=== PATIENT | male | born 1955 | race Caucasian/White ===

== ENCOUNTER 2022-02-19 10:00 | Outpatient (RCR) | payer BC, SELFPAY | END 2022-02-21 16:50 | disposition home or self-care (01) | LOC: PT.CARL 10:00 | PROVIDERS: Visit Provider Orthopaedic Surgery Adult Reconstructive Orthopaedic Surgery | DX: M16.12 Unilateral primary osteoarthritis, left hip (principal); Z96.642 Presence of left artificial hip joint | CPT/HCPCS: 97110; 97116; 97163; 97530 ==

== ENCOUNTER 2022-12-24 11:00 | Outpatient (RCR) | payer BC, SELFPAY | END 2022-12-24 12:10 | disposition home or self-care (01) | LOC: PT 11:00 | PROVIDERS: Visit Provider Orthopaedic Surgery Adult Reconstructive Orthopaedic Surgery | DX: M16.11 Unilateral primary osteoarthritis, right hip (principal); Z96.641 Presence of right artificial hip joint | CPT/HCPCS: 97110; 97112; 97163; 97530 ==

== ENCOUNTER 2023-07-28 16:48 | Outpatient (CLI) | payer BC, SELFPAY ==
[2023-07-28 16:54] LABS: Basophils % 0.3 % (0.1-2.0); Eosinophils # 0.1 K/mm3 (0.0-0.4); Eosinophils % 1.2 % (0.1-12.0); Hematocrit 34.9 % (42.0-52.0); Lymphocytes # 1.9 K/mm3 (0.7-4.5); Lymphocytes % 24.1 % (10-50); Mean Corpuscular HGB Conc 31.4 g/dL (31.8-35.4); Mean Corpuscular Hemoglobin 24.1 pg (27.0-31.2); Mean Corpuscular Volume 76.6 fl (80-94); Mean Platelet Volume 9.3 fl (7.4-10.4); Monocytes # 0.4 K/mm3 (0.1-1.0); Neutrophils # 5.5 K/mm3 (1.8-7.8); Neutrophils % 69.4 % (37.0-80.0); Platelet Count 292 K/mm3 (142-424); Red Blood Count 4.55 M/mm3 (4.60-6.20); Red Cell Distribution Width 18.7 % (11.5-17.5)
[2023-07-28 17:12] LABS: Iron 30 ug/dL (49-181)
[2023-07-28 17:22] LABS: Total Iron Binding Capacity 398 ug/dL (261-462)
== END 2023-07-28 23:59 ==
LOC: LAB.DROPOF 16:48
PROVIDERS: PCP Nurse Practitioner Family; Visit Provider Nurse Practitioner Family
DX: D64.9 Anemia, unspecified (principal)
CPT/HCPCS: 82746; 83540; 83550; 85025

== ENCOUNTER 2023-08-29 19:43 | Outpatient (CLI) | payer BC, SELFPAY ==
[2023-08-29 17:22] LABS: Alanine Aminotransferase 18 U/L (12-78); Albumin Level 3.7 g/dl (3.5-5.0); Albumin/Globulin Ratio 1.6 (1.1-1.8); Alkaline Phosphatase 97 U/L (38-126); Anion Gap 7.6 mEq/L (5-15); Aspartate Amino Transferase 30 U/L (17-59); Bilirubin,Total 0.6 mg/dl (0.2-1.3); Blood Urea Nitrogen 15 mg/dl (9-20); Carbon Dioxide 31 mmol/L (22.0-30.0); Chloride 102 mmol/L (98-107); Estimated Glomerular Filt Rate 84 ml/min (>60); GFR (African American) 102 ML/MIN (>60); Globulin 2.3 g/dL (1.3-3.2); Glucose 106 mg/dl (74-100); Potassium 4.6 mmoL/L (3.5-5.1); Sodium 136 mmol/L (136-145)
[2023-08-29 17:36] LABS: Basophils % 0.2 % (0.1-2.0); Eosinophils # 0.1 K/mm3 (0.0-0.4); Eosinophils % 2.8 % (0.1-12.0); Lymphocytes # 1.3 K/mm3 (0.7-4.5); Lymphocytes % 31.3 % (10-50); Mean Corpuscular HGB Conc 31.4 g/dL (31.8-35.4); Mean Corpuscular Hemoglobin 24.5 pg (27.0-31.2); Mean Platelet Volume 10.5 fl (7.4-10.4); Monocytes # 0.3 K/mm3 (0.1-1.0); Neutrophils # 2.5 K/mm3 (1.8-7.8); Neutrophils % 58.6 % (37.0-80.0); Platelet Count 229 K/mm3 (142-424); Red Blood Count 4.49 M/mm3 (4.60-6.20); Red Cell Distribution Width 18.5 % (11.5-17.5); White Blood Count 4.2 K/mm3 (4.8-10.8)
[2023-08-29 17:52] LABS: Thyroid Stimulating Hormone 2.01 uIU/mL (0.465-4.68)
[2023-08-29 18:11] LABS: Vitamin B12 399 pg/mL (239-931)
== END 2023-08-29 23:59 ==
LOC: LAB.DROPOF 19:43
PROVIDERS: PCP Nurse Practitioner Family; Visit Provider Nurse Practitioner Family
DX: I10 Essential (primary) hypertension (principal); D64.9 Anemia, unspecified; R97.20 Elevated prostate specific antigen [PSA]
CPT/HCPCS: 80053; 82607; 83735; 84153; 84443; 85025

== ENCOUNTER 2023-09-18 11:07 | Day surgery (SDC) | payer BC, SELFPAY ==
[2023-09-11 09:44] VITALS: BMI 30.7
[2023-09-18] MEDS: SODIUM PHOS/BIPHOSPHATE FLEET 133ML ENEMA 133 ML RC (11:30)
[2023-09-18] MEDS: LACTATED RINGERS 1000ML 1,000 ML 25 ML IV (11:30)
[2023-09-18 11:32] VITALS: BP 152/81; PULSE 95; RESP 18; TEMP 37.2; O2SAT 100
[2023-09-18 12:52] VITALS: O2SAT 100
--- NOTE | 2023-09-18 13:05 | HMH.SCOPE ---
Procedure: Date: 09/18/23 Patient Date of :: 1955 Procedure Performed:: Diagnostic colonoscopy Indications:: Anemia, History of polyps Performing Provider:: Marco Holland MD Referring Provider:: Kiley Nicole APRN Sedation:: Propofol Procedure:: After placing the patient in the left lateral decubitus position, the colonoscopy was gently inserted into the rectum and under direct visualization advanced to the cecum which was identified by transillumination in the right lower quadrant, identification of the ileocecal valve, appendiceal orifice, and cecal strap. Color, texture, mucosa, and anatomy of the colon were carefully examined with the scope. Findings:: Anal canal: normal Rectum: normal Sigmoid colon: normal without polyps or inflammatory changes, moderate diverticulosis Descending colon: normal without polyps or inflammatory changes, diverticulosis Splenic flexure: normal Transverse colon: normal without polyps or inflammatory changes Hepatic flexure: normal Ascending colon: normal without polyps or inflammatory changes Cecum: normal Terminal ileum: not visualized Impression: Diverticulosis of the left colon, otherwise normal colonoscopy No evidence of active blood loss Recommendations:: Follow up examination in about FIVE years or so, sooner if clinically indicated in view of history of polyps Consider capsule endoscopy evaluation if clinically indicated. Complications:: None Estimated blood obtained (mL): 0 Colonoscopy Component Colonoscopy Component Was a colonoscopy performed during today's procedure?: Yes Recommended follow up colonoscopy of at least 10 years?: No If no, follow up colonoscopy recommended in ___ years?: Five Reason for not recommending >/= 10 yr follow-up interval?: Hx of polyps
[2023-09-18 13:06] VITALS: BP 129/69; PULSE 69; RESP 16; TEMP 36.5; O2SAT 92
[2023-09-18 13:16] VITALS: BP 109/68; PULSE 72; RESP 16; O2SAT 95
[2023-09-18 13:26] VITALS: BP 126/74; PULSE 70; RESP 18; O2SAT 100
--- NOTE | 2023-09-18 13:31 | EXP.ANES.CKL ---
[facility] Disclaimer: The information contained in this section may have been updated after the patient was seen, as this information can be updated by other users. Medical History Hx of transesophageal echocardiography (FAN) for monitoring Normal colonoscopy Chronic GERD Hypertension Stroke Prostate cancer Surgical History History of loop recorder History of hip replacement Family History Father Stroke Mother Hypertension Other Family history of acute congestive heart failure History of dementia Social History Smoking Status: Never smoker second hand exposure: No alcohol intake: current substance use type: denies use current occupational status: employed Travel in the last 8 weeks: None household members: spouse housing: house caffeine: Yes [facility] Anesthesia Checklist Patient Identification Patient Identification: Verbal (Name & ) Structural Data Admitted From: Home Planned Operative Procedure/s: colonoscopy Consent for Planned Operative Procedure(s) Verified: Yes Airway Assessment Mallampati Score:: Class II C-Spine Mobility Assessed: Yes TMJ Mobility Assessed: Yes Dentition: Good Dentition Neurological Assessment Level of Consciousness: Awake, Alert and Appropriate Anesthesia Plan Anesthesia Risk discussed: Yes Anesthesia Plan: Verified ASA Class: II Anesthesia Type: MAC
[2023-09-18 13:35] VITALS: BP 114/74; PULSE 72; RESP 16; TEMP 36.3; O2SAT 100
== END 2023-09-18 13:44 | disposition home or self-care (01) ==
PROVIDERS: PCP Nurse Practitioner Family; Visit Provider Internal Medicine Gastroenterology
PROC: 0DJD8ZZ Inspection of Lower Intestinal Tract, Via Natural or Artificial Opening Endoscopic (ICD-10-PCS; CPT 45378; principal; 2023-09-18 12:00)
DX: D64.9 Anemia, unspecified (principal); Z86.010 Personal history of colon polyps; K57.30 Diverticulosis of large intestine without perforation or abscess without bleeding
CPT/HCPCS: 45378

== ENCOUNTER 2024-02-25 15:31 | Emergency (ER) | payer BC, SELFPAY ==
[2024-02-25 15:40] VITALS: BP 147/87; PULSE 88; RESP 20; TEMP 37; O2SAT 97; BMI 31.5
--- NOTE | 2024-02-25 15:49 | XR_ITS ---
FINAL REPORT CLINICAL HISTORY: SOA, denies cough or cp COMPARISON: None FINDINGS: Two views of the chest were obtained. The heart size and pulmonary vascularity are within normal limits. A loop recorder is present. The mediastinum is otherwise normal. Mild left base opacities are favored to represent atelectasis. There is no pneumothorax. The bony thorax is intact. IMPRESSION: Mild left base opacities favor atelectasis. Reviewed, Interpreted and Dictated by Loki Noble III, MD Transcribed by Trinity French Authenticated and [facility][1]
--- NOTE | 2024-02-25 15:55 | ED_ITS ---
Discharge Plan Disposition Patient Disposition: Home, Self-Care Condition: Good Prescriptions Prescriptions: New ondansetron 4 mg Tablet,Disintegrating 4 mg PO Q8H PRN (Reason: Nausea) Qty: 12 0RF No Action lisinopril-hydrochlorothiazide 20-12.5 mg tablet 1 tab PO DAILY diltiazem HCl 180 mg capsule,extended release 24hr 180 mg PO DAILY bupropion HCl 150 mg tablet extended release 24 hr 150 mg PO DAILY silodosin 8 mg capsule 8 mg PO DAILY Eliquis 5 mg tablet 5 mg PO DAILY Referrals Follow up/Referrals: Kiley Nicole APRN [Primary Care Provider] - See instructions Activity Restrictions/Add. Instructions Additional Instructions/Restrictions: Drink plenty of fluids. Take tylenol for pain or fever. Take the medications as directed. Follow up with your regular doctor. GO TO THE ER FOR ANY WORSENING SYMPTOMS Clinical Impressions Clinical Impression: Acute viral syndrome Instructions Patient Instructions: DI for Viral Syndrome Print Language Print Language: Azeri Discharge ED Provider: Jerrod Evans [facility] General Stated complaint: SOA frequent urination diarrhea Mode of Arrival: Ambulatory Source of Information: Patient Limitations: No Limitations Time Seen by Provider: 02/25/24 15:55 Description of Symptoms (Recalled from Triage Doc. by RN): PATIENT REPORTS HE HAS BEEN SOA FOR THE LAST COUPLE OF DAYS. HE STATES HE WAS AT [facility] TODAY WHEN HE STARTED HAVING DIFFICULTY BREATHING. HE CALLED 911 AT THAT TIME AND WAS CHECKED BY EMS AND FOUND TO HAVE AN ELEVATED BLOOD PRESSURE AND HEART RATE INITIALLY. HE STATES BY THE TIME EMS LEFT HIS BLOOD PRESSURE AND HEART RATE HAD DECREASED. PATIENT STATES HIS CALLED PCP WHO SUGGESTED HE COME HERE AND GET CHECKED OUT. HEENT Symptoms (Recalled from RN notes): No Resp Symptoms (Recalled from RN notes): Yes Skin Symptoms (Recalled from RN notes): No MS Symptoms (Recalled from RN notes): No Functional Status (Recalled from RN notes): WNL Related Data Home Medications ?Medication ?Instructions ?Recorded ?Confirmed apixaban 5 mg tablet (Eliquis) 5 mg PO DAILY 02/25/24 02/25/24 bupropion HCl 150 mg 24 hr tablet, 150 mg PO DAILY 02/25/24 02/25/24 extended release diltiazem HCl 180 mg 180 mg PO DAILY 02/25/24 02/25/24 capsule,extended release 24 hr lisinopril 20 1 tab PO DAILY 02/25/24 02/25/24 mg-hydrochlorothiazide 12.5 mg tablet silodosin 8 mg capsule 8 mg PO DAILY 02/25/24 02/25/24 Previous Rx's ?Medication ?Instructions ?Recorded ondansetron 4 mg disintegrating 4 mg PO Q8H PRN Nausea #12 tabs 02/25/24 tablet Allergies Allergy/AdvReac Type Severity Reaction Status Date / Time amoxicillin Allergy Verified 02/25/24 15:55 ciprofloxacin [From Cipro] Allergy shortness Verified 01/05/24 12:54 of breath Worker's Comp Is this a Worker's Comp case?: No [facility] Disclaimer: The information contained in this section may have been updated after the patient was seen, as this information can be updated by other users. Medical History Hx of transesophageal echocardiography (FAN) for monitoring Normal colonoscopy Chronic GERD Hypertension Stroke Prostate cancer Surgical History History of loop recorder History of hip replacement bilateral Family History Father Stroke Mother Hypertension Other Family history of acute congestive heart failure History of dementia Social History Smoking Status: Never smoker second hand exposure: No alcohol intake: current substance use type: denies use current occupational status: employed Travel in the last 8 weeks: None household members: spouse housing: house caffeine: Yes ROS Obtained: Yes All systems reviewed & no additional complaints except as documented Constitutional Constitutional: Reports chills and Reports fever(s) Eyes Eyes: Denies eye discharge ENT Ears, Nose, Mouth, and Throat: Reports as per HPI Cardiovascular Cardiovascular: Denies chest pain Respiratory Respiratory: Denies chest congestion and Reports cough Gastrointestinal Gastrointestingal: Reports nausea; Denies abdominal pain, constipation, cramping, diarrhea or vomiting Musculoskeletal Musculoskeletal: Denies arthralgias Integumentary/Breasts Skin/Breast: Denies rash Neurologic Neurologic: Denies paresthesias Physical Exam General General appearance: alert and in no apparent distress Head Head exam: atraumatic, normocephalic and normal inspection Eye Eye exam: Present normal appearance, PERRL and EOMI ENT ENT exam: Present mucous membranes moist and normal external ear exam Expanded ENT Exam TM/Canal exam: Bilateral TM: erythema and bulging Nose exam: Absent sinus tenderness Mouth exam: Present normal external inspection; Absent drooling Teeth exam: Present normal inspection Throat exam: Present tonsillar erythema, tonsillomegaly and tonsillar exudate Neck Neck exam: Present normal inspection, full ROM and trachea midline; Absent tenderness, meningismus or lymphadenopathy Chest Chest inspection: Present normal inspection and symmetric chest wall rise; Absent tenderness Respiratory Respiratory exam: Present normal lung sounds bilaterally; Absent respiratory distress, wheezes, stridor or accessory muscle use Cardiovascular Cardiovascular exam: Present regular rate and normal rhythm; Absent systolic murmur or diastolic murmur Abdominal Exam Abdominal exam: Present soft and normal bowel sounds; Absent distention, tenderness, guarding, rebound or rigidity Extremities Exam Extremities exam: Present normal inspection and normal capillary refill; Absent calf tenderness Back Exam Back exam: Present normal inspection and full ROM; Absent tenderness, CVA tenderness (R) or CVA tenderness (L) Neurological Exam Neurological exam: Present alert, oriented X3 and CN II-XII intact Psychiatric Psychiatric exam: Present normal affect and normal mood Skin Skin exam: Present warm, dry, intact and normal color Medical Decision Making Medical Records Medical records reviewed: No I reviewed the patient's medical records. Juan Inquiry Pt receiving controlled substance: No Vital Signs: 02/25/24 15:40 Temperature 98.6 F Temperature Source Oral Pulse Rate [Left Brachial] 88 Respiratory Rate 20 Blood Pressure [Left Arm] 147/87 H Blood Pressure Mean [Left Arm] 107 Blood Pressure Source [Left Arm] Automatic Cuff Blood Pressure Position [Left Arm] Sitting 02 Sat by Pulse Oximetry 97 Oxygen Delivery Method Room Air Orders (Tests/Meds): ORDERS Category Date Time Status Chest XR 2 view (NOT portable) [XR chest 2V] Stat Exams 02/25/24 15:49 Ordered
[2024-02-25 15:58] LABS: Apearance,Urine Clear (Clear); Bilirubin,Urine Negative (Negative); Blood, Urine Negative (Negative); Color,Urine Yellow (Yellow); Glucose,Urine (UA) Negative (Negative); Ketones,Urine Negative (Negative); Protein,Urine Negative (Negative); UTC Leukocyte Esterase,Urine Negative (Negative); UTC Nitrate,Urine Negative (Negative); Urobilinogen,Urine 0.2 EU/dl (0.2)
--- NOTE | 2024-02-25 16:23 | ECG_ITS ---
APPROVED REPORT Exam: Resting ECG HR:66 bpm ECG Measurements Heart Rate 66 AXES MA 165 P 32 QRSd 96 QRS 35 QT 374 T 40 QTc 387 Conclusion SINUS RHYTHM NORMAL ECG UNCONFIRMED REPORT Electronically signed by : Luke Mariano MD 02/27/2024 16:03:57
[2024-02-25 16:42] VITALS: BP 147/87; PULSE 88; RESP 20; TEMP 37; O2SAT 97
== END 2024-02-25 16:45 | disposition home or self-care (01) ==
PROVIDERS: Emergency Provider Nurse Practitioner Family; PCP Nurse Practitioner Family
DX: R06.02 Shortness of breath (principal); I10 Essential (primary) hypertension; R11.0 Nausea; B34.9 Viral infection, unspecified
CPT/HCPCS: 71046; 81003; 93005; 99204; 99212; G0463

== ENCOUNTER 2024-05-05 12:23 | Outpatient (CLI) | payer BC, SELFPAY ==
[2024-05-05 16:45] LABS: Basophils % 0.6 % (0.1-2.0); Eosinophils # 0.1 K/mm3 (0.0-0.4); Hematocrit 38.5 % (42.0-52.0); Hemoglobin 11.9 g/dL (14.1-18.0); Lymphocytes # 1.1 K/mm3 (0.7-4.5); Lymphocytes % 26.9 % (10-50); Mean Corpuscular HGB Conc 30.9 g/dL (31.8-35.4); Mean Corpuscular Hemoglobin 25.2 pg (27.0-31.2); Mean Corpuscular Volume 81.4 fl (80-94); Mean Platelet Volume 9.7 fl (7.4-10.4); Monocytes # 0.3 K/mm3 (0.1-1.0); Neutrophils # 2.5 K/mm3 (1.8-7.8); Neutrophils % 63.5 % (37.0-80.0); Platelet Count 245 K/mm3 (142-424); Red Blood Count 4.73 M/mm3 (4.60-6.20); Red Cell Distribution Width 17.2 % (11.5-17.5)
[2024-05-05 17:13] LABS: Alanine Aminotransferase 15 U/L (12-78); Albumin Level 3.8 g/dl (3.5-5.0); Albumin/Globulin Ratio 1.6 (1.1-1.8); Alkaline Phosphatase 121 U/L (38-126); Anion Gap 7.9 mEq/L (5-15); Aspartate Amino Transferase 25 U/L (17-59); Bilirubin,Total 0.7 mg/dl (0.2-1.3); Blood Urea Nitrogen 11 mg/dl (9-20); Calcium 9.3 mg/dl (8.4-10.2); Carbon Dioxide 33 mmol/L (22.0-30.0); Chloride 101 mmol/L (98-107); Chol/HDL Ratio 2.4 (1-3.5); Cholesterol 118 mg/dl (140-200); Estimated Glomerular Filt Rate 96 ml/min (>60); GFR (African American) 117 ML/MIN (>60); Globulin 2.4 g/dL (1.3-3.2); Glucose 99 mg/dl (74-100); HDL Cholesterol 49 mg/dl (40-60); Potassium 3.9 mmoL/L (3.5-5.1); Sodium 138 mmol/L (136-145); Total Protein,Serum 6.2 g/dl (6.3-8.2); Triglycerides 69 mg/dl (30-150); VLDL Cholesterol 14 mg/dL (0-40)
[2024-05-05 17:24] LABS: Direct LDL Cholesterol 56.69 mg/dL (100-129)
[2024-05-05 17:26] LABS: Hemoglobin A1C 5.7 % (4.0-6.0)
== END 2024-05-05 23:59 | disposition home or self-care (01) ==
LOC: LAB.DROPOF 05-06 12:23
PROVIDERS: PCP Family Medicine; Visit Provider Family Medicine
DX: I10 Essential (primary) hypertension (principal)
CPT/HCPCS: 80053; 80061; 83036; 85025

== ENCOUNTER 2024-10-28 09:13 | Outpatient (CLI) | payer BC, SELFPAY ==
--- OUTSIDE RECORDS SUMMARY | 2024-10-28 09:15 | XMS_ITS | Data Portability ---
Author Organization [facility] & TiffanyMARITZA ADMIN Address [address] [place] [id number] Care Team Providers Care Vice President Of Academic Affairs Name Role Phone [facility] Primary Care Pro vider Assessment No assessment recorded. Plan of Treatment Reminders Order Date Submit Date Provider Last Modified By Organization Details Last Modified Time Details Appointments None recorded. Lab CBC w/ auto diff 2022 023 [facility], [address] [place], [address], 3 14:18:12 CMP, serum or plasma 2022 023 [facility], [address] [place], [address], 3 15:46:08 venipunctur e [address] [facility], [address] [place], [address], 3 13:26:47 factor VIII activity, plasma [address] [facility], [address] [place], [address], 3 08:07:52 antithrombi n activity, plasma 2022 023 [facility], [address] [place], [address], 3 06:13:16 CBC w/ auto diff 2022 023 [facility], [address] [place], [address], 3 15:11:25 CMP, serum or plasma 2022 023 [facility], [address] [place], [address], 3 15:46:39 factor V mutation, blood or tissue 2022 023 [facility], [address] [place], [address], 3 17:10:17 prothrombin (factor II) [id number] mutation, blood [address] [facility], [address] [place], [address], 3 13:32:19 factor VIII activity, plasma 2022 023 [facility], [address] [place], [address], 3 19:43:13 antithrombi n activity, plasma [address] [facility], [address] [place], [address], 3 13:32:19 protein C + protein S, functional panel, plasma [address] [facility], [address] [place], [address], 3 13:32:19 venipunctur e 2022 023 [email or web address] [facility], [address], [place], [address], 13:46:24 Referral None recorded. Procedures None recorded. Surgeries None recorded. Imaging None recorded. Medication Orders None recorded. Patient TargetsNo targets recorded. Patient InstructionsNo instructions recorded. Reason for Referral None Reported. Results Created Date Observation Date Name Description Value Unit Range Abnormal Flag Note LastModifiedBy Organization Detail LastModifiedTime 07/25/19 23 07/25/2022 CBC AUTO W DIFF WBC 4.6 K/uL 4.0-10 .5 Not Available [facility] ([facility]) [address] , [place], [address], 07/25/2022 15:11:25 07/25/19 23 07/25/2022 CBC AUTO W DIFF RBC 5.1 M/mm3 4.7-6. 1 Not Available [facility] ([facility]) [address] , [place], [address], 07/25/2022 15:11:25 07/25/19 23 07/25/2022 CBC AUTO W DIFF HGB 13.7 gm/dL 13.5-1 8.0 Not Available [facility] ([facility]) [address] , [place], [address], 07/25/2022 15:11:25 07/25/19 23 07/25/2022 CBC AUTO W DIFF HCT 44.7 % 42.0-5 2.0 Not Available [facility] ([facility]) [address] , [place], [address], 07/25/2022 15:11:25 07/25/19 23 07/25/2022 CBC AUTO W DIFF MCV 88.2 fL 78-100 Not Available [facility] ([facility]) [address] , [place], [address], 07/25/2022 15:11:25 07/25/19 23 07/25/2022 CBC AUTO W DIFF MCH 27.0 pg 27-31 Not Available [facility] ([facility]) [address] , [place], [address], 07/25/2022 15:11:25 07/25/19 23 07/25/2022 CBC AUTO W DIFF MCHC 30.6 g/dL 32-36 low Not Available [facility] ([facility]) [address], [place], [address], 07/25/2022 15:11:25 07/25/19 23 07/25/2022 CBC AUTO W DIFF RDW 14.5 % 11.5-1 4.0 high Not Available [facility] ([facility]) [address], [place], [address], 07/25/2022 15:11:25 07/25/19 23 07/25/2022 CBC AUTO W DIFF platelet count 227 K/uL 150-45 0 Not Available [facility] ([facility]) [address], [place], [address], 07/25/2022 15:11:25 07/25/19 23 07/25/2022 CBC AUTO W DIFF neutrophil% 63.1 % 43-65 Not Available [facility] ([facility]) [address] [place], [address], 07/25/2022 15:11:25 07/25/19 23 07/25/2022 CBC AUTO W DIFF lymphocyte% 27.7 % 20.5-4 5.5 Not Available [facility] ([facility]) [address] [place], [address], 07/25/2022 15:11:25 07/25/19 23 07/25/2022 CBC AUTO W DIFF monocyte% 7.9 % 5.5-11 .7 Not Available [facility] ([facility]) [address] [place], [address], 07/25/2022 15:11:25 07/25/19 23 07/25/2022 CBC AUTO W DIFF eosinophil% 1.1 % 0.9-2. 9 Not Available [facility] ([facility]) [address] [facility], [place], [address], 07/25/2022 15:11:25 07/25/19 23 07/25/2022 CBC AUTO W DIFF basophil% 0.2 % 0.2-1. 0 Not Available [facility] ([facility]) [address] [facility], [place], [address], 07/25/2022 15:11:25 07/25/19 23 07/25/2022 CBC AUTO W DIFF neutrophil# 2.9 K/uL 2.2-4. 8 Not Available [facility] ([facility]) [address] [facility], [place], [address], 07/25/2022 15:11:25 07/25/19 23 07/25/2022 CBC AUTO W DIFF lymphocyte# 1.3 cell/ mcL 1.3-2. 9 Not Available [facility] ([facility]) [address] [facility], [place], [address], 07/25/2022 15:11:25 07/25/19 23 07/25/2022 CBC AUTO W DIFF monocyte# 0.4 cell/ mcL 0.3-0. 8 Not Available [facility] ([facility]) [address] [facility], [place], [address], 07/25/2022 15:11:25 07/25/19 23 07/25/2022 CBC AUTO W DIFF eosinophil# 0.1 cell/ mcL 0-0.2 Not Available [facility] ([facility]) [address] [facility], [place], [address], 07/25/2022 15:11:25 07/25/19 23 07/25/2022 CBC AUTO W DIFF basophil# 0.0 cell/ mcL 0.0-1. 0 Not Available [facility] ([facility]) [address], [place], [address], 07/25/2022 15:11:25 07/25/19 23 07/25/2022 CBC AUTO W DIFF manual differential NO Not Available [facility] ([facility]) [address], [place], [address], 07/25/2022 15:11:25 07/25/19 23 07/25/2022 COMP METAB OLIC PANEL sodium 139 mmol/ L 136-14 5 Not Available [facility] ([facility]) [address], [place], [address], 07/25/2022 15:46:39 07/25/19 23 07/25/2022 COMP METAB OLIC PANEL potassium 3.4 mmol/ L 3.6-5. 0 low Not Available [facility] ([facility]) [address], [place], [address], 07/25/2022 15:46:39 07/25/19 23 07/25/2022 COMP METAB OLIC PANEL chloride 100 mmol/ L 98-107 Not Available [facility] ([facility]) [address], [place], [address], 07/25/2022 15:46:39 07/25/19 23 07/25/2022 COMP METAB OLIC PANEL carbon dioxide 30.2 mmol/ L 21.0-3 2.0 Not Available [facility] ([facility]) [address], [place], [address], 07/25/2022 15:46:39 07/25/19 23 07/25/2022 COMP METAB OLIC PANEL anion gap 12.2 Not Available [facility] ([facility]) [address] , [place], [address], 07/25/2022 15:46:39 07/25/19 23 07/25/2022 COMP METAB OLIC PANEL glucose 102 mg/dL 70-120 Not Available [facility] ([facility]) [address] , [place], [address], 07/25/2022 15:46:39 07/25/19 23 07/25/2022 COMP METAB OLIC PANEL BUN 10 mg/dL 7-18 Not Available [facility] ([facility]) [address] , [place], [address], 07/25/2022 15:46:39 07/25/19 23 07/25/2022 COMP METAB OLIC PANEL creatinine 0.9 mg/dL 0.6-1. 3 Not Available [facility] ([facility]) [address] , [place], [address], 07/25/2022 15:46:39 07/25/19 23 07/25/2022 COMP METAB OLIC PANEL glomerular filtration rate >60 mlper min 60- Not Available [facility] ([facility]) [address] , [place], [address], 07/25/2022 15:46:39 07/25/19 23 07/25/2022 COMP METAB OLIC PANEL total protein 7.4 g/dL 6.4-8. 2 Not Available [facility] ([facility]) [address] , [place], [address], 07/25/2022 15:46:39 07/25/19 23 07/25/2022 COMP METAB OLIC PANEL albumin 3.7 g/dL 3.4-5. 0 Not Available [facility] ([facility]) [address] , [place], [address], 07/25/2022 15:46:39 07/25/19 23 07/25/2022 COMP METAB OLIC PANEL globulin 3.7 Not Available [facility] ([facility]) [address] , [place], [address], 07/25/2022 15:46:39 07/25/19 23 07/25/2022 COMP METAB OLIC PANEL alb/glob ratio 1.0 0.7-2 Not Available [facility] ([facility]) [address] , [place], [address], 07/25/2022 15:46:39 07/25/19 23 07/25/2022 COMP METAB OLIC PANEL calcium 8.9 mg/dL 8.5-10 .5 Not Available [facility] ([facility]) [address], [place], [address], 07/25/2022 15:46:39 07/25/19 23 07/25/2022 COMP METAB OLIC PANEL bilirubin total 0.64 mg/dL 0.10-1 .00 Not Available [facility] ([facility]) [address], [place], [address], 07/25/2022 15:46:39 07/25/19 23 07/25/2022 COMP METAB OLIC PANEL AST (SGOT) 21 U/L 0-37 Not Available [facility] ([facility]) [address], [place], [address], 07/25/2022 15:46:39 07/25/19 23 07/25/2022 COMP METAB OLIC PANEL ALT (SGPT) 26 U/L 0-65 Not Available [facility] ([facility]) [address], [place], [address], 07/25/2022 15:46:39 07/25/19 23 07/25/2022 COMP METAB OLIC PANEL alk phosphatase 139 U/L 46-116 high Not Available [facility] ([facility]) [address], [place], [address], 07/25/2022 15:46:39 07/25/19 23 07/30/2022 PROTE IN S-FUN CTION AL(AC TIVIT Y) protein S, functional 124 % 63-140 Prote in S activ ity may be false ly incre ased (mask ing an abnor mal, low resul t) in patie nts recei ving direc t Xa inhib itor (e.g. , rivar oxaba n, apixa ban, edoxa ban) or a direc t throm bin inhib itor (e.g. , dabig atran ) antic oagul ant treat ment due to assay inter feren ce by these drugs . Perfo rmed at: [facility] [address] [facility] , [place] [address] Lab Direc tor: Breanna amaral MD, Phone : [phone] Not Available [facility] ([facility]) [address] [facility], [place], [address], 07/30/2022 17:10:16 07/25/19 23 07/30/2022 FACTO R V LEIBROOKE N MUTAT ION factor V leiden COMMEN T Resul t: c.160 1G>A (p.Ar g534G ln) - Not Detec earle . This resul t is not assoc iated with an incre ased risk for andrew ous throm boemb olism . See Addit ional Clini owen Infor matio n and Comme nts. . Addit ional Clini owen Infor matio n: Venou s throm boemb olism is a multi facto rial disea se influ enced by maribeth ic, envir onmen milena, and circu mstan tial risk facto rs. The c.160 1G>A (p. Arg53 4Gln) varia nt in the F5 gene, commo nly refer red to as Facto r V Leide n, is a maribeth ic risk facto r for venou s throm boemb olism . Heter ozygo us fritz ers of this varia nt have a 6- to 8- fold incre ased risk for venou s throm boemb olism . Indiv idual s homoz ygous for this varia nt (ie, with a copy of the varia nt on each chrom osome ) have an appro ximat meir 80-fo ld incre ased risk for venou s throm boemb olism . Indiv idual s who carry both a c.*97 G>A varia nt in the F2 gene and Facto r V Leide n have an appro ximat meir 20-fo ld incre ased risk for venou s throm boemb olism . Risks are likel y to be even highe r in more compl ex genot ype combi natio ns invol ving the F2 c.*97 G>A varia nt and Facto r V Leide n (PMID : [id number] [id number]). Addit ional risk facto rs inclu de but are not limit ed to: defic iency of prote in C, prote in S, or antit hromb in III, age, male sex, perso nal or famil y histo ry of deep vein throm boemb olism , smoki ng, surge ry, prolo nged immob iliza tion, malig nant neopl asm, tamox ifen treat ment, ralox ifene treat ment, oral contr acept dejuan use, hormo ne repla cemen t thera py, and pregn mara. Manag ement of throm botic risk and throm botic event s shoul d follo w estab lishe d guide lines and fit the clini owen circu mstan ce. This resul t canno t predi ct the occur rence or recur rence of a throm botic event . . Comme nt: Maribeth ic couns abdulaziz is recom martínez d to discu ss the poten tial clini owen impli catio ns of posit dejuan resul ts, as well as recom menda tions for testi ng famil y membe rs. . Maribeth ic Coord inato rs are avail able for healt h care provi ders to discu ss resul ts at [phone] . Test Detai ls: Varia nt Julianne zed: c.160 1G>A (p. Arg53 4Gln) , refer red to as Facto r V Leide n . Metho ds/Li mitat ions: DNA julianne sis of the F5 gene (NM_0 [id number] .[id number]) was perfo rmed by PCR ampli ficat ion follo wed by restr ictio n enzym e julianne sis. The diagn ostic sensi tivit y is >99%. Resul ts must be combi baldemar with clini owen infor matio n for the most accur ate inter preta tion. Molec ular- based testi ng is highl y accur ate, but as in any labor atory test, diagn ostic error s may occur . False posit dejuan or false negat dejuan resul ts may occur for reaso ns that inclu de maribeth ic varia nts, blood trans fusio ns, bone marro w trans plant ation , somat ic or tissu e-spe cific mosai cism, misla beled sampl es, or yared eous repre senta tion of famil y relat ionsh ips. . This test was devel oped and its perfo rmanc e rebeca cteri stics deter mined by [facility]. It has not been clear ed or appro steph by the Food and Drug Admin istra tion. . Refer ences : Juan M Ruiz, Geovanni WONG, Marianela Flores, Viri FIELD, Reynold in ; [facility] Profe ssion al Pract ice and Guide lines Commi ttee. Adden dum: [facility] ge of Medic al Maribeth ics conse nsus state ment on facto r V Leide n mutat ion testi ng. Maribeth Med. 2020Sep 15. doi: 10.10 38/s4 1436- 021-0 1108- x. PMID: 29156 767. . Maria Teresa BENTLEY. Facto r V Leide n Throm bophi lisa. 1998November 24 (Upda earle 2017Jul 17). In: John MP, Jayden schuster HH, Alcon RA, et al., edito rs. GeneR genesis s(R) (Inte rnet) . Flynn small (DANIAL): Unive rsity of Flynn Ledesma; 1992- 2020. Avail able from: https ://cesar pagan.rib i.nlm .nih. gov/b ooks/ NBK13 68/ . Spenser Ruiz, Geovanni WONG, Colt Diamond, Yaakov B, Spect or EB, Mirna P, Harriet martinez CS; [facility] Labor atory Quali ty Assur ance Commi ttee. Venou s throm boemb olism labor atory testi ng (fact or V Leide n and facto r II c.*97 G>A), 2018 updat e: a techn ical stand ab of the Stella Paredes ge of Medic al Maribeth ics and Genom ics ([facility] ). Maribeth Med. 2017;2 0(12) :1489 -1498 . doi: 10.10 38/s4 1436- 018-0 322-z . Epub 2017Apr 17. PMID: 42464 698. . Sera clement, PhD, FAC Evelin Smith , PhD Guillermo elvi metzger, PhD, FACMG Karthik boles, PhD, FACMG Kole nelson, PhD, FAC W Taz Farrell, PhD, FAC Ashley Curtis, PhD, FAC Meg ruiz, PhD, FAC Perfo rmed at: [facility] [place] [address] [facility] , [place] [address] Lab Direc tor: Kayla Mcdowell [facility] , Phone : [phone] Not Available [facility] ([facility]) [address] [facility], [place], [address], 07/30/2022 17:10:17 07/25/19 23 07/30/2022 FACTO R II, DNA JULIANNE SIS factor II, DNA analysis Commen t Resul t: c.*97 G>A - Not Detec earle . This resul t is not assoc iated with an incre ased risk for andrew ous throm boemb olism . See Addit ional Clini owen Infor matio n and Comme nts. . Addit ional Clini owen Infor matio n: Venou s throm boemb olism is a multi facto rial disea se influ ence d by maribeth ic, envir onmen milena, and circu mstan tial risk facto rs. The c.*97 G>A varia nt in the F2 gene is a maribeth ic risk facto r for venou s throm boemb olism . Heter ozygo us fritz ers have a 2- to 4-fol d i ncrea sed risk for venou s throm boemb olism . Homoz ygote s for the c.*97 G> A varia nt are rare. The annua l risk of VTE in homoz ygote s has been rep orted to be 1.1%/ year. Indiv idual s who carry both a c.*97 G>A varia nt in the F2 gene and a c.160 1G>A (p. Arg53 4Gln) varia nt in the F5 gen e (comm only refer red to as Facto r V Leide n) have an appro ximat meir 20- fold incre ased risk for venou s throm boemb olism . Risks are li danielle to be even highe r in more compl ex genot ype combi natio ns invol vi ng the F2 c.*97 G>A varia nt and Facto r V Leide n (PMID : [id number] 767). Ad ditio nal risk facto rs inclu de but are not limit ed to: defic iency of p rotei n C, prote in S, or antit hromb in III, age, male sex, perso nal or f amily histo ry of deep vein throm boemb olism , smoki ng, surge ry, prol onged immob iliza tion, malig nant neopl asm, tamox ifen treat ment, ral oxife ne treat ment, oral contr acept dejuan use, hormo ne repla cemen t thera py, and pregn mara. Manag ement of throm botic risk and throm botic even ts shoul d follo w estab lishe d guide lines and fit the clini owen circu msta nce. This resul t canno t predi ct the occur rence or recur rence of a thro mboti c event . . Comme nts: Maribeth ic couns eling is recom martínez d to discu ss the poten tial c linic al impli catio ns of posit dejuan resul ts, as well as recom menda tions for testi ng famil y membe rs. Maribeth ic Coord inato rs are avail able for healt h care provi ders to discu ss resul ts at [phone] . Test Detai ls: Varia nt julianne zed: c.*97 G>A, previ ously refer red to as G2021 0 A . Metho ds/Li mitat ions: DNA julianne sis of the F2 gene (NM_[id number] .5) was perfo rmed by P CR ampli ficat ion follo wed by restr ictio n enzym e julianne sis. The d iagno stic sensi tivit y is >99%. Resul ts must be combi baldemar with clini owen infor matio n for the most accur ate inter preta tion. Molec ular- based testi ng is highl y accur ate, but as in any labor atory test, d iagno stic error s may occur . False posit dejuan or false negat dejuan resul ts m ay occur for reaso ns that inclu de maribeth ic varia nts, blood trans fusio n s, bone marro w trans plant ation , somat ic or tissu e-spe cific mosai cism , misla beled sampl es, or yared eous repre senta tion of famil y relat ionsh ips. . This test was devel oped and its perfo rmanc e rebeca cteri stics deter mined by [facility]. It has not been clear ed or appro steph by the Food and Drug Admin istra tion. . Refer ences : Juan M S, Geovanni flores [place], Marianela Flores, Viri FIELD, Reynold in ; [facility] Pro fessi onal Pract ice and Guide lines Commi ttee. Adden dum: Stella huizar e of Medic al Maribeth ics conse nsus state ment on facto r V Leide n muta tion testi ng. Maribeth Med. 2020Sep 15. doi: 10.10 38/s4 1436- 021-0 110 8-x. PMID: 66695 767. . Maria Teresa BENTLEY. Proth rombi n Throm bophi lisa. 2005Feb 04 Updat ed 2020Aug 17 . In: John CHAMBERLAIN, Jayden schuster HH, Alcon RA, et al., nakiaito rs. GeneR eview s(R) Inter net . Seatt staci (DANIAL): Unive rsity of Flynn Ledesma; 1992- 2020. Avail able from: https ://cesar pagan.ncb i.nlm .nih. gov/b ooks/ NBK11 48/ . Spenser S, Geovanni r AK, Colt X, Yaakov B, Spect or EB, Mirna P, Vinicius gracia CS; [facility] Labor atory Quali ty Assur ance Commi ttee. Venou s throm radha mboli sm labor atory testi ng (fact or V Leide n and facto r II c.*97 G>A), 2018 updat e: a techn ical stand ab of the Stella Paredes ge of Medic al Maribeth ics and Genom ics ([facility] ). Maribeth Med. 2018 Jun;2 0(12) :148 9-149 8. doi: 10.10 38/s4 1436- 018-0 322-z . Epub 2017Apr 17. PMID: 70141 698. . Sera sa Meme clement, PhD, FAC Evelin Smith , PhD [facility] Marika metzger, PhD, FAC Karthik boles, PhD, [facility] Kole nelson, PhD, FAC W Taz Farrell, PhD, [facility] Ashley Curtis, PhD, FAC Meg ruiz, PhD, FAC Perfo rmed at: [facility] [address] [place] [address] Lab Direc tor: Kayla Mcdowell [facility] , Phone : [phone] Not Available [facility] ([facility]) [address] [facility], [place], [address], 07/30/2022 17:10:18 07/25/19 23 07/30/2022 ANTIT HROMB IN 3 AG antithrobmin antigen 94 % 72-124 This test was devel oped and its perfo rmanc e rebeca cteri stics deter mined by [facility]. It has not been clear ed or appro steph by the Food and Drug Admin istra tion. Perfo rmed at: [facility] [address] [place] [address] Lab Direc tor: Breanna amaral MD, Phone : [phone] Not Available [facility] ([facility]) [address] [facility], [place], [address], 07/30/2022 17:10:19 07/25/19 23 07/30/2022 FACTO R VIII (8) ACTIV ITY factor VIII (8) activity 217 % 56-140 high FVIII activ ity can incre ase in a varie ty of clini owen situa tions inclu ding yolie l pregn mara, in sampl es drawn from patie nts (part icula rly child kenia) who are visib ly stres sed at the time of phleb otomy , as acute phase react ants, or in respo nse to certa in drug thera pies such as DDAVP . Persi stent ly eleva earle FVIII activ ity is a risk facto r for venou s throm bosis as well as recur rence of venou s throm bosis . Risk is grade d and incre ases with the degre e of eleva tion. Altho ugh eleva earle FVIII activ ity has been ident ified to clust er withi n famil ies, a maribeth ic basis for the eleva tion has not yet been eluci dated (Br J Haema chen. 2012; 157:6 53-66 3). Perfo rmed at: [facility] [place] [address] Lab Direc tor: Breanna amaral MD, Phone : [phone] Not Available [facility] ([facility]) [address] , [place], [address], 07/30/2022 17:10:20 07/25/19 23 07/30/2022 PROTE IN C FUNTI ONAL protein C functional 149 % 73-180 Perfo rmed at: [facility] [id number] [place] [address] Lab Direc tor: Breanna amaral MD, Phone : [phone] Not Available [facility] ([facility]) [address] , [place], [address], 07/30/2022 17:10:21 08/28/19 23 08/28/2022 CBC AUTO W DIFF WBC 5.2 K/uL 4.0-10 .5 Not Available [facility] ([facility]) [address] , [place], [address], 08/28/2022 14:18:12 08/28/19 23 08/28/2022 CBC AUTO W DIFF RBC 4.5 M/mm3 4.7-6. 1 low Not Available [facility] ([facility]) [address] , [place], [address], 08/28/2022 14:18:12 08/28/19 23 08/28/2022 CBC AUTO W DIFF HGB 12.6 gm/dL 13.5-1 8.0 low Not Available [facility] ([facility]) [address], [place], [address], 08/28/2022 14:18:12 08/28/19 23 08/28/2022 CBC AUTO W DIFF HCT 39.8 % 42.0-5 2.0 low Not Available [facility] ([facility]) [address] , [place], [address], 08/28/2022 14:18:12 08/28/19 23 08/28/2022 CBC AUTO W DIFF MCV 89.0 fL 78-100 Not Available [facility] ([facility]) [address] , [place], [address], 08/28/2022 14:18:12 08/28/19 23 08/28/2022 CBC AUTO W DIFF MCH 28.2 pg 27-31 Not Available [facility] ([facility]) [address] [place], [address], 08/28/2022 14:18:12 08/28/19 23 08/28/2022 CBC AUTO W DIFF MCHC 31.7 g/dL 32-36 low Not Available [facility] ([facility]) [address] , [place], [address], 08/28/2022 14:18:12 08/28/19 23 08/28/2022 CBC AUTO W DIFF RDW 14.9 % 11.5-1 4.0 high Not Available [facility] ([facility]) [address], [place], [address], 08/28/2022 14:18:12 08/28/19 23 08/28/2022 CBC AUTO W DIFF platelet count 231 K/uL 150-45 0 Not Available [facility] ([facility]) [address], [place], [address], 08/28/2022 14:18:12 08/28/19 23 08/28/2022 CBC AUTO W DIFF neutrophil% 61.9 % 43-65 Not Available [facility] ([facility]) [address] [facility], [place], [address], 08/28/2022 14:18:12 08/28/19 23 08/28/2022 CBC AUTO W DIFF lymphocyte% 28.8 % 20.5-4 5.5 Not Available [facility] ([facility]) [address], [place], [address], 08/28/2022 14:18:12 08/28/19 23 08/28/2022 CBC AUTO W DIFF monocyte% 7.5 % 5.5-11 .7 Not Available [facility] ([facility]) [address], [place], [address], 08/28/2022 14:18:12 08/28/19 23 08/28/2022 CBC AUTO W DIFF eosinophil% 1.4 % 0.9-2. 9 Not Available [facility] ([facility]) [address], [place], [address], 08/28/2022 14:18:12 08/28/19 23 08/28/2022 CBC AUTO W DIFF basophil% 0.4 % 0.2-1. 0 Not Available [facility] ([facility]) [address], [place], [address], 08/28/2022 14:18:12 08/28/19 23 08/28/2022 CBC AUTO W DIFF neutrophil# 3.2 K/uL 2.2-4. 8 Not Available [facility] ([facility]) [address] [facility], [place], [address], 08/28/2022 14:18:12 08/28/19 23 08/28/2022 CBC AUTO W DIFF lymphocyte# 1.5 cell/ mcL 1.3-2. 9 Not Available [facility] ([facility]) [address], [place], [address], 08/28/2022 14:18:12 08/28/19 23 08/28/2022 CBC AUTO W DIFF monocyte# 0.4 cell/ mcL 0.3-0. 8 Not Available [facility] ([facility]) [address], [place], [address], 08/28/2022 14:18:12 08/28/19 23 08/28/2022 CBC AUTO W DIFF eosinophil# 0.1 cell/ mcL 0-0.2 Not Available [facility] ([facility]) [address] [facility], [place], [address], 08/28/2022 14:18:12 08/28/19 23 08/28/2022 CBC AUTO W DIFF basophil# 0.0 cell/ mcL 0.0-1. 0 Not Available [facility] ([facility]) [address] [facility], [place], [address], 08/28/2022 14:18:12 08/28/19 23 08/28/2022 CBC AUTO W DIFF manual differential NO Not Available [facility] ([facility]) [address] [facility], [place], [address], 08/28/2022 14:18:12 08/28/19 23 08/28/2022 COMP METAB OLIC PANEL sodium 141 mmol/ L 136-14 5 Not Available [facility] ([facility]) [address] , [place], [address], 08/28/2022 15:46:07 08/28/19 23 08/28/2022 COMP METAB OLIC PANEL potassium 3.8 mmol/ L 3.6-5. 0 Not Available [facility] ([facility]) [address] , [place], [address], 08/28/2022 15:46:07 08/28/19 23 08/28/2022 COMP METAB OLIC PANEL chloride 104 mmol/ L 98-107 Not Available [facility] ([facility]) [address], [place], [address], 08/28/2022 15:46:07 08/28/19 23 08/28/2022 COMP METAB OLIC PANEL carbon dioxide 29.9 mmol/ L 21.0-3 2.0 Not Available [facility] ([facility]) [address] , [place], [address], 08/28/2022 15:46:07 08/28/19 23 08/28/2022 COMP METAB OLIC PANEL anion gap 10.9 Not Available [facility] ([facility]) [address] , [place], [address], 08/28/2022 15:46:07 08/28/19 23 08/28/2022 COMP METAB OLIC PANEL glucose 108 mg/dL 70-120 Not Available [facility] ([facility]) [address] [place], [address], 08/28/2022 15:46:07 08/28/19 23 08/28/2022 COMP METAB OLIC PANEL BUN 17 mg/dL 7-18 Not Available [facility] ([facility]) [address] [place], [address], 08/28/2022 15:46:07 08/28/19 23 08/28/2022 COMP METAB OLIC PANEL creatinine 0.9 mg/dL 0.6-1. 3 Not Available [facility] ([facility]) [address], [place], [address], 08/28/2022 15:46:07 08/28/19 23 08/28/2022 COMP METAB OLIC PANEL glomerular filtration rate >60 mlper min 60- Not Available [facility] ([facility]) [address], [place], [address], 08/28/2022 15:46:07 08/28/19 23 08/28/2022 COMP METAB OLIC PANEL total protein 6.2 g/dL 6.4-8. 2 low Not Available [facility] ([facility]) [address], [place], [address], 08/28/2022 15:46:07 08/28/19 23 08/28/2022 COMP METAB OLIC PANEL albumin 3.4 g/dL 3.4-5. 0 Not Available [facility] ([facility]) [address], [place], [address], 08/28/2022 15:46:07 08/28/19 23 08/28/2022 COMP METAB OLIC PANEL globulin 2.8 Not Available [facility] ([facility]) [address], [place], [address], 08/28/2022 15:46:07 08/28/19 23 08/28/2022 COMP METAB OLIC PANEL alb/glob ratio 1.2 0.7-2 Not Available [facility] ([facility]) [address], [place], [address], 08/28/2022 15:46:07 08/28/19 23 08/28/2022 COMP METAB OLIC PANEL calcium 8.6 mg/dL 8.5-10 .5 Not Available [facility] ([facility]) [address], [place], [address], 08/28/2022 15:46:07 08/28/19 23 08/28/2022 COMP METAB OLIC PANEL bilirubin total 0.50 mg/dL 0.10-1 .00 Not Available [facility] ([facility]) [address], [place], [address], 08/28/2022 15:46:07 08/28/19 23 08/28/2022 COMP METAB OLIC PANEL AST (SGOT) 24 U/L 0-37 Not Available [facility] ([facility]) [address], [place], [address], 08/28/2022 15:46:07 08/28/19 23 08/28/2022 COMP METAB OLIC PANEL ALT (SGPT) 31 U/L 0-65 Not Available [facility] ([facility]) [address], [place], [address], 08/28/2022 15:46:07 08/28/19 23 08/28/2022 COMP METAB OLIC PANEL alk phosphatase 144 U/L 46-116 high Not Available [facility] ([facility]) [address], [place], [address], 08/28/2022 15:46:07 08/28/19 23 08/30/2022 ANTIT HROMB IN 3 ACTIV ITY antithrombin activity 119 % 75-135 Direc t Xa inhib itor antic oagul ants such as rivar oxaba n, apixa ban and edoxa ban will lead to spuri ously eleva earle antit hromb in activ ity level s possi emi maski ng a defic iency . Not Available [facility] ([facility]) [address], [place], [address], 08/30/2022 06:13:16 08/28/19 23 08/30/2022 ANTIT HROMB IN 3 ACTIV ITY antithrobmin antigen 73 % 72-124 This test was kay nelson and its perfo rmanc e rebeca wilsonri stics deter mined by [employer] . It has not been clear ed or appro steph by the Food and Drug Admin istra tion. Perfo rmed at: [facility] [address] [place] [address] Lab Direc tor: Breanna amaral MD, Phone : [phone] Not Available [facility] ([facility]) [address] [facility], [place], [address], 08/30/2022 06:13:16 08/28/19 23 08/30/2022 FACTO R VIII (8) ACTIV ITY factor VIII (8) activity 211 % 56-140 high FVIII activ ity can incre ase in a varie ty of clini owen situa tions inclu ding yolie l pregn mara, in sampl es drawn from patie nts (part icula [facility] child kenia) who are visib ly stres sed at the time of phleb otomy , as acute phase react ants, or in respo nse to certa in drug thera pies such as DDAVP . Persi stent ly eleva earle FVIII activ ity is a risk facto r for venou s throm bosis as well as recur rence of venou s throm bosis . Risk is grade d and incre ases with the degre e of eleva tion. Altho ugh eleva earle FVIII activ ity has been ident ified to clust er withi n famil ies, a maribeth ic basis for the eleva tion has not yet been eluci dated (Br J Haema chen. 2012; 157:6 53-66 3). Perfo rmed at: [facility] [address] [place] [address] Lab Direc tor: Breanna amaral MD, Phone : [phone] Not Available [facility] ([facility]) [address] [facility], [place], [address], 08/30/2022 06:13:17 02/27/20 23 02/26/2023 COMP METAB OLIC PANEL sodium 141 mmol/ L 136-14 5 Not Available [facility] ([facility] Registration) [address] [place], [address], 02/26/2023 11:55:28 02/27/20 23 02/26/2023 COMP METAB OLIC PANEL potassium 3.1 mmol/ L 3.5-5. 1 low Not Available [facility] ([facility]) [address] [place], [address], 02/26/2023 11:55:28 02/27/20 23 02/26/2023 COMP METAB OLIC PANEL chloride 103 mmol/ L 98-107 Not Available [facility] ([facility] Registration) [address] [place], [address], 02/26/2023 11:55:28 02/27/20 23 02/26/2023 COMP METAB OLIC PANEL carbon dioxide 30 mmol/ L 21-32 Not Available [facility] ([facility] Registration) [address] [place], [address], 02/26/2023 11:55:28 02/27/20 23 02/26/2023 COMP METAB OLIC PANEL anion gap 8.0 Not Available [facility] ([facility] Registration) [address] [place], [address], 02/26/2023 11:55:28 02/27/20 23 02/26/2023 COMP METAB OLIC PANEL glucose 115 mg/dL 70-110 high Not Available [facility] ([facility] Registration) [address] [place], [address], 02/26/2023 11:55:28 02/27/20 23 02/26/2023 COMP METAB OLIC PANEL blood urea nitrogen 7 mg/dL 7-18 Not Available [facility] (Lab Registration) [address] [place], [address], 02/26/2023 11:55:28 02/27/20 23 02/26/2023 COMP METAB OLIC PANEL creatinine 0.9 mg/dL 0.8-1. 3 Not Available [facility] (Lab Registration) [address], [place], [address], 02/26/2023 11:55:28 02/27/20 23 02/26/2023 COMP METAB OLIC PANEL BUN/creatini ne ratio 7.8 ratio 9-21 low Not Available [facility] (Lab Registration) [address] [place], [address], 02/26/2023 11:55:28 02/27/20 23 02/26/2023 COMP METAB OLIC PANEL estimated glom filtration rate 90 mL/mi n >60- Not Available [facility] (Lab Registration) [address] [place], [address], 02/26/2023 11:55:28 02/27/20 23 02/26/2023 COMP METAB OLIC PANEL total protein 6.8 g/dL 6.4-8. 2 Not Available [facility] (Lab Registration) [address] [place], [address], 02/26/2023 11:55:28 02/27/20 23 02/26/2023 COMP METAB OLIC PANEL albumin 3.5 g/dL 3.4-5. 0 Not Available [facility] (Lab Registration) [address] [place], [address], 02/26/2023 11:55:28 02/27/20 23 02/26/2023 COMP METAB OLIC PANEL calcium 9.2 mg/dL 8.5-10 .1 Not Available [facility] (Lab Registration) [address] [place], [address], 02/26/2023 11:55:28 02/27/20 23 02/26/2023 COMP METAB OLIC PANEL corrected calcium 9.6 mg/dL 8.5-10 .1 Not Available [facility] (Lab Registration) [address] [place], [address], 02/26/2023 11:55:28 02/27/20 23 02/26/2023 COMP METAB OLIC PANEL bilirubin total 0.7 mg/dL 0.4-1. 5 Not Available [facility] (Lab Registration) [address] [place], [address], 02/26/2023 11:55:28 02/27/20 23 02/26/2023 COMP METAB OLIC PANEL AST (SGOT) 24 U/L 15-37 Not Available [facility] (Lab Registration) [address] [place], [address], 02/26/2023 11:55:28 02/27/20 23 02/26/2023 COMP METAB OLIC PANEL ALT (SGPT) 29 U/L 12-78 Not Available [facility] (Lab Registration) [address] [place], [address], 02/26/2023 11:55:28 02/27/20 23 02/26/2023 COMP METAB OLIC PANEL alk phosphatase 129 U/L Not Available [facility] (Lab Registration) [address] [place], [address], 02/26/2023 11:55:28 02/27/20 23 02/26/2023 COMP METAB OLIC PANEL note Unles s other han noted testi ng perfo rmed at: [facility] [address] [place] [address] [phone] Jack ruiz MD CLIA: [id number] Not Available [facility] (Lab Registration) [address] [place], [address], 02/26/2023 11:55:28 02/27/20 23 02/26/2023 MAGNE SIUM magnesium 1.5 mg/dL 1.8-2. 4 low Not Available [facility] (Lab Registration) [address] [place], [address], 02/26/2023 11:55:29 02/27/20 23 02/26/2023 MAGNE SIUM note Lanie s erika han noted testi ng perfo rmed at: [facility] [address] [place] [address] [phone] Jack ruiz MD CLIA: [id number] Not Available [facility] (Lab Registration) [address], [place], [address], 02/26/2023 11:55:29 02/27/20 23 02/26/2023 PHOSP HOROU S phosphorus 3.1 mg/dL 2.5-4. 9 Not Available [facility] (Lab Registration) [address], [place], [address], 02/26/2023 11:55:30 02/27/20 23 02/26/2023 PHOSP HOROU S note Lanie han noted testi ng perfo rmed at: [facility] [address] [place] [address] [phone] Jack ruiz MD CLIA: [id number] Not Available [facility] (Lab Registration) [address], [place], [address], 02/26/2023 11:55:30 Result Notes None recorded. Procedures Surgical History Date Name Laterality Status Provider Name and Address Organization Details Recorded Time 2 Hip Surgery completed Genesis Andersontherese CALVIN [facility] & [place] 07/25/2022 13:08:24 Imaging Results None recorded. Procedure Notes None recorded. Medical Equipment None Reported. Allergies Allergen ID Allergen Name Allergen Category Reaction Reaction Severity Criticality Documentation Date Start Date Code Code System Note Provider Name and Address Organization Details Recorded Time 75969 amoxicill in medicatio n dyspnea moderate Not available 07/25/2022 723 RxNorm Genesis AndersonNIKUNJ romo SHAMEKA [facility] & [place] 13:08:03 77432 Cipro medicatio n dyspnea moderate Not available 07/25/2022 75073 3 RxNorm Genesis burks, [place] - [facility] - [place] & [place] 13:08:03 Medications Name Sig Start Date Stop Date Status Note LastModified by Organization Details LastModified Time Prescriptio n - Renewal active Not Available Not Available Not Available Miralax 17 gram/dose oral powder Take 17 g by oral route for 2 days. 2023 active Not Available Not Available Not Avai lable clonidine HCl 0.1 mg tablet 07/22 completed Not Available Not Available Not Available diltiazem ER 180 mg capsule,24 hr,extended release TAKE 1 CAPSULE BY MOUTH EVERY DAY active Not Available Not Available No t Available atorvastati n 10 mg tablet TAKE 1 TABLET BY MOUTH EVERY DAY active Not Available Not Available No t Available lisinopril 20 mg-hydrochl orothiazide 12.5 mg tablet active Not Available Not Available Not Available ondansetron HCl 4 mg tablet TAKE 1 TABLET BY ORAL ROUTE EVERY 6 HOURS NEEDED FOR NAUSEA AND VOMITING. 07/22 completed Not Available Not Available Not Available fluorouraci l 5 % topical cream 07/22 completed Not Available Not Available Not Available metoprolol succinate ER 100 mg tablet,exte nded release 24 hr active Not Available Not Available Not Available clopidogrel 75 mg tablet 07/22 completed Not Available Not Available Not Available sulfamethox azole 800 mg-trimetho prim 160 mg tablet active Not Available Not Available Not Available oxycodone-a cetaminophe n 5 mg-325 mg tablet TAKE 2 TABLETS BY MOUTH EVERY FOUR HOURS NEEDED FOR MODERATE PAIN 07/22 completed Not Available Not Available Not Available potassium chloride 20 mEq oral packet MIX 1 PACKET IN 6 OUNCES OF WATER OR JUICE AND DRINK ONCE DAILY AFTER A MEAL active Not Available Not Available No t Available mupirocin 2 % topical ointment 07/22 completed Not Available Not Available Not Available amoxicillin 875 mg-potassiu m clavulanate 125 mg tablet TAKE 1 TABLET BY MOUTH EVERY 12 HOURS FOR 10 DAYS 07/22 completed Not Available Not Available Not Available Dulcolax (bisacodyl) 5 mg tablet,billie yed release Take 2 tablets by oral route for 1 day. 2023 active Not Available Not Available Not Avai lable enoxaparin 100 mg/mL subcutaneou s syringe Inject 1 mL every 12 hours by subcutane ous route as directed for 4 days. active Not Available Not Available No t Available enoxaparin 40 mg/0.4 mL subcutaneou s syringe INJECT 40MG(1 PEN) SUB-Q EVERY 24HOURS FOR 13 DAYS 07/22 completed Not Available Not Available Not Available Senna Plus 8.6 mg-50 mg tablet TAKE 2 TABLETS BY MOUTH AT BEDTIME (HOLD FOR DIARRHEA) 07/22 completed Not Available Not Available Not Available Prilosec OTC 20 mg tablet,billie yed release 1 tablet every day by oral route. 2017 active Not Available Not Available Not Avai lable alfuzosin ER 10 mg tablet,exte nded release 24 hr TAKE 1 TABLET BY MOUTH EVERY DAY active Not Available Not Available No t Available metoprolol tartrate 25 mg tablet TAKE 1 TABLET BY MOUTH EVERY DAY active Not Available Not Available No t Available silodosin 8 mg capsule active Not Available Not Available N ot Available Eliquis 5 mg tablet active Not Available Not Available No t Available Vitals Date Recorded Body temperature Oxygen saturation Oxygen saturation in Arterial blood by Pulse oximetry Heart rate Body weight Body mass index (BMI) Body height Systolic blood pressure Diastolic blood pressure Provider Name and Address Organization Details Last Updated DateTime 3 97.8 [degF] 97 % 97 % 88 /min 62856.5 9 g 30.1 kg/m2 180.34 cm 174 mm[Hg] 87 mm[Hg] Genesis Ponce [place] - [facility] & [place] 3 13:07:12 Date Recorded Body height Body mass index (BMI) Body weight Body temperature Oxygen saturation Oxygen saturation in Arterial blood by Pulse oximetry Heart rate Respiratory rate Systolic blood pressure Diastolic blood pressure Provider Name and Address Organization Details Last Updated DateTime 3 180.34 cm 30 kg/m2 99950.8 g 98.9 [degF] 96 % 96 % 82 /min 18 /min 145 mm[Hg] 72 mm[Hg] Kai Tejada [place] - [facility] & [place] 3 13:08:53 Social History Question Answer Notes LastModified by Organizat ion Details LastModified Time Tobacco Smoking Status Former Smoker Not Available [employer] 01/28/2023 10:20:57 Do You Have An Advance Directive? No CHART_MERGE Information not available 01/28/2023 What Is Your Level Of Alcohol Consumption? Moderate CHART_MERGE Information not available 01/28/2023 Are You Blind Or Do You Have Difficulty Seeing? No CHART_MERGE Information not available 01/28/2023 What Is Your Occupation? [employer] [place] [id number] Information not available 01/27/2023 What Was The Date Of Your Most Recent Tobacco Screening? 07/22/2022 CHART_MERGE Information not available 01/28/2023 Are You Passively Exposed To Smoke? No CHART_MERGE Information not available 01/28/2023 Do You Or Have You Ever Used Smokeless Tobacco? Never Used Smokeless Tobacco CHART_MERGE Information not available 01/28/2023 How Much Tobacco Do You Smoke? No CHART_MERGE Information not available 01/28/2023 Do You Feel Stressed (tense, Restless, Nervous, Or Anxious, Or Unable To Sleep At Night)? [id number] CHART[employer]MERGE Information not available 01/28/2023 Do You Use Any Illicit Or Recreational Drugs? No CHART_MERGE Information not available 01/28/2023 How Many Years Have You Smoked Tobacco? 3 CHART_MERGE Information not available 01/28/2023 Sex: Male Functional Status Question Answer Note LastModified by Organization D etails LastModified Time What is your exercise level? Moderate CHART_MERGE Information not available 01/28/2023 Mental Status None recorded. Family History Relationship Description Onset Age of this Age Resolved Age Notes LastModified by Organization Details LastModified Time Mother Hypertensive disorder CHART_MERGE Not available 01/11 10:20:56 Mother Hypercholest erolemia CHART_MERGE Not available 01/11 10:20:56 Father Cerebrovascu lar accident CHART_MERGE Not available 0 01/28/2023 10:20:56 Medical History Condition Response Arthritis Y Stroke Y Reflux/GERD Y Hypertension Y Obstructive Sleep Apnea Y Past Encounters Encounter ID Performer Location Encounter Start Date Encounter Closed Date Diagnosis/Indication Diagnosis SNOMED-CT Code Diagnosis ICD10 Code Diagnosis Note [id number] Denita Sanchez PA-C [facility] [address] [facility] [address] [place] [address] 07/25/2022 13:00:16 07/25/2022 13:33:53 Cerebrovascular accident [id number] I63.9 Patient was hospitaliz ed for acute stroke July 07, 2022. He developed numbness and tingling in his left arm and face. MRI of the brain with multiple areas of small infarction possibly embolic in origin. CT of the chest with no pulmonary embolism or aortic dissection . Cardiomega ly with pulmonary vascular congestion noted. CTA of the neck with no significan t stenosis identified . He had a FAN performed. FAN report requested. Labs on July 07, 2022 with white blood cell count 4.7. Red blood cell count 4.72. Hemoglobin 13.3 and hematocrit 41.7. MCV 88.3. Normal MCH and MCHC. Platelet count 005195. Normal differenti al. Normal PT and INR. No evidence of chronic kidney disease. Patient had COVID January 2022. He had a booster vaccine fall 2021. His father had a stroke in his early 70s. His have a history of malignancy . Up-to-date on colonoscop y. Patient was started on Eliquis. He will continue on Eliquis. Will order hypercoagu lable evaluation today. Will follow up with further recommenda tions. Anticoagulant therapy 18 [id number] Z79.01 Patient was started on Eliquis after a stroke June 2022. He will continue on Eliquis. [id number] Denita Sanchez PA-C [facility] [address] [facility] [address] [place] [address] 08/28/2022 13:01:07 08/28/2022 13:45:07 Cerebrovascular accident [id number] I63.9 Patient was hospitaliz ed for acute stroke July 07, 2022. He developed numbness and tingling in his left arm and face. MRI of the brain with multiple areas of small infarction possibly embolic in origin. CT of the chest with no pulmonary embolism or aortic dissection . Cardiomega ly with pulmonary vascular congestion noted. CTA of the neck with no significan t stenosis identified . He had a FAN performed. AFN report requested. Labs on July 07, 2022 with white blood cell count 4.7. Red blood cell count 4.72. Hemoglobin 13.3 and hematocrit 41.7. MCV 88.3. Normal MCH and MCHC. Platelet count 754378. Normal differenti al. Normal PT and INR. No evidence of chronic kidney disease. Patient had COVID January 2022. He had a booster vaccine fall 2021. His father had a stroke in his early 70s. His have a history of malignancy . Up-to-date on colonoscop y.Hypercoa gulable evaluation Performed on July 25, 2022 with negative factor 5 Leiden mutation. Negative factor 2 mutation. Normal protein C and S. Normal antithromb in antigen. Factor 8 activity elevated to 217%. Hypercoagu lable evaluation Performed on July 25, 2022 with negative factor 5 Leiden mutation. Negative factor 2 mutation. Normal protein C and S. Normal antithromb in antigen. Factor 8 activity elevated to 217%. Patient continues Eliquis. He is tolerating without trouble. Patient states he needs to have his right hip replaced and he will need surgical clearance for this. Surgery has not been scheduled yet. Discussed Loenvox bridge. Will order antithromb in III activity today. Will follow-up factor 8 activity. Will follow with further recommenda tions. Anticoagulant therapy 18 [id number] Z79.01 Patient was started on Eliquis after a stroke June 2022. He will continue on Eliquis. Laboratory test result abnormal [id number] R89.9 Hypercoagu lable evaluation Performed on July 25, 2022 with negative factor 5 Leiden mutation. Negative factor 2 mutation. Normal protein C and S. Normal antithromb in antigen. Factor 8 activity elevated to 217%. Patient continues Eliquis. Will order antithromb in III activity today. Will follow-up factor 8 activity. Will follow with further recommenda tions [id number] Tapan Lorenzo MD [facility] [address] [place] [address] 09/02/2022 11:04:52 09/02/2022 12:32:50 Cerebrovascular accident [id number] I63.9 Patient was hospitaliz ed for acute stroke July 07, 2022. He developed numbness and tingling in his left arm and face. MRI of the brain with multiple areas of small infarction possibly embolic in origin. CT of the chest with no pulmonary embolism or aortic dissection . Cardiomega ly with pulmonary vascular congestion noted. CTA of the neck with no significan t stenosis identified . He had a FAN performed. FAN report requested. Labs on July 07, 2022 with white blood cell count 4.7. Red blood cell count 4.72. Hemoglobin 13.3 and hematocrit 41.7. MCV 88.3. Normal MCH and MCHC. Platelet count [id number]. Normal differenti al. Normal PT and INR. No evidence of chronic kidney disease. Patient had COVID January 2022. He had a booster vaccine fall 2021. His father had a stroke in his early 70s. His have a history of malignancy . Up-to-date on colonoscop y.Hypercoa gulable evaluation Performed on July 25, 2022 with negative factor 5 Leiden mutation. Negative factor 2 mutation. Normal protein C and S. Normal antithromb in antigen. Factor 8 activity elevated to 217%. Hypercoagu lable evaluation Performed on July 25, 2022 with negative factor 5 Leiden mutation. Negative factor 2 mutation. Normal protein C and S. Normal antithromb in antigen. Factor 8 activity elevated to 217%. Labs on August 28, 2022 with factor 8 activity level at 211%. Anti thrombin 3 activity normal. Telephone visit on September 02, 2022 began at 10:45 a.m. and ended at 11:00 a.m.. Discussed with patient persistent elevation of factor 8 activity and increased risk of venous thromboemb olism. Patient has desire for hip replacemen t surgery and previous discussion s with Cardiology would be with the patient having hip surgery in late September/kelly y October 2022 of possible. Discussed with patient due to recent stroke as well as persistent elevated factor 8 activity level considerat ion for Lovenox bridge 1 milligram/ kilogram b.i.d. preceding surgery. Discussed stopping Eliquis 4 days prior to surgery. Once patient has surgical date will send in prescripti on for Lovenox. Do not have restrictio ns for patient proceeding with surgery. Will send prescripti on for Lovenox to provide anticoagul ation leading into surgery. Anticoagulant therapy 18 [id number] Z79.01 Patient was started on Eliquis after a stroke June 2022. He will continue on Eliquis. Laboratory test result abnormal [id number] R89.9 Hypercoagu lable evaluation Performed on July 25, 2022 with negative factor 5 Leiden mutation. Negative factor 2 mutation. Normal protein C and S. Normal antithromb in antigen. Factor 8 activity elevated to 217%. Patient continues Eliquis. Health Concerns Section Related Observation LastModified by Organization Detai ls LastModified Time None Recorded Concern Status LastModified by Organization Details LastModified Time None Recorded Advance Directives Directive N: Payers Encounter Date Sequence Insurance Name Policy Number Policy Muniz Covered Member ID Muniz Member ID Guarantor Name 07/25/2022 1 [place] [id number] Carrington G Darbro [id number] Carrington D Darbro 08/28/2022 1 [place] [id number] Carrington G Darbro [id number] Carrington D Darbro 09/02/2022 1 [place] [id number] Carrington G Darbro [id number] Carrington D Darbro Notes Date Note Type Note Provider Name and Address Organization Details Recorded Time 07/25/2022 text/html 66-year-old male presents for evaluation of CVA. Patient was hospitalized for acute stroke July 07, 2022. He developed numbness and tingling in his left arm and face. MRI of the brain with multiple areas of small infarction possibly embolic in origin. CT of the chest with no pulmonary embolism or aortic dissection. Cardiomegaly with pulmonary vascular congestion noted. CTA of the neck with no significant stenosis identified. He had a FAN performed. FAN report requested. Labs on July 07, 2022 with white blood cell count 4.7. Red blood cell count 4.72. Hemoglobin 13.3 and hematocrit 41.7. MCV 88.3. Normal MCH and MCHC. Platelet count [id number]. Normal differential. Normal PT and INR. No evidence of chronic kidney disease. Patient had COVID January 2022. He had a booster vaccine fall 2021. His father had a stroke in his early 70s. His have a history of malignancy. Up-to-date on colonoscopy. He does not smoke. Patient was started on Eliquis. He will continue on Eliquis. Will order hypercoagulable evaluation today. Will follow up with further recommendations. Denita Sanchez PA-C [address], [place], [id number], [place] [facility] & [place] 07/25/2022 14:54:41 08/28/2022 text/html 66-year-old male returns for evaluation of CVA. Patient was hospitalized for acute stroke July 07, 2022. He developed numbness and tingling in his left arm and face. MRI of the brain with multiple areas of small infarction possibly embolic in origin. CT of the chest with no pulmonary embolism or aortic dissection. Cardiomegaly with pulmonary vascular congestion noted. CTA of the neck with no significant stenosis identified. He had a FAN performed. FAN report requested. Labs on July 07, 2022 with white blood cell count 4.7. Red blood cell count 4.72. Hemoglobin 13.3 and hematocrit 41.7. MCV 88.3. Normal MCH and MCHC. Platelet count [id number]. Normal differential. Normal PT and INR. No evidence of chronic kidney disease. Patient had COVID January 2022. He had a booster vaccine fall 2021. His father had a stroke in his early 70s. His have a history of malignancy. Up-to-date on colonoscopy. He does not smoke. Hypercoagulable evaluation Performed on July 25, 2022 with negative factor 5 Leiden mutation. Negative factor 2 mutation. Normal protein C and S. Normal antithrombin antigen. Factor 8 activity elevated to 217%. Patient continues Eliquis. He is tolerating without trouble. Patient states he needs to have his right hip replaced and he will need surgical clearance for this. Surgery has not been scheduled yet. Discussed Loenvox bridge. Will order antithrombin III activity today. Will follow-up factor 8 activity. Will follow with further recommendations Denita Sanchez PA-C [address], [place], [address], [place] - [facility] - [place] & [place] 08/28/2022 13:43:14 09/02/2022 text/html 66-year-old male returns for evaluation of CVA. Patient was hospitalized for acute stroke July 07, 2022. He developed numbness and tingling in his left arm and face. MRI of the brain with multiple areas of small infarction possibly embolic in origin. CT of the chest with no pulmonary embolism or aortic dissection. Cardiomegaly with pulmonary vascular congestion noted. CTA of the neck with no significant stenosis identified. He had a FAN performed. FAN report requested. Labs on July 07, 2022 with white blood cell count 4.7. Red blood cell count 4.72. Hemoglobin 13.3 and hematocrit 41.7. MCV 88.3. Normal MCH and MCHC. Platelet count 196915. Normal differential. Normal PT and INR. No evidence of chronic kidney disease. Patient had COVID January 2022. He had a booster vaccine fall 2021. His father had a stroke in his early 70s. His have a history of malignancy. Up-to-date on colonoscopy. He does not smoke. Hypercoagulable evaluation Performed on July 25, 2022 with negative factor 5 Leiden mutation. Negative factor 2 mutation. Normal protein C and S. Normal antithrombin antigen. Factor 8 activity elevated to 217%. Patient continues Eliquis. He is tolerating without trouble. Patient states he needs to have his right hip replaced and he will need surgical clearance for this. Surgery has not been scheduled yet. Discussed Loenvox bridge. Labs on August 28, 2022 with factor 8 activity level at 211%. Anti thrombin 3 activity normal. Telephone visit on September 02, 2022 began at 10:45 a.m. and ended at 11:00 a.m.. Discussed with patient persistent elevation of factor 8 activity and increased risk of venous thromboembolism. Patient has desire for hip replacement surgery and previous discussions with Cardiology would be with the patient having hip surgery in late September/early October 2022 of possible. Discussed with patient due to recent stroke as well as persistent elevated factor 8 activity level consideration for Lovenox bridge 1 milligram/kilogram b.i.d. preceding surgery. Discussed stopping Eliquis 4 days prior to surgery. Once patient has surgical date will send in prescription for Lovenox. Do not have restrictions for patient proceeding with surgery. Will send prescription for Lovenox to provide anticoagulation leading into surgery. Patient does ask question about scuba diving. From an anticoagulation standpoint discussed consideration for shallow diving verses deeper dives. Would consider deeper diving increased risk for hypertension and would be a consideration based on prior vascular event. Will follow-up Tapan Lorenzo MD [address], [place], [address], [facility] - [place] & [place] 09/02/2022 12:29:31
--- OUTSIDE RECORDS SUMMARY | 2024-10-28 09:15 | XMS_ITS | Data Portability ---
Author Organization [employer] [place] [facility] Address [address] [place] [address] Assessment Encounter Date Assessment Date Assessment LastModified by Organization Details LastModified Time 06/25/2022 06/25/2022 SURGERY DATE: 06/25/2022 PREOPERATIVE DIAGNOSIS: Prostate carcinoma POSTOPERATIVE DIAGNOSIS: Prostate carcinoma PROCEDURE: 1. Transrectal ultrasound prostate, 2. Ultrasound guidance for needle injection of local analgesia, 3. Transrectal ultrasound guided needle biopsy of prostate SURGEON: Renita Boone MD ANESTHESIA: Local ESTIMATED BLOOD LOSS: <2 ml COMPLICATIONS: None. SPECIMENS: A total of 12 prostate biopsies were obtained from 6 locations - right apex, right mid gland, right base, left apex, left mid gland, left base OPERATIVE NOTE: Patient was correctly identified in the preoperative holding area. Informed consent was obtained. He is taken to the operating room and positioned in lateral decubitus knee tuck position. All pressure points padded. Timeout procedure completed. He had taken oral antibiotics. Transrectal ultrasonography performed showing prostate width of 53.1 mm, height of 36.2 mm, length of 54.8 mm for prostatic volume of 55.1 cm?? with a PSA density of 0.11 based upon a PSA of 6.3. Transrectal ultrasound guidance for needle injection of local analgesia was performed at the prostate and seminal vesicle junction bilaterally and the prostate apex. Once this was allowed to take effect transrectal ultrasound needle biopsy of the prostate was performed in the above-mentioned locations. Once adequate specimens had been obtained from all locations the procedure was then completed. Transrectal ultrasound was removed and patient was taken to the recovery room. DISPOSITION: The patient tolerated the procedure well. He was taken to the recovery room in stable condition. He will be discharged home with instructions for outpatient follow up. Not available 06/30/2022 17:25:07 10/25/2022 10/25/2022 Monitor PSA ariadne malagon. He wishes to continue active surveillance protocol with PSA monitoring. We discussed options of radical prostatectomy versus definitive radiation therapy. [email or web address] Not available 10/25/2022 12:33:02 05/09/2023 05/09/2023 Continue to monitor lower urinary symptoms. Medical management with silodosin. Follow-up PSA trend. [email or web address] Not available 05/10/2023 13:51:22 11/07/2023 11/07/2023 Continue to monitor lower urinary symptoms. Medical management with silodosin. Follow-up PSA trend. [email or web address] Not available 11/20/2023 10:44:58 05/12/2024 05/12/2024 Closely monitor PSA trend and lower urinary symptoms. Okay for change from silodosin to prazosin. Patient understands this may not control his lower urinary symptoms as good as silodosin but given need for hypertensive control it is warranted. [email or web address] Not available 05/15/2024 12:40:42 Plan of Treatment Reminders Order Date Submit Date Provider Last Modified By Organization Details Last Modified Time Details Appointments RECHECK 2024 01:45P Ana Maria BOONE MD Not available Not available Not available Lab urinalysi s panel, auto 2023 024 [email or web address] 4 [facility], [address], [place], [address], 05/12/2024 14:03:44 PSA, total, serum or plasma 2023 024 [facility], [facility] [place], [address], 05/12/2024 18:49:15 urinalysi s panel, auto 2023 024 [email or web address] 4 [facility], [address], [facility], [place], [address], 11/07/2023 16:23:50 PSA, total, serum or plasma 2023 024 [email or web address] [facility], [address] [place], [address], 12/18/2023 10:03:37 urinalysi s panel, auto 2022 023 [email or web address] 4 [facility], [address] [facility] [address], [facility], [place], [address], 05/09/2023 11:18:14 PSA, total, serum or plasma 2022 023 [facility], [address] [place], [address], 05/09/2023 15:44:54 PSA, serum or plasma 2022 023 [facility] ([facility]), [address] , [place], [address], 10/25/2022 16:17:12 Referral None recorded. Procedures None recorded. Surgeries None recorded. Imaging None recorded. Medication Orders None recorded. Patient TargetsNo targets recorded. Patient Instructions Encounter Date Encounter Id Patient Instructions Last Modified By Organization Details Last Modified Time 10/25/2022 [id number] learning about healthy weight Not available 10/25/2022 12:33:03 05/12/2024 [id number] learning about depression [email or web address] Not available 05/12/2024 14:03:44 Reason for Referral None Reported. Results Created Date Observation Date Name Description Value Unit Range Abnormal Flag Note LastModifiedBy Organization Detail LastModifiedTime 06/25/2006/25/2022 SURGI OWEN surgical SEE BELOW Depar tment of Patho logy Surgi owen Patho logy Repor t NAME: DILEEP HAIR PATH. :SS-2 [id number] Copy to: Diagn osis: Prost ate needl e core biops ies (A-F) : A) Left base: -Pros tatic adeno carci noma, Gleas on score 3+3 = 6. -Grad e group 1. -Tumo r invol ves one out of two cores (20% of one core) . B) Left mid: -Pros tatic adeno carci noma, Gleas on score 3+3 = 6. -Grad e group 1. -Tumo r invol ves one out of two cores (30% disco ntigu ous in one core) . C) Left apex: Benig n prost atic tissu e. D) Right base: Benig n prost atic tissu e. E) Right mid: Benig n prost atic tissu e. F) Right apex: Benig n prost atic tissu e. SOURC E OF SPECI MEN: PROST ATE BIOPS Y, A.) LEFT BASE PROST ATE BIOPS Y, C.) LEFT APEX PROST ATE BIOPS Y, E.) RIGHT MID CLINI OWEN INFOR MATIO N: R97.2 0 ELEVA LEONID PSA / LEVEL - 6.93 Gross Descr iptio n: Recei steph in forma richie label ed with the patie nt's name are six separ ate speci mens desig nated as prost ate biops y. All tissu e consi sts of martino cylin ders 0.[address]. If tissu e from two sites is place d in one casse tte, the latte r site is inked black ; e.g. if tissu es from site A and B are in one casse tte, the tissu es from site B are inked . SECTI ON LENGT H IN CENTI METER S A) Left Base 1.5, 1.8 cm (2 cores ) B) Left Mid 1.3, 1.8 cm (2 cores ) C) Left Clayton 1.5, 1.7 cm (2 cores ) D) Right Base 1.3, 1.5 cm (2 cores ) E) Right Mid 1.4, 1.5 cm (2 cores ) F) Right Clayton 0.6, 0.7, 0.8 cm (3 cores ) [facility] 06/26 10:55 AM Micro scopi c Descr iptio n: A micro scopi c exami natio n was perfo rmed on all speci mens with findi ngs as indic ated in the diagn osis. HERMILA AGUILAR MD Melany d Out Date: 06/27 13:58 Page 1 of 1 Not Available [facility] [address] [place] [address], [address], 06/27/2022 13:59:18 10/26/19 23 10/25/2022 PROST ATE SPECI FIC AG prostate specific Ag 6.530 NG/mL 0.000- 4.100 high Test metho d is based on WHO-s tanda rdize d calib ratio n using the Aaron Christina E801 julianne zer. PSA resul ts by diffe rent test proce dures canno t be direc tly cat red with one anoth er. . Not Available [facility] [address] [place] [address], [address], 10/25/2022 16:17:12 05/09/20 23 05/09/2023 PROST ATE SPECI FIC AG prostate specific Ag 6.030 NG/mL 0.000- 4.100 high Test metho d is based on WHO-s tanda rdize d calib ratio n using the Aaron Christina E801 julianne zer. PSA resul ts by diffe rent test proce dures canno t be direc tly cat red with one anoth er. . Not Available [facility] [address] [place] [address], [address], 05/09/2023 15:44:54 05/09/2005/09/2023 urina lysis panel , auto Unknown Analyte Clean Catch Not Available [facility] [place] [address] [facility], [place], [address], 05/09/2023 10:28:17 05/09/20 23 05/09/2023 urina lysis panel , auto Unknown Analyte Yellow Not Available [facility] [place] [address] [facility], [place], [address], 05/09/2023 10:28:17 05/09/20 23 05/09/2023 urina lysis panel , auto Unknown Analyte Clear Not Available [facility] [address], [place], [address], 05/09/2023 10:28:17 05/09/2005/09/2023 urina lysis panel , auto Unknown Analyte 1.005 Not Available [facility] [place] [address], [place], [address], 05/09/2023 10:28:17 05/09/2005/09/2023 urina lysis panel , auto Unknown Analyte 1.003- 1.035 Not Available [facility] [place] [address], [place], [address], 05/09/2023 10:28:17 05/09/2005/09/2023 urina lysis panel , auto Unknown Analyte 7.0 Not Available [facility] [place] [address], [place], [address], 05/09/2023 10:28:17 05/09/20 23 05/09/2023 urina lysis panel , auto Unknown Analyte 5.0-8. 0 Not Available [facility] [place] [address], [place], [address], 05/09/2023 10:28:17 05/09/2005/09/2023 urina lysis panel , auto Unknown Analyte Negati ve Not Available [facility] [place] [address], [place], [address], 05/09/2023 10:28:17 05/09/20 23 05/09/2023 urina lysis panel , auto Unknown Analyte Negati ve Not Available [facility] With [address], [place], [address], 05/09/2023 10:28:17 05/09/2005/09/2023 urina lysis panel , auto Unknown Analyte Negati ve Not Available [facility] With [address], [place], [address], 05/09/2023 10:28:17 05/09/2005/09/2023 urina lysis panel , auto Unknown Analyte Negati ve Not Available [facility] With [address], [place], [address], 05/09/2023 10:28:17 05/09/2005/09/2023 urina lysis panel , auto Unknown Analyte Negati ve Not Available [facility] With [address], [place], [address], 05/09/2023 10:28:17 05/09/2005/09/2023 urina lysis panel , auto Unknown Analyte Negati ve Not Available [facility] With [address], [place], [address], 05/09/2023 10:28:17 05/09/2005/09/2023 urina lysis panel , auto Unknown Analyte Normal Not Available [facility] [place] [address], [place], [address], 05/09/2023 10:28:17 05/09/2005/09/2023 urina lysis panel , auto Unknown Analyte Normal Not Available [facility] With [address], [place], [address], 05/09/2023 10:28:17 05/09/2005/09/2023 urina lysis panel , auto Unknown Analyte Negati ve Not Available [facility] With [address], [place], [address], 05/09/2023 10:28:17 05/09/2005/09/2023 urina lysis panel , auto Unknown Analyte Negati ve Not Available [facility] With [address], [place], [address], 05/09/2023 10:28:17 05/09/2005/09/2023 urina lysis panel , auto Unknown Analyte Normal Not Available [facility] With [address], [place], [address], 05/09/2023 10:28:17 05/09/2005/09/2023 urina lysis panel , auto Unknown Analyte Normal 1 mg/dl Not Available [facility] [address], [place], [address], 05/09/2023 10:28:17 05/09/2005/09/2023 urina lysis panel , auto Unknown Analyte Negati ve Not Available [facility] [address], [place], [address], 05/09/2023 10:28:17 05/09/2005/09/2023 urina lysis panel , auto Unknown Analyte Negati ve Not Available [facility] [address], [place], [address], 05/09/2023 10:28:17 05/09/2005/09/2023 urina lysis panel , auto Unknown Analyte Negati ve Not Available [facility] [address], [place], [address], 05/09/2023 10:28:17 05/09/20 23 05/09/2023 urina lysis panel , auto Unknown Analyte Negati ve Not Available [facility] [address], [place], [address], 05/09/2023 10:28:17 11/07/19 24 11/07/2023 urina lysis panel , auto Unknown Analyte Clean Catch Not Available [facility] [place] [address], [place], [address], 11/07/2023 12:30:50 11/07/19 24 11/07/2023 urina lysis panel , auto Unknown Analyte Yellow Not Available [facility] [address], [place], [address], 11/07/2023 12:30:50 11/07/19 24 11/07/2023 urina lysis panel , auto Unknown Analyte Clear Not Available [facility] [place] [address], [place], [address], 11/07/2023 12:30:50 11/07/19 24 11/07/2023 urina lysis panel , auto Unknown Analyte 1.000 Not Available [facility] [address], [place], [address], 11/07/2023 12:30:50 11/07/19 24 11/07/2023 urina lysis panel , auto Unknown Analyte 1.003- 1.035 Not Available [facility] [place] [address], [place], [address], 11/07/2023 12:30:50 11/07/19 24 11/07/2023 urina lysis panel , auto Unknown Analyte 7.0 Not Available [facility] [place] [address], [place], [address], 11/07/2023 12:30:50 11/07/19 24 11/07/2023 urina lysis panel , auto Unknown Analyte 5.0-8. 0 Not Available [facility] [place] [address], [place], [address], 11/07/2023 12:30:50 11/07/19 24 11/07/2023 urina lysis panel , auto Unknown Analyte Negati ve Not Available [facility] [place] [address], [place], [address], 11/07/2023 12:30:50 11/07/19 24 11/07/2023 urina lysis panel , auto Unknown Analyte Negati ve Not Available [facility] [place] [address], [place], [address], 11/07/2023 12:30:50 11/07/19 24 11/07/2023 urina lysis panel , auto Unknown Analyte Negati ve Not Available [facility] [place] [address], [place], [address], 11/07/2023 12:30:50 11/07/19 24 11/07/2023 urina lysis panel , auto Unknown Analyte Negati ve Not Available [facility] [place] [address], [place], [address], 11/07/2023 12:30:50 11/07/19 24 11/07/2023 urina lysis panel , auto Unknown Analyte Negati ve Not Available [facility] [place] [address], [place], [address], 11/07/2023 12:30:50 11/07/19 24 11/07/2023 urina lysis panel , auto Unknown Analyte Negati ve Not Available [facility] [place] [address], [place], [address], 11/07/2023 12:30:50 11/07/19 24 11/07/2023 urina lysis panel , auto Unknown Analyte Normal Not Available [facility] [place] [address], [place], [address], 11/07/2023 12:30:50 11/07/19 24 11/07/2023 urina lysis panel , auto Unknown Analyte Normal Not Available [facility] [address], [place], [address], 11/07/2023 12:30:50 11/07/19 24 11/07/2023 urina lysis panel , auto Unknown Analyte Negati ve Not Available [facility] [place] [address], [place], [address], 11/07/2023 12:30:50 11/07/19 24 11/07/2023 urina lysis panel , auto Unknown Analyte Negati ve Not Available [facility] [place] [address], [place], [address], 11/07/2023 12:30:50 11/07/19 24 11/07/2023 urina lysis panel , auto Unknown Analyte Normal Not Available [facility] [place] [address], [place], [address], 11/07/2023 12:30:50 11/07/19 24 11/07/2023 urina lysis panel , auto Unknown Analyte Normal 1 mg/dl Not Available [facility] [address] [facility], [place], [address], 11/07/2023 12:30:50 11/07/19 24 11/07/2023 urina lysis panel , auto Unknown Analyte Negati ve Not Available [facility] [address] [facility], [place], [address], 11/07/2023 12:30:50 11/07/19 24 11/07/2023 urina lysis panel , auto Unknown Analyte Negati ve Not Available [facility] [address] [facility], [place], [address], 11/07/2023 12:30:50 11/07/19 24 11/07/2023 urina lysis panel , auto Unknown Analyte Negati ve Not Available [facility] [address] [facility], [place], [address], 11/07/2023 12:30:50 11/07/19 24 11/07/2023 urina lysis panel , auto Unknown Analyte Negati ve Not Available [facility] [address] [facility], [place], [address], 11/07/2023 12:30:50 05/12/20 24 05/12/2024 PROST ATE SPECI FIC AG prostate specific Ag 6.490 NG/mL 0.000- 4.100 high This test was perfo rmed using Aaron e801 Elect aaron milum inesc ent metho d. The test metho d is based on WHO-s tanda rdize d calib ratio n. Value s obtai baldemar from diffe rent assay metho ds or manuf actur ers may not be cat rable . Not Available [facility] [address] [facility], [place], [address], 05/12/2024 18:49:15 05/12/20 24 05/12/2024 urina lysis panel , auto Unknown Analyte Clean Catch Not Available [facility] [address] [facility], [place], [address], 05/12/2024 13:42:23 05/12/20 24 05/12/2024 urina lysis panel , auto Unknown Analyte Yellow Not Available [facility] [place] [address] [facility], [place], [address], 05/12/2024 13:42:23 05/12/2005/12/2024 urina lysis panel , auto Unknown Analyte Slight ly Hazy Not Available [facility] [address] [facility], [place], [address], 05/12/2024 13:42:23 05/12/20 24 05/12/2024 urina lysis panel , auto Unknown Analyte 1.005 Not Available [facility] [place] [address] [facility], [place], [address], 05/12/2024 13:42:23 05/12/20 24 05/12/2024 urina lysis panel , auto Unknown Analyte 1.003- 1.035 Not Available [facility] [place] [address] [facility], [place], [address], 05/12/2024 13:42:23 05/12/20 24 05/12/2024 urina lysis panel , auto Unknown Analyte 7.0 Not Available [facility] [place] [address] [facility], [place], [address], 05/12/2024 13:42:23 05/12/20 24 05/12/2024 urina lysis panel , auto Unknown Analyte 5.0-8. 0 Not Available [facility] [address], [place], [address], 05/12/2024 13:42:23 05/12/20 24 05/12/2024 urina lysis panel , auto Unknown Analyte Negati ve Not Available [facility] [address], [place], [address], 05/12/2024 13:42:23 05/12/20 24 05/12/2024 urina lysis panel , auto Unknown Analyte Negati ve Not Available [facility] [place] [address], [place], [address], 05/12/2024 13:42:23 05/12/20 24 05/12/2024 urina lysis panel , auto Unknown Analyte Negati ve Not Available [facility] [address], [place], [address], 05/12/2024 13:42:23 05/12/20 24 05/12/2024 urina lysis panel , auto Unknown Analyte Negati ve Not Available [facility] [place] [address], [place], [address], 05/12/2024 13:42:23 05/12/20 24 05/12/2024 urina lysis panel , auto Unknown Analyte Negati ve Not Available [facility] [place] [address], [place], [address], 05/12/2024 13:42:23 05/12/20 24 05/12/2024 urina lysis panel , auto Unknown Analyte Negati ve Not Available [facility] [place] [address], [place], [address], 05/12/2024 13:42:23 05/12/20 24 05/12/2024 urina lysis panel , auto Unknown Analyte Normal Not Available [facility] [address], [place], [address], 05/12/2024 13:42:23 05/12/20 24 05/12/2024 urina lysis panel , auto Unknown Analyte Normal Not Available [facility] [place] [address], [place], [address], 05/12/2024 13:42:23 05/12/2005/12/2024 urina lysis panel , auto Unknown Analyte Negati ve Not Available [facility] [address], [place], [address], 05/12/2024 13:42:23 05/12/20 24 05/12/2024 urina lysis panel , auto Unknown Analyte Negati ve Not Available [facility] [address], [place], [address], 05/12/2024 13:42:23 05/12/20 24 05/12/2024 urina lysis panel , auto Unknown Analyte Normal Not Available [facility] [place] [address], [place], [address], 05/12/2024 13:42:23 05/12/20 24 05/12/2024 urina lysis panel , auto Unknown Analyte Normal 1 mg/dl Not Available [facility] [place] [address], [place], [address], 05/12/2024 13:42:23 05/12/20 24 05/12/2024 urina lysis panel , auto Unknown Analyte Negati ve Not Available [facility] [address], [place], [address], 05/12/2024 13:42:23 05/12/2005/12/2024 urina lysis panel , auto Unknown Analyte Negati ve Not Available [facility] [address], [place], [address], 05/12/2024 13:42:23 05/12/2005/12/2024 urina lysis panel , auto Unknown Analyte Negati ve Not Available [facility] [place] [address], [place], [address], 05/12/2024 13:42:23 05/12/20 24 05/12/2024 urina lysis panel , auto Unknown Analyte Negati ve Not Available [facility] [place] [address], [place], [address], 05/12/2024 13:42:23 Result Notes None recorded. Problems Name Problem SNOMED Code Status Onset Date Resolution Date Notes Provider Name and Address Organization Details Recorded Time Adenocarcinoma of prostate [id number] Active [address] [facility] 7 13:12:10 Problem Notes None recorded. Procedures Surgical History Date Name Laterality Status Provider Name and Address Organization Details Recorded Time 2 total replacement of hip completed Murelene Candido [facility] 03/22/2022 11:50:35 8 Prostate biopsy, any mthd completed Murelene Candido [facility] 12/04/2017 14:03:26 6 Prostate biopsy, any mthd completed Murelene Candido [facility] 07/18/2016 13:38:08 Xcapsl ctrc rmvl cplx wo ecp [facility] 18:18:55 [facility] 18:19:12 Imaging Results None recorded. Procedure Notes None recorded. Medical Equipment None Reported. Allergies Allergen ID Allergen Name Allergen Category Reaction Reaction Severity Criticality Documentation Date Start Date Code Code System Note Provider Name and Address Organization Details Recorded Time 590739 Cipro medicatio n Not available Not available Not available 07/18/201666869 3 RxNorm Isabel burks [facility] 7 13:37:37 Medications Name Sig Start Date Stop Date Status Note LastModified by Organization Details LastModified Time Flomax 0.4 mg capsule Take 1 capsule every day by oral route for 30 days. 05/20 completed Not Available Not Available Not Available Cipro 500 mg tablet Take 1 tablet twice a day by oral route as directed for 3 days. 02/26 completed Not Available Not Available Not Available diltiazem 90 mg tablet Take 2 tablets 3 times a day by oral route. active Not Available Not Available No t Available Bactrim DS 800 mg-160 mg tablet Take 1 tablet every 12 hours by oral route for 3 days. 10/25 completed Not Available Not Available Not Available Prilosec OTC 20 mg tablet,billie yed release Take by oral route. active Not Available Not Available No t Available alfuzosin ER 10 mg tablet,exte nded release 24 hr TAKE 1 TABLET BY MOUTH EVERY DAY 10/25 completed Not Available Not Available Not Available Lexapro 5 mg tablet Take 1 tablet every day by oral route. active Not Available Not Available No t Available atorvastati n active Not Available Not Available Not Available aspirin 10/25 completed Not Available Not Available Not Available lisinopril active Not Available Not Av ailable Not Available silodosin 8 mg capsule TAKE 1 CAPSULE BY MOUTH EVERY DAY 2023 active Not Available Not Available Not Avai lable metoprolol succ 25 mg-hydrochl orothiazide 12.5 mg tablet,ext. rel 24 hr Take 1 tablet every day by oral route. active Not Available Not Available No t Available Eliquis 5 mg tablet Take 1 tablet twice a day by oral route. active Not Available Not Available No t Available Vitals Date Recorded Body height Body mass index (BMI) Body weight Provider Name and Address Organization Details Last Updated DateTime 10/25/2022 177.8 cm 30.1 kg/m2 89392.4 g Isabel Murguiat [facility] 10/25/2022 11:35:31 Date Recorded Body height Body mass index (BMI) Body weight Provider Name and Address Organization Details Last Updated DateTime 05/09/2023 177.8 cm 30.4 kg/m2 71669.58 g Jayla Qiu [facility] 05/09/2023 10:32:42 Date Recorded Body height Body mass index (BMI) Body weight Provider Name and Address Organization Details Last Updated DateTime 11/07/2023 177.8 cm 30.4 kg/m2 44316.58 g Isabel Murguiat [facility] 11/07/2023 13:21:24 Date Recorded Body height Body mass index (BMI) Body weight Provider Name and Address Organization Details Last Updated DateTime 05/12/2024 177.8 cm 30.8 kg/m2 37344.36 g Al Lawrence [facility] 05/12/2024 13:37:41 Social History Question Answer Notes LastModified by Organizat ion Details LastModified Time Tobacco Smoking Status Current Some Day Smoker Sebastien Huffman [facility] 07/04/2016 18:18:35 How Much Tobacco Do You Chew? None Information not available 09/16/2019 Marital Status marcy Informatio n not available 07/04/2016 What Was The Date Of Your Most Recent Tobacco Screening? 05/12/2024 [email or web address] Information not available 05/12/2024 How Much Tobacco Do You Smoke? No [email or web address] Information not available 01/18/2020 Has Tobacco Cessation Counseling Been Provided? Yes Information not available 12/04/2017 On What Date Was Tobacco Cessation Counseling Provided? 12/24/2018 Information not available 12/24/2018 Sex: Male Functional Status None recorded. Mental Status None recorded. Family History Relationship Description Onset Age of this Age Resolved Age Notes LastModified by Organization Details LastModified Time Unspecified Relation Hyperlipidem ia marcy Not available 2015 18:17:37 Unspecified Relation Arthritis marcy Not available 2015 18:18:10 Father Family history of stroke [email or web address] Not available 2017 11:34:19 Medical History Condition Response Arthritis N Hypertension Y Stroke N High Cholesterol N Past Encounters Encounter ID Performer Location Encounter Start Date Encounter Closed Date Diagnosis/Indication Diagnosis SNOMED-CT Code Diagnosis ICD10 Code Diagnosis Note [id number] Rachel Purdy [facility] [address],[place] [address] 07/04/2016 15:20:05 07/11/2016 12:17:51 Prostate specific antigen outside reference range 861582134 R97.20 N40.2 N40.3 We discussed the potential causes of elevated PSA being prostate cancer, prostatiti s from infection or inflammati on, benign prostatic hyperplasi a, etc. Given the concern for potential prostate cancer we discussed prostate biopsy including the risks, benefits, alternativ es. We discussed the procedure in detail. [id number] Rachel Purdy SURGERY SCHEDULE [address] [place] [address] 07/09/2016 14:42:47 07/09/2016 14:49:59 [id number] Rachel Purdy [facility] [place] [address],[place] [address] 07/18/2016 13:13:36 08/06/2016 12:10:13 Malignant tumor of prostate 082148227 C61 [id number] Rachel Purdy [facility] [place] [address],[place] [address] 10/10/2016 13:24:16 10/10/2016 15:02:56 Malignant tumor of prostate 076618299 C61 [id number] Rachel Purdy [facility] [address] [address] 02/13/2017 13:05:15 02/28/2017 11:19:07 Adenocarcinoma of prostate 822775285 C61 [id number] [facility] [address] [address] 09/04/2017 13:18:32 09/11/2017 09:19:18 Malignant tumor of prostate 661216460 C61 [id number] [facility] [address] [place] [address] 11/18/2017 13:52:22 11/18/2017 13:59:07 [id number] Rachel Purdy [facility] [address],[place] [address] 12/04/2017 13:39:23 12/15/2017 08:59:13 Malignant tumor of prostate 674832041 C61 [id number] Rachel Purdy [facility] [address],[place] [address] 02/12/2018 15:29:04 02/23/2018 07:53:19 Prostatitis 5669079 N41.9 [id number] RENITA BOONE MD [facility] [address],[place] [address] 02/26/2018 14:25:35 03/17/2018 08:31:47 Prostatitis 3352215 N41.9 Malignant tumor of prostate 124170215 C61 [id number] RENITA BOONE MD [facility] [address],[place] [address] 06/25/2018 13:38:21 07/08/2018 11:21:35 Malignant tumor of prostate 417482782 C61 [id number] RENITA BOONE MD [facility] [address],[place] [address] 10/08/2018 13:12:57 10/19/2018 10:01:20 Malignant tumor of prostate 550574257 C61 Prostatitis 9304154 N41. 9 [id number] RENITA BOONE MD [facility] [address],[place] [address] 12/24/2018 14:09:21 01/20/2019 09:02:20 Malignant tumor of prostate 400163303 C61 [id number] RENITA BOONE MD [facility] [address] [place] [address] 05/20/2019 14:26:58 05/24/2019 08:41:38 Malignant tumor of prostate 339420973 C61 [id number] RENITA BOONE MD [facility] [address] [place] [address] 09/16/2019 13:07:31 09/16/2019 13:59:18 Tobacco user 866776853 Z72.0 Malignant tumor of prostate 889358381 C61 [id number] RENITA BOONE MD [place] [address] [address] 12/21/2019 08:42:13 12/21/2019 09:13:05 Retention of urine 950078114 R33.9 Malignant tumor of prostate 207233722 C61 [id number] RENITA BOONE MD [facility] [address] [address] 01/18/2020 11:20:08 01/18/2020 14:02:16 Malignant tumor of prostate 777540549 C61 [id number] RENITA BOONE MD SURGERY SCHEDULE [address] [place] [address] 02/15/2020 14:23:53 02/15/2020 14:24:17 [id number] RENITA BOONE MD [place] [facility] [address] [address] 03/28/2020 11:08:52 03/28/2020 12:55:42 Malignant tumor of prostate 274153473 C61 Benign pro static hyperplasia with outflow obstruction 553964587 N40.1 [id number] RENITA BOONE MD [facility] [address] [facility],[place] [address] 08/10/2020 14:41:00 08/11/2020 15:13:31 Malignant tumor of prostate 681460143 C61 Nocturia 508788945 R35.1 [id number] RENITA BOONE MD [facility] [address] [address] 12/01/2020 10:23:28 12/01/2020 11:30:01 Malignant tumor of prostate 300710855 C61 Prostate s pecific antigen above reference range 833913782 R97.20 [id number] RENITA BOONE MD [address] ,[address] [place] [address] 04/06/2021 11:17:59 04/06/2021 11:54:29 Malignant tumor of prostate 658122985 C61 Benign pro static hyperplasia with outflow obstruction 016985549 N40.1 [id number] RENITA BOONE MD [facility] [address] [place], [place] [address] 09/26/2021 13:32:49 10/03/2021 19:53:30 Malignant tumor of prostate 070627890 C61 Prostate s pecific antigen above reference range 280876222 R97.20 [id number] RENITA BOONE MD [facility] [address] [place] [address] 5 03/22/2022 11:22:29 03/26/2022 14:25:48 Prostate specific antigen above reference range 238359809 R97.20 Malignant tumor of prostate 345753627 C61 Nocturia 697457961 R35.1 [id number] RENITA BOONE MD SURGERY SCHEDULE [address] [place] [address] 06/25/2022 13:31:08 06/25/2022 13:31:46 [id number] RENITA BOONE MD [facility] [address] [place] [address] 5 10/25/2022 11:20:49 10/28/2022 06:54:45 Malignant tumor of prostate 881997047 C61 Prostate s pecific antigen above reference range 165822035 R97.20 Nocturia 741985231 R35.1 [id number] RENITA BOONE MD [facility] [address] [place] [address] 5 05/09/2023 10:20:23 05/11/2023 04:09:47 Malignant tumor of prostate 904618792 C61 Prostate s pecific antigen above reference range 248730561 R97.20 Nocturia 336870608 R35.1 [id number] RENITA BOONE MD [facility] [address] [place] [address] 5 11/07/2023 13:04:12 11/07/2023 15:04:48 Malignant tumor of prostate 342618175 C61 Prostate s pecific antigen above reference range 280144831 R97.20 Nocturia 522864671 R35.1 [id number] RENITA BOONE MD [place] [address] [place] [address],[address] [place] [address] 05/12/2024 13:03:23 05/12/2024 14:49:26 Malignant tumor of prostate 542719913 C61 Lower urin francisco tract symptoms 215283323 R39.9 Health Concerns Section Related Observation LastModified by Organization Detai ls LastModified Time None Recorded Concern Status LastModified by Organization Details LastModified Time None Recorded Advance Directives Directive None Recorded Payers Encounter Date Sequence Insurance Name Policy Number Policy Muniz Covered Member ID Muniz Member ID Guarantor Name 06/25/2022 1 [place] [id number] Carrington G Darbro [id number] Carrington Darbro 10/25/2022 1 [place] [id number] Carrington G Darbro [id number] Carrington Darbro 05/09/2023 1 [place] [id number] Carrington G Darbro [id number] Carrington Darbro 11/07/2023 1 [place] [id number] Carrington G Darbro [id number] Carrington Darbro 05/12/2024 1 [employer] [id number] Carrington G Darbro [id number] Carrington Darbro Notes Date Note Type Note Provider Name and Address Organization Details Recorded Time 10/25/2022 text/html 66-year-old male in the office for follow-up evaluation of adenocarcinoma of the prostate status post biopsy in June 2022. Patient has low grade, low volume prostate cancer. He had a confirmatory prostate biopsy in November 2017, February 2020, and June 2022 . No troubles with urination. He reports a CVA in June 2022. RENITA BOONE MD [address] [place] [address], [phone], [facility] 10/25/2022 12:33:16 05/09/2023 text/html 67-year-old male in the office for follow-up evaluation of adenocarcinoma of the prostate status post biopsy in June 2022. Patient has low grade, low volume prostate cancer. He had a confirmatory prostate biopsy in November 2017, February 2020, and June 2022 . He reports a CVA in June 2022. He has started silodosin for lower urinary symptoms and reports improvement. He reports retroactive ejaculation as a side effect. No hesitancy. No urgency. Daytime frequency 2-3 times. Nocturia 1 time. No gross hematuria. No dysuria. RENITA BOONE MD [address] [place] [address], [phone], [facility] 05/10/2023 13:51:36 11/07/2023 text/html 67-year-old male in the office for follow-up evaluation of adenocarcinoma of the prostate status post biopsy in June 2022. Patient has low grade, low volume prostate cancer. He had a confirmatory prostate biopsy in November 2017, February 2020, and June 2022 . He reports a CVA in June 2022. He experiences hesitancy. Daytime frequency normal. Nocturia 1-2 times. He has started silodosin for lower urinary symptoms and reports improvement. He reports retrograde ejaculation as a side effect. PSA:August 2023-5.8October 2022-6.03 RENITA BOONE MD [address] [place] [address], [phone], [facility] 11/20/2023 10:45:16 05/12/2024 text/html 68-year-old male in the office for follow-up evaluation of adenocarcinoma of the prostate, s/p biopsy on June 2022. Patient has low grade, low volume prostate cancer. He had a confirmatory prostate biopsy in November 2017, February 2020, and June 2022. Pt is here today to discuss changing silodosin, he reports experiencing elevated BP side effect. H/o strokes, CVA in June 2022. Pt reports satisfactory lower urinary symptom control on the medication. Pt reports occasional hesitancy in the morning. Daytime frequency normal. Nocturia 1-2 times nightly, depending on fluid intake. Pt notes drinking 40-80 oz of water throughout the day. 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 PSA:August 2023-5.8Oct2022-6.03 RENITA BOONE MD [address] [place] [address], [phone], [facility] 05/15/2024 12:40:55
[2024-10-28 10:44] LABS: Prostate Specific Ag, Diagnost 6.45 ng/ml (0.0-4.0)
== END 2024-10-28 23:59 | disposition home or self-care (01) ==
LOC: LAB 09:14
PROVIDERS: PCP Family Medicine; Visit Provider Urology
DX: C61 Malignant neoplasm of prostate (principal)
CPT/HCPCS: 36415; 84153

== ENCOUNTER 2025-02-04 04:27 | Emergency (ER) | payer BC, SELFPAY ==
[2025-02-04] VITALS (10 sets, daily range): BP systolic 132–179; BP diastolic 74–94; PULSE 53–84; RESP 10–20; TEMP 36.6–37.1; O2SAT 96–100; BMI 33.0
--- NOTE | 2025-02-04 04:24 | ECG_ITS ---
APPROVED REPORT Exam: Resting ECG HR:72 bpm ECG Measurements Heart Rate 72 AXES WY 172 P 46 QRSd 109 QRS 60 QT 382 T 50 QTc 406 Conclusion SINUS RHYTHM INCOMPLETE RIGHT BUNDLE BRANCH BLOCK [90+ ms QRS DURATION, TERMINAL R IN V1/V2, 40+ ms S IN I/aVL/V4/V5/V6] BORDERLINE ECG UNCONFIRMED REPORT Electronically signed by : Luis Owusu, 02/04/2025 16:47:06
--- NOTE | 2025-02-04 04:34 | XR_ITS ---
PROCEDURE INFORMATION: Exam: XR Chest Exam date and time: 02/04/2025 4:53 AM Age: 69 years old Clinical indication: Shortness of breath; Additional info: SOA TECHNIQUE: Imaging protocol: Radiologic exam of the chest. Views: 1 view. COMPARISON: CR XR CHEST 2V 02/25/2024 3:57 PM FINDINGS: Lungs: Unremarkable. No consolidation. Pleural spaces: Unremarkable. No pleural effusion. No pneumothorax. Heart/Mediastinum: Unremarkable. No cardiomegaly. Loop recorder present. Bones/joints: Unremarkable. IMPRESSION: No acute findings.
[2025-02-04 04:46] LABS: Hematocrit 39.3 % (42.0-52.0); Hemoglobin 12.2 g/dL (14.1-18.0); Immature Granulocytes % 0.4 %; Mean Corpuscular HGB Conc 31.0 g/dL (31.8-35.4); Mean Corpuscular Hemoglobin 27.4 pg (27.0-31.2); Mean Corpuscular Volume 88.1 fl (80-94); Nucleated Red Blood Cells % 0 %; Platelet Count 186 K/mm3 (142-424); Red Blood Count 4.46 M/mm3 (4.60-6.20); Red Cell Distribution Width-SD 51.4 fL; White Blood Count 7.8 K/mm3 (4.8-10.8)
--- OUTSIDE RECORDS SUMMARY | 2025-02-04 04:51 | XMS_ITS | Encounter Summary ---
Author Organization Healthcare Address [address] [place] [address] Care Team Providers Care Turkey Egg Gatherer Name Role Phone Pcp, No Primary Care Provider Jojo Crawford MD Unavailable [phone] Clau Lombardo APRN Primary Care Provider [phone] Encounter Details Date Type Department Care Team (Late st Contact Info) Description 07/07/2022 Orders Only External Location [address] [place] [address] Kerline Uribe MD [address] [place] [phone] Social History Tobacco Use Types Packs/Day Years Used Date Smoking Tobacco: Never Assessed Sex and Gender Information Value Date Recorded Sex Assigned at Male 07/26/2022 12:19 PM EST Legal Sex Male 10:52 AM EST Gender Identity Male 07/26/2022 12:19 PM EST Sexual Orientation Straight 07/26/2022 12 :19 PM EST documented as of this encounter Plan of Treatment Not on file documented as of this encounter Procedures Procedure Name Priority Date/Time Associated Diagnosis Comments CT ANGIO PULMONARY EMBOLISM 07/07/2022 11:25 AM EST documented in this encounter Results * CT Angio Pulmonary Embolism (07/07/2022 11:25 AM EST) Anatomical Region Laterality Modality Chest Computed Tomogra phy 07/07/2022 11:2 5 AM EST us Kerline Uribe MD IMG CT PROCEDURES Final Resul t documented in this encounter Visit Diagnoses Not on filedocumented in this encounter Care Teams Turkey Egg Gatherer Relationship Specialty Start Date End Date Pcp, No [address] [place] [address] PCP - General Family Medicine 07/26/22 08/07/22 Clau Lombardo APRN [address] [place] [address] PCP - General 08/08/22 Jojo Fink MD [address] [facility] [address] [place] [address] Consulting Physician Neurology 08/08/22 documented as of this encounter
--- OUTSIDE RECORDS SUMMARY | 2025-02-04 04:51 | XMS_ITS | Encounter Summary ---
Author Organization [facility] [address] [place] [address] Care Team Providers Care Delivery Architect Name Role Phone Lexa Gonzalez MD Primary Care Provider [phone] Encounter Details Date Type Department Care Team (Late st Contact Info) Description 01/11/2025 Telephone [facility] [address] [place] [address] Pippa Wolf MD [address] [place] [address] Social History Tobacco Use Types Packs/Day Years Used Date Smoking Tobacco: Former Cigarettes Q uit: 2002 Cigars Quit: 04/13/20 24 Passive Smoke Exposure: Past Smokeless Tobacco: Never Comments:10-12 cigars/year Alcohol Use Standard Drinks/Week Comments Yes 0 (1 standard drink = 0.6 oz pur e alcohol) 2 BEERS A DAY Sex and Gender Information Value Date Recorded Sex Assigned at Male 12/10/2022 8:52 AM EDT Legal Sex Male 1:22 PM EDT Gender Identity Male 12/10/2022 8:52 AM EDT Sexual Orientation Straight 12/10/2022 8: 52 AM EDT documented as of this encounter Miscellaneous Notes * Telephone Encounter - Michelle Kennedy RN - 01/11/2025 1:37 PM EDT Ordered * Telephone Encounter - Amada Koo RegSched Rep - 01/11/2025 1:24 PM EDT FELIPE WITH [facility] LEFT A VM REQUESTING A REFILL BE SENT IN FOR THIS PT'S ELIQUIS 5 MG TABLET PRESCRIPTION. THANK YOU. documented in this encounter Plan of Treatment Upcoming Encounters Date Type Department Care Team (Late st Contact Info) Description 03/30/2025 11:00 AM EDT Office Visit [facility] [place] [place] [address] Pippa Wolf MD [address] [place] [address] 03/30/2025 11:00 AM EDT Clinical Support No Requirements [facility] [place] [address] documented as of this encounter Visit Diagnoses Not on filedocumented in this encounter Care Teams Delivery Architect Relationship Specialty Start Date End Date Lexa Gonzalez MD [address] [place] [address] PCP - General Family Medicine 01/05/24 documented as of this encounter
--- OUTSIDE RECORDS SUMMARY | 2025-02-04 04:51 | XMS_ITS | Encounter Summary ---
Author Organization Healthcare Address [address] [place] [address] Care Team Providers Care Tester Compressed Gases Name Role Phone Pcp, No Primary Care Provider Jojo Crawford MD Unavailable [phone] Clau Lombardo APRN Primary Care Provider [phone] Encounter Details Date Type Department Care Team (Late st Contact Info) Description 07/08/2022 Orders Only External Location [address] [place] [address] Luis Méndez MD [address] [facility] [address] [place] [id number] Social History Tobacco Use Types Packs/Day Years [...] Procedure Name Priority Date/Time Associated Diagnosis Comments POC US ECHOCARDIOGRAPHY COMPLETE W DOPPLER AND COLOR 07/08/2022 10:53 AM EST documented in this encounter Results * POC US Echocardiography Complete W Doppler and Color (07/08/2022 10:53 AM EST) Anatomical Region Laterality Modality Ultrasound 07/08/2022 10:5 3 AM EST us Luis Méndez MD IMG POINT OF CARE ULTRASOUN D Final Result documented in this encounter Visit Diagnoses Not on filedocumented in this encounter Care Teams Tester Compressed Gases Relationship Specialty Start Date End Date Pcp, No [address] [place] [address] PCP - General Family Medicine 07/26/22 08/07/22 Clau Lombardo APRN [address] [place] [address] PCP - General 08/08/22 Jojo Fink MD [address] [facility] [address] [place] [address] Consulting Physician Neurology 08/08/22 documented as of this encounter
--- OUTSIDE RECORDS SUMMARY | 2025-02-04 04:51 | XMS_ITS | Encounter Summary ---
Author Organization Healthcare Address [address] [place] [address] Care Team Providers Care Facilities Operations Technician Name Role Phone Pcp, No Primary Care Provider Jojo Crawford MD Unavailable [phone] Clau Lombardo APRN Primary Care Provider [phone] Encounter Details Date Type Department Care Team (Late st Contact Info) Description 07/07/2022 Orders Only External Location [address] [place] [address] Kerline Uribe MD [address] [place] [address] [phone] Social History Tobacco Use Types Packs/Day Years [...] Name Priority Date/Time Associated Diagnosis Comments CT CERVICAL SPINE WO IV CONTRAST 07/07/2022 9:54 AM EST documented in this encounter Results * CT Cervical Spine wo IV Contrast (07/07/2022 9:54 AM EST) Anatomical Region Laterality Modality Spine, C-spine Computed Tomogra phy 07/07/2022 9:54 AM EST us Kerline Uribe MD IMG CT PROCEDURES Final Resul t documented in this encounter Visit Diagnoses Not on filedocumented in this encounter Care Teams Facilities Operations Technician Relationship Specialty Start Date End Date Pcp, No [address] [place] [address] PCP - General Family Medicine 07/26/22 08/07/22 Clau Lombardo APRN [address] [place] [address] PCP - General 08/08/22 Jojo Fink MD [address] [facility] [address] [place] [address] Consulting Physician Neurology 08/08/22 documented as of this encounter
--- OUTSIDE RECORDS SUMMARY | 2025-02-04 04:51 | XMS_ITS | Data Portability ---
Author Organization [facility] [place] [facility] Address [address] [place] [address] Care Team Providers Care Animal Ecologist Name Role Phone THUAN ANDREW Primary Care Provider Assessment Encounter Date Assessment Date Assessment LastModified by Organization Details LastModified Time 11/07/2023 11/07/2023 Continue to monitor lower urinary symptoms. Medical management with silodosin. Follow-up PSA trend. [email or web address] Not available 11/20/2023 10:44:58 05/12/2024 05/12/2024 Closely monitor PSA trend and lower urinary symptoms. Okay for change from silodosin to prazosin. Patient understands this may not control his lower urinary symptoms as good as silodosin but given need for hypertensive control it is warranted. [email or web address] Not available 05/15/2024 12:40:42 11/10/2024 11/10/2024 68-year-old male with malignant neoplasm of prostate presenting with elevated PSA. PSA stable with minor variations. No significant urinary symptoms reported. History and PSA trends suggest continued surveillance. MRI fusion biopsy discussed for evaluation and future comparison. [email or web address] Not available 11/14/2024 18:33:28 12/28/2024 12/28/2024 SURGERY DATE:12/28/2024 PREOPERATIVE DIAGNOSIS: Prostate Cancer, Elevated PSA, Prostate Lesion by MRI POSTOPERATIVE DIAGNOSIS: Prostate Cancer, Elevated PSA, Prostate Lesion by MRI PROCEDURE: 1. Transrectal ultrasound prostate, 2. Ultrasound guidance for needle injection of local analgesia, 3. Transrectal ultrasound guided MRI-fusion needle biopsy of prostate SURGEON: Renita Boone MD ANESTHESIA: MAC ESTIMATED BLOOD LOSS: <2 ml COMPLICATIONS: None. SPECIMENS: A total of 18 prostate biopsies were obtained from right apex, right mid gland, right base, left apex, left mid gland, left base, left transitional zone, right transitional zone OPERATIVE NOTE: Patient was correctly identified in the preoperative holding area. Informed consent was obtained. He is taken to the operating room and positioned in lateral decubitus knee tuck position. All pressure points padded. Timeout procedure completed. He had taken oral antibiotics. TRUS 3D mapping and MRI fusion performed. Transrectal ultrasonography performed showing prostatic volume of 79 cm . Transrectal ultrasound guidance for needle injection of local analgesia was performed at the prostate and seminal vesicle junction bilaterally and the prostate apex. Once this was allowed to take effect transrectal ultrasound needle biopsy of the prostate was performed in the above-mentioned locations with targeted biopsies of the lesions by MRI using fusion technology. Once adequate specimens had been obtained from all locations the procedure was then completed. Transrectal ultrasound was removed and patient was taken to the recovery room. DISPOSITION: The patient tolerated the procedure well. He was taken to the recovery room in stable condition. He will be discharged home with instructions for outpatient follow up. Not available 12/28/2024 19:14:11 01/11/2025 01/11/2025 - 69-year-old ma le with low-grade prostate cancer under active surveillance. - MRI showed PI-RADS 4/5 lesion in the right transition zone. - December 2024 biopsy showed atypical small acinar proliferation, no malignancy. - PSA levels fluctuating, recent readings 6.45 and 6.49. [email or web address] Not available 01/11/2025 10:34:04 Plan of Treatment Reminders Order Date Submit Date Provider Last Modified By Organization Details Last Modified Time Details Appointments RECHECK 2025 01:15P AnaM aria BOONE MD Not available Not available Not available Lab urinalysi s panel, auto 2024 025 [email or web address] 4 [facility], [address], [address], [place], [address], 01/11/2025 10:33:13 urinalysi s panel, auto 04/30/ 2025 04/30/2 025 [email or web address] 4 [facility], [address], [facility], [place], [address], 11/10/2024 14:21:17 urinalysi s panel, auto 2023 024 [email or web address] 4 [facility], [address], [facility], [place], [address], 05/12/2024 14:03:44 PSA, total, serum or plasma 2023 024 [facility], [address] [place] [address], [address], 05/12/2024 18:49:15 urinalysi s panel, auto 2023 024 [email or web address] 4 [facility], [address], [facility], [place], [address], 11/07/2023 16:23:50 PSA, total, serum or plasma 2023 024 [email or web address] [facility], [address] [place] [address], [address], 12/18/2023 10:03:37 Referral None recorded. Procedures None recorded. Surgeries None recorded. Imaging MRI, pelvis, w/wo contrast 2024 025 [facility], [facility] [address], [place], [address], 12/15/2024 11:25:01 Medication Orders None recorded. Patient TargetsNo targets recorded. Patient Instructions Encounter Date Encounter Id Patient Instructions Last Modified By Organization Details Last Modified Time 05/12/2024 [id number] learning about depression [email or web address] Not available 05/12/2024 14:03:44 11/10/2024 [id number] learning about healthy weight [email or web address] Not available 11/10/2024 14:21:17 - Drink adequate fluids and monitor urinary symptoms. - Report any changes in urination or general health. - Follow-up for MRI appointment as discussed. - Continue prescribed blood pressure medication and report any changes or symptoms of concern. - Contact the office with any questions or concerns about your health. [email or web address] Not available 11/10/2024 14:22:06 01/11/2025 [id number] - Continue regular PSA tests as scheduled. - Report any new symptoms or changes in health to your doctor. - Discuss treatment options if there are changes in your condition. [email or web address] Not available 01/11/2025 10:34:07 Reason for Referral None Reported. Results Created Date Observation Date Name Description Value Unit Range Abnormal Flag Note LastModifiedBy Organization Detail LastModifiedTime 11/07/19 24 11/07/2023 urina lysis panel , auto Unknown Analyte Clean Catch Not Available [facility] With [address], [place], [address], 11/07/2023 12:30:50 11/07/19 24 11/07/2023 urina lysis panel , auto Unknown Analyte Yellow Not Available [facility] With [address], [place], [address], 11/07/2023 12:30:50 11/07/19 24 11/07/2023 urina lysis panel , auto Unknown Analyte Clear Not Available [facility] With [place] [address], [place], [address], 11/07/2023 12:30:50 11/07/19 24 11/07/2023 urina lysis panel , auto Unknown Analyte 1.000 Not Available [facility] With [address], [place], [address], 11/07/2023 12:30:50 11/07/19 24 11/07/2023 urina lysis panel , auto Unknown Analyte 1.003- 1.035 Not Available [facility] [address], [place], [address], 11/07/2023 12:30:50 11/07/19 24 11/07/2023 urina lysis panel , auto Unknown Analyte 7.0 Not Available [facility] With [address], [place], [address], 11/07/2023 12:30:50 11/07/19 24 11/07/2023 urina lysis panel , auto Unknown Analyte 5.0-8. 0 Not Available [facility] With [address], [place], [address], 11/07/2023 12:30:50 11/07/19 24 11/07/2023 urina lysis panel , auto Unknown Analyte Negati ve Not Available [facility] With [address], [place], [address], 11/07/2023 12:30:50 11/07/19 24 11/07/2023 urina lysis panel , auto Unknown Analyte Negati ve Not Available [facility] With [address], [place], [address], 11/07/2023 12:30:50 11/07/19 24 11/07/2023 urina lysis panel , auto Unknown Analyte Negati ve Not Available [facility] [place] [address] [address], [place], [address], 11/07/2023 12:30:50 11/07/19 24 11/07/2023 urina lysis panel , auto Unknown Analyte Negati ve Not Available [facility] With [address], [place], [address], 11/07/2023 12:30:50 11/07/19 24 11/07/2023 urina lysis panel , auto Unknown Analyte Negati ve Not Available [facility] With [address], [place], [address], 11/07/2023 12:30:50 11/07/19 24 11/07/2023 urina lysis panel , auto Unknown Analyte Negati ve Not Available [facility] [place] [address] [address], [place], [address], 11/07/2023 12:30:50 11/07/19 24 11/07/2023 urina lysis panel , auto Unknown Analyte Normal Not Available [facility] With [address], [place], [address], 11/07/2023 12:30:50 11/07/19 24 11/07/2023 urina lysis panel , auto Unknown Analyte Normal Not Available [facility] [place] [address], [place], [address], 11/07/2023 12:30:50 11/07/19 24 11/07/2023 urina lysis panel , auto Unknown Analyte Negati ve Not Available [facility] [place] [address], [place], [address], 11/07/2023 12:30:50 11/07/19 24 11/07/2023 urina lysis panel , auto Unknown Analyte Negati ve Not Available [facility] [place] [address], [place], [address], 11/07/2023 12:30:50 11/07/19 24 11/07/2023 urina lysis panel , auto Unknown Analyte Normal Not Available [facility] With [address] [facility] [address], [place], [address], 11/07/2023 12:30:50 11/07/19 24 11/07/2023 urina lysis panel , auto Unknown Analyte Normal 1 mg/dl Not Available [facility] With [address], [place], [address], 11/07/2023 12:30:50 11/07/19 24 11/07/2023 urina lysis panel , auto Unknown Analyte Negati ve Not Available [facility] With [address], [place], [address], 11/07/2023 12:30:50 11/07/19 24 11/07/2023 urina lysis panel , auto Unknown Analyte Negati ve Not Available [facility] With [address] [facility], [place], [address], 11/07/2023 12:30:50 11/07/19 24 11/07/2023 urina lysis panel , auto Unknown Analyte Negati ve Not Available [facility] With [address] [facility], [place], [address], 11/07/2023 12:30:50 11/07/19 24 11/07/2023 urina lysis panel , auto Unknown Analyte Negati ve Not Available [facility] With [address], [place], [address], 11/07/2023 12:30:50 05/12/20 24 05/12/2024 PROST ATE [...] manuf actur ers may not be cat rabstaci . Not Available [facility] [address] [facility], [place], [address], 05/12/2024 18:49:15 05/12/20 24 05/12/2024 urina lysis panel , auto Unknown Analyte Clean Catch Not Available [facility] With [address] [facility], [place], [address], 05/12/2024 13:42:23 05/12/2005/12/2024 urina lysis panel , auto Unknown Analyte Yellow Not Available [facility] [address] [facility], [place], [address], 05/12/2024 13:42:23 05/12/20 24 05/12/2024 urina lysis panel , auto Unknown Analyte Slight ly Hazy Not Available [facility] With [address] [facility], [place], [address], 05/12/2024 13:42:23 05/12/20 24 05/12/2024 urina lysis panel , auto Unknown Analyte 1.005 Not Available [facility] With [address] [facility], [place], [address], 05/12/2024 13:42:23 05/12/20 24 05/12/2024 urina lysis panel , auto Unknown Analyte 1.003- 1.035 Not Available [facility] With [address], [place], [address], 05/12/2024 13:42:23 05/12/20 24 05/12/2024 urina lysis panel , auto Unknown Analyte 7.0 Not Available [facility] With [address], [place], [address], 05/12/2024 13:42:23 05/12/2005/12/2024 urina lysis panel , auto Unknown Analyte 5.0-8. 0 Not Available [facility] With [address], [place], [address], 05/12/2024 13:42:23 05/12/20 24 05/12/2024 urina lysis panel , auto Unknown Analyte Negati ve Not Available [facility] [place] [address], [place], [address], 05/12/2024 13:42:23 05/12/20 24 05/12/2024 urina lysis panel , auto Unknown Analyte Negati ve Not Available [facility] [place] [address] [facility], [place], [address], 05/12/2024 13:42:23 05/12/20 24 05/12/2024 urina lysis panel , auto Unknown Analyte Negati ve Not Available [facility] [place] [address], [place], [address], 05/12/2024 13:42:23 05/12/20 24 05/12/2024 urina lysis panel , auto Unknown Analyte Negati ve Not Available [facility] [place] [address], [place], [address], 05/12/2024 13:42:23 05/12/20 24 05/12/2024 urina lysis panel , auto Unknown Analyte Negati ve Not Available [facility] [place] [address] [address], [place], [address], 05/12/2024 13:42:23 05/12/20 24 05/12/2024 urina lysis panel , auto Unknown Analyte Negati ve Not Available [facility] With [address], [place], [address], 05/12/2024 13:42:23 05/12/20 24 05/12/2024 urina lysis panel , auto Unknown Analyte Normal Not Available [facility] [place] [address] [address], [place], [address], 05/12/2024 13:42:23 05/12/2005/12/2024 urina lysis panel , auto Unknown Analyte Normal Not Available [facility] [place] [address], [place], [address], 05/12/2024 13:42:23 05/12/2005/12/2024 urina lysis panel , auto Unknown Analyte Negati ve Not Available [facility] [place] [address] [address], [place], [address], 05/12/2024 13:42:23 05/12/20 24 05/12/2024 urina lysis panel , auto Unknown Analyte Negati ve Not Available [facility] [place] [address] [address], [place], [address], 05/12/2024 13:42:23 05/12/20 24 05/12/2024 urina lysis panel , auto Unknown Analyte Normal Not Available [facility] [place] [address], [place], [address], 05/12/2024 13:42:23 05/12/20 24 05/12/2024 urina lysis panel , auto Unknown Analyte Normal 1 mg/dl Not Available [facility] [place] [address] [place], [address], 05/12/2024 13:42:23 05/12/20 24 05/12/2024 urina lysis panel , auto Unknown Analyte Negati ve Not Available [facility] With [address], [place], [address], 05/12/2024 13:42:23 05/12/20 24 05/12/2024 urina lysis panel , auto Unknown Analyte Negati ve Not Available [facility] With [address], [place], [address], 05/12/2024 13:42:23 05/12/20 24 05/12/2024 urina lysis panel , auto Unknown Analyte Negati ve Not Available [facility] [place] [address] [address], [place], [address], 05/12/2024 13:42:23 05/12/20 24 05/12/2024 urina lysis panel , auto Unknown Analyte Negati ve Not Available [facility] [place] [address] [address], [place], [address], 05/12/2024 13:42:23 11/11/19 25 11/10/2024 urina lysis panel , auto Unknown Analyte Clean Catch Not Available [facility] [place] [address] [address], [place], [address], 11/10/2024 13:58:11 11/11/19 25 11/10/2024 urina lysis panel , auto Unknown Analyte Yellow Not Available [facility] [place] [address] [address], [place], [address], 11/10/2024 13:58:11 11/11/19 25 11/10/2024 urina lysis panel , auto Unknown Analyte Clear Not Available [facility] With [address], [place], [address], 11/10/2024 13:58:11 11/11/19 25 11/10/2024 urina lysis panel , auto Unknown Analyte 1.000 Not Available [facility] With [address], [place], [address], 11/10/2024 13:58:11 11/11/19 25 11/10/2024 urina lysis panel , auto Unknown Analyte 1.003 - 1.030 Not Available [facility] With [address], [place], [address], 11/10/2024 13:58:11 11/11/19 25 11/10/2024 urina lysis panel , auto Unknown Analyte 7.0 Not Available [facility] With [address], [place], [address], 11/10/2024 13:58:11 11/11/19 25 11/10/2024 urina lysis panel , auto Unknown Analyte 5.0 - 8.0 Not Available [facility] With [address], [place], [address], 11/10/2024 13:58:11 11/11/19 25 11/10/2024 urina lysis panel , auto Unknown Analyte Negati ve Not Available [facility] [place] [address] [address], [place], [address], 11/10/2024 13:58:11 11/11/19 25 11/10/2024 urina lysis panel , auto Unknown Analyte Negati ve Not Available [facility] With [address], [place], [address], 11/10/2024 13:58:11 11/11/19 25 11/10/2024 urina lysis panel , auto Unknown Analyte Negati ve Not Available [facility] [place] [address] [place], [address], 11/10/2024 13:58:11 11/11/19 25 11/10/2024 urina lysis panel , auto Unknown Analyte Negati ve Not Available [facility] [place] [address] [address], [place], [address], 11/10/2024 13:58:11 11/11/19 25 11/10/2024 urina lysis panel , auto Unknown Analyte Negati ve Not Available [facility] [place] [address], [place], [address], 11/10/2024 13:58:11 11/11/19 25 11/10/2024 urina lysis panel , auto Unknown Analyte Negati ve Not Available [facility] [place] [address], [place], [address], 11/10/2024 13:58:11 11/11/19 25 11/10/2024 urina lysis panel , auto Unknown Analyte Normal Not Available [facility] [place] [address] [address], [place], [address], 11/10/2024 13:58:11 11/11/19 25 11/10/2024 urina lysis panel , auto Unknown Analyte Normal Not Available [facility] [place] [address], [place], [address], 11/10/2024 13:58:11 11/11/19 25 11/10/2024 urina lysis panel , auto Unknown Analyte Negati ve Not Available [facility] With [address], [place], [address], 11/10/2024 13:58:11 11/11/19 25 11/10/2024 urina lysis panel , auto Unknown Analyte Negati ve Not Available [facility] With [address], [place], [address], 11/10/2024 13:58:11 11/11/19 25 11/10/2024 urina lysis panel , auto Unknown Analyte Normal Not Available [facility] With [address], [place], [address], 11/10/2024 13:58:11 11/11/19 25 11/10/2024 urina lysis panel , auto Unknown Analyte Normal Not Available [facility] [place] [address] [address], [place], [address], 11/10/2024 13:58:11 11/11/19 25 11/10/2024 urina lysis panel , auto Unknown Analyte Negati ve Not Available [facility] With [address], [place], [address], 11/10/2024 13:58:11 11/11/19 25 11/10/2024 urina lysis panel , auto Unknown Analyte Negati ve Not Available [facility] With [address], [place], [address], 11/10/2024 13:58:11 11/11/19 25 11/10/2024 urina lysis panel , auto Unknown Analyte Negati ve Not Available [facility] With [address], [place], [address], 11/10/2024 13:58:11 11/11/19 25 11/10/2024 urina lysis panel , auto Unknown Analyte Negati ve Not Available [facility] With [address], [place], [address], 11/10/2024 13:58:11 12/29/19 25 12/28/2024 SURGI OWEN surgical SEE BELOW normal Surgi owen Patho logy Repor t NAME: DILEEP HAIR PATH: [id number] DATE of : 12/08 5 Copy to: Diagn osis: Prost ate needl e core biops ies: A) Left base: Benig n prost ate tissu e. B) Left mid: Benig n prost ate tissu e. C) Left apex: - Rare atypi owen small acina r proli ferat ion (SERGIO ). - PIN 4 immun ostai ns: Suppo rt diagn osis. D) Right base: Benig n prost ate tissu e. E) Right mid: Benig n prost ate tissu e. F) Right apex: Benig n prost ate tissu e. G) Left trans ition zone: - Rare atypi owen small acina r proli ferat ion (SERGIO ). - PIN 4 immun ostai ns: Suppo rt diagn osis. H) Right trans ition zone: Benig n prost ate tissu e. SOURC E OF SPECI MEN: PROST ATE BIOPS Y, LEFT BASE PROST ATE BIOPS Y, LEFT MID PROST ATE BIOPS Y, LEFT APEX PROST ATE BIOPS Y, RIGHT BASE PROST ATE BIOPS Y, RIGHT MID PROST ATE BIOPS Y, RIGHT APEX PROST ATE BIOPS Y, LEFT TRANS ITION ZONE PROST ATE BIOPS Y, RIGHT TRANS ITION ZONE CLINI OWEN INFOR MATIO N: R97.2 0 PROST ATE CANCE R PSA LEVEL 6.45 Gross Descr iptio n: A) Pal nt name and date of verif ied. Recei steph in forma richie label ed with the patie nt's name and desig nated left base are two thin cores of martino-w bharat tissu e measu ring 1.5 and 1.7 cm in lengt h. Entir meir submi tted in one casse tte label ed A1. B) Patie nt name and date of verif ied. Recei steph in forma richie label ed with the patie nt's name and desig nated left mid are two thin cores of martino-w bharat tissu e measu ring 1.6 and 1.9 cm in lengt h. Entir meir submi tted in one casse tte label ed B1. C) Patie nt name and date of verif ied. Recei steph in forma richie label ed with the patie nt's name and desig nated left apex are three thin cores of martino-w bharat tissu e measu ring 0.6 and (2) 1.9 cm in lengt h. Entir meir submi tted in one casse tte label ed C1. D) Patie nt name and date of verif ied. [facility] with the patie nt's name and desig nated righ t base are two thin cores of martino-w bharat tissu e measu ring 1.4 and 1.8 cm in lengt h. Entir meir submi tted in one casse tte label ed D1. E) Patie nt name and date of verif ied. [facility] label ed with the patie nt's name and desig nated righ t mid are two thin cores of martino-w bharat tissu e measu ring 1.5 and 2.0 cm in lengt h. Entir meir submi tted in one casse tte label ed E1. F) Patie nt name and date of verif ied. [facility] label ed with the patie nt's name and desig nated righ t apex are two thin cores of martino-w bharat tissu e measu ring 1.7 and 1.8 cm in lengt h. Entir meir submi tted in one casse tte label ed F1. G) Patie nt name and date of verif ied. Recei steph in forma richie label ed with the patie nt's name and desig nated left trans ition zone are five thin cores of martino-w bharat tissu e measu ring 0.4, 1.2, 1.6, 1.7 and 2.0 cm in lengt h. Entir meir submi tted in one casse tte label ed G1. H) Pal nt name and date of verif ied. Recei steph in forma richie label ed with the patie nt's name and desig nated righ t trans ition zone are four thin cores of martino-w bharat tissu e measu ring 0.3 and (3) 1.4 cm in lengt h. Entir meir submi tted in one casse tte label ed H1. RHIANNON 12/29 09:54 AM Micro scopi c Descr iptio n: A micro scopi c exami natio n was perfo rmed on all speci mens. Withi n the left apex biops ies (spec imen C), a singl e atypi owen focus is prese nt rebeca cteri zed by small gland s and an abnor mal archi tectu ral arran gemen t. The epith elial cells linin g the gland s are gener ally small and benig n appea ring, with only rare enlar ged nucle i and barel y visib le nucle alfred. PIN 4 immun ostai ns were perfo rmed to furth er evalu ate this focus . All contr ols stain appro priat meir. A diagn osis of carci noma is sugge sted by the failu re of immun opero xidas e stain ing for high molec ular weigh t cytok erati n (CK5, CK14) and p63 to demon strat e basal cells in the atypi owen gland s. Also favor ing a diagn osis of cance r is that stain s for racem ase, also guzman d P504S (a marke r prefe renti ally expre ssed in prost ate cance r) are posit dejuan. Howev er, due to the small size of the focus , and only minim ally atypi owen morph ology , the findi ngs are consi dered insuf ficie nt for a diagn osis of carci noma, and there fore a diagn osis of atypi owen is prefe rred. Withi n the left trans ition zone biops y, a few minim ally atypi owen foci are prese nt. PIN 4 immun ostai ns demon strat e basal cells in some but not all of the atypi owen gland s. Stain s for racem ase show parti al stain ing in some but not all of the atypi owen gland s. While these foci in the left trans ition zone are likel y benig n, the incon clusi ve PIN 4 resul ts suppo rt a diagn osis of atypi owen. HERMILA AGUILAR MD Melany d Out Date: 12/30 15:42 Page 1 of 1 Not Available [facility] [address] [place] [address], [address], 12/30/2024 15:43:02 01/12/20 25 01/11/2025 urina lysis panel , auto Unknown Analyte Clean Catch Not Available [facility] [address], [place], [address], 01/11/2025 10:08:51 01/12/20 25 01/11/2025 urina lysis panel , auto Unknown Analyte Yellow Not Available [facility] [address] [place] [address] [address], [place], [address], 01/11/2025 10:08:51 01/12/20 25 01/11/2025 urina lysis panel , auto Unknown Analyte Clear Not Available [facility] [address] [place] [address] [address], [place], [address], 01/11/2025 10:08:51 01/12/20 25 01/11/2025 urina lysis panel , auto Unknown Analyte 1.010 Not Available [facility] [address], [place], [address], 01/11/2025 10:08:51 01/12/20 25 01/11/2025 urina lysis panel , auto Unknown Analyte 1.003 - 1.030 Not Available [facility] [address], [place], [address], 01/11/2025 10:08:51 01/12/20 25 01/11/2025 urina lysis panel , auto Unknown Analyte 6.0 Not Available [facility] [address], [place], [address], 01/11/2025 10:08:51 01/12/20 25 01/11/2025 urina lysis panel , auto Unknown Analyte 5.0 - 8.0 Not Available [facility] [address], [place], [address], 01/11/2025 10:08:51 01/12/20 25 01/11/2025 urina lysis panel , auto Unknown Analyte Negati ve Not Available [facility] [address] [address] [facility] [address], [place], [address], 01/11/2025 10:08:51 01/12/20 25 01/11/2025 urina lysis panel , auto Unknown Analyte Negati ve Not Available [facility] [address], [place], [address], 01/11/2025 10:08:51 01/12/20 25 01/11/2025 urina lysis panel , auto Unknown Analyte Negati ve Not Available [facility] [address], [place], [address], 01/11/2025 10:08:51 01/12/20 25 01/11/2025 urina lysis panel , auto Unknown Analyte Negati ve Not Available [facility] [address], [place], [address], 01/11/2025 10:08:51 01/12/20 25 01/11/2025 urina lysis panel , auto Unknown Analyte Negati ve Not Available [facility] [address], [place], [address], 01/11/2025 10:08:51 01/12/20 25 01/11/2025 urina lysis panel , auto Unknown Analyte Negati ve Not Available [facility] [address], [place], [address], 01/11/2025 10:08:51 01/12/20 25 01/11/2025 urina lysis panel , auto Unknown Analyte Normal Not Available [facility] [address], [place], [address], 01/11/2025 10:08:51 01/12/20 25 01/11/2025 urina lysis panel , auto Unknown Analyte Normal Not Available [facility] [address], [place], [address], 01/11/2025 10:08:51 01/12/20 25 01/11/2025 urina lysis panel , auto Unknown Analyte Negati ve Not Available [facility] [address], [place], [address], 01/11/2025 10:08:51 01/12/20 25 01/11/2025 urina lysis panel , auto Unknown Analyte Negati ve Not Available [facility] [address], [place], [address], 01/11/2025 10:08:51 01/12/20 25 01/11/2025 urina lysis panel , auto Unknown Analyte Normal Not Available [facility] [address], [place], [address], 01/11/2025 10:08:51 01/12/20 25 01/11/2025 urina lysis panel , auto Unknown Analyte Normal Not Available [facility] [address], [place], [address], 01/11/2025 10:08:51 01/12/20 25 01/11/2025 urina lysis panel , auto Unknown Analyte Negati ve Not Available [facility] [address], [place], [address], 01/11/2025 10:08:51 01/12/20 25 01/11/2025 urina lysis panel , auto Unknown Analyte Negati ve Not Available [facility] [address], [place], [address], 01/11/2025 10:08:51 01/12/20 25 01/11/2025 urina lysis panel , auto Unknown Analyte 250 Javier/uL Not Available [facility] [address], [place], [address], 01/11/2025 10:08:51 01/12/20 25 01/11/2025 urina lysis panel , auto Unknown Analyte Negati ve Not Available [facility] [address], [place], [address], 01/11/2025 10:08:51 12/16/19 25 12/15/2024 MRI, pelvi s, w/wo contr ast [facility] [address] [place] [address] Patien t Name: EMELINA KWOK Patien t : [phone] Patien t Orderi ng Provid er: RENITA Peña EXAM DATE: 2024 EXAM: MR PELVIS ATTN PROSTA TE W/WO CONTRA ST CLINIC AL INFORM ATION: Elevat ed PSA TECHNI QUE: A baseli ne serum creati nine with eGFR was obtain ed prior to inject ion of contra st medium due to the patien ts risk factor s for LINDA. Calcul ated eGFR at time of exam was 89 Tripla marisela T2, axial DWI, ADC map, axial T1 pre- and dynami c postco ntrast -enhan monique images as well as axial T1 fat-sa t imagin g was perfor med after inject ion of [address] (1 [place] [id number] ) IV. The patien t did not requir e sedati on for this exam. COMPAR ARASH: None. FINDIN GS: PROSTA TE SIZE MEASUR EMENTS : Prosta te dimens ions = 5 x 5.3 x 5.4 cm (T x AP x CC). QUALIT Y: Fair. Image qualit y reduct ion is create d by bilate ral total hip arthro plasti es which clearl y impact s the diffus ion weight ed aspect of the exam PERIPH ERAL ZONE: Overal l, periph eral zone is normal in size and backgr ound signal charac terist ics, No suspic ious focal lesion is seen. TRANSI TION ZONE: Multip le, well deline ated encaps ulated nodule s are seen consis tent with BPH. A suspic ious focal lesion is seen as decibe d below. PI-RAD S catego ry = 4/5 locate d in the jose latera l right at transi tional zone mid to inferi or level. Measur ement = 9 mm. Seen best in image 15 of series 8001, 7006, 7007, and equivo owen on dynami c imagin g.. It is positi ve on T2 WI, ADC, DWI images . In additi on there is a vague more subtle change s in the left transi tional zone at the same level on image #15. CAPSUL E AND NEIGHB ORING STRUCT URES: No capsul ar invasi on is identi fied. Neuro- vascul ar bundle s are normal bilate rally. Semina l vesicl es are normal . PELVIC LYMPH NODES: No pelvic lympha denopa thy. PELVIC BONES: No suspic ious osseou s lesion is seen. The patien t has fat-co ntaini ng bilate ral inguin al hernia s, greate r on the left. IMPRES AMANDA: 1. Change s of BPH 2. PI-RAD S 4/5 lesion involv ing the right transi tional zone; questi onable vague area of abnorm ality in the left transi tional zone at the same level Interp reted By: Cam Rodriguez MD Electr onical ly Signed By: Cam Rodriguez MD on 12/16/19 11:19 AM [email or web address] [facility] [address], [address], 12/22/2024 13:26:33 Result Notes Documentation Provider Name and Address Organization Details Recorded Time Mri, Pelvis, W/wo Contrast : [address] [address] Patient Name: NIGEL KWOK Patient : 1955 Patient Ordering Provider: RENITA BOONE EXAM DATE: 12/15/2024 EXAM: MR PELVIS ATTN PROSTATE W/WO CONTRAST CLINICAL INFORMATION: Elevated PSA TECHNIQUE: A baseline serum creatinine with eGFR was obtained prior to injection of contrast medium due to the patients risk factors for LINDA. Calculated eGFR at time of exam was 89 Triplanar T2, axial DWI, ADC map, axial T1 pre- and dynamic postcontrast-enhanced images as well as axial T1 fat-sat imaging was performed after injection of 10 mL Gadavist (1 x 10 mL bottle of [facility] [id number]) IV. The patient did not require sedation for this exam. COMPARISON: None. FINDINGS: PROSTATE SIZE MEASUREMENTS: Prostate dimensions = 5 x 5.3 x 5.4 cm (T x AP x CC). QUALITY: Fair. Image quality reduction is created by bilateral total hip arthroplasties which clearly impacts the diffusion weighted aspect of the exam PERIPHERAL ZONE: Overall, peripheral zone is normal in size and background signal characteristics, No suspicious focal lesion is seen. TRANSITION ZONE: Multiple, well delineated encapsulated nodules are seen consistent with BPH. A suspicious focal lesion is seen as decibed below. PI-RADS category = 4/5 located in the anterolateral right at transitional zone mid to inferior level. Measurement = 9 mm. Seen best in image 15 of series 8001, 7006, 7007, and equivocal on dynamic imaging.. It is positive on T2 WI, ADC, DWI images. In addition there is a vague more subtle changes in the left transitional zone at the same level on image #15. CAPSULE AND NEIGHBORING STRUCTURES: No capsular invasion is identified. Neuro-vascular bundles are normal bilaterally. Seminal vesicles are normal. PELVIC LYMPH NODES: No pelvic lymphadenopathy. PELVIC BONES: No suspicious osseous lesion is seen. The patient has fat-containing bilateral inguinal hernias, greater on the left. IMPRESSION: 1. Changes of BPH 2. PI-RADS 4/5 lesion involving the right transitional zone; questionable vague area of abnormality in the left transitional zone at the same level Interpreted By: Cam Rodriguez MD [facility] 12/22/2024 13:26:33 Problems Name Problem SNOMED Code Status Onset Date Resolution Date Notes Provider Name and Address Organization Details Recorded Time Adenocarcinoma of prostate 851218620 Active 2016 Isabel Rey [facility] 7 13:12:10 Problem Notes None recorded. Procedures Surgical History Date Name Laterality Status Provider Name and Address Organization Details Recorded Time 2 [facility] 03/22/2022 11:50:35 8 Prostate biopsy, any mthd completed Isabel Rey [facility] 12/04/2017 14:03:26 6 Prostate biopsy, any mthd completed Isabel Murguiat [facility] 07/18/2016 13:38:08 Xcapsl ctrc rmvl cplx wo ecp completed Deseriee [facility] 07/04/2016 18:18:55 [facility] 07/04/2016 18:19:12 Imaging Results None recorded. Procedure Notes None recorded. Medical Equipment None Reported. Allergies Allergen ID Allergen Name Allergen Category Reaction Reaction Severity Criticality Documentation Date Start Date Code Code System Note Provider Name and Address Organization Details Recorded Time 720853 Cipro medicatio n Not available Not available Not available 07/18/201685956 3 RxNorm Isabel Rey [facility] 7 13:37:37 Medications Name Sig Start Date Stop Date Status Note LastModified by Organization Details LastModified Time Flomax 0.4 mg capsule Take 1 capsule every day by oral route for 30 days. 05/20 completed Not Available Not Available Not Available Cipro 500 mg tablet Take 1 tablet twice a day by oral route as directed for 3 days. 2024 active Not Available Not Available Not Avai lable diltiazem 90 mg tablet Take 2 tablets [...] TAKE 1 CAPSULE BY MOUTH EVERY DAY 2024 active Not Available Not Available Not Avai [...] Updated DateTime 11/07/2023 177.8 cm 30.4 kg/m2 47947.58 g [facility] 11/07/2023 13:21:24 Date Recorded Body height Body mass index (BMI) Body weight Provider Name and Address Organization Details Last Updated DateTime 11/10/2024 177.8 cm 31.9 kg/m2 914744.51 g [facility] 11/10/2024 13:53:49 Date Recorded Body height Body mass index (BMI) Body weight Provider Name and Address Organization Details Last Updated DateTime 01/11/2025 177.8 cm 31.9 kg/m2 872157.51 g Petra Lopez [facility] 01/11/2025 10:02:38 Date Recorded Body height Body mass index (BMI) Body weight Provider Name and Address Organization Details Last Updated DateTime 05/12/2024 177.8 cm 30.8 kg/m2 20005.36 g Al Lawrence [facility] 05/12/2024 13:37:41 Social History Question Answer Notes LastModified by Organizat ion Details LastModified Time Tobacco Smoking Status Current Some Day Smoker [facility] 07/04/2016 18:18:35 How Much Tobacco Do You Chew? None Information not available 09/16/2019 Marital Status marcy Informatio n not available 07/04/2016 What Was The Date Of Your Most Recent Tobacco Screening? 11/10/2024 Information not available 11/10/2024 How Much Tobacco Do You Smoke? No [email or web address] Information not available 01/18/2020 Has Tobacco Cessation Counseling Been Provided? Yes Information not available 12/04/2017 On What Date Was Tobacco Cessation Counseling Provided? 12/24/2018 Information not available 12/24/2018 Sex: Male Functional Status None recorded. Mental Status None recorded. Family History Relationship Description Onset Age of this Age Resolved Age Notes LastModified by Organization Details LastModified Time Unspecified Relation Hyperlipidem ia [email or web address] Not available 2015 18:17:37 Unspecified Relation Arthritis [email or web address] Not available 2015 18:18:10 Father Family history of stroke [email or web address] Not available 2017 11:34:19 Medical History Condition Response Coronary Artery Disease N Other N Gout N Kidney Stones N Kidney Cyst N Enlarged Prostate Y Heart Arrhythmia N Emphysema N Erectile Dysfunction N Head Trauma/Injury N Sexually Transmitted Disease N Depression N Pneumonia N Incontinence N Prostate Problems Y Cancer Prostate Y Paralysis N Anxiety Disorder N Hemorrhoids N Obesity Y Arthritis N Infertility N Acid Reflux (GERD) Y Cancer Y Hematuria N Stroke N Neck Injury N Neurologic Disorder N Previous Radiation Therapy? N Kidney Disease N Heart Conditions N Kidney or Bladder Problems N Urinary Problems N Constipation N Brain Injury N Ulcers N Prostate Hypertrophy N Low Testosterone N Tuberculosis N Previous Chemotherapy? N AIDS/HIV N BPH Y Urinary Tract Infection N Asthma N Cardiac Disease N Thyroid Disorder N Hepatitis N PCOS N Colon Cancer N Hernia N Colon/Rectal Disorders N Ostomy N Glaucoma N Pacemaker N Anesthesia Complications N Genitourinary Disease N Chronic Kidney Disease N Radiation Therapy N Bladder or Kidney Problems N Back Injury N High Cholesterol N High PSA Y Liver Disease N Nervous System Disorder N Organ Transplant N Dialysis N Allergies/Hayfever N False Teeth N Chronic Obstructive Pulmonary Disease N Parkinson's Disease N Chemotherapy N Anemia Y Transplant N Back Pain N Chest Pain N Multiple Sclerosis N Proteinuria N Heart Attack (AR) N Mental Illness N Diabetes N Ovarian Cancer N Seizures/Epilepsy N Genitourinary problem(s) N Congestive Heart Failure (CHF) N Kidney Failure N Sleep Apnea Y Bronchitis N Heart Disease N Hypertension Y Past Encounters Encounter ID Performer Location Encounter Start Date Encounter Closed Date Diagnosis/Indication Diagnosis SNOMED-CT Code Diagnosis ICD10 Code Diagnosis Note [id number] RENITA BOONE MD [facility] [address] [place] [address],[place] [address] 07/04/2016 15:20:05 07/11/2016 12:17:51 Prostate specific antigen outside reference range 450302656 R97.20 N40.2 N40.3 We discussed the potential causes of elevated PSA being prostate cancer, prostatiti s from infection or inflammati on, benign prostatic hyperplasi a, etc. Given the concern for potential prostate cancer we discussed prostate biopsy including the risks, benefits, alternativ es. We discussed the procedure in detail. [id number] RENITA BOONE MD SURGERY SCHEDULE [address] [place], [place] [address] 07/09/2016 14:42:47 07/09/2016 14:49:59 [id number] RENITA BOONE MD [facility] [address],[place] [address] 8 07/18/2016 13:13:36 08/06/2016 12:10:13 Malignant neoplasm of prostate [id number] C61 [id number] RENITA BOONE MD [facility] [address],[place] [address] 8 10/10/2016 13:24:16 10/10/2016 15:02:56 Malignant neoplasm of prostate 165126486 C61 [id number] RENITA BOONE MD [facility] [address],[place] [address] 8 02/13/2017 13:05:15 02/28/2017 11:19:07 Adenocarcinoma of prostate 599871091 C61 [id number] RENITA BOONE MD [facility] [address],[place] [address] 8 09/04/2017 13:18:32 09/11/2017 09:19:18 Malignant neoplasm of prostate 252307322 C61 [id number] RENITA BOONE MD SURGERY SCHEDULE [address] [place] [address] 11/18/2017 13:52:22 11/18/2017 13:59:07 [id number] RENITA BOONE MD [facility] [address],[place] [address] 8 12/04/2017 13:39:23 12/15/2017 08:59:13 Malignant neoplasm of prostate 578621320 C61 [id number] RENITA BOONE MD [facility] [address],[place] [address] 8 02/12/2018 15:29:04 02/23/2018 07:53:19 Prostatitis 9744611 N41.9 [id number] RENITA BOONE MD [facility] [address],[place] [address] 8 02/26/2018 14:25:35 03/17/2018 08:31:47 Prostatitis 8403006 N41.9 Malignant neoplasm of prostate 175628730 C61 [id number] RENITA BOONE MD [facility] [address],[place] [address] 8 06/25/2018 13:38:21 07/08/2018 11:21:35 Malignant neoplasm of prostate 205589901 C61 [id number] RENITA BOONE MD [facility] [address],[place] [address] 8 10/08/2018 13:12:57 10/19/2018 10:01:20 Malignant neoplasm of prostate 980547128 C61 Prostatitis 4068148 N41. 9 [id number] RENITA BOONE MD [facility] [address],[place] [address] 8 12/24/2018 14:09:21 01/20/2019 09:02:20 Malignant neoplasm of prostate 896202723 C61 [id number] RENITA BOONE MD [facility] [address],[place] [address] 8 05/20/2019 14:26:58 05/24/2019 08:41:38 Malignant neoplasm of prostate [id number] C61 [id number] RENITA BOONE MD [facility] [address],[place] [address] 8 09/16/2019 13:07:31 09/16/2019 13:59:18 Tobacco user 134107107 Z72.0 Malignant neoplasm of prostate 571135407 C61 [id number] MD [facility] [address] [place] [address] 12/21/2019 08:42:13 12/21/2019 09:13:05 Retention of urine 085931851 R33.9 Malignant neoplasm of prostate 779350231 C61 [id number] MD [facility] [address] [place] [address] 01/18/2020 11:20:08 01/18/2020 14:02:16 Malignant neoplasm of prostate 791266983 C61 [id number] RENITA BOONE MD SURGERY SCHEDULE [address] [place] [address] 02/15/2020 14:23:53 02/15/2020 14:24:17 [id number] RENITA BOONE MD [facility] [address] [place] [address] 03/28/2020 11:08:52 03/28/2020 12:55:42 Malignant neoplasm of prostate 544889993 C61 Benign pro static hyperplasia with outflow obstruction 236347837 N40.1 [id number] RENITA BOONE MD [facility] [address] [facility],[place] [address] 08/10/2020 14:41:00 08/11/2020 15:13:31 Malignant neoplasm of prostate 494714497 C61 Nocturia 691824166 R35.1 [id number] RENITA BOONE MD [facility] [address] [address] 12/01/2020 10:23:28 12/01/2020 11:30:01 Malignant neoplasm of prostate 718592516 C61 Prostate s pecific antigen above reference range 062424454 R97.20 [id number] RENITA BOONE MD [address] [address] 04/06/2021 11:17:59 04/06/2021 11:54:29 Malignant neoplasm of prostate 563218556 C61 Benign pro static hyperplasia with outflow obstruction 624928292 N40.1 [id number] RENITA BOONE MD [facility] [address] [place] [address] 09/26/2021 13:32:49 10/03/2021 19:53:30 Malignant neoplasm of prostate 292099133 C61 Prostate s pecific antigen above reference range 309119797 R97.20 [id number] RENITA BOONE MD [address] [place] [address] 03/22/2022 11:22:29 03/26/2022 14:25:48 Prostate specific antigen above reference range 906167071 R97.20 Malignant neoplasm of prostate 476721821 C61 Nocturia 962532350 R35.1 [id number] RENITA BOONE MD SURGERY SCHEDULE [address] [place] [address] 06/25/2022 13:31:08 06/25/2022 13:31:46 [id number] RENITA BOONE MD [facility] [address] [place] [address] 5 10/25/2022 11:20:49 10/28/2022 06:54:45 Malignant neoplasm of prostate [id number] C61 Prostate s pecific antigen above reference range 103622666 R97.20 Nocturia 554437036 R35.1 [id number] RENITA BOONE MD [place] [address] [place] [address] 5 05/09/2023 10:20:23 05/11/2023 04:09:47 Malignant neoplasm of prostate [id number] C61 Prostate s pecific antigen above reference range 997742928 R97.20 Nocturia 792847264 R35.1 [id number] RENITA BOONE MD CUA [address] [place] [address] 5 11/07/2023 13:04:12 11/07/2023 15:04:48 Malignant neoplasm of prostate [id number] C61 Prostate s pecific antigen above reference range 505901177 R97.20 Nocturia 195550579 R35.1 [id number] RENITA BOONE MD [place] [address] [place] [address] 5 05/12/2024 13:03:23 05/12/2024 14:49:26 Malignant neoplasm of prostate 306215255 C61 Lower urin francisco tract symptoms 613075228 R39.9 [id number] RENITA BOONE MD CUA [address] [place] [address] 5 11/10/2024 13:30:04 11/10/2024 14:29:02 Malignant neoplasm of prostate 312997446 C61 PSA stable; patient to undergo MRI. Discussed MRI fusion biopsy for improved precision and thorough baseline comparison . Prostate s pecific antigen above reference range 772176741 R97.20 Continue monitoring . Patient advised to report any symptom changes. Benign pro static hyperplasia with outflow obstruction [id number] N40.1 N13.8 Monitor nocturia, ensure fluid intake. Report symptom changes. [id number] RENITA BOONE MD SURGERY SCHEDULE [address] [place] [address] 12/28/2024 13:38:22 12/28/2024 13:40:45 [id number] RENITA BOONE MD [facility] [address] [facility] [address] [place] [address] 01/11/2025 09:56:55 01/11/2025 10:37:04 Malignant neoplasm of prostate [id number] C61 - Continue active surveillan ce. - Monitor PSA levels regularly. - Consider treatment if progressio n detected. Prostate s pecific antigen above reference range 654012608 R97.20 Continue monitoring . Patient advised to report any symptom changes. - Regular PSA monitoring . - Evaluate interventi ons if significan t changes occur. Health Concerns Section Related Observation LastModified by Organization Detai ls LastModified Time None Recorded Concern Status LastModified by Organization Details LastModified Time None Recorded Advance Directives Directive None Recorded Payers Insurance Date Sequence Insurance Name Policy Number Policy Muniz Covered Member ID Muniz Member ID Guarantor Name 01/17/2025 1 [place] [id number] Nigel Kwok [id number] Nigel Kwok Notes Date Note Type Note Provider Name and Address Organization Details Recorded Time 11/07/2023 text/html 67-year-old male in the office [...] effect. PSA:August 2023-5.8October 2022-6.03 RENITA BOONE MD [address] [place] [address], [phone], [facility] 11/20/2023 10:45:16 05/12/2024 text/html 68-year-old male in [...] water throughout the day. 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 PSA:August 2023-5.8October 2022-6.03 RENITA BOONE MD [address] [place] [address], [phone], [facility] 05/15/2024 12:40:55 11/10/2024 text/html The patient is a 68-year-old male presenting with follow-up for adenocarcinoma of the prostate. He has a history of prostate biopsies in November 2017, February 2020, and June 2022, with a CVA occurring in June 2022. PSA values include April 2024 at 6.49 ng/mL, August 2023 at 5.8 ng/mL, April 2023 at 6.03 ng/mL, and on October 28, 2024, at 6.45 ng/mL, showing stable trends. The patient denies significant urinary symptoms but reported nocturia once or twice at night. Blood pressure management was addressed with his auto emissions technician, resulting in maintenance of the current medication. Options for future evaluation include a potential MRI for baseline comparison and fusion biopsy capabilities. - Labs/Tests: - PSA (October 28, 2024): 6.45 ng/mL - Previous PSA (April 2024): 6.49 ng/mL, (August 2023): 5.8 ng/mL, (April 2023): 6.03 ng/mL RENITA BOONE MD [address] [place] [address], [phone], [facility] 11/14/2024 18:33:44 01/11/2025 text/html The patient is a 69-year-old male presenting for follow-up evaluation of adenocarcinoma of the prostate. He has undergone multiple prostate biopsies, with the latest in December 2024 showing atypical small acinar proliferation but no malignancy. MRI indicated a PI-RADS 4/5 lesion in the right transition zone. PSA levels have fluctuated, with recent readings of 6.45 and 6.49. The patient has a history of low-grade prostate cancer under active surveillance. He reports initial biopsy pain, now resolved, and denies urinary symptoms. - MRI: PI-RADS 4/5 lesion in the right transition zone, vague abnormality in the left transition zone - Prostate biopsy (December 2024): No malignancy, atypical small acinar proliferation - PSA levels: 6.45 (October 2024), 6.49 (April 2024), 5.8 (August 2023), 6.03 (April 2023) RENITA BOONE MD [address] [place] [address], [phone], [facility] 01/16/2025 14:09:15
--- OUTSIDE RECORDS SUMMARY | 2025-02-04 04:51 | XMS_ITS | Continuity of Care Document ---
Author Organization [facility], SURGERY SCHEDULE Address [address] [place] [address] Care Team Providers Care Social Insurance Adviser Name Role Phone THUAN ANDREW Primary Care Provider [phone] Assessment Encounter Date Assessment Date Assessment LastModified by Organization Details LastModified Time 12/28/2024 12/28/2024 SURGERY DATE:12/28/2024 PREOPERATIVE DIAGNOSIS: Prostate Cancer, Elevated PSA, Prostate Lesion by MRI POSTOPERATIVE DIAGNOSIS: Prostate Cancer, Elevated PSA, Prostate Lesion by MRI PROCEDURE: 1. Transrectal ultrasound prostate, 2. Ultrasound guidance for needle injection of local analgesia, 3. Transrectal ultrasound guided MRI-fusion needle biopsy of prostate SURGEON: Renita Dunn MD ANESTHESIA: MAC ESTIMATED BLOOD LOSS: <2 [...] outpatient follow up. Not available 12/28/2024 19:14:11 Plan of Treatment Reminders Order Date Submit Date Provider Last Modified By Organization Details Last Modified Time Details Appointments RECHECK 2025 01:15P Ana Maria DUNN MD Not available Not available Not available Lab None recorded . Referral None recorded . Procedures None recorded . Surgeries None recorded . Imaging None recorded . Medication Orders None recorded . Patient TargetsNo targets recorded. Patient InstructionsNo instructions recorded. Reason for Referral None Reported. Results Created Date Observation Date Name Description Value Unit Range Abnormal Flag Note LastModifiedBy Organization Detail LastModifiedTime 12/29/1912/28/2024 SURGI OWEN surgical SEE BELOW normal Surgi [...] LEVEL 6.45 Gross Descr iptio n: A) Patie nt name and date of verif [...] date of verif ied. [facility] with the patie [facility]'s [...] one casse tte label ed G1. H) Patie nt name and date of verif ied. Recei steph in forma richie label ed with the patie nt's name and desig nated righ t trans ition zone are four thin cores of martino-w bharat tissu e measu ring 0.3 and (3) 1.4 cm in lengt h. Entir meir submi tted in one casse tte label ed H1. [facility] 12/29 09:54 AM Micro scopi c Descr [...] 15:42 Page 1 of 1 Not Available [facility] [address] [place] [address], [phone], 12/30/2024 15:43:02 12/16/1912/15/2024 MRI, pelvi s, w/wo contr ast [facility] [address] [place] [address] Patien t Name: EMELINA Narayanan t : [phone] Patien t Orderi ng [...] st (1 x 10 mL bottle of [facility] [address]- 325-02 ) IV. The patien t did [...] Rodriguez MD on 12/16/19 11:19 AM [email or web address] [facility] [address] [place], [address], 12/22/2024 13:26:33 Result Notes None recorded. Problems Name Problem SNOMED Code Status Onset Date Resolution Date Notes Provider Name and Address Organization Details Recorded Time Adenocarcinoma of prostate 444156954 Active [place] [facility] 7 13:12:10 Problem Notes None recorded. Procedures Surgical History Date Name Laterality Status Provider Name and Address Organization Details Recorded Time 2 total [place] [facility] [place]20[place] 11:50:35 8 Prostate biopsy, any mthd [place] [facility] 12/04/2017 14:03:26 6 Prostate biopsy, any mthd [place] [facility] 07/18/2016 13:38:08 Xcapsl ctrc rmvl cplx wo ecp [place] [facility] 07/04/2016 18:18:55 Vasectomy completed [facility] 07/04/2016 18:19:12 Imaging Results None recorded. Procedure Notes None recorded. Medical Equipment None Reported. Allergies Allergen ID Allergen Name Allergen Category Reaction Reaction Severity Criticality Documentation Date Start Date Code Code System Note Provider Name and Address Organization Details Recorded Time 074286 Cipro medicatio n Not available Not available Not available 07/18/201665749 3 RxNorm [facility] 7 13:37:37 Medications Name Sig Start [...] Available Not Available No t Available Vitals None Recorded Social History Question Answer Notes LastModified by Organizat ion Details LastModified Time Tobacco Smoking Status Current Some Day Smoker Sebastien burks [facility] 07/04/2016 18:18:35 How Much Tobacco Do You Chew? None Information not available 09/16/2019 Marital Status marcy Informatio n not available 07/04/2016 What Was The Date Of Your Most Recent Tobacco Screening? 11/10/2024 Information not available 11/10/2024 How Much Tobacco Do You Smoke? No [email or web address] Information not available 01/18/2020 Has Tobacco Cessation [...] Multiple Sclerosis N Proteinuria N Heart Attack ([place]) N Mental Illness N Diabetes N Ovarian Cancer N Seizures/Epilepsy N Genitourinary problem(s) N Congestive Heart Failure (CHF) N Kidney Failure N Sleep Apnea Y Bronchitis N Heart Disease N Hypertension Y Past Encounters Encounter ID Performer Location Encounter Start Date Encounter Closed Date Diagnosis/Indication Diagnosis SNOMED-CT Code Diagnosis ICD10 Code Diagnosis Note [id number] RENITA DUNN MD SURGERY SCHEDULE [address] [place] [address] 12/28/2024 13:38:22 12/28/2024 13:40:45 Health Concerns Section Related Observation LastModified by Organization Detai ls LastModified Time None Recorded Concern Status LastModified by Organization Details LastModified Time None Recorded Payers Encounter Date Sequence Insurance Name Policy Number Policy Muniz Covered Member ID Muniz Member ID Guarantor Name 12/28/2024 1 [place] [id number] Carrington Mckeon [id number] Carrington Mckeon
--- OUTSIDE RECORDS SUMMARY | 2025-02-04 04:51 | XMS_ITS | Clinical Summary ---
Author Organization [facility] Address [address] [place] [address] Care Team Providers Care Student Education Specialist Name Role Phone Jojo Fink MD Unavailable [phone] Clau Lombardo APRN Primary Care Provider [phone] Allergies Active Allergy Reactions Criticality Noted Date Comments Amoxicillin Shortness of breath High 07/25/2022 Ciprofibrate Other - please docum ent in the comment field Low 09/25/2022 Ciprofloxacin Shortness of breath High 07/25/2022 Medications apixaban (Eliquis) 5 MG tablet Active atorvastatin (Lipitor) 10 MG tablet Active dilTIAZem ER (Tiazac) 180 MG 24 hr capsule Take by mouth 1 (one) time each day. 05/27/2022 Active omeprazole OTC (PriLOSEC OTC) 20 MG EC tablet Prilosec OTC 20 mg tablet,delaye d release Take by oral route. Active Multiple Vitamins-Minera ls (Systane ICaps AREDS2) tablet Active lisinopril-hydr oCHLOROthiazide 20-12.5 MG tablet Take 1 tablet by mouth 1 (one) time each day. 08/28/2022 Active Silodosin 8 MG capsule Take 1 capsule every day by oral route. 01/15/2023 Active metoprolol tartrate (Lopressor) 25 MG tablet Take 1 tablet (25 mg) by mouth 3 (three) times a day. 07/09/2016 Active Multiple Vitamins-Iron (MULTIVITAMIN/I PRISCILA PO) 05/14/2023 Active Active Problems No known active problems Social History Tobacco Use Types Packs/Day Years Used Date Smoking Tobacco: Former Cigarettes 0.3 5 1 995 - 2000 Smokeless Tobacco: Never Tobacco Cessation:Counseling Given: Not Answered Alcohol Use Standard Drinks/Week Comments Yes 0 (1 standard drink = 0.6 oz pur e alcohol) social Sex and Gender Information Value Date Recorded Sex Assigned at Male 07/26/2022 12:19 PM EST Legal Sex Male 10:52 AM EST Gender Identity Male 07/26/2022 12:19 PM EST Sexual Orientation Straight 07/26/2022 12 :19 PM EST Last Filed Vital Signs Vital Sign Reading Time Taken Comments Blood Pressure 138/87 08/05/2023 10:59 AM EST Pulse 72 08/05/2023 10:59 AM EST Temperature 36.7 C (98 F) 07/19/2022 12:35 PM EST Respiratory Rate 16 07/26/2022 12:29 PM EST Oxygen Saturation 99% 08/05/2023 10:59 AM EST Inhaled Oxygen Concentration - - Weight 98.9 kg (218 lb) 08/05/2023 10:59 AM EST Height 177.8 cm (5' 10 ) 08/05/2023 10:59 AM EST Body Mass Index 31.28 08/05/2023 10:59 AM EST Plan of Treatment Health Maintenance Due Date Last Done Comments [facility]-Depression Screening 1956 [facility]-/Child/Adol SDOH Screenings 1955 [facility]- SDOH Screenings 1974 [facility]-Adult SDOH Screenings 1974 CT Colonography 2001 Colonoscopy 2001 FIT-DNA 2001 FIT 2001 FOBT 2001 Sigmoidoscopy 2001 [facility]-Colorectal Cancer Screening 2001 [facility]-DTaP,Tdap,and Td Vaccine s (1 - Tdap) 01/13/2004 01/12/2004 [facility]-Pneumococcal Vaccine: 50 + Years (1 of 1 - PCV) 2006 [facility]-Zoster Vaccines (1 of 2) 2006 NSF-CHLEP-85 Vaccine (3 - season) 2024 05/25/2021, 09/23/2020 [facility]-Influenza Vaccine (#1) 2025 05/25/2021 [facility]-RSV Vaccine: 60+ Years o r (1 - 1-dose 75+ series) 12/09/2031 [facility]-Hepatitis A Vaccines Aged Out 004, 12/01/2003 No longer eligible based on patient's age to complete this topic [facility]-Hepatitis C Screening Completed 07/19/2022 [facility]-Diabetes: Hemoglobin A1C Discontinued 02/13/2023 [facility]-Obesity Intervention Completed 024, 02/13/2023, 08/08/2022 HPV Vaccines Aged Out No longer eligi ble based on patient's age to complete this topic [facility]-HIB Vaccines Aged Out No longer e ligible based on patient's age to complete this topic [facility]-IPV Vaccines Aged Out No longer e ligible based on patient's age to complete this topic [facility]-Rotavirus Vaccines Aged Out No lo nger eligible based on patient's age to complete this topic Procedures Procedure Name Priority Date/Time Associated Diagnosis Comments HEMOGLOBIN A1C Routine 02/13/2023 12:27 PM EDT History of stroke HEPATITIS C ANTIBODY - ED W/REFLEX TO HCV QUANT PCR STAT 07/19/2022 1:06 PM EST from Last 3 Months or Most Recently Relevant to Health Maintenance Results * (ABNORMAL) Hemoglobin A1c (02/13/2023 12:27 PM EDT) Hemoglobin A1c 6.1(H) <5.7 % 02/13/2023 2:20 PM EDT [facility] Blood Venous blood specimen / Unknown Venipuncture / Unknown 02/13/2023 12:27 PM EDT 02/13/2023 12:27 PM EDT Narrative [facility] - 02/13/2023 2:20 PM EDT HA1C Interpretive Data: Diagnosis of Diabetes: Diabetic > or = 6.5% Pre-diabetic 5.7 to 6.4% Non-diabetic < or = 5.6% Glycemic Targets for Type I and Type II Diabetics: Non- Adults <7.0% Adults <6.0% Children and Adolescents <7.5% Source: [place] [employer]. Standards of medical care in diabetes,2017. Diabetes Care.2017:40 (suppl 1):S1-S135. HbA1c assay performed by an ion-exchange chromatography method that is certified traceable to the DCCT. us Jojo Fink MD LAB BLOOD ORDERABLES Final Re sult Performing Organization Address City/[facility]/ZIP Co de Phone Number [facility] [address] [place] [address] * Hepatitis C Antibody - ED (07/19/2022 1:06 PM EST) Hepatitis C Antibody Negative Negative 07/19/2022 3:47 PM EST [facility] Blood Venous blood specimen / Unknown Venipuncture / Unknown 07/19/2022 1:06 PM EST 07/19/2022 2:35 PM EST us Joseph Piedra MD LAB BLOOD ORDERABLES Final Resul t Performing Organization Address [facility] de Phone Number [facility] [address] [place] [address] from Last 3 Months or Most Recently Relevant to Health Maintenance Insurance MEDICARE [facility] Care Teams Student Education Specialist Relationship Specialty Start Date End Date Clau LombardoANA MARÍA [address] [place] [address] PCP - General 08/08/22 Jojo Fink MD [address] [facility] [address] [place] [id number] Consulting Physician Neurology 08/08/22
--- OUTSIDE RECORDS SUMMARY | 2025-02-04 04:51 | XMS_ITS | Clinical Summary ---
Author Organization [facility] Address [address] [place] [address] Care Team Providers Care Child Health Associate Name Role Phone Lexa Gonzalez MD Primary Care Provider [phone] Allergies Active Allergy Reactions Criticality Noted Date Comments Amoxicillin Shortness Of Breath High 07/25/2022 Ciprofibrate Unknown - Low Severity Low 09/25/2022 Ciprofloxacin Shortness Of Breath High 07/25/2022 Medications omeprazole OTC (PriLOSEC OTC) 20 MG EC tablet Prilosec OTC 20 mg tablet,delayed release Take by oral route. Active multivitamin with minerals tablet tablet Take 1 tablet by mouth Daily. Active silodosin (RAPAFLO) 8 MG capsule capsule Take 1 capsule every day by oral route. 3 Active metoprolol tartrate (LOPRESSOR) 50 MG tabletIndicati ons:Hypertensi on, essential Take 1 tablet by mouth 2 (Two) Times a Day. 60 tablet 11 4 Active atorvastatin (LIPITOR) 40 MG tablet Take 1 tablet by mouth Daily. 90 tablet 3 4 Active Additional Information Patient taking differently: 20 mgOral Daily, Informant: Self, Reported on 09/29/2024 escitalopram (LEXAPRO) 5 MG tablet Take 1 tablet by mouth Daily. Active lisinopril-hyd rochlorothiazi de (Zestoretic) 10-12.5 MG per tabletIndicati ons:Hypertensi on, essential Take 1 tablet by mouth Daily. 30 tablet 11 4 Active dilTIAZem XR (DILACOR XR) 180 MG 24 hr capsule TAKE 1 CAPSULE BY MOUTH ONCE DAILY 90 capsule 3 5 Active apixaban (Eliquis) 5 MG tablet tablet Take 1 tablet by mouth 2 (Two) Times a Day. 180 tablet 1 5 Active Eliquis 5 MG tablet tablet TAKE 1 TABLET BY MOUTH TWICE DAILY 180 tablet 1 4 01/12/20 25 Discontin ued(Reord er) Active Problems Problem Noted Date Diagnosed Date Status post placement of implantable loop record er 04/23/2023 Assessment & Plan (09/29/2024 5:13 PM EDT): Reviewed today. 1 nonsustained SVT episode. Asymptomatic otherwise okay no A- fib. Approaching SHABNAM. May need to discussed at explant at next appointment. Assessment & Plan (01/05/2024 12:41 PM EDT): Most recent remote loop recorder interrogation shows good battery life and no events. No episodes of A-fib noted. Other specified anemias 01/17/2023 Cerebrovascular accident (CV A) due to thrombosis of cerebral artery 09/25/2022 Overview (09/25/2022): Multiple small infarcts on brain MRI 07/07/2022, cryptogenic. 30 day monitor showed no a fib, FAN showed possible LV thrombus but no thrombus seen on cMRI 10 days later. Remains on eliquis. Assessment & Plan (09/29/2024 5:13 PM EDT): No A-fib. Assessment & Plan (01/05/2024 12:40 PM EDT): Multiple small infarcts on brain MRI 07/07/2022, cryptogenic. 30 day monitor showed no a fib, FAN showed possible LV thrombus but no thrombus seen on cMRI 10 days later. Remains on eliquis. He would like to stop taking Eliquis, however, Dr. Wolf would like him to continue for now and will consider discontinuing it at follow-up visit in 6 months Assessment & Plan (12/17/2022 11:49 AM EDT): Doing well. Seeing neurology at . Remains on Eliquis. No further symptoms. Assessment & Plan (09/25/2022 1:27 PM EDT): Doing well. Seeing neurology at . Remains on Eliquis. No further symptoms. Pre-operative cardiovascular examination 023 Assessment & Plan (09/25/2022 1:28 PM EDT): Acceptable risk for surgery from a cardiac standpoint. Will optimize. Blood pressure good. No current issues. We will bridge his Eliquis prior to surgery. We will be in contact with his surgeon. We will also be in contact with his manager er and neurologist. LV (left ventricular) mural thrombus without SC 09/25/2022 Assessment & Plan (12/17/2022 11:51 AM EDT): Possible diagnosis. Remains on Eliquis. Assessment & Plan (09/25/2022 1:28 PM EDT): Possible diagnosis. Remains on Eliquis. Obstructive sleep apnea 09/25/2022 Assessment & Plan (09/29/2024 5:13 PM EDT): Download viewed. Sometimes maxing out pressures. Will change from 6-10 to 6-12. This is not affecting his sleep apnea control. Good compliance. Benefiting from PAP therapy and plan to continue. Orders: PAP Therapy Assessment & Plan (07/03/2024 1:13 PM EST): Doing well on pap therapy and plan to continue. Sending supply refills to new DME as patient would like to change. Orders: PAP Therapy Assessment & Plan (12/17/2022 12:03 PM EDT): Benefiting from PAP therapy. Plan to continue. Assessment & Plan (09/25/2022 1:31 PM EDT): Download reviewed today. Good compliance and control. Occlusion and stenosis of bilateral carotid yassine terry 07/17/2022 Assessment & Plan (12/17/2022 11:51 AM EDT): Benefiting from PAP therapy. Plan to continue. Hypertension, essential 07/17/2022 Assessment & Plan (07/03/2024 1:13 PM EST): BP has increased with some weight gain recently. Will add a diuretic with lisinopril. This will hopefully help the swelling he reports as well. Orders: ECG 12 Lead lisinopril-hydrochlorothiazide (Zestoretic) 10-12.5 MG per tablet; Take 1 tablet by mouth Daily. Assessment & Plan (01/05/2024 12:38 PM EDT): Hypertension is stable and controlled, occasional elevated readings. Continue current treatment regimen. Dietary sodium restriction. Regular aerobic exercise. Ambulatory blood pressure monitoring. Blood pressure will be reassessed in 6 months. - Follow-up with PCP to discuss options for anxiety treatment - Check blood pressure daily and keep a log of readings - We will reassess at follow-up visit Assessment & Plan (12/17/2022 11:50 AM EDT): Blood pressure doing well at home. But patient wants to decrease amount of pills he has to take. Stop diltiazem. Increase metoprolol 25 mg twice daily to 100 mg twice daily. Check blood pressure daily. We will see him back in 4 to 6 weeks to review medication changes and blood pressure. Assessment & Plan (09/25/2022 1:34 PM EDT): Home blood pressure log reviewed. Doing well on no addition of lisinopril hydrochlorothiazide. Continue current medications. Could consider combining diltiazem and metoprolol into 1 medication after his hip surgery. We initially started changing his medication but reordered it to wait on surgery - see below. Would not want to adjust beta-blockers within 6 weeks of surgery. Hyperlipidemia LDL goal <70 07/04/2022 Overview (04/23/2023): As above. Malignant tumor of prostate 07/04/2022 Adenocarcinoma of prostate 02/13/2017 Encounters Date Type Department Care Team Description 01/11/2025 Refill [facility] [address] [place], [place] [address] Pippa Wolf MD Med Refill 01/11/2025 Telephone [facility] [address] [place] [id number] Pippa Wolf MD 01/11/2025 Telephone [facility] [address] [place] [address] Pippa Wolf MD from Last 3 Months Immunizations Immunization Administration Dates Next Due COVID-19 (PFIZER) Purple Cap Monovalent 05/25/20,09/23/2020 Fluad Quad 65+ 05/08/2022 Fluzone (or Fluarix & Flulav al for VFC) >6mos 05/25/2021,05/01/2020 Hepatitis A 07/03/2004,12/01/2003 Hepatitis B Adult/Adolescent IM 07/03/2004,01/11,12/01/2003 Shingrix 06/26/2020 Td (TDVAX) 01/12/2004 Family History Medical History Relation Name Comments Pulmonary fibrosis Father Stroke Father Diabetes Mother Hypertension Mother Heart attack Paternal Great-Grandfather Relation Name Status Comments Father Alive Mother Alive Paternal Great-Grandfather (Age 51) Social History Tobacco Use Types Packs/Day Years Used Date Smoking Tobacco: Former Cigarettes Q uit: 2002 Cigars Quit: 04/13/20 24 Passive Smoke Exposure: Past Smokeless Tobacco: Never Tobacco Cessation:Counseling Given: No Comments:10-12 cigars/year Alcohol Use Standard Drinks/Week Comments Yes 0 (1 standard drink = 0.6 oz pur e alcohol) 2 BEERS A DAY Sex and Gender Information Value Date Recorded Sex Assigned at Male 12/10/2022 8:52 AM EDT Legal Sex Male 1:22 PM EDT Gender Identity Male 12/10/2022 8:52 AM EDT Sexual Orientation Straight 12/10/2022 8: 52 AM EDT Last Filed Vital Signs Vital Sign Reading Time Taken Comments Blood Pressure 110/72 09/29/2024 11:16 AM EDT Pulse 70 09/29/2024 11:16 AM EDT Temperature 36.3 C (97.3 F) 03/18/2023 9:31 AM EDT Respiratory Rate - - Oxygen Saturation 96% 09/29/2024 11:16 AM EDT Inhaled Oxygen Concentration - - Weight 106 kg (234 lb) 09/29/2024 11:16 AM EDT Height 177.8 cm (5' 10 ) 09/29/2024 11:16 AM EDT Body Mass Index 33.58 09/29/2024 11:16 AM EDT Plan of Treatment Upcoming Encounters Date Type Department Care Team (Late st Contact Info) Description 03/30/2025 11:00 AM EDT Office Visit [facility] [address] [place] [phone] Pippa Wolf MD [address] [place] [address] 03/30/2025 11:00 AM EDT Clinical Support No Requirements [facility] [address] [place] [address] Health Maintenance Due Date Last Done Comments COLOGUARD 2001 COLON CANCER SCREENING 5 YEA R SIGMOIDOSCOPY 2001 COLONOSCOPY [address]ER SCREENING 2001 CT COLONOGRAPHY 2001 FECAL OCCULT BLOOD TEST 2001 FIT Testing (1 year) 2001 Pneumococcal Vaccine 50+ (1 of 1 - PCV) 2006 TDAP/TD VACCINES (2 - Tdap) 01/11/2014 01/12/2004 ZOSTER VACCINE (2 of 2) 08/21/2020 06/26/2020 AAA SCREEN ONCE 2021 ANNUAL PHYSICAL 08/20/2022 COVID-19 Vaccine (4 - 2023-2 5 season) 2024 05/08/2022, 05/25/2021, 09/23/2020 LIPID PANEL 05/30/2024 05/30/2023 INFLUENZA VACCINE 04/13/2025 04/30/2024, , 05/25/2021, Additional history exists HEPATITIS C SCREENING Completed 07/19/2022 Procedures Procedure Name Priority Date/Time Associated Diagnosis Comments REMOTE DEVICE CHECK 01/06/2025 7:19 AM EDT LIPID PANEL Routine 05/30/2023 Cerebrovascular accident (CVA) due to thrombosis of cerebral artery Hyperlipidemia LDL goal <70 from Last 3 Months or Most Recently Relevant to Health Maintenance Results * Lipid Panel (05/30/2023) Blood us Pippa Wolf MD LAB BLOOD ORDERABLES Final R esult [facility]
[address] [place] [address], [place] [phone] from Last 3 Months or Most Recently Relevant to Health Maintenance Insurance [facility] PPO Member Subscriber Plan / Payer (Ef fective 2018-Present) Name:Carrington Mckeon Relation to Subscriber:Self Name:Carrington Mckeon Payer ID:[id number] (NAIC) Type:Not on file Address: [facility] [id number] [place] [id number] Care Teams Child Health Associate Relationship Specialty Start Date End Date Lexa Gonzalez MD [address] [place] [address] PCP - General Family Medicine 01/05/24
--- OUTSIDE RECORDS SUMMARY | 2025-02-04 04:51 | XMS_ITS | Encounter Summary ---
Author Organization Healthcare Address [address] [place] [address] Care Team Providers Care Desulfurizer Hand Name Role Phone Pcp, No Primary Care Provider Jojo Crawford MD Unavailable [phone] Clau Lombardo APRN Primary Care Provider [phone] Encounter Details Date Type Department Care Team ([facility] st Contact Info) Description 07/16/2022 Orders Only External Location [address] [place] [address] Provider, External Social History Tobacco Use Types Packs/Day Years Used Date Smoking Tobacco: Never Assessed Sex and Gender Information Value Date Recorded Sex Assigned at Male 07/26/2022 12:19 PM EST Legal Sex Male 10:52 AM EST Gender Identity Male 07/26/2022 12:19 PM EST Sexual Orientation Straight 07/26/2022 12 :19 PM EST COVID-19 Exposure Response Date Recorded In the last 10 days, have yo u been in contact with someone who was confirmed or suspected to have Coronavirus/COVID-19? No / Unsure 07/19/2022 2:13 PM EST documented as of this encounter Functional Status * Calculated C-SSRS Risk Score (Lifetime/Recent) Answer Date of Assessment Author No Risk Indicated 07/19/2022 2:11 PM EST Robert Maher RN * Question Answer Date of Assessment Author 1. Wish to be (Past 1 Month) No 07/19/2022 2:11 PM EST Tavares Maher RN 2. Non-Specific Active Suicidal Thoughts (Past 1 Month) No 07/19/2022 2:11 PM EST Sheets, Tavares er M, RN 6. Suicidal Behavior (Lifetime) No 07/19/2022 2:11 PM EST Sheets, Tavares Rodgers RN documented as of this encounter Plan of Treatment Not on file documented as of this encounter Procedures Procedure Name Priority Date/Time Associated Diagnosis Comments POC US ECHOCARDIOGRAPHY COMPLETE W DOPPLER AND COLOR 07/16/2022 8:45 AM EST documented in this encounter Results * POC US Echocardiography Complete W Doppler and Color (07/16/2022 8:45 AM EST) Anatomical Region Laterality Modality Ultrasound 07/16/2022 8:45 AM EST us External Provider IMG POINT OF CARE ULTRASOUND F inal Result documented in this encounter Visit Diagnoses Not on filedocumented in this encounter Care Teams Desulfurizer Hand Relationship Specialty Start Date End Date Pcp, No [address] [place] [address] PCP - General Family Medicine 07/26/22 08/07/22 Clau Lombardo APRN [address] [place] [address] PCP - General 08/08/22 Jojo Fink MD [address] [place] [address] Consulting Physician Neurology 08/08/22 documented as of this encounter
--- OUTSIDE RECORDS SUMMARY | 2025-02-04 04:51 | XMS_ITS | Data Portability ---
Author Organization [employer] Address [address] [place] [address] Care Team Providers Care Camp Dining Room Attendant Name Role Phone RENITA DUNN Urologist Assessment No assessment recorded. Plan of Treatment Reminders Order Date Submit Date Provider Last Modified By Organization Details Last Modified Time Details Appointments None recorded. Lab CMP, serum or plasma 2022 023 [facility], [address], [place], [address], 3 04:41:09 CBC w/ auto diff 2022 023 [facility], [address], [place], [address], 3 04:41:09 lipid panel, serum 2022 023 [facility], [address], [place], [address], 3 04:41:08 CBC w/ auto diff 2021 022 [facility], [address], [place], [address], 2 08:03:18 CMP, serum or plasma 2021 022 [facility], [address], [place], [address], 2 08:03:17 lipid panel, serum 2021 022 [facility] [facility], [address], [place], [address], 2 08:03:17 TSH, serum or plasma 2021 022 [facility] [employer] [facility], [address], [place], [address], 2 08:03:19 Referral None recorded. Procedures None recorded. Surgeries None recorded. Imaging None recorded. Medication Orders magnesium oxide 400 mg (241.3 mg magnesium) tablet 2022 023 [facility], [address] [place] [address], [address], 3 15:06:29 potassium chloride ER 10 mEq tablet,ext ended release 2022 023 [facility], [address] [place] [address], [address], 3 15:06:31 Patient TargetsNo targets recorded. Patient InstructionsNo instructions recorded. Reason for Referral None Reported. Results Created Date Observation Date Name Description Value Unit Range Abnormal Flag Note LastModifiedBy Organization Detail LastModifiedTime 07/04/2007/05/2022 LIPID PANEL , STAND SHO cholesterol, total 136 mg/dL <200 normal Not Available [facility] [place] [facility] [address], [place], [address], 07/05/2022 08:36:43 07/04/20 22 07/05/2022 LIPID PANEL , STAND SHO HDL cholesterol 61 mg/dL > or = 40 normal Not Available [facility] [place] [facility] [address], [place], [address], 07/05/2022 08:36:43 07/04/20 22 07/05/2022 LIPID PANEL , STAND SHO triglyceride s 47 mg/dL <150 normal Not Available [facility] [place] [facility] [address] [facility], [place], [address], 07/05/2022 08:36:43 07/04/20 22 07/05/2022 LIPID PANEL , STAND SHO LDL-choleste rol 62 mg/dL _(owen c) normal Refer ence range : <100 Radha able range <100 mg/dL for prima ry preve ntion ; <70 mg/dL for patie nts with CHD or diabe tic patie nts with > or = 2 CHD risk facto rs. LDL-C is now calcu lated using the Mer n-Hop kins calcu lathalima n, which is a valid ated novel metho d provi ding diana r accur acy than the Fried ricardo equat ion in the estim ation of LDL-C . Mer clement SS et al. KHOA. 2013; 310(1 9): 2061- 2068 (http ://ed ucati on.Qu estDi [employer]. com/f aq/FA Q164) Not Available [facility] [place] [facility] [address] [facility], [place], [address], 07/05/2022 08:36:43 07/04/20 22 07/05/2022 LIPID PANEL , STAND SHO chol/HDLC ratio 2.2 (calc ) <5.0 normal Not Available [facility] [place] [facility] [address] [facility], [place], [address], 07/05/2022 08:36:43 07/04/20 22 07/05/2022 LIPID PANEL , STAND SHO non HDL cholesterol 75 mg/dL _(owen c) <130 normal For patie nts with diabe prem plus 1 major ASCVD risk facto r, treat ing to a non-H DL-C goal of <100 mg/dL (LDL- C of <70 mg/dL ) is consi dered a thera peuti c optio n. Not Available [facility] [place] [facility] [address] [facility] [place], [address], 07/05/2022 08:36:43 07/04/20 22 07/05/2022 COMPR EHENS DREW METAB OLIC PANEL glucose 111 mg/dL 65-99 high Fasti ng refer ence inter ha For someo ne witho ut known diabe prem, a gluco se value betwe en 100 and 125 mg/dL is consi stent with predi abete s and shoul d be confi rmed with a follo w-up test. Not Available [facility] [place] [facility] [address] [place], [address], 07/05/2022 08:36:43 07/04/20 22 07/05/2022 COMPR EHENS DREW METAB OLIC PANEL urea nitrogen (BUN) 12 mg/dL 7-25 normal Not Available [facility] [place] [facility] [address] [place], [address], 07/05/2022 08:36:43 07/04/20 22 07/05/2022 COMPR EHENS DREW METAB OLIC PANEL creatinine 0.85 mg/dL 0.70-1 .35 normal Not Available [facility] [place] [facility] [address] [place], [address], 07/05/2022 08:36:43 07/04/20 22 07/05/2022 COMPR EHENS DREW METAB OLIC PANEL eGFR 96 mL/mi n/1.7 3m2 > or = 60 normal The eGFR is based on the CKD-E PI 2020 equat ion. To calcu late the new eGFR from a previ ous Creat inine or Cysta tin C resul t, go to https ://cesar queen.juliocesar holm/migue ruiz/ kdoqi /gfr% 5Fcal culat or Not Available [facility] [place] [facility] [address] [place], [address], 07/05/2022 08:36:43 07/04/20 22 07/05/2022 COMPR EHENS DREW METAB OLIC PANEL BUN/creatini ne ratio NOT APPLIC ABLE (calc ) 6-22 Not Available [facility] [address] [place], [address], 07/05/2022 08:36:43 07/04/20 22 07/05/2022 COMPR EHENS DREW METAB OLIC PANEL sodium 139 mmol/ L 135-14 6 normal Not Available [facility] [address] [place], [address], 07/05/2022 08:36:43 07/04/20 22 07/05/2022 COMPR EHENS DREW METAB OLIC PANEL potassium 4.1 mmol/ L 3.5-5. 3 normal Not Available [facility] [address] [place], [address], 07/05/2022 08:36:43 07/04/20 22 07/05/2022 COMPR EHENS DREW METAB OLIC PANEL chloride 103 mmol/ L 98-110 normal Not Available [facility] [address] [place], [address], 07/05/2022 08:36:43 07/04/20 22 07/05/2022 COMPR EHENS DREW METAB OLIC PANEL carbon dioxide 30 mmol/ L 20-32 normal Not Available [facility] [address] [place], [address], 07/05/2022 08:36:43 07/04/20 22 07/05/2022 COMPR EHENS DREW METAB OLIC PANEL calcium 9.1 mg/dL 8.6-10 .3 normal Not Available [facility] [address] [place], [address], 07/05/2022 08:36:43 07/04/20 22 07/05/2022 COMPR EHENS DREW METAB OLIC PANEL protein, total 6.3 g/dL 6.1-8. 1 normal Not Available [facility] [address] [facility] [address] [place], [address], 07/05/2022 08:36:43 07/04/20 22 07/05/2022 COMPR EHENS DREW METAB OLIC PANEL albumin 4.1 g/dL 3.6-5. 1 normal Not Available [email or web address] [address] [place], [address], 07/05/2022 08:36:43 07/04/20 22 07/05/2022 COMPR EHENS DREW METAB OLIC PANEL globulin 2.2 g/dL_ (calc ) 1.9-3. 7 normal Not Available [email or web address] [address] [place], [address], 07/05/2022 08:36:43 07/04/20 22 07/05/2022 COMPR EHENS DREW METAB OLIC PANEL albumin/glob ulin ratio 1.9 (calc ) 1.0-2. 5 normal Not Available [facility] [address] [place] [address], [address], 07/05/2022 08:36:43 07/04/20 22 07/05/2022 COMPR EHENS DREW METAB OLIC PANEL bilirubin, total 0.7 mg/dL 0.2-1. 2 normal Not Available [facility] [address] [place] [address], [address], 07/05/2022 08:36:43 07/04/20 22 07/05/2022 COMPR EHENS DREW METAB OLIC PANEL alkaline phosphatase 140 U/L 35-144 normal Not Available [facility] [address] [place], [address], 07/05/2022 08:36:43 07/04/20 22 07/05/2022 COMPR EHENS DREW METAB OLIC PANEL AST 19 U/L 10-35 normal Not Available [facility] [address] [place], [address], 07/05/2022 08:36:43 07/04/20 22 07/05/2022 COMPR EHENS DREW METAB OLIC PANEL ALT 16 U/L 9-46 normal Not Available [facility] [address] [place], [address], 07/05/2022 08:36:43 07/04/20 22 07/05/2022 CBC (INCL UDES DIFF/ PLT) white blood cell count 4.4 thous and/u L 3.8-10 .8 normal Not Available [facility] [address] [place], [address], 07/05/2022 08:03:18 07/04/20 22 07/05/2022 CBC (INCL UDES DIFF/ PLT) red blood cell count 4.78 britney on/uL 4.20-5 .80 normal Not Available [facility] [address] [facility] [address] [facility] [place], [address], 07/05/2022 08:03:18 07/04/20 22 07/05/2022 CBC (INCL UDES DIFF/ PLT) hemoglobin 13.5 g/dL 13.2-1 7.1 normal Not Available [facility] [address] [place], [address], 07/05/2022 08:03:18 07/04/20 22 07/05/2022 CBC (INCL UDES DIFF/ PLT) hematocrit 40.9 % 38.5-5 0.0 normal Not Available [facility] [address], [address], 07/05/2022 08:03:18 07/04/20 22 07/05/2022 CBC (INCL UDES DIFF/ PLT) MCV 85.6 fL 80.0-1 00.0 normal Not Available [facility] [address] [place], [address], 07/05/2022 08:03:18 07/04/20 22 07/05/2022 CBC (INCL UDES DIFF/ PLT) MCH 28.2 pg 27.0-3 3.0 normal Not Available [facility] [place] [facility] [address] [place], [address], 07/05/2022 08:03:18 07/04/20 22 07/05/2022 CBC (INCL UDES DIFF/ PLT) MCHC 33.0 g/dL 32.0-3 6.0 normal Not Available [facility] [place] [facility] [address] [place], [address], 07/05/2022 08:03:18 07/04/20 22 07/05/2022 CBC (INCL UDES DIFF/ PLT) RDW 14.2 % 11.0-1 5.0 normal Not Available [facility] [place] [facility] [address], [place], [address], 07/05/2022 08:03:18 07/04/20 22 07/05/2022 CBC (INCL UDES DIFF/ PLT) platelet count 238 thous and/u L 140-40 0 normal Not Available [facility] [address] [place], [address], 07/05/2022 08:03:18 07/04/20 22 07/05/2022 CBC (INCL UDES DIFF/ PLT) MPV 11.3 fL 7.5-12 .5 normal Not Available [facility] [place] [facility] [address], [place], [address], 07/05/2022 08:03:18 07/04/20 22 07/05/2022 CBC (INCL UDES DIFF/ PLT) absolute neutrophils 2702 cells /uL 1500-7 800 normal Not Available [facility] [place] [facility] [address], [place], [address], 07/05/2022 08:03:18 07/04/20 22 07/05/2022 CBC (INCL UDES DIFF/ PLT) absolute lymphocytes 1285 cells /uL 850-39 00 normal Not Available [facility] [place] [facility] [address], [place], [address], 07/05/2022 08:03:18 07/04/20 22 07/05/2022 CBC (INCL UDES DIFF/ PLT) absolute monocytes 312 cells /uL 200-95 0 normal Not Available [facility] [place] [facility] [address] [facility], [place], [address], 07/05/2022 08:03:18 07/04/20 22 07/05/2022 CBC (INCL UDES DIFF/ PLT) absolute eosinophils 79 cells /uL 15-500 normal Not Available [facility] [place] [facility] [address] [facility], [place], [address], 07/05/2022 08:03:18 07/04/20 22 07/05/2022 CBC (INCL UDES DIFF/ PLT) absolute basophils 22 cells /uL 0-200 normal Not Available [facility] [place] [facility] [address] [facility], [place], [address], 07/05/2022 08:03:18 07/04/20 22 07/05/2022 CBC (INCL UDES DIFF/ PLT) neutrophils 61.4 % normal Not Available [facility] [place] [facility] [address], [place], [address], 07/05/2022 08:03:18 07/04/20 22 07/05/2022 CBC (INCL UDES DIFF/ PLT) lymphocytes 29.2 % normal Not Available [facility] [place] [facility] [address] [facility], [place], [address], 07/05/2022 08:03:18 07/04/20 22 07/05/2022 CBC (INCL UDES DIFF/ PLT) monocytes 7.1 % normal Not Available [facility] [place] [facility] [address] [place], [address], 07/05/2022 08:03:18 07/04/20 22 07/05/2022 CBC (INCL UDES DIFF/ PLT) eosinophils 1.8 % normal Not Available [facility] [place] [facility] [address] [place], [address], 07/05/2022 08:03:18 07/04/20 22 07/05/2022 CBC (INCL UDES DIFF/ PLT) basophils 0.5 % normal Not Available [facility] [place] [facility] [address] [place], [address], 07/05/2022 08:03:18 07/04/20 22 07/07/2022 TSH TSH 2.01 mIU/L 0.40-4 .50 normal Not Available [facility] [place] [facility] [address] [place], [address], 07/07/2022 06:18:41 07/04/2007/07/2022 HEMOG LOBIN A1C hemoglobin A1C 5.5 %_of_ total _HGB <5.7 normal For the purpo se of ping alvarenga for the prese nce of diabe prem: <5.7% Consi stent with the absen ce of diabe prem 5.7-6 .4% Consi stent with incre ased risk for diabe prem (pred iabet es) > or =6.5% Consi stent with diabe prem This assay resul t is consi stent with a decre ased risk of diabe prem. Curre ntly, no conse nsus exist s gelacio vigil use of hemog lobin A1c for diagn osis of diabe prem in child kenia. Accor ding to Ameri can Diabe prem Assoc iatio n (ADA) guide lines , hemog lobin A1c <7.0% repre sents optim al contr ol in non-p regna nt diabe tic patie nts. Diffe rent metri cs may apply to speci fic patie nt popul ation s. Stand ards of Medic al Care in Diabe prem(A DA). Your reque st to have a Exelise copy faxed [place] to: [phone] A Venaxisli jonathan repor t has been faxed to the follo wing: Faxed to: [phone] on: 07/05 14:40 Not Available [facility] [place] [facility] [address], [place], [address], 07/07/2022 06:18:42 11/23/1911/23/2022 LIPID PANEL , STAND SHO cholesterol, total 122 mg/dL <200 normal Not Available [facility] [place] [facility] [address], [place], [address], 11/23/2022 06:09:25 11/23/1911/23/2022 LIPID PANEL , STAND SHO HDL cholesterol 52 mg/dL > or = 40 normal Not Available [facility] [place] [facility] [address], [place], [address], 11/23/2022 06:09:25 11/23/1911/23/2022 LIPID PANEL , STAND SHO triglyceride s 83 mg/dL <150 normal Not Available [facility] [place] [facility] [address], [place], [address], 11/23/2022 06:09:25 11/23/1911/23/2022 LIPID PANEL , STAND SHO LDL-choleste rol 53 mg/dL _(owen c) normal Refer ence range : <100 Radha able range <100 mg/dL for prima ry preve ntion ; <70 mg/dL for patie nts with CHD or diabe tic patie nts with > or = 2 CHD risk facto rs. LDL-C is now calcu lated using the Mer n-Hop kins calcu quincy n, which is a valid ated novel metho d jacoboi musa ortiz r accur acy than the Fried ricardo equat ion in the estim ation of LDL-C . Mer n SS et al. KHOA. 2013; 310(1 9): 2061- 2068 (http ://ed dylanati on.Qu Fatuma blackburn [employer]. com/f aq/FA Q164) Not Available [facility] [place] [facility] [address] [facility], [place], [address], 11/23/2022 06:09:25 11/23/1911/23/2022 LIPID PANEL , STAND SHO chol/HDLC ratio 2.3 (calc ) <5.0 normal Not Available [facility] [place] [facility] [address] [facility], [place], [address], 11/23/2022 06:09:25 11/23/1911/23/2022 LIPID PANEL , STAND SHO non HDL cholesterol 70 mg/dL _(owen c) <130 normal For patie nts with diabe prem plus 1 major ASCVD risk facto r, treat ing to a non-H DL-C goal of <100 mg/dL (LDL- C of <70 mg/dL ) is consi dered a thera peuti c optio n. Not Available [facility] [place] [facility] [address] [facility], [place], [address], 11/23/2022 06:09:25 11/23/1911/23/2022 COMPR EHENS DREW METAB OLIC PANEL glucose 116 mg/dL 65-99 high Fasti ng refer ence inter ha For someo ne witho ut known diabe prem, a gluco se value betwe en 100 and 125 mg/dL is consi stent with predi abete s and shoul d be confi rmed with a follo w-up test. Not Available [facility] [place] [facility] [address] [facility], [place], [address], 11/23/2022 06:09:26 11/23/1911/23/2022 COMPR EHENS DREW METAB OLIC PANEL urea nitrogen (BUN) 9 mg/dL 7-25 normal Not Available [facility] [address] [facility] [place], [address], 11/23/2022 06:09:26 11/23/19 23 11/23/2022 COMPR EHENS DREW METAB OLIC PANEL creatinine 0.73 mg/dL 0.70-1 .35 normal Not Available [facility] [address] [place], [address], 11/23/2022 06:09:26 11/23/19 23 11/23/2022 COMPR EHENS DREW METAB OLIC PANEL eGFR 101 mL/mi n/1.7 3m2 > or = 60 normal The eGFR is based on the CKD-E PI 2020 equat ion. To calcu late the new eGFR from a previ ous Creat inine or Cysta tin C resul t, go to https ://cesar queen.juliocesar holm/migue lowe s/ kdoqi /gfr% 5Fcal culat or Not Available [facility] [facility] [address] [place], [address], 11/23/2022 06:09:26 11/23/19 23 11/23/2022 COMPR EHENS DREW METAB OLIC PANEL BUN/creatini ne ratio NOT APPLIC ABLE (calc ) 6-22 Not Available [facility] [address] [place], [address], 11/23/2022 06:09:26 11/23/19 23 11/23/2022 COMPR EHENS DREW METAB OLIC PANEL sodium 141 mmol/ L 135-14 6 normal Not Available [facility] [address] [place], [address], 11/23/2022 06:09:26 11/23/19 23 11/23/2022 COMPR EHENS DREW METAB OLIC PANEL potassium 3.5 mmol/ L 3.5-5. 3 normal Not Available [facility] [address] [place], [address], 11/23/2022 06:09:26 11/23/19 23 11/23/2022 COMPR EHENS DREW METAB OLIC PANEL chloride 101 mmol/ L 98-110 normal Not Available [facility] [address] [place], [address], 11/23/2022 06:09:26 11/23/19 23 11/23/2022 COMPR EHENS DREW METAB OLIC PANEL carbon dioxide 32 mmol/ L 20-32 normal Not Available [facility] [address] [place], [address], 11/23/2022 06:09:26 11/23/19 23 11/23/2022 COMPR EHENS DREW METAB OLIC PANEL calcium 8.7 mg/dL 8.6-10 .3 normal Not Available [facility] [address] [place], [address], 11/23/2022 06:09:26 11/23/19 23 11/23/2022 COMPR EHENS DREW METAB OLIC PANEL protein, total 5.7 g/dL 6.1-8. 1 low Not Available [facility] [address] [place], [address], 11/23/2022 06:09:26 11/23/19 23 11/23/2022 COMPR EHENS DREW METAB OLIC PANEL albumin 3.5 g/dL 3.6-5. 1 low Not Available [facility] [address] [place], [address], 11/23/2022 06:09:26 11/23/19 23 11/23/2022 COMPR EHENS DREW METAB OLIC PANEL globulin 2.2 g/dL_ (calc ) 1.9-3. 7 normal Not Available [facility] [address] [place], [address], 11/23/2022 06:09:26 11/23/19 23 11/23/2022 COMPR EHENS DREW METAB OLIC PANEL albumin/glob ulin ratio 1.6 (calc ) 1.0-2. 5 normal Not Available [facility] [address] [place], [address], 11/23/2022 06:09:26 11/23/1911/23/2022 COMPR EHENS DREW METAB OLIC PANEL bilirubin, total 0.7 mg/dL 0.2-1. 2 normal Not Available [email or web address] [facility] [address] [place], [address], 11/23/2022 06:09:26 11/23/19 23 11/23/2022 COMPR EHENS DREW METAB OLIC PANEL alkaline phosphatase 93 U/L 35-144 normal Not Available [facility] [address] [place], [address], 11/23/2022 06:09:26 11/23/1911/23/2022 COMPR EHENS DREW METAB OLIC PANEL AST 54 U/L 10-35 high Not Available [facility] [address] [place], [address], 11/23/2022 06:09:26 11/23/19 23 11/23/2022 COMPR EHENS DREW METAB OLIC PANEL ALT 58 U/L 9-46 high Not Available [facility] [address] [place], [address], 11/23/2022 06:09:26 11/23/1911/23/2022 CBC (INCL UDES DIFF/ PLT) white blood cell count 6.1 thous and/u L 3.8-10 .8 normal Not Available [facility] [address] [facility] [place], [address], 11/23/2022 04:41:09 11/23/19 23 11/23/2022 CBC (INCL UDES DIFF/ PLT) red blood cell count 3.17 britney on/uL 4.20-5 .80 low Not Available [facility] [place] [facility] [address], [place], [address], 11/23/2022 04:41:09 11/23/19 23 11/23/2022 CBC (INCL UDES DIFF/ PLT) hemoglobin 9.2 g/dL 13.2-1 7.1 low Not Available [facility] [place] [facility] [address] [facility] [address], [place], [address], 11/23/2022 04:41:09 11/23/1911/23/2022 CBC (INCL UDES DIFF/ PLT) hematocrit 28.8 % 38.5-5 0.0 low Not Available [facility] [place] [facility] [address], [place], [address], 11/23/2022 04:41:09 11/23/19 23 11/23/2022 CBC (INCL UDES DIFF/ PLT) MCV 90.9 fL 80.0-1 00.0 normal Not Available [facility] [place] [facility] [address], [place], [address], 11/23/2022 04:41:09 11/23/1911/23/2022 CBC (INCL UDES DIFF/ PLT) MCH 29.0 pg 27.0-3 3.0 normal Not Available [facility] [place] [facility] [address], [place], [address], 11/23/2022 04:41:09 11/23/1911/23/2022 CBC (INCL UDES DIFF/ PLT) MCHC 31.9 g/dL 32.0-3 6.0 low Not Available [facility] [place] [facility] [address] [facility], [place], [address], 11/23/2022 04:41:09 11/23/1911/23/2022 CBC (INCL UDES DIFF/ PLT) RDW 13.9 % 11.0-1 5.0 normal Not Available [facility] [place] [facility] [address], [place], [address], 11/23/2022 04:41:09 11/23/1911/23/2022 CBC (INCL UDES DIFF/ PLT) platelet count 233 thous and/u L 140-40 0 normal Not Available [facility] [place] [facility] [address], [place], [address], 11/23/2022 04:41:09 11/23/1911/23/2022 CBC (INCL UDES DIFF/ PLT) MPV 12.0 fL 7.5-12 .5 normal Not Available [facility] [place] [facility] [address], [place], [address], 11/23/2022 04:41:09 11/23/1911/23/2022 CBC (INCL UDES DIFF/ PLT) absolute neutrophils 4142 cells /uL 1500-7 800 normal Not Available [facility] [place] [facility] [address], [place], [address], 11/23/2022 04:41:09 11/23/1911/23/2022 CBC (INCL UDES DIFF/ PLT) absolute lymphocytes 1263 cells /uL 850-39 00 normal Not Available [facility] [place] [facility] [address], [place], [address], 11/23/2022 04:41:09 11/23/1911/23/2022 CBC (INCL UDES DIFF/ PLT) absolute monocytes 476 cells /uL 200-95 0 normal Not Available [facility] [place] [facility] [address], [place], [address], 11/23/2022 04:41:09 11/23/19 23 11/23/2022 CBC (INCL UDES DIFF/ PLT) absolute eosinophils 201 cells /uL 15-500 normal Not Available [facility] [place] [facility] [address], [place], [address], 11/23/2022 04:41:09 11/23/19 23 11/23/2022 CBC (INCL UDES DIFF/ PLT) absolute basophils 18 cells /uL 0-200 normal Not Available [facility] [place] [facility] [address], [place], [address], 11/23/2022 04:41:09 11/23/19 23 11/23/2022 CBC (INCL UDES DIFF/ PLT) neutrophils 67.9 % normal Not Available [facility] [place] [facility] [address], [place], [address], 11/23/2022 04:41:09 11/23/19 23 11/23/2022 CBC (INCL UDES DIFF/ PLT) lymphocytes 20.7 % normal Not Available [facility] [place] [facility] [address], [place], [address], 11/23/2022 04:41:09 11/23/1911/23/2022 CBC (INCL UDES DIFF/ PLT) monocytes 7.8 % normal Not Available [facility] [place] [facility] [address], [place], [address], 11/23/2022 04:41:09 11/23/19 23 11/23/2022 CBC (INCL UDES DIFF/ PLT) eosinophils 3.3 % normal Not Available [facility] [place] [facility] [address], [place], [address], 11/23/2022 04:41:09 11/23/19 23 11/23/2022 CBC (INCL UDES DIFF/ PLT) basophils 0.3 % normal Not Available [facility] [place] [facility] [address], [place], [address], 11/23/2022 04:41:09 01/03/2001/03/2023 CBC (INCL UDES DIFF/ PLT) white blood cell count 7.9 thous and/u L 3.8-10 .8 normal Not Available [facility] [place] [facility] [address], [place], [address], 01/03/2023 04:30:14 01/03/2001/03/2023 CBC (INCL UDES DIFF/ PLT) red blood cell count 3.56 britney on/uL 4.20-5 .80 low Not Available [facility] [place] [facility] [address], [place], [address], 01/03/2023 04:30:14 01/03/2001/03/2023 CBC (INCL UDES DIFF/ PLT) hemoglobin 9.2 g/dL 13.2-1 7.1 low Not Available [facility] [place] [facility] [address], [place], [address], 01/03/2023 04:30:14 01/03/2001/03/2023 CBC (INCL UDES DIFF/ PLT) hematocrit 29.5 % 38.5-5 0.0 low Not Available [facility] [place] [facility] [address], [place], [address], 01/03/2023 04:30:14 01/03/2001/03/2023 CBC (INCL UDES DIFF/ PLT) MCV 82.9 fL 80.0-1 00.0 normal Not Available [facility] [place] [facility] [address], [place], [address], 01/03/2023 04:30:14 01/03/2001/03/2023 CBC (INCL UDES DIFF/ PLT) MCH 25.8 pg 27.0-3 3.0 low Not Available [facility] [place] [facility] [address], [place], [address], 01/03/2023 04:30:14 01/03/2001/03/2023 CBC (INCL UDES DIFF/ PLT) MCHC 31.2 g/dL 32.0-3 6.0 low Not Available [facility] [place] [facility] [address], [place], [address], 01/03/2023 04:30:14 01/03/2001/03/2023 CBC (INCL UDES DIFF/ PLT) RDW 14.1 % 11.0-1 5.0 normal Not Available [facility] [place] [facility] [address], [place], [address], 01/03/2023 04:30:14 01/03/2001/03/2023 CBC (INCL UDES DIFF/ PLT) platelet count 257 thous and/u L 140-40 0 normal Not Available [facility] [place] [facility] [address], [place], [address], 01/03/2023 04:30:14 01/03/2001/03/2023 CBC (INCL UDES DIFF/ PLT) MPV 12.4 fL 7.5-12 .5 normal Not Available [facility] [place] [facility] [address], [place], [address], 01/03/2023 04:30:14 01/03/2001/03/2023 CBC (INCL UDES DIFF/ PLT) absolute neutrophils 5799 cells /uL 1500-7 800 normal Not Available [facility] [place] [facility] [address], [place], [address], 01/03/2023 04:30:14 01/03/2001/03/2023 CBC (INCL UDES DIFF/ PLT) absolute lymphocytes 1367 cells /uL 850-39 00 normal Not Available [facility] [address], [place], [address], 01/03/2023 04:30:14 01/03/2001/03/2023 CBC (INCL UDES DIFF/ PLT) absolute monocytes 561 cells /uL 200-95 0 normal Not Available [facility] [place] [facility] [address], [place], [address], 01/03/2023 04:30:14 01/03/2001/03/2023 CBC (INCL UDES DIFF/ PLT) absolute eosinophils 150 cells /uL 15-500 normal Not Available [facility] [place] [facility] [address], [place], [address], 01/03/2023 04:30:14 01/03/2001/03/2023 CBC (INCL UDES DIFF/ PLT) absolute basophils 24 cells /uL 0-200 normal Not Available [facility] [place] [facility] [address], [place], [address], 01/03/2023 04:30:14 01/03/20 23 01/03/2023 CBC (INCL UDES DIFF/ PLT) neutrophils 73.4 % normal Not Available [facility] [place] [facility] [address], [place], [address], 01/03/2023 04:30:14 01/03/20 23 01/03/2023 CBC (INCL UDES DIFF/ PLT) lymphocytes 17.3 % normal Not Available [facility] [place] [facility] [address], [place], [address], 01/03/2023 04:30:14 01/03/2001/03/2023 CBC (INCL UDES DIFF/ PLT) monocytes 7.1 % normal Not Available [facility] [place] [facility] [address], [place], [address], 01/03/2023 04:30:14 01/03/20 23 01/03/2023 CBC (INCL UDES DIFF/ PLT) eosinophils 1.9 % normal Not Available [facility] [place] [facility] [address], [place], [address], 01/03/2023 04:30:14 01/03/20 23 01/03/2023 CBC (INCL UDES DIFF/ PLT) basophils 0.3 % normal Not Available [facility] [place] [facility] [address] [facility], [place], [address], 01/03/2023 04:30:14 07/07/20 22 07/07/2022 CT, cervi owen spine , w/o contr ast No observ ation record ed. [address] (Radiology) [address] [place] [address] , [place], [address], 07/22/2022 12:59:02 07/07/20 22 07/07/2022 CT, head + brain , w/ contr ast No observ ation record ed. [address] (Radiology) [address] [place] [address] [place], [address], 07/22/2022 12:58:44 07/07/20 22 07/07/2022 CT, angio gram, neck, w/ contr ast No observ ation record ed. [address] (Radiology) [address] [place] [address] , [place], [address], 07/22/2022 12:58:18 07/08/20 22 07/07/2022 CT, angio gram, neck, w/ contr ast No observ ation record ed. [address] [facility]Radiology) [facility] [address], 07/22/2022 12:58:00 07/09/20 22 07/07/2022 CT, angio gram, head, w/ contr ast No observ ation record ed. [address] (Radiology) [address] [place] [address] [place], [address], 07/22/2022 12:57:47 07/10/20 22 07/10/2022 MRI, brain , w/o contr ast No observ ation record ed. [address] (Radiology) [address], [place], [address], 07/22/2022 12:38:14 01/12/20 23 01/11/2023 CT, abdom en + pelvi s, w/ contr ast No observ ation record ed. [address] (Radiology) [address] [place], [address], 02/14/2023 16:51:45 02/15/20 23 02/14/2023 XR, chest No observ ation record ed. [address] (Radiology) [address], [place], [address], 02/14/2023 16:51:45 02/15/20 23 02/14/2023 CT, chest , w/ contr ast No observ ation record ed. [address] (Radiology) [address], [place], [address], 02/14/2023 16:50:29 03/20/20 23 03/19/2023 CT, brain , w/o contr ast No observ ation record ed. [address] (Radiology) [address], [place], [address], 04/02/2023 15:10:24 03/20/20 23 03/19/2023 CT, brain , w/ contr ast No observ ation record ed. [address] (Radiology) [address] [place], [address], 04/02/2023 15:09:46 03/20/20 23 03/19/2023 CT, angio gram, neck, w/ contr ast No observ ation record ed. [address] (Radiology) [address], [place], [address], 04/02/2023 15:09:04 03/20/20 23 03/20/2023 CT, chest , w/ contr ast No observ ation record ed. [address] (Radiology) [address] , [place], [address], 04/02/2023 15:07:00 03/20/20 23 03/19/2023 XR, chest , 1 view No observ ation record ed. [address] (Radiology) [address], [place], [address], 04/02/2023 15:05:33 Result Notes None recorded. Problems Name Problem SNOMED Code Status Onset Date Resolution Date Notes Provider Name and Address Organization Details Recorded Time Hyperlipidemia 16952000 Active 2021 [employer] 08:43:48 Malignant neoplasm of prostate 049482517 Active 2021 [email or web address] 09:50:58 Problem Notes None recorded. Procedures Surgical History Date Name Laterality Status Provider Name and Address Organization Details Recorded Time 3 total replacement of hip completed Antonio Penn [employer] 11/22/2022 08:07:23 total replacement of hip completed [employer] 07/04/2022 09:50:44 Vasectomy completed [employer] 07/22/2022 11:02:50 Cataract Surgery completed [employer] 07/22/2022 11:02:50 Joint Replacement completed [employer] 07/22/2022 11:02:50 Imaging Results None recorded. Procedure Notes None recorded. Medical Equipment None Reported. Allergies Allergen ID Allergen Name Allergen Category Reaction Reaction Severity Criticality Documentation Date Start Date Code Code System Note Provider Name and Address Organization Details Recorded Time 83608 Cipro medicatio n dyspnea Not available Not available 07/04/2022 3 RxNorm [email or web address] 2 09:46:40 Medications Name Sig Start Date Stop Date Status Note LastModified by Organization Details LastModified Time clonidine HCl 0.1 mg tablet 05/12 /2023 completed Not Available Not Available Not Available diltiazem ER 180 mg capsule,24 hr,extende d release TAKE 1 CAPSULE BY MOUTH EVERY DAY active cardio Not Available Not Available No t Available atorvastat in 10 mg tablet TAKE 1 TABLET BY MOUTH EVERY DAY active cardio Not Available Not Available No t Available lisinopril 20 mg-hydroch lorothiazi de 12.5 mg tablet TAKE 1 TABLET BY MOUTH EVERY DAY active Not Available Not Available No t Available ondansetro n HCl 4 mg tablet TAKE 1 TABLET BY ORAL ROUTE EVERY 6 HOURS NEEDED FOR NAUSEA AND VOMITING . 07/04 completed Not Available Not Available Not Available fluorourac il 5 % topical cream 07/04 completed Not Available Not Available Not Available potassium chloride ER 10 mEq tablet,ext ended release Take 1 tablet every day by oral route. 2022 active Not Available Not Available Not Avai lable clopidogre l 75 mg tablet 11/22 completed Not Available Not Available Not Available sulfametho xazole 800 mg-trimeth oprim 160 mg tablet Take 1 tablet every 12 hours by oral route for 7 days. 02/28 completed Not Available Not Available Not Available oxycodone- acetaminop hen 5 mg-325 mg tablet TAKE 2 TABLETS BY MOUTH EVERY FOUR HOURS NEEDED FOR MODERATE PAIN 07/04 completed Not Available Not Available Not Available potassium chloride 20 mEq oral packet MIX 1 PACKET IN 6 OUNCES OF WATER OR JUICE AND DRINK ONCE DAILY AFTER A MEAL active Not Available Not Available No t Available magnesium oxide 400 mg (241.3 mg magnesium) tablet Take 1 tablet every day by oral route. 2022 active Not Available Not Available Not Avai lable mupirocin 2 % topical ointment 07/04 completed Not Available Not Available Not Available amoxicilli n 875 mg-potassi um clavulanat e 125 mg tablet TAKE 1 TABLET BY MOUTH EVERY 12 HOURS FOR 10 DAYS 07/04 completed Not Available Not Available Not Available enoxaparin 100 mg/mL subcutaneo us syringe 11/22 completed Not Available Not Available Not Available enoxaparin 40 mg/0.4 mL subcutaneo us syringe INJECT 40MG(1 PEN) SUB-Q EVERY 24HOURS FOR 13 DAYS 07/04 completed Not Available Not Available Not Available Senna Plus 8.6 mg-50 mg tablet TAKE 2 TABLETS BY MOUTH AT BEDTIME (HOLD FOR DIARRHEA ) 07/04 completed Not Available Not Available Not Available alfuzosin ER 10 mg tablet,ext ended release 24 hr TAKE 1 TABLET BY MOUTH EVERY DAY 02/28 completed cardio Not Available Not Available Not Available metoprolol tartrate 25 mg tablet Take 1 tablet twice a day by oral route. active Not Available Not Available No t Available Eliquis 5 mg tablet Take 1 tablet twice a day by oral route. active cardio Not Available Not Available No t Available Vitals Date Recorded Body height Body mass index (BMI) Body weight Body temperature Heart rate Oxygen saturation Oxygen saturation in Arterial blood by Pulse oximetry Systolic And Diastolic Provider Name and Address Organization Details Last Updated DateTime 3 177.8 cm 30.7 kg/m2 68070.7 7 g 98.5 [degF] 85 /min 98 % 98 % 132/72 mm[Hg] Anabel Philip [employer] 3 14:00:12 Date Recorded Body height Body mass index (BMI) Body weight Heart rate Oxygen saturation Oxygen saturation in Arterial blood by Pulse oximetry Systolic And Diastolic Systolic And Diastolic Provider Name and Address Organization Details Last Updated DateTime 3 177.8 cm 31 kg/m2 52348.0 5 g 82 /min 97 % 97 % 152/72 mm[Hg] 138/69 mm[Hg] Antonio [employer] 3 08:09:01 Date Recorded Body height Body mass index (BMI) Body weight Provider Name and Address Organization Details Last Updated DateTime 02/28/2023 177.8 cm 31 kg/m2 32585.95 g Antonio Nellysford [employer] 02/28/2023 14:05:47 Date Recorded Body weight Body mass index (BMI) Body height Body temperature Heart rate Oxygen saturation Oxygen saturation in Arterial blood by Pulse oximetry Systolic And Diastolic Provider Name and Address Organization Details Last Updated DateTime 2 841244. 51 g 31.9 kg/m2 177.8 cm 98.8 [degF] 98 /min 97 % 97 % 136/70 mm[Hg] HAROON TORSTEN [employer] 09:52:46 Social History Question Answer Notes LastModified by Organizat ion Details LastModified Time Tobacco Smoking Status Former Smoker HAROON SARMIENTO [employer] 07/22/2022 11:02:49 Do You Have An Advance Directive? No Information not available 07/22/2022 Is Your Home Air Conditioned? Yes [email or web address] Information not available 07/04/2022 How Many Years Have You Consumed Alcohol? 35 [email or web address] Information not available 07/22/2022 Do You Wear A Helmet When Biking? Yes Information not available 07/22/2022 Are You Blind Or Do You Have Difficulty Seeing? No [email or web address] Information not available 07/04/2022 What Is Your Level Of Caffeine Consumption? Moderate [email or web address] Information not available 07/22/2022 In The 14 Days Before Symptom Onset, Have You Had Close Contact With A Laboratory-confir med COVID-19 While That Case Was Ill? No [email or web address] Information not available 07/22/2022 In The 14 Days Before Symptom Onset, Have You Had Close Contact With A Person Who Is Under Investigation For COVID-19 While That Person Was Ill? No [email or web address] Information not available 07/22/2022 Have You Been To An Area Known To Be High Risk For COVID-19? No [email or web address] Information not available 07/22/2022 Are You Deaf Or Do You Have Serious Difficulty Hearing? No [email or web address] Information not available 07/04/2022 What Type Of Diet Are You Following? REGULAR Information not available 07/22/2022 Who Is Your Employer? [employer] [email or web address] Information not available 07/22/2022 How Many Days Of Moderate To Strenuous Exercise, Like A Brisk Walk, Did You Do In The Last 7 Days? 5 Information not available 07/22/2022 Have There Been Any Changes To Your Family Or Social Situation? No [email or web address] Information no t available 07/04/2022 When Did You Quit Smoking? 16+yearssincel astcigarette [email or web address] Information not available 07/22/2022 Are There Any Guns Present In Your Home? Yes [email or web address] Information not available 07/22/2022 Which Of Your Hands Is Dominant? Right [email or web address] Information not available 07/22/2022 What Is Your Home Situation? Other [email or web address] Information not available 07/22/2022 Do You Have A Medical Power Of Director Energy? No [email or web address] Information not available 07/04/2022 What Was The Date Of Your Most Recent Tobacco Screening? 02/28/2023 [email or web address] Information not available 02/28/2023 Are There Any Occupational Health Risks Where You Work? No [email or web address] Information not available 07/22/2022 What Is Your Current Pack Years? 10packyears [email or web address] Information not available 07/04/2022 Do You Have Any Pets? Yes Information not available 07/22/2022 Do You Use Protection During Sex? No [email or web address] Information not available 07/22/2022 What Is Your Relationship Status? [email or web address] Information not available 07/04/2022 Have You Repeated Any Grades? No [email or web address] Information not available 07/22/2022 Do You Use Your Seat Belt Or Car Seat Routinely? Yes Information not available 07/04/2022 Are You Sexually Active? Yes Information not available 07/22/2022 Do You Have Any Siblings? No [email or web address] Information not available 07/22/2022 Do You Have Smoke And Carbon Monoxide Detectors In Your Home? Yes Information not available 07/04/2022 At What Age Did You Start Smoking Tobacco? 36 [email or web address] Information not available 07/22/2022 Are You Passively Exposed To Smoke? No [email or web address] Information no t available 07/04/2022 Are There Any Smokers In Your House? No [email or web address] Information not available 07/04/2022 How Much Tobacco Do You Smoke? 1 PPW Information not available 07/22/2022 What Types Of Sporting Activities Do You Participate In? Golf Scuba Diving Lifting Weights [email or web address] Information not available 07/22/2022 Do You Use Sunscreen Routinely? Yes [email or web address] Information not available 07/22/2022 How Many Years Have You Smoked Tobacco? 10 [email or web address] Information not available 07/22/2022 Have You Recently Traveled Abroad? No [email or web address] Information not available 07/22/2022 Do You Have Difficulty Walking Or Climbing Stairs? No [email or web address] Information not available 07/04/2022 Are You Currently In School? No Information not available 07/22/2022 Do You Have Any Dietary Restrictions? No [email or web address] Information not available 07/22/2022 How Many Days In The Past Year Have You Consumed 5 Or More Drinks? 15 [email or web address] Information no t available 07/22/2022 Sex: Male Functional Status Question Answer Note LastModified by [employer] ion Details LastModified Time Do you use any illicit or recreational drugs? No [email or web address] Information not available 07/04/2022 What is your level of alcohol consumption? Moderate [email or web address] Information not available 07/04/2022 Are you currently employed? Yes [email or web address] Information not available 07/04/2022 Do you have transportation difficulties? No [email or web address] Information not available 07/22/2022 Are you able to walk? YESWOREST Information not available 07/04/2022 Do you have difficulty doing errands alone? No [email or web address] Information not available 07/04/2022 Are you able to care for yourself independently? Yes [email or web address] Information not available 07/04/2022 Do you have difficulty dressing, bathing, grooming, or toileting? No [email or web address] Information not available 07/04/2022 What is your exercise level? Moderate [email or web address] Information not available 07/22/2022 Mental Status Question Answer Note LastModified by Organizat ion Details LastModified Time Do you feel stressed (tense, restless, nervous, or anxious, or unable to sleep at night)? [id number] Information not available 07/22/2022 Do you have difficulty concentrating, remembering or making decisions? No [email or web address] Information no t available 07/04/2022 Are you or have you been involved with bullying? Yes [email or web address] Information not available 07/22/2022 Family History Relationship Description Onset Age of this Age Resolved Age Notes LastModified by Organization Details LastModified Time Father No current problems or disability [email or web address] Not available 03/2023 11:02:29 Mother No current problems or disability [email or web address] Not available 03/2023 11:02:29 Mother Hypertensive disorder [email or web address] Not available 07/22 11:02:29 Mother Arthritis [email or web address] Not availa ble 07/22/2022 11:02:29 Medical History Condition Response Acid Reflux (GERD) Y Vision or Eye Problems Y Cancer Y Hypertension Y Immunizations Vaccine Type Date Status Note Provider Nam e and Address Organization Details Recorded Time Influenza, split virus, quadrivalent, PF 05/25/2021 completed HAROON burks [place] [facility] 07/04/2022 09:48:30 COVID-19, mRNA, LNP-S, PF, 30 mcg/0.3 mL dose 05/25/2021 [facility]/04/2022 09:48:30 Past Encounters Encounter ID Performer Location Encounter Start Date Encounter Closed Date Diagnosis/Indication Diagnosis SNOMED-CT Code Diagnosis ICD10 Code Diagnosis Note [id number] Clau Lombardo [place] [id number] 07/04/2022 09:38:44 07/04/2022 10:33:45 Hyperlipidemia 17720906 E78.5 Essential hypertension 20072637 I10 Benign pro static hyperplasia 263968473 N40.0 Fatigue 27969747 R53.83 Body mass index 30+ - obesity 227582523 Z68.31 [id number] [place] [address] 10/11/2022 13:49:14 10/11/2022 14:22:59 Pre-surgery evaluation 841869555 Z01.818 Hyperlipidemia 12596328 E78.5 Essential hypertension 59429118 I10 History of cerebrovascular accident without residual deficits 937068409 Z86.73 Body mass index 30+ - obesity 787218730 Z68.31 [id number] Clau Lombardo [place] [id number] 11/22/2022 08:01:16 11/22/2022 09:35:35 Hyperlipidemia 20467131 E78.5 Essential hypertension 53598644 I10 History of total replacement of right hip joint 7505801038 16172 Z96.641 Body mass index 30+ - obesity 562604485 Z68.31 [id number] Clau Lombardo [address] [address] 02/28/2023 13:49:16 02/28/2023 16:03:36 Hypomagnesemia 783897097 E83.42 Hypokalemia 63584428 E87 .6 Body mass index 30+ - obesity 434524125 Z68.31 Health Concerns Section Related Observation LastModified by Organization Detai ls LastModified Time None Recorded Concern Status LastModified by Organization Details LastModified Time None Recorded Advance Directives Directive N: Payers Insurance Date Sequence Insurance Name Policy Number Policy Muniz Covered Member ID Muniz Member ID Guarantor Name 11/20/2022 1 [employer] - [employer] (INDEMNITY) Rodrigo Darbro [id number] Rodrigo Darbro 02/28/2023 1 [place] [id number] Carrington G Darbro [id number] Rodrigo Darbro 11/20/2022 1 [employer] - [employer] (INDEMNITY) [id number] Rodrigo Darbro [id number] Rodrigo Darbro 11/20/2022 1 [place] Rodrigo Darbro [id number] Rodrigo [employer] [place] Notes Date Note Type Note Provider Name and Address Organization Details Recorded Time 07/04/2022 text/html pt here today to est PCP and for a medical clearance for a RTHA with dr romero. pt states that he has had his cardiac clearance and dental clearance. pt states that he had the left hip replaced in december 2021 and did very well with it. pt denies any soa, cp, headaches. pt states that he did have some blurred vision for a very few seconds this am and he checked his glucose this am and it was 122 which is high for him it usually runs around 80-90s and he thinks that is why. assessment WNL. i will order routine labwork today. i will clear pt for RTHA pending labwork. labwork is supposed to be sent directly to dr romero. Clau Lombardo APRN [address] [place], [address], [employer]. 07/04/2022 10:26:43 10/11/2022 text/html Pre-OpReported b y Patient pt here today for a pre op sx clearance to RTHA. pt has had a LTHA and did well with that. pt had a stroke last year and his ortho doc is having him get a clearance from all of his docs. pt states that his drafter cartographic is bridging his eliquis a few days before sx and then restarting the eliquis right after sx. assessment WNL today. per PCP, pt is cleared for RTHA. Clau Lombardo APRN [address] [place], [address], [employer] [employer]. 10/11/2022 15:00:14 11/22/2022 text/html pt here today for a f/u after recent RTHA on 11/18/22. pt states that he is doing well and has not been taking any pain medication. pt is walking with walker today. pt states that he is supposed to do a telehealth appt with PT at [facility] app[facility] but they havent called yet. pt states that he has a burning sensation. advised pt that this can be normal right after sx and he can apply ice to the area, however he needs to make sure he talks with his surgeon at his f/u. pt voiced understanding. d/c labwork from hospital was abnormal so will do f/u labwork today. Clau Lombardo APRN [address] [place], [address], [employer] [employer]. 11/22/2022 09:40:19 02/28/2023 text/html pt here today for ER f/u. pt states that he went twice. i only have a cxray and ct chest from 02/14, antonio is calling for records. pt states that the last visit was on due to HTN and found out he had an electrolyte imbalance and that was the cause of the heart fluttering he was having. pt was given KCL and mag for [address] romero rechecked and it was still low and dr romero told him to take OTC KCL and mag. pt states that he was taking KCL 99mg but wasnt sure that was correct dose and he thought the mag was 250mg. antonio got last results from er on 02/25 and last KCL was 3.3 and mag was 1.3. i will write for pt to have KCL and mag until next appt with dr romero on 03/18 for recheck. antonio called dr romero office for the note in january and they told her that pt was supposed to have heart cath earlier this year and he canceled and was supposed to have another procedure and canceled. he is supposed to have a loop recorder on 03/13. highly advised pt to keep appt with dr romero on 03/18 to recheck electrolyte and if something happens he misses appt to come by and i will order labs. i also want to check PSA and full panel of labs. h/h has been chronically low for a while. pt denies any blood loss. was scheduled to have colonoscopy on 02/26 and when he got to the hospital anestesia wouldnt do it due to the er visit the day before and told him they wouldnt do it for at least 6 months. Clau Lombardo APRN [address] [facility], [place], [address], [facility] [employer] 02/28/2023 15:41:17
--- OUTSIDE RECORDS SUMMARY | 2025-02-04 04:51 | XMS_ITS | Encounter Summary ---
[facility] Address [address] [place] [address] Care Team Providers Care Jewelry Appraiser Name Role Phone Lexa Gonzalez MD Primary Care Provider [phone] Encounter Details Date Type Department Care Team (Late st Contact Info) Description 01/11/2025 Telephone [facility] [address] [place] [address] Pippa Wolf MD [address] [place] [address] Social History Tobacco Use Types Packs/Day [...] encounter Miscellaneous Notes * Telephone Encounter - Susana Palacio RegSched Rep - 01/11/2025 1:17 PM EDT Francesca from pharmacy called and stated that patient is leaving on vacation tomorrow and requested a refill on his Eliquis. documented in this encounter Plan of Treatment Upcoming Encounters Date Type Department Care Team (Late st Contact Info) Description 03/30/2025 11:00 AM EDT Office Visit [facility] [address] [place] [address] Pippa Wolf MD [address] [place] [address] 03/30/2025 11:00 AM EDT Clinical Support No Requirements [facility] [address] [place] [address] documented as of this encounter Visit Diagnoses Not on filedocumented in this encounter Care Teams Jewelry Appraiser Relationship Specialty Start Date End Date Lexa Gonzalez MD [address] [place] [id number] PCP - General Family Medicine 01/05/24 documented as of this encounter
--- OUTSIDE RECORDS SUMMARY | 2025-02-04 04:51 | XMS_ITS | Encounter Summary ---
Author Organization Healthcare Address [address] [place] [address] Care Team Providers Care Bulk Tank Car Unloader Name Role Phone Pcp, No Primary Care Provider Jojo Crawford MD Unavailable [phone] Clau Lombardo APRN Primary Care Provider [phone] Encounter Details Date Type Department Care Team (Late st Contact Info) Description 07/07/2022 Orders Only External Location [address] [place] [address] Kerline Uribe MD [address] [place] [address] [id number] Social History Tobacco Use Types Packs/Day Years [...] Name Priority Date/Time Associated Diagnosis Comments CT HEAD WO IV CONTRAST 07/07/2022 9:44 AM EST documented in this encounter Results * CT Head wo IV Contrast (07/07/2022 9:44 AM EST) Anatomical Region Laterality Modality Head Computed Tomogra phy 07/07/2022 9:44 AM EST us Kerline Uribe MD IMG CT PROCEDURES Final Resul t documented in this encounter Visit Diagnoses Not on filedocumented in this encounter Care Teams Bulk Tank Car Unloader Relationship Specialty Start Date End Date Pcp, No [address] [place] [address] PCP - General Family Medicine 07/26/22 08/07/22 Clau Lombardo APRN [address] [place] [address] PCP - General 08/08/22 Jojo Fink MD [address] [facility] [address] [place] [address] Consulting Physician Neurology 08/08/22 documented as of this encounter
--- OUTSIDE RECORDS SUMMARY | 2025-02-04 04:51 | XMS_ITS | Data Portability ---
[facility] Jenae & MARITZA Allen ADMIN Address [address] [place] [id number] Care Team Providers Care Shank Rander Name Role Phone [facility] Primary Care Pro vider Assessment No assessment recorded. Plan of Treatment Reminders Order Date Submit Date Provider Last Modified By Organization Details Last Modified Time Details Appointments None recorded. Lab CBC w/ auto diff 2022 023 [facility], [address] [place], [address], 3 14:18:12 CMP, serum or plasma 2022 023 [facility], [address] [place], [address], 3 15:46:08 venipunctur e [address] [facility], [address] [place], [address], 3 13:26:47 factor VIII activity, plasma [address] [facility], [address] [place], [address], 3 08:07:52 antithrombi n activity, plasma 2022 023 [facility], [address], [place], [address], 3 06:13:16 CBC w/ auto diff 2022 023 [facility], [address] [facility], [place], [address], 3 15:11:25 CMP, serum or plasma 2022 023 [facility], [address] [facility], [place], [address], 3 15:46:39 factor V mutation, blood or tissue 2022 023 [facility], [address] [facility], [place], [address], 3 17:10:17 prothrombin (factor II) [id number] mutation, blood [address] [facility], [address] [facility], [place], [address], 3 13:32:19 factor VIII activity, plasma 2022 023 [facility], [address] [facility], [place], [address], 3 19:43:13 antithrombi n activity, plasma [address] [facility], [address] [facility], [place], [address], 3 13:32:19 protein C + protein S, functional panel, plasma [address] [facility], [address] [facility], [place], [address], 3 13:32:19 venipunctur e 2022 023 [email or web address] [facility], [address] , [place], [address], 13:46:24 Referral None recorded. Procedures None recorded. Surgeries None recorded. Imaging None recorded. Medication Orders None recorded. Patient TargetsNo targets recorded. Patient InstructionsNo instructions recorded. Reason for Referral None Reported. Results Created Date Observation Date Name Description Value Unit Range Abnormal Flag Note LastModifiedBy Organization Detail LastModifiedTime 07/25/1907/25/2022 CBC AUTO W DIFF WBC 4.6 K/uL 4.0-10 .5 Not Available [facility] ([facility]) [address] , [place], [address], 07/25/2022 15:11:25 07/25/19 23 07/25/2022 CBC AUTO W DIFF RBC 5.1 M/mm3 4.7-6. 1 Not Available [facility] ([facility]) [address] , [place], [address], 07/25/2022 15:11:25 07/25/19 23 07/25/2022 CBC AUTO W DIFF HGB 13.7 gm/dL 13.5-1 8.0 Not Available [facility] ([facility]) [address] , [place], [address], 07/25/2022 15:11:25 07/25/19 23 07/25/2022 CBC AUTO W DIFF HCT 44.7 % 42.0-5 2.0 Not Available [facility] ([facility]) [address] , [place], [address], 07/25/2022 15:11:25 07/25/19 23 07/25/2022 CBC AUTO W DIFF MCV 88.2 fL 78-100 Not Available [facility] ([facility]) [address] , [place], [address], 07/25/2022 15:11:25 07/25/19 23 07/25/2022 CBC AUTO W DIFF MCH 27.0 pg 27-31 Not Available [facility] ([facility]) [address] , [place], [address], 07/25/2022 15:11:25 07/25/19 23 07/25/2022 CBC AUTO W DIFF MCHC 30.6 g/dL 32-36 low Not Available [facility] ([facility]) [address], [place], [address], 07/25/2022 15:11:25 07/25/19 23 07/25/2022 CBC AUTO W DIFF RDW 14.5 % 11.5-1 4.0 high Not Available [facility] ([facility]) [address], [place], [address], 07/25/2022 15:11:25 07/25/19 23 07/25/2022 CBC AUTO W DIFF platelet count 227 K/uL 150-45 0 Not Available [facility] ([facility]) [address] [facility], [place], [address], 07/25/2022 15:11:25 07/25/19 23 07/25/2022 CBC AUTO W DIFF neutrophil% 63.1 % 43-65 Not Available [facility] ([facility]) [address], [place], [address], 07/25/2022 15:11:25 07/25/19 23 07/25/2022 CBC AUTO W DIFF lymphocyte% 27.7 % 20.5-4 5.5 Not Available [facility] ([facility]) [address] [place], [address], 07/25/2022 15:11:25 07/25/19 23 07/25/2022 CBC AUTO W DIFF monocyte% 7.9 % 5.5-11 .7 Not Available [facility] ([facility]) [address] [place], [address], 07/25/2022 15:11:25 07/25/19 23 07/25/2022 CBC AUTO W DIFF eosinophil% 1.1 % 0.9-2. 9 Not Available [facility] ([facility]) [address], [place], [address], 07/25/2022 15:11:25 07/25/19 23 07/25/2022 CBC AUTO W DIFF basophil% 0.2 % 0.2-1. 0 Not Available [facility] ([facility]) [address] [facility], [place], [address], 07/25/2022 15:11:25 07/25/19 23 07/25/2022 CBC AUTO W DIFF neutrophil# 2.9 K/uL 2.2-4. 8 Not Available [facility] ([facility]) [address] [facility], [place], [address], 07/25/2022 15:11:25 07/25/19 23 07/25/2022 CBC AUTO W DIFF lymphocyte# 1.3 cell/ mcL 1.3-2. 9 Not Available [facility] ([facility]) [address] [facility], [place], [address], 07/25/2022 15:11:25 07/25/19 23 07/25/2022 CBC AUTO W DIFF monocyte# 0.4 cell/ mcL 0.3-0. 8 Not Available [facility] ([facility]) [address] [facility], [place], [address], 07/25/2022 15:11:25 07/25/19 23 07/25/2022 CBC AUTO W DIFF eosinophil# 0.1 cell/ mcL 0-0.2 Not Available [facility] ([facility]) [address] [facility], [place], [address], 07/25/2022 15:11:25 07/25/19 23 07/25/2022 CBC AUTO W DIFF basophil# 0.0 cell/ mcL 0.0-1. 0 Not Available [facility] ([facility]) [address], [place], [address], 07/25/2022 15:11:25 07/25/19 23 07/25/2022 CBC AUTO W DIFF manual differential NO Not Available [facility] ([facility]) [address], [place], [address], 07/25/2022 15:11:25 07/25/19 23 07/25/2022 COMP METAB OLIC PANEL sodium 139 mmol/ L 136-14 5 Not Available [facility] ([facility]) [address] , [place], [address], 07/25/2022 15:46:39 07/25/19 23 07/25/2022 COMP METAB OLIC PANEL potassium 3.4 mmol/ L 3.6-5. 0 low Not Available [facility] ([facility]) [address] , [place], [address], 07/25/2022 15:46:39 07/25/19 23 07/25/2022 COMP METAB OLIC PANEL chloride 100 mmol/ L 98-107 Not Available [facility] ([facility]) [address] , [place], [address], 07/25/2022 15:46:39 07/25/19 23 07/25/2022 COMP METAB OLIC PANEL carbon dioxide 30.2 mmol/ L 21.0-3 2.0 Not Available [facility] ([facility]) [address] , [place], [address], 07/25/2022 15:46:39 07/25/19 23 07/25/2022 COMP METAB OLIC PANEL anion gap 12.2 Not Available [facility] ([facility]) [address] , [place], [address], 07/25/2022 15:46:39 07/25/19 23 07/25/2022 COMP METAB OLIC PANEL glucose 102 mg/dL 70-120 Not Available [facility] ([facility]) [address] , [place], [address], 07/25/2022 15:46:39 07/25/19 23 07/25/2022 COMP METAB OLIC PANEL BUN 10 mg/dL 7-18 Not Available [facility] ([facility]) [address] , [place], [address], 07/25/2022 15:46:39 07/25/19 23 07/25/2022 COMP METAB OLIC PANEL creatinine 0.9 mg/dL 0.6-1. 3 Not Available [facility] ([facility]) [address] , [place], [address], 07/25/2022 15:46:39 07/25/19 23 07/25/2022 COMP METAB OLIC PANEL glomerular filtration rate >60 mlper min 60- Not Available [facility] ([facility]) [address] , [place], [address], 07/25/2022 15:46:39 07/25/19 23 07/25/2022 COMP METAB OLIC PANEL total protein 7.4 g/dL 6.4-8. 2 Not Available [facility] ([facility]) [address] , [place], [address], 07/25/2022 15:46:39 07/25/19 23 07/25/2022 COMP METAB OLIC PANEL albumin 3.7 g/dL 3.4-5. 0 Not Available [facility] ([facility]) [address] , [place], [address], 07/25/2022 15:46:39 07/25/19 23 07/25/2022 COMP METAB OLIC PANEL globulin 3.7 Not Available [facility] ([facility]) [address], [place], [address], 07/25/2022 15:46:39 07/25/19 23 07/25/2022 COMP METAB OLIC PANEL alb/glob ratio 1.0 0.7-2 Not Available [facility] ([facility]) [address], [place], [address], 07/25/2022 15:46:39 07/25/19 23 07/25/2022 COMP METAB OLIC PANEL calcium 8.9 mg/dL 8.5-10 .5 Not Available [facility] ([facility]) [address], [place], [address], 07/25/2022 15:46:39 07/25/19 23 07/25/2022 COMP METAB OLIC PANEL bilirubin total 0.64 mg/dL 0.10-1 .00 Not Available [facility] ([facility]) [address] [facility], [place], [address], 07/25/2022 15:46:39 07/25/19 23 07/25/2022 COMP METAB OLIC PANEL AST (SGOT) 21 U/L 0-37 Not Available [facility] ([facility]) [address], [place], [address], 07/25/2022 15:46:39 07/25/19 23 07/25/2022 COMP METAB OLIC PANEL ALT (SGPT) 26 U/L 0-65 Not Available [facility] ([facility]) [address], [place], [address], 07/25/2022 15:46:39 07/25/19 23 07/25/2022 COMP METAB OLIC PANEL alk phosphatase 139 U/L 46-116 high Not Available [facility] ([facility]) [address], [place], [address], 07/25/2022 15:46:39 07/25/19 23 07/30/2022 PROTE IN [...] rmed at: [facility] [place] [address] , [place] [address] Lab Direc tor: Breanna amaral MD, Phone : [phone] Not Available [facility] ([facility]) [address] [facility], [place], [address], 07/30/2022 17:10:16 07/25/19 23 07/30/2022 FACTO R Gisselle HUNT N MUTAT ION factor V leiden COMMEN [...] Facto r V Leide n (PMID : 31813 767). Addit ional risk facto rs inclu [...] ders to discu ss resul ts at [phone] GENE (2901 ). . Test Detai ls: Varia nt Julianne zed: c.160 1G>A (p. Arg53 4Gln) , refer red to as Facto r V Leide n . Metho ds/Li mitat ions: DNA julianne sis of the F5 gene (NM_0 62536 .5) was perfo rmed by PCR ampli [...] e rebeca cteri stics deter mined by [employer] r[employer]. It has not been clear ed or appro steph by the Food and Drug Admin istra tion. . Refer ences : Juan M Ruiz, Geovanni WONG, Marianela Flores, Viri FIELD, Reynold in ; [facility] Profe ssion al Pract ice and Guide lines Commi ttee. Adden dum: [facility]ella Paredes ge of Medic al Marbieth ics conse nsus state ment on facto r V Leide n mutat ion testi ng. Maribeth Med. 2020Sep 15. doi: 10.10 38/s4 1436- 021-0 1108- x. PMID: 80611 767. . Maria Teresa BENTLEY. Facto r V Leide n Throm bophi lisa. 1998November 24 (Upda earle 2017Jul 17). In: John MP, Jayden schuster HH, Alcon RA, et al., edito rs. GeneR shannaw s(R) (Inte rnet) . Flynn small (DANIAL): Unive rsity of Flynn Ledesma; 1992- 2020. Avail able from: https ://cesar pagan.jose mb i.nlm .nih. gov/b ooks/ NBK13 68/ . Spenser Ruiz, Geovanni WONG, Colt X, Yaakov B, Spect or EB, Mirna P, Harriet martinez CS; [facility] Labor atory Quali ty Assur ance Commi ttee. Venou s throm boemb olism labor barrett rebolledo (fact or V Leide n and facto r II c.*97 G>A), 2018 updat e: a techn ical stand ab of the Stella Paredes ge of Medic al Maribeth ics and Genom ics ([facility] ). Maribeth Med. 2017;2 0(12) :1489 -1498 . doi: 10.10 38/s4 1436- 018-0 322-z . Epub 2017Apr 17. PMID: 29319 698. . Sera clement, PhD, FAC Evelin Smith , PhD Guillermo elvi metzger, PhD, FACMG Karthik boles, PhD, FACMG Kole nelson, PhD, FACMG W Taz Farrell, PhD, FAC Ashley Curtis, PhD, FAC Meg ruiz, PhD, FAC Perfo rmed at: TG - [facility] [place] [address] [facility] , [place] [address] Lab Direc tor: Kayla Mcdowell [facility] , Phone : [phone] Not Available [facility] ([facility]) [address] [facility], [place], [address], 07/30/2022 17:10:17 07/25/19 23 07/30/2022 FACTO R [...] Facto r V Leide n (PMID : [id number] 767). Ad ditio nal risk facto rs [...] . . Comme nts: Maribeth ic couns abdulaziz is recom martínez d to discu ss the poten tial c linic al impli catio ns of posit dejuan resul ts, as well as recom menda tions for testi ng famil y membe rs. Maribeth ic Coord inato rs are avail able for healt h care provi ders to discu ss resul ts at [phone] GENE (5089 ). . Test Detai ls: Varia nt julianne zed: c.*97 G>A, previ ously refer red to as G2021 0 A . Metho ds/Li mitat ions: DNA julianne sis of the F2 gene (NM_0 75536 .5) was perfo rmed by P CR [...] e rebeca cteri stics deter mined by [employer]. It has not been clear ed [...] 10.10 38/s4 1436- 021-0 110 8-x. PMID: 78405 767. . Maria Teresa BENTLEY. Proth rombi n Throm bophi lisa. 2005Feb 04 Updat ed 2020Aug 17 . In: John CHAMBERLAIN, Jayden schuster HH, Alcon RA, et al., loan hazel. GeneR eview s(R) Inter net . Flynn small (DANIAL): Unive rsity of Flynn Ledesma; 1992- 2020. Avail able from: https ://cesar w.ncb i.nlm .nih. gov/b ooks/ NBK11 48/ . Spenser S, Geovanni r AK, Colt X, Yaakov B, Spect or EB, Mirna P, Vinicius gracia CS; [facility] Labor atory Quali ty Shivam euceda Commi ttee. Venou s throm radha mboli sm labor atory testi ng (fact or V Leide n and facto r II c.*97 G>A), 2018 updat e: a techn ical stand ab of the Stella Paredes ge of Medic al Maribeth ics and Genom ics ([facility] ). Maribeth Med. 2018 Jun;2 0(12) :148 9-149 8. doi: 10.10 38/s4 1436- 018-0 322-z . Epub 2017Apr 17. PMID: 53602 698. . Sera sa Meme clement, PhD, [facility] Evelin Smith , PhD [facility] Marika metzger, PhD, [facility] Karthik boles, PhD, [facility] Kole nelson, PhD, [facility] Maya Farrell, PhD, FAC Ashley Curtis, PhD, [facility] Meg ruiz, PhD, FAC Perfo rmed at: - [facility] [address] [place] [address] Lab Direc tor: Kayla Mcdowell [facility] , Phone : [phone] Not Available [facility] ([facility]) [address] [facility], [place], [address], 07/30/2022 17:10:18 07/25/19 23 07/30/2022 ANTIT HROMB IN 3 AG antithrobmin antigen 94 % 72-124 This test was devel oped and its perfo rmanc e rebeca gomez stics deter mined by [employer] adonay. It has not been clear ed or appro steph by the Food and Drug Admin istra tion. Perfo rmed at: BN - Alex [address] [address] [facility] , [place] [address] Lab Direc tor: Breanna amaral MD, Phone : [phone] Not Available [facility] ([facility]) [address], [place], [address], 07/30/2022 17:10:19 07/25/19 23 07/30/2022 FACTO R [...] at: [facility] [address] [place] [address] Lab Direc tor: Breanna amaral MD, Phone : [phone] Not Available [facility] ([facility]) [address] , [place], [address], 07/30/2022 17:10:20 07/25/19 23 07/30/2022 PROTE IN C FUNTI ONAL protein C functional 149 % 73-180 Perfo rmed at: [facility] [address] [place] [address] Lab Direc tor: Breanna amaral MD, Phone : [phone] Not Available [facility] ([facility]) [address] , [place], [address], 07/30/2022 17:10:21 08/28/19 23 08/28/2022 CBC AUTO W DIFF WBC 5.2 K/uL 4.0-10 .5 Not Available [facility] ([facility]) [address] , [place], [address], 08/28/2022 14:18:12 08/28/19 23 08/28/2022 CBC AUTO W DIFF RBC 4.5 M/mm3 4.7-6. 1 low Not Available [facility] ([facility]) [address] , [place], [address], 08/28/2022 14:18:12 08/28/19 23 08/28/2022 CBC AUTO W DIFF HGB 12.6 gm/dL 13.5-1 8.0 low Not Available [facility] ([facility]) [address], [place], [address], 08/28/2022 14:18:12 08/28/19 23 08/28/2022 CBC AUTO W DIFF HCT 39.8 % 42.0-5 2.0 low Not Available [facility] ([facility]) [address] , [place], [address], 08/28/2022 14:18:12 08/28/19 23 08/28/2022 CBC AUTO W DIFF MCV 89.0 fL 78-100 Not Available [facility] ([facility]) [address] , [place], [address], 08/28/2022 14:18:12 08/28/19 23 08/28/2022 CBC AUTO W DIFF MCH 28.2 pg 27-31 Not Available [facility] ([facility]) [address] , [place], [address], 08/28/2022 14:18:12 08/28/19 23 08/28/2022 CBC AUTO W DIFF MCHC 31.7 g/dL 32-36 low Not Available [facility] ([facility]) [address] , [place], [address], 08/28/2022 14:18:12 08/28/19 23 08/28/2022 CBC AUTO W DIFF RDW 14.9 % 11.5-1 4.0 high Not Available [facility] ([facility]) [address], [place], [address], 08/28/2022 14:18:12 08/28/19 23 08/28/2022 CBC AUTO W DIFF platelet count 231 K/uL 150-45 0 Not Available [facility] ([facility]) [address], [place], [address], 08/28/2022 14:18:12 08/28/19 23 08/28/2022 CBC AUTO W DIFF neutrophil% 61.9 % 43-65 Not Available [facility] ([facility]) [address], [place], [address], 08/28/2022 14:18:12 08/28/19 23 08/28/2022 CBC AUTO W DIFF lymphocyte% 28.8 % 20.5-4 5.5 Not Available [facility] ([facility]) [address], [place], [address], 08/28/2022 14:18:12 08/28/19 23 08/28/2022 CBC AUTO W DIFF monocyte% 7.5 % 5.5-11 .7 Not Available [facility] ([facility]) [address], [place], [address], 08/28/2022 14:18:12 08/28/19 23 08/28/2022 CBC AUTO W DIFF eosinophil% 1.4 % 0.9-2. 9 Not Available [facility] ([facility]) [address], [place], [address], 08/28/2022 14:18:12 08/28/19 23 08/28/2022 CBC AUTO W DIFF basophil% 0.4 % 0.2-1. 0 Not Available [facility] ([facility]) [address] [facility], [place], [address], 08/28/2022 14:18:12 08/28/19 23 08/28/2022 CBC AUTO W DIFF neutrophil# 3.2 K/uL 2.2-4. 8 Not Available [facility] ([facility]) [address] [facility], [place], [address], 08/28/2022 14:18:12 08/28/19 23 08/28/2022 CBC AUTO W DIFF lymphocyte# 1.5 cell/ mcL 1.3-2. 9 Not Available [facility] ([facility]) [address] [facility], [place], [address], 08/28/2022 14:18:12 08/28/19 23 08/28/2022 CBC AUTO W DIFF monocyte# 0.4 cell/ mcL 0.3-0. 8 Not Available [facility] ([facility]) [address] [facility], [place], [address], 08/28/2022 14:18:12 08/28/19 23 08/28/2022 CBC AUTO W DIFF eosinophil# 0.1 cell/ mcL 0-0.2 Not Available [facility] ([facility]) [address] [facility], [place], [address], 08/28/2022 14:18:12 08/28/19 23 08/28/2022 CBC AUTO W DIFF basophil# 0.0 cell/ mcL 0.0-1. 0 Not Available [facility] ([facility]) [address] [facility], [place], [address], 08/28/2022 14:18:12 08/28/19 23 08/28/2022 CBC AUTO W DIFF manual differential NO Not Available [facility] ([facility]) [address] [place], [address], 08/28/2022 14:18:12 08/28/19 23 08/28/2022 COMP METAB OLIC PANEL sodium 141 mmol/ L 136-14 5 Not Available [facility] ([facility]) [address] , [place], [address], 08/28/2022 15:46:07 08/28/19 23 08/28/2022 COMP METAB OLIC PANEL potassium 3.8 mmol/ L 3.6-5. 0 Not Available [facility] ([facility]) [address] , [place], [address], 08/28/2022 15:46:07 08/28/19 23 08/28/2022 COMP METAB OLIC PANEL chloride 104 mmol/ L 98-107 Not Available [facility] ([facility]) [address], [place], [address], 08/28/2022 15:46:07 08/28/19 23 08/28/2022 COMP METAB OLIC PANEL carbon dioxide 29.9 mmol/ L 21.0-3 2.0 Not Available [facility] ([facility]) [address] , [place], [address], 08/28/2022 15:46:07 08/28/19 23 08/28/2022 COMP METAB OLIC PANEL anion gap 10.9 Not Available [facility] ([facility]) [address] , [place], [address], 08/28/2022 15:46:07 08/28/19 23 08/28/2022 COMP METAB OLIC PANEL glucose 108 mg/dL 70-120 Not Available [facility] ([facility]) [address] [place], [address], 08/28/2022 15:46:07 08/28/19 23 08/28/2022 COMP METAB OLIC PANEL BUN 17 mg/dL 7-18 Not Available [facility] ([facility]) [address], [place], [address], 08/28/2022 15:46:07 08/28/19 23 08/28/2022 COMP METAB OLIC PANEL creatinine 0.9 mg/dL 0.6-1. 3 Not Available [facility] ([facility]) [address], [place], [address], 08/28/2022 15:46:07 08/28/19 23 08/28/2022 COMP METAB OLIC PANEL glomerular filtration rate >60 mlper min 60- Not Available [facility] ([facility]) [address], [place], [address], 08/28/2022 15:46:07 08/28/19 23 08/28/2022 COMP METAB OLIC PANEL total protein 6.2 g/dL 6.4-8. 2 low Not Available [facility] ([facility]) [address], [place], [address], 08/28/2022 15:46:07 08/28/19 23 08/28/2022 COMP METAB OLIC PANEL albumin 3.4 g/dL 3.4-5. 0 Not Available [facility] ([facility]) [address], [place], [address], 08/28/2022 15:46:07 08/28/19 23 08/28/2022 COMP METAB OLIC PANEL globulin 2.8 Not Available [facility] ([facility]) [address], [place], [address], 08/28/2022 15:46:07 08/28/19 23 08/28/2022 COMP METAB OLIC PANEL alb/glob ratio 1.2 0.7-2 Not Available [facility] ([facility]) [address], [place], [address], 08/28/2022 15:46:07 08/28/19 23 08/28/2022 COMP METAB OLIC PANEL calcium 8.6 mg/dL 8.5-10 .5 Not Available [facility] ([facility]) [address] , [place], [address], 08/28/2022 15:46:07 08/28/19 23 08/28/2022 COMP METAB OLIC PANEL bilirubin total 0.50 mg/dL 0.10-1 .00 Not Available [facility] ([facility]) [address], [place], [address], 08/28/2022 15:46:07 08/28/19 23 08/28/2022 COMP METAB OLIC PANEL AST (SGOT) 24 U/L 0-37 Not Available [facility] ([facility]) [address], [place], [address], 08/28/2022 15:46:07 08/28/19 23 08/28/2022 COMP METAB OLIC PANEL ALT (SGPT) 31 U/L 0-65 Not Available [facility] ([facility]) [address], [place], [address], 08/28/2022 15:46:07 08/28/19 23 08/28/2022 COMP METAB OLIC PANEL alk phosphatase 144 U/L 46-116 high Not Available [facility] ([facility]) [address], [place], [address], 08/28/2022 15:46:07 08/28/19 23 08/30/2022 ANTIT HROMB IN 3 ACTIV ITY antithrombin activity 119 % 75-135 Direc t Xa inhib itor antic oagul ants such as rivar oxaba n, apixa ban and edoxa ban will lead to spuri ously eleva earle antit hromb in activ ity level s possi emi maski ng a defic iency . Not Available [facility] ([facility]) [address], [place], [address], 08/30/2022 06:13:16 02/15/20 23 08/30/2022 ANTIT HROMB IN 3 ACTIV ITY antithrobmin antigen 73 % 72-124 This test was kay nelson and its perfo rmanc e rebeca gomez stics deter mined by [employer] . It has not been clear ed or appro steph by the Food and Drug Admin istra tion. Perfo rmed at: [facility] Aviva manzanares [address] [place] [address] Lab Direc tor: Breanna amaral MD, Phone : [phone] Not Available [facility] ([facility]) [address], [place], [address], 08/30/2022 06:13:16 08/28/19 23 08/30/2022 FACTO R VIII (8) ACTIV ITY factor VIII (8) activity 211 % 56-140 high FVIII activ ity can incre ase in a varie ty of clini owen situa tions inclu ding yolie l pregn mara, in sampl es drawn from patie nts (part icula y child kenia) who are visib ly stres [...] 2012; 157:6 53-66 3). Perfo rmed at: [facility] Aviva keshachantelle [address] [place] [address] Lab Direc tor: Breanna amaral MD, Phone : [phone] Not Available [facility] ([facility]) [address] , [place], [address], 08/30/2022 06:13:17 02/27/20 23 02/26/2023 COMP METAB OLIC PANEL sodium 141 mmol/ L 136-14 5 Not Available [facility] ([facility]) [address] [place], [address], 02/26/2023 11:55:28 02/27/20 23 02/26/2023 COMP METAB OLIC PANEL potassium 3.1 mmol/ L 3.5-5. 1 low Not Available [facility] (Lab Registration) [address] [place], [address], 02/26/2023 11:55:28 02/27/20 23 02/26/2023 COMP METAB OLIC PANEL chloride 103 mmol/ L 98-107 Not Available [facility] (Lab Registration) [address] [place], [address], 02/26/2023 11:55:28 02/27/20 23 02/26/2023 COMP METAB OLIC PANEL carbon dioxide 30 mmol/ L 21-32 Not Available [facility] (Lab Registration) [address] [place], [address], 02/26/2023 11:55:28 02/27/20 23 02/26/2023 COMP METAB OLIC PANEL anion gap 8.0 Not Available [facility] (Lab Registration) [address] [place], [address], 02/26/2023 11:55:28 02/27/20 23 02/26/2023 COMP METAB OLIC PANEL glucose 115 mg/dL 70-110 high Not Available [facility] (Lab Registration) [address] [place], [address], 02/26/2023 11:55:28 02/27/20 23 02/26/2023 COMP METAB OLIC PANEL blood urea nitrogen 7 mg/dL 7-18 Not Available [facility] (Lab Registration) [address] [place], [address], 02/26/2023 11:55:28 02/27/20 23 02/26/2023 COMP METAB OLIC PANEL creatinine 0.9 mg/dL 0.8-1. 3 Not Available [facility] (Lab Registration) [address], [place], [address], 02/26/2023 11:55:28 02/27/20 23 02/26/2023 COMP METAB OLIC PANEL BUN/creatini ne ratio 7.8 ratio 9-21 low Not Available [facility] (Lab Registration) [address], [place], [address], 02/26/2023 11:55:28 02/27/20 23 02/26/2023 COMP METAB OLIC PANEL estimated glom filtration rate 90 mL/mi n >60- Not Available [facility] (Lab Registration) [address] [place], [address], 02/26/2023 11:55:28 02/27/20 23 02/26/2023 COMP METAB OLIC PANEL total protein 6.8 g/dL 6.4-8. 2 Not Available [facility] (Lab Registration) [address] [place], [address], 02/26/2023 11:55:28 02/27/20 23 02/26/2023 COMP METAB OLIC PANEL albumin 3.5 g/dL 3.4-5. 0 Not Available [facility] (Lab Registration) [address] [place], [address], 02/26/2023 11:55:28 02/27/20 23 02/26/2023 COMP METAB OLIC PANEL calcium 9.2 mg/dL 8.5-10 .1 Not Available [facility] (Lab Registration) [address] [place], [address], 02/26/2023 11:55:28 02/27/20 23 02/26/2023 COMP METAB OLIC PANEL corrected calcium 9.6 mg/dL 8.5-10 .1 Not Available [facility] (Lab Registration) [address], [place], [address], 02/26/2023 11:55:28 02/27/20 23 02/26/2023 COMP METAB OLIC PANEL bilirubin total 0.7 mg/dL 0.4-1. 5 Not Available [facility] (Lab Registration) [address] [place], [address], 02/26/2023 11:55:28 02/27/20 23 02/26/2023 COMP METAB OLIC PANEL AST (SGOT) 24 U/L 15-37 Not Available [facility] (Lab Registration) [address] [place], [address], 02/26/2023 11:55:28 02/27/20 23 02/26/2023 COMP METAB OLIC PANEL ALT (SGPT) 29 U/L 12-78 Not Available [facility] (Lab Registration) [address] [place], [address], 02/26/2023 11:55:28 02/27/20 23 02/26/2023 COMP METAB OLIC PANEL alk phosphatase 129 U/L Not Available [facility] (Lab Registration) [address] [place], [address], 02/26/2023 11:55:28 02/27/20 23 02/26/2023 COMP METAB OLIC PANEL note Unles s other han noted testi ng perfo rmed at: [facility] [employer] [place] [address] [phone] Jack ruiz MD CLIA: [id number] Not Available [facility] ([facility] Registration) [address] [place], [address], 02/26/2023 11:55:28 02/27/20 23 02/26/2023 MAGNE SIUM magnesium 1.5 mg/dL 1.8-2. 4 low Not Available [facility] (Lab Registration) [address] [place], [address], 02/26/2023 11:55:29 02/27/20 23 02/26/2023 MAGNE SIUM note Unles s other han noted testi ng perfo rmed at: [facility] [address] [place] [address] [phone] Jack ruiz MD CLIA: [id number] Not Available [facility] ([facility] Registration) [address] [place], [address], 02/26/2023 11:55:29 02/27/20 23 02/26/2023 PHOSP HOROU S phosphorus 3.1 mg/dL 2.5-4. 9 Not Available [facility] ([facility]) [address] [place], [address], 02/26/2023 11:55:30 02/27/20 23 02/26/2023 PHOSP HOROU S note Unlshannen s other han noted testi ng perfo rmed at: [facility] [address] [place] [address] [phone] Jack ruiz MD CLIA: [id number] Not Available [facility] ([facility]) [address] [place], [address], 02/26/2023 11:55:30 Result Notes None recorded. Procedures Surgical History Date Name Laterality Status Provider Name and Address Organization Details Recorded Time 2 Hip Surgery completed Genesis CALVIN [facility] & [place] 07/25/2022 13:08:24 Imaging Results None recorded. Procedure Notes None recorded. Medical Equipment None Reported. Allergies Allergen ID Allergen Name Allergen Category Reaction Reaction Severity Criticality Documentation Date Start Date Code Code System Note Provider Name and Address Organization Details Recorded Time 77124 amoxicill in medicatio n dyspnea moderate Not available 07/25/2022 723 RxNorm Genesis Andersontherese burks NIKUNJ Levar [facility] & [place] 13:08:03 50188 Cipro medicatio n dyspnea moderate Not available 07/25/2022 66303 3 RxNorm Genesis burks, [place] - [facility] - [place] & [place] 3 13:08:03 Medications Name Sig Start Date Stop [...] Body mass index (BMI) Body height Systolic And Diastolic Provider Name and Address Organization Details Last Updated DateTime 3 97.8 [degF] 97 % 97 % 88 /min 03394.5 9 g 30.1 kg/m2 180.34 cm 174/87 mm[Hg] Genesis Ponce [facility] & [place] 3 13:07:12 Date Recorded Body height Body mass index (BMI) Body weight Body temperature Oxygen saturation Oxygen saturation in Arterial blood by Pulse oximetry Heart rate Respiratory rate Systolic And Diastolic Provider Name and Address Organization Details Last Updated DateTime 3 180.34 cm 30 kg/m2 88734.8 g 98.9 [degF] 96 % 96 % 82 /min 18 /min 145/72 mm[Hg] Kai CALVIN - [facility] & [place] 3 13:08:53 Social History Question Answer Notes LastModified by Organizat ion Details LastModified Time Tobacco Smoking Status Former Smoker Not Available [employer] 01/28/2023 10:20:57 Do You Have An Advance Directive? No CHART_MERGE Information not available 01/28/2023 Are You Blind Or Do You Have Difficulty Seeing? No CHART_MERGE Information not available 01/28/2023 What Was The Date Of Your Most Recent Tobacco Screening? 07/22/2022 CHART_MERGE Information not available 01/28/2023 Are You Passively Exposed To Smoke? No CHART_MERGE Information not available 01/28/2023 How Much Tobacco Do You Smoke? No CHART_MERGE Information not available 01/28/2023 How Many Years Have You Smoked Tobacco? 3 CHART_MERGE Information not available 01/28/2023 Sex: Male Functional Status Question Answer Note LastModified by [employer] Details LastModified Time Do you use any illicit or recreational drugs? No CHART_MERGE Information not available 01/28/2023 What is your level of alcohol consumption? Moderate CHART_MERGE Information not available 01/28/2023 Do you or have you ever used smokeless tobacco? 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 Moderate CHART_MERGE Information not available 01/28/2023 Mental Status Question Answer Note LastModified by Organization D etails LastModified Time Do you feel stressed (tense, restless, nervous, or anxious, or unable to sleep at night)? [id number] CHART_MERGE Information not available 01/28/2023 Family History Relationship Description Onset Age of this Age Resolved Age Notes LastModified by Organization Details LastModified Time Mother Hypertensive disorder CHART_MERGE Not available 01/11 10:20:56 Mother Hypercholest erolemia CHART_MERGE Not available 01/11 10:20:56 Father Cerebrovascu lar accident CHART_MERGE Not available 0 01/28/2023 10:20:56 Medical History Condition Response Arthritis Y Stroke Y Reflux/GERD Y Obstructive Sleep Apnea Y Hypertension Y Past Encounters Encounter ID Performer Location Encounter Start Date Encounter Closed Date Diagnosis/Indication Diagnosis SNOMED-CT Code Diagnosis ICD10 Code Diagnosis Note [id number] [facility] [address] [facility] [address] [place] [address] 07/25/2022 13:00:16 07/25/2022 13:33:53 Cerebrovascular accident [id number] I63.9 Patient was hospitaliz ed for acute [...] 88.3. Normal MCH and MCHC. Platelet count 580829. Normal differenti al. Normal PT and INR. [...] with further recommenda tions. Anticoagulant therapy 18 3483682 Z79.01 Patient was started on Eliquis after a stroke June 2022. He will continue on Eliquis. [id number] Denita Sanchez PA-C [facility] [address] [facility] [address] [place] [address] 08/28/2022 13:01:07 08/28/2022 13:45:07 Cerebrovascular accident [id number] I63.9 Patient was hospitaliz ed for acute [...] 88.3. Normal MCH and MCHC. Platelet count 643843. Normal differenti al. Normal PT and INR. [...] with further recommenda tions. Anticoagulant therapy 18 2582654 Z79.01 Patient was started on Eliquis after a stroke June 2022. He will continue on Eliquis. Laboratory test result abnormal [id number] R89.9 Hypercoagu lable evaluation Performed on July 25, 2022 with negative factor 5 Leiden mutation. Negative factor 2 mutation. Normal protein C and S. Normal antithromb in antigen. Factor 8 activity elevated to 217%. Patient continues Eliquis. Will order antithromb in III activity today. Will follow-up factor 8 activity. Will follow with further recommenda tions [id number] Tapan Lorenzo MD [facility] [address] [facility] [address] [place] [address] 09/02/2022 11:04:52 09/02/2022 12:32:50 Cerebrovascular accident [id number] I63.9 Patient was hospitaliz ed for acute [...] 88.3. Normal MCH and MCHC. Platelet count 199598. Normal differenti al. Normal PT and INR. [...] ation leading into surgery. Anticoagulant therapy 18 4119003 Z79.01 Patient was started on Eliquis after a stroke June 2022. He will continue on Eliquis. Laboratory test result abnormal [id number] R89.9 Hypercoagu lable evaluation Performed on July [...] Member ID Muniz Member ID Guarantor Name 01/31/2024 1 [place] [id number] Carrington Mckeon [id number] Carrington Mckeon Notes Date Note Type Note Provider Name [...] 88.3. Normal MCH and MCHC. Platelet count 119367. Normal differential. Normal PT and INR. No [...] up with further recommendations. Denita Sanchez PA-C [address], [place], [address], [place] - [facility] - [place] & [place] 07/25/2022 14:54:41 08/28/2022 text/html 66-year-old male returns [...] 88.3. Normal MCH and MCHC. Platelet count 913440. Normal differential. Normal PT and INR. No [...] follow with further recommendations Denita Sanchez PA-C [address] , [place], [address], [place] - [facility] - [place] & [place] 08/28/2022 13:43:14 09/02/2022 text/html 66-year-old male returns [...] 88.3. Normal MCH and MCHC. Platelet count 104210. Normal differential. Normal PT and INR. No [...] vascular event. Will follow-up Tapan Lorenzo MD [address], [place], [address], [place] - [facility] - [place] & [place] 09/02/2022 12:29:31
--- OUTSIDE RECORDS SUMMARY | 2025-02-04 04:51 | XMS_ITS | Encounter Summary ---
Author Organization Healthcare Address [address] [place] [address] Care Team Providers Care General Hardware Salesperson Name Role Phone Pcp, No Primary Care Provider Jojo Crawford MD Unavailable [phone] Clau Lombardo APRN Primary Care Provider [phone] Encounter Details Date Type Department Care Team (Late st Contact Info) Description 07/10/2022 Orders Only External Location [address] [place] [address] Luis Méndez MD [address] [facility] [address] [place] [id number] Social History Tobacco Use Types Packs/Day Years [...] Procedure Name Priority Date/Time Associated Diagnosis Comments MR HEAD WO IV CONTRAST 07/10/2022 2:18 PM EST documented in this encounter Results * MR Head wo IV Contrast (07/10/2022 2:18 PM EST) Anatomical Region Laterality Modality Head Magnetic Resonan ce 07/10/2022 2:18 PM EST us Luis Méndez MD IMG MRI PROCEDURES Final Re sult documented in this encounter Visit Diagnoses Not on filedocumented in this encounter Care Teams General Hardware Salesperson Relationship Specialty Start Date End Date Pcp, No [address] [place] [address] PCP - General Family Medicine 07/26/22 08/07/22 Clau Lombardo APRN [address] [place] [address] PCP - General 08/08/22 Jojo Fink MD [address] [facility] [address] [place] [address] Consulting Physician Neurology 08/08/22 documented as of this encounter
--- OUTSIDE RECORDS SUMMARY | 2025-02-04 04:51 | XMS_ITS | Encounter Summary ---
Author Organization Healthcare Address [address] [place] [address] Care Team Providers Care Kinesiologist Name Role Phone Pcp, No Primary Care Provider Jojo Crawford MD Unavailable [phone] Clau Lombardo APRN Primary Care Provider [phone] Encounter Details Date Type Department Care Team (Late st Contact Info) Description 07/07/2022 Orders Only External Location [address] [place] [address] Kerline Uribe MD [address] [place] [address] [id number] Social History Tobacco Use Types Packs/Day Years [...] Priority Date/Time Associated Diagnosis Comments CT ANGIO HEAD 07/07/2022 9:48 AM EST documented in this encounter Results * CT Angio Head (07/07/2022 9:48 AM EST) Anatomical Region Laterality Modality [place] [facility] [place] Computed Tomogr aphy 07/07/2022 9:48 AM EST us Kerline Uribe MD IMG CT PROCEDURES Final Resul t documented in this encounter Visit Diagnoses Not on filedocumented in this encounter Care Teams Kinesiologist Relationship Specialty Start Date End Date Pcp, No [address] [place] [address] PCP - General Family Medicine 07/26/22 08/07/22 Clau Lombardo APRN [address] [place] [address] PCP - General 08/08/22 Jjoo Fink MD [address] [facility] [address] [place] [address] Consulting Physician Neurology 08/08/22 documented as of this encounter
--- OUTSIDE RECORDS SUMMARY | 2025-02-04 04:51 | XMS_ITS | Encounter Summary ---
[facility] Organization [facility] Address [address] [place] [address] Care Team Providers Care Aeronautical Project Engineer Name Role Phone Lexa Gonzalez MD Primary Care Provider [phone] Reason for Visit * Reason Onset Date Comments Med Refill 01/11/2025 Encounter Details Date Type Department Care Team (Late st Contact Info) Description 01/11/2025 Refill [facility] [address] [address] [address] Pippa Wolf MD [address] [place] [address] Med Refill Social History Tobacco Use Types Packs/Day Years Used Date Smoking Tobacco: Former Cigarettes Q uit: 2002 Cigars Quit: 04/13/20 Passive Smoke Exposure: Past Smokeless Tobacco: Never [...] AM EDT documented as of this encounter Plan of Treatment Upcoming Encounters Date Type Department Care Team (Late st Contact Info) Description 03/30/2025 11:00 AM EDT Office Visit [facility] [address] [address] Pippa Wolf MD [address] [place] [address] 03/30/2025 11:00 AM EDT Clinical Support No Requirements [facility] [address] [address] documented as of this encounter Visit Diagnoses Not on filedocumented in this encounter Care Teams Aeronautical Project Engineer Relationship Specialty Start Date End Date Lexa Gonzalez MD [address] [place] [address] [place] [address] PCP - General Family Medicine 01/05/24 documented as of this encounter
--- OUTSIDE RECORDS SUMMARY | 2025-02-04 04:52 | XMS_ITS | Continuity of Care Document ---
Author Organization [facility] Dory koehler [facility] Address [address] [address] [place] [address] Care Team Providers Care Rn L And D Name Role Phone THUAN ANDREW Primary Care Provider Assessment Encounter Date Assessment Date Assessment LastModified by Organization Details LastModified Time 01/11/2025 01/11/2025 - 69-year-old male with low-grade prostate cancer under active surveillance. - MRI showed PI-RADS 4/5 lesion in the right transition zone. - December 2024 biopsy showed atypical small acinar proliferation , no malignancy. - PSA levels fluctuating, recent readings 6.45 and 6.49. [id number] Not available 01/11/2025 10:34:04 Plan of Treatment Reminders Order Date Submit Date Provider Last Modified By Organization Details Last Modified Time Details Appointments RECHECK 2025 01:15P Ana Maria DUNN MD Not available Not available Not available Lab urinalysi s panel, auto 2024 07 025 4 [facility], [address] [facility] [address], [place], [address], 01/11/2025 10:33:13 Referral None recorded. Procedures None recorded. Surgeries None recorded. Imaging None recorded. Medication Orders None recorded. Patient TargetsNo targets recorded. Patient Instructions Encounter Date Encounter Id Patient Instructions Last Modified By Organization Details Last Modified Time 01/11/2025 [id number] - Continue regular PSA tests as scheduled. [...] LEVEL 6.45 Gross Descr iptio n: A) Lakisha nelson name and date of verif ied. Recei steph in forma richie label ed with the lakisha nt's name and desig nated left base [...] date of verif ied. [facility] patie [facility]'s [...] one casse tte label ed G1. H) Lakisha nt name and date of verif ied. Recei steph in forma richie label ed with the lakisha nt's name and desig nated righ t trans ition zone are four thin cores of martino-w bharat tissu e measu ring 0.3 and (3) 1.4 cm in lengt h. Entir meir submi tted in one casse tte label ed H1. JAB 12/29 09:54 AM Micro scopi c Descr [...] Page 1 of 1 Not Available [facility] [address] [facility], [place], [address], 12/30/2024 15:43:02 01/12/20 25 01/11/2025 urina lysis panel , auto Unknown Analyte Clean Catch Not Available [facility] [address] [place] [address], [address], 01/11/2025 10:08:51 01/12/20 25 01/11/2025 urina lysis panel , auto Unknown Analyte Yellow Not Available [facility] With [address], [place], [address], 01/11/2025 10:08:51 01/12/20 25 01/11/2025 urina lysis panel , auto Unknown Analyte Clear Not Available [facility] With [address], [place], [address], 01/11/2025 10:08:51 01/12/20 25 01/11/2025 urina lysis panel , auto Unknown Analyte 1.010 Not Available [facility] [address] [place] [address] [address], [place], [address], 01/11/2025 10:08:51 01/12/20 25 01/11/2025 urina lysis panel , auto Unknown Analyte 1.003 - 1.030 Not Available [facility] [address], [place], [address], 01/11/2025 10:08:51 01/12/20 25 01/11/2025 urina lysis panel , auto Unknown Analyte 6.0 Not Available [facility] [address], [place], [address], 01/11/2025 10:08:51 01/12/2001/11/2025 urina lysis panel , auto Unknown Analyte 5.0 - 8.0 Not Available [facility] [address], [place], [address], 01/11/2025 10:08:51 01/12/20 25 01/11/2025 urina lysis panel , auto Unknown Analyte Negati ve Not Available [facility] [address], [place], [address], 01/11/2025 10:08:51 01/12/20 25 01/11/2025 urina lysis panel , auto Unknown Analyte Negati ve Not Available [facility] [address], [place], [address], 01/11/2025 10:08:51 01/12/2001/11/2025 urina lysis panel , auto Unknown Analyte Negati ve Not Available [facility] [address], [place], [address], 01/11/2025 10:08:51 01/12/20 25 01/11/2025 urina lysis panel , auto Unknown Analyte Negati ve Not Available [facility] [address], [place], [address], 01/11/2025 10:08:51 01/12/20 25 01/11/2025 urina lysis panel , auto Unknown Analyte Negati ve Not Available [facility] [address], [place], [address], 01/11/2025 10:08:51 01/12/20 25 01/11/2025 urina lysis panel , auto Unknown Analyte Negati ve Not Available [facility] [address], [place], [address], 01/11/2025 10:08:51 01/12/20 25 01/11/2025 urina lysis panel , auto Unknown Analyte Normal Not Available [facility] [address], [place], [address], 01/11/2025 10:08:51 01/12/20 25 01/11/2025 urina lysis panel , auto Unknown Analyte Normal Not Available [facility] [address], [place], [address], 01/11/2025 10:08:51 01/12/20 25 01/11/2025 urina lysis panel , auto Unknown Analyte Negati ve Not Available [facility] [address], [place], [address], 01/11/2025 10:08:51 01/12/20 25 01/11/2025 urina lysis panel , auto Unknown Analyte Negati ve Not Available [facility] [address], [place], [address], 01/11/2025 10:08:51 01/12/20 25 01/11/2025 urina lysis panel , auto Unknown Analyte Normal Not Available [facility] [address], [place], [address], 01/11/2025 10:08:51 01/12/20 25 01/11/2025 urina lysis panel , auto Unknown Analyte Normal Not Available [facility] [address], [place], [address], 01/11/2025 10:08:51 01/12/20 25 01/11/2025 urina lysis panel , auto Unknown Analyte Negati ve Not Available [facility] [address], [place], [address], 01/11/2025 10:08:51 01/12/20 25 01/11/2025 urina lysis panel , auto Unknown Analyte Negati ve Not Available [facility] [address], [place], [address], 01/11/2025 10:08:51 01/12/20 25 01/11/2025 urina lysis panel , auto Unknown Analyte 250 Javier/uL Not Available [facility] [address], [place], [address], 01/11/2025 10:08:51 01/12/20 25 01/11/2025 urina lysis panel , auto Unknown Analyte Negati ve Not Available [facility] [address], [place], [address], 01/11/2025 10:08:51 12/16/19 25 12/15/2024 [facility]vi [facility] [address] [place] [address] Patien t Name: EMELINA MCKEON Patien t : [phone] Patien t Orderi [...] (1 [place] [address]- 325-02 ) IV. The patien t did [...] Cam Rodriguez MD on 12/16/19 11:[address] Radiology [facility] [address] [facility], [place], [address], 12/22/2024 13:26:33 Result Notes None recorded. Problems Name Problem SNOMED Code Status Onset Date Resolution Date Notes Provider Name and Address Organization Details Recorded Time Adenocarcinoma of prostate 780790969 Active 2016 Isabel Rey [facility] 7 13:12:10 Problem Notes None recorded. Procedures Surgical History Date Name Laterality Status Provider Name and Address Organization Details Recorded Time 2 total replacement of hip completed Isabel Rey [facility] 03/22/2022 11:50:35 8 Prostate biopsy, any mthd completed Isabel Rey [facility] 12/04/2017 14:03:26 6 [facility]state [facility], any [facility]d [facility] 07/18/2016 13:38:08 Xcapsl ctrc rmvl cplx wo ecp completed Deseriee Leverett [facility] 07/04/2016 18:18:55 Vasectomy completed Deseriee [facility] 07/04/2016 18:19:12 Imaging Results None recorded. Procedure Notes None recorded. Medical Equipment None Reported. Allergies Allergen ID Allergen Name Allergen Category Reaction Reaction Severity Criticality Documentation Date Start Date Code Code System Note Provider Name and Address Organization Details Recorded Time 311182 Cipro medicatio n Not available Not available Not available 07/18/2016 3 RxNorm Isabel Rey [facility] 7 13:37:37 Medications Name Sig Start Date [...] Updated DateTime 01/11/2025 177.8 cm 31.9 kg/m2 365464.51 g Petra Lopez [facility] 01/11/2025 10:02:38 Social History Question Answer Notes LastModified by Organizat ion Details LastModified Time Tobacco Smoking Status Current Some Day Smoker Sebastien Huffman [facility] 07/04/2016 18:18:35 How Much Tobacco Do You Chew? None Information not available 09/16/2019 Marital Status marcy Informatio n not available 07/04/2016 What Was The Date Of Your Most Recent Tobacco Screening? 11/10/2024 Information not available 11/10/2024 How Much Tobacco Do You Smoke? No Information not available 01/18/2020 Has Tobacco Cessation Counseling Been Provided? Yes Information not available 12/04/2017 On What Date Was Tobacco Cessation Counseling Provided? 12/24/2018 Information not available 12/24/2018 Sex: Male Functional Status None recorded. Mental Status None recorded. Family History Relationship Description Onset Age of this Age Resolved Age Notes LastModified by Organization Details LastModified Time Unspecified Relation Hyperlipidem ia [email or web address] Not available 2015 18:17:37 Unspecified Relation Arthritis [email or web address] Not available 2015 18:18:10 Father Family history [...] Multiple Sclerosis N Proteinuria N Heart Attack (MS) N Mental Illness N Diabetes N Ovarian Cancer N Seizures/Epilepsy N Genitourinary problem(s) N Congestive Heart Failure (CHF) N Kidney Failure N Sleep Apnea Y Bronchitis N Heart Disease N Hypertension Y Past Encounters Encounter ID Performer Location Encounter Start Date Encounter Closed Date Diagnosis/Indication Diagnosis SNOMED-CT Code Diagnosis ICD10 Code Diagnosis Note [id number] RENITA DUNN MD SURGERY SCHEDULE [address] [place] [address] 12/28/2024 13:38:22 12/28/2024 13:40:45 [id number] RENITA DUNN MD [facility] [address] [facility] [address] [place] [address] 01/11/2025 09:56:55 01/11/2025 10:37:04 Malignant neoplasm of prostate 858510833 C61 - Continue active surveillan ce. - Monitor PSA levels regularly. - Consider treatment if progressio n detected. Prostate s pecific antigen above reference range 227763520 R97.20 Continue monitoring . Patient advised to [...] Member ID Muniz Member ID Guarantor Name 01/11/2025 1 [employer] [id number] Carrington Mckeon [id number] Carrington Mckeon Notes Date Note Type Note Provider Name and Address Organization Details Recorded Time 01/11/2025 text/html The patient is a 69-year-old [...] 5.8 (August 2023), 6.03 (April 2023) RENITA DUNN MD [address] [place] [address], [phone], [facility] 01/16/2025 14:09:15
--- OUTSIDE RECORDS SUMMARY | 2025-02-04 04:52 | XMS_ITS | Encounter Summary ---
Author Organization [facility] Address [address] [place] [address] Care Team Providers Care Agriscience Instructor Name Role Phone Lexa Gonzalez MD Primary Care Provider [phone] Reason for Visit * Reason Onset Date Comments Follow-up 08/29/2022 Encounter Details Date Type Department Care Team (Late st Contact Info) Description 08/29/2022 Telephone [facility] [address] [place] [address] Pippa Wolf MD [address] [place] [address] Follow-up Social History Tobacco Use Types Packs/Day Years Used Date Smoking Tobacco: Never Assessed Sex and Gender Information Value Date Recorded Sex Assigned at Male 12/10/2022 8:52 AM EDT Legal Sex Male 1:22 PM EDT Gender Identity Male 12/10/2022 8:52 AM EDT Sexual Orientation Straight 12/10/2022 8: 52 AM EDT documented as of this encounter Miscellaneous Notes * Telephone Encounter - Jose Augustin CMA - 09/17/2022 8:14 AM EST Please advise * Telephone Encounter - Denita Vázquez RegSched Rep - 09/16/2022 10:33 AM EST PATIENT LEFT A VOICEMAIL ASKING ABOUT THE STATUS OF THE REFILL OF THE MEDICATION. HE STATED THE MEDICATION SEEMS TO HELP HIS BLOOD PRESSURE. PLEASE CALL BACK AT [phone]. * Telephone Encounter - Bruna Gonzales MA - 08/29/2022 4:20 PM EST Called patient, patient stated he went to Er with BP 208/102. When he arrived at ER it was 202/102.ER dr started him on combo HCTZ-Lisinopril 20mg-12.5mg. BP has been running 148/84, 148/91. I have loaded rx request in. * Telephone Encounter - Pippa Wolf MD - 08/29/2022 10:15 AM EST Unfortunately we just dont have openings. But lets do this. Have him keep a daily log of his BP thenext week on lisinopril. We can send in more (putin a rx request). Then bring us a copy of the BP log and we can get back to him with changes. I want him to take twice a day, morning before meds and nighttime. Needs to be seated for 5minutes prior to taking. Arm cuff preferred over wrists. * Telephone Encounter - Bruna Honeycutt RegSched Rep - 08/29/2022 9:57 AM EST Patient called to let us know he had recently been released from the hospital. While there, his blood pressure was really high and the doctor prescribed him Lisinoprol but only gave him 20 days worth. He said the medicine is helping some but he is unsure if you want him waiting until his next follow up, 09/25, to be seen or if you would like to see him sooner. documented in this encounter Plan of Treatment Upcoming Encounters Date Type Department Care Team (Late st Contact Info) Description 03/30/2025 11:00 AM EDT Office Visit [facility] [place] [place] [address] Pippa Wolf MD [address] [facility] [place] [address] 03/30/2025 11:00 AM EDT Clinical Support No Requirements [facility] [address] [place] [address] [place] [address] documented as of this encounter Visit Diagnoses Not on filedocumented in this encounter Care Teams Agriscience Instructor Relationship Specialty Start Date End Date Lexa Gonzalez MD [address] [place] [address] [place] [address] PCP - General Family Medicine 01/05/24 documented as of this encounter
[2025-02-04 05:03] LABS: Alanine Aminotransferase 35 U/L (12-78); Albumin Level 3.9 g/dl (3.5-5.0); Albumin/Globulin Ratio 1.3 (1.1-1.8); Alkaline Phosphatase 139 U/L (38-126); Anion Gap 12.6 mEq/L (5-15); Aspartate Amino Transferase 38 U/L (17-59); Bilirubin,Total 0.4 mg/dl (0.2-1.3); Blood Urea Nitrogen 17 mg/dl (9-20); Calcium 9.3 mg/dl (8.4-10.2); Carbon Dioxide 29 mmol/L (22.0-30.0); Chloride 100 mmol/L (98-107); Creatinine Clearance Estimated 104 mL/min (50-200); Creatinine,Serum 0.90 mg/dl (0.66-1.25); Estimated Glomerular Filt Rate 84 ml/min (>60); GFR (African American) 102 ML/MIN (>60); Globulin 3.0 g/dL (1.3-3.2); Glucose 134 mg/dl (74-100); Potassium 3.6 mmoL/L (3.5-5.1); Sodium 138 mmol/L (136-145); Total Protein,Serum 6.9 g/dl (6.3-8.2)
[2025-02-04 05:07] LABS: D-Dimer 0.90 ug/mL (0.0-0.5)
--- NOTE | 2025-02-04 05:11 | HMH.EDGENADL ---
Discharge Plan Disposition Patient Disposition: Home, Self-Care Condition: Good Prescriptions Prescriptions: No Action valacyclovir 1 gram tablet 1,000 mg PO BID 14 Days Qty: 28 0RF clindamycin HCl 300 mg capsule 300 mg PO TID Qty: 30 0RF PreserVision AREDS-2 250-90-40-1 mg capsule 1 tab PO BID omeprazole magnesium [Prilosec OTC] 20 mg tablet,delayed release (DR/EC) 20 mg PO DAILY atorvastatin 10 mg tablet 20 mg PO DAILY metoprolol tartrate 25 mg tablet 100 mg PO DAILY escitalopram oxalate [Lexapro] 5 mg tablet 5 mg PO DAILY Qty: 30 3RF lisinopril-hydrochlorothiazide 20-12.5 mg tablet 1 tab PO DAILY diltiazem HCl 180 mg capsule,extended release 24hr 180 mg PO DAILY silodosin 8 mg capsule 8 mg PO DAILY Eliquis 5 mg tablet 5 mg PO DAILY Referrals Follow up/Referrals: Provider,Referral, MD [Primary Care Provider, Medical] - See instructions Activity Restrictions/Add. Instructions Additional Instructions/Restrictions: Please follow up with your primary care provider in 2-3 days. Please return to ED if your symptoms worsen, change in location, change in severity, new symptoms develop or if you become concerned for your health. Clinical Impressions Clinical Impression: Shortness of breath Print Language Print Language: Slovak Discharge ED Provider: Ellis Camara General Adult HPI <Ellis Camara MD - Last Filed: 02/04/25 06:46> General Chief complaint: Shortness of Breath/Dyspnea Stated complaint: SOA Time Seen by Provider: 02/04/25 04:34 Mode of Arrival: Ambulatory Source of Information: Patient Description of Symptoms (Recalled from ER Triage Doc. by RN): pt presents to the Ed d/t complaints of awakening and not able to catch breath. pt states no pain but has been experiencing pain in right leg. pt states his legs feel like they're shaking and pt states hx of stroke 3 yrs ago. History of Present Illness HPI narrative: 69-year-old male with history of prior stroke on Eliquis presents for shortness of breath. He reports that he was using his CPAP as usual and he woke up and was just very short of breath. He describes it as unable to catch his breath, has not been coughing, denies significant chest pain, no recent fever or illness. He did have significant right leg pain over the last couple of days but is now improved. He reports the pain was more anterior and in the thigh. Patient does have some nasal congestion. Related Data Home Medications ?Medication ?Instructions ?Recorded ?Confirmed apixaban 5 mg tablet (Eliquis) 5 mg PO DAILY 02/25/24 08/20/24 diltiazem HCl 180 mg 180 mg PO DAILY 02/25/24 08/20/24 capsule,extended release 24 hr lisinopril 20 1 tab PO DAILY 02/25/24 08/20/24 mg-hydrochlorothiazide 12.5 mg tablet silodosin 8 mg capsule 8 mg PO DAILY 02/25/24 08/20/24 omeprazole magnesium 20 mg 20 mg PO DAILY Heartburn 05/05/24 08/20/24 tablet,delayed release (Prilosec OTC) vit C 250 mg-vit E 90 mg-zinc 40 1 tab PO BID eye health 05/05/24 08/20/24 mg-copper 1 [id number] capsule (PreserVision AREDS-2) atorvastatin 10 mg tablet 20 mg PO DAILY high cholesterol 08/20/24 08/20/24 metoprolol tartrate 25 mg tablet 100 mg PO DAILY 08/20/24 08/20/24 Previous Rx's ?Medication ?Instructions ?Recorded clindamycin HCl 300 mg capsule 300 mg PO TID #30 caps 08/20/24 valacyclovir 1 gram tablet 1,000 mg PO BID 14 days #28 tabs 08/20/24 escitalopram oxalate 5 mg tablet 5 mg PO DAILY #30 tabs 01/07/25 (Lexapro) Allergies Allergy/AdvReac Type Severity Reaction Status Date / Time amoxicillin Allergy Verified 08/20/24 08:11 ciprofloxacin (From Cipro) Allergy shortness Verified 08/20/24 08:11 of breath [facility] <Ellis Camara MD - Last Filed: 02/04/25 06:46> [facility] Disclaimer: The information contained in this section may have been updated after the patient was seen, as this information can be updated by other users. Medical History Hx of transesophageal echocardiography (FAN) for monitoring Normal colonoscopy Chronic GERD Hypertension Stroke Prostate cancer Surgical History History of loop recorder History of hip replacement bilateral Family History Father Stroke Mother Hypertension Other Family history of acute congestive heart failure History of dementia Social History Smoking Status: Never smoker second hand exposure: No alcohol intake: current substance use type: denies use current occupational status: employed Travel in the last 8 weeks?: None household members: spouse housing: house caffeine: Yes Other Medical History Have you received the Pneumonia Vaccine: No <Ellis Camara MD - Last Filed: 02/04/25 06:46> ROS Obtained: Yes All systems reviewed & no additional complaints except as documented Physical Exam <Ellis Camara MD - Last Filed: 02/04/25 06:46> General General appearance: alert and in no apparent distress Head Head exam: atraumatic and normocephalic Eye Eye exam: Present normal appearance, PERRL and EOMI ENT ENT exam: Present normal oropharynx, normal external ear exam and other (Nasal congestion) Neck Neck exam: Present normal inspection and full ROM Chest Chest inspection: Present normal inspection and symmetric chest wall rise; Absent tenderness Respiratory Respiratory exam: Present normal lung sounds bilaterally; Absent respiratory distress Cardiovascular Cardiovascular exam: Present regular rate and normal rhythm Abdominal Exam Abdominal exam: Present soft; Absent distention, tenderness or guarding Extremities Exam Extremities exam: Present normal inspection; Absent edema or joint swelling Back Exam Back exam: Present normal inspection; Absent tenderness Neurological Exam Neurological exam: Present alert and oriented X3; Absent motor sensory deficit Psychiatric Psychiatric exam: Present normal affect and normal mood Skin Skin exam: Present warm, dry and normal color Lymphatic Lymphatic Findings: no adenopathy Medical Decision Making <Ellis Camara MD - Last Filed: 02/04/25 06:46> Medical Records Medical records reviewed: Yes I reviewed the patient's medical records. Screening: Per USPSTF and CDC recommendations, given the prevalence of disease in our region, it is our hospital?s policy to screen for HIV and viral Hepatitis for all patients aged 18 and over and those with ongoing risk factors. Juan Inquiry Pt receiving controlled substance: No Juan was queried for this patient: No Vital Signs: 02/04/25 04:31 02/04/25 04:37 02/04/25 05:00 Temperature 97.8 F Temperature Source Oral Pulse Rate 56 L 55 L Pulse Rate [Right Radial] 79 Respiratory Rate 16 12 Blood Pressure 144/93 H Blood Pressure [Right Radial Artery] 179/92 H Blood Pressure Mean Blood Pressure Mean [Right Radial Artery] 121 Blood Pressure Position [Right Radial Artery] Supine 02 Sat by Pulse Oximetry 99 99 100 Oxygen Delivery Method Room Air 02/04/25 05:30 02/04/25 06:00 02/04/25 06:30 Temperature Temperature Source Pulse Rate 57 L 55 L 53 L Pulse Rate [Right Radial] Respiratory Rate 13 10 L 13 Blood Pressure 132/74 137/81 146/86 H Blood Pressure [Right Radial Artery] Blood Pressure Mean 102 108 Blood Pressure Mean [Right Radial Artery] Blood Pressure Position [Right Radial Artery] 02 Sat by Pulse Oximetry 98 99 99 Oxygen Delivery Method 02/04/25 07:00 02/04/25 07:30 02/04/25 08:01 Temperature Temperature Source Pulse Rate 53 L 55 L 57 L Pulse Rate [Right Radial] Respiratory Rate 14 12 15 Blood Pressure 140/83 149/81 H 167/94 H Blood Pressure [Right Radial Artery] Blood Pressure Mean Blood Pressure Mean [Right Radial Artery] Blood Pressure Position [Right Radial Artery] 02 Sat by Pulse Oximetry 98 97 96 Oxygen Delivery Method Room Air Lab Data Lab results reviewed: Yes I reviewed the patient's lab results. Lab Results 02/04/25 04:29: WBC 7.8, RBC 4.46 L, Hgb 12.2 L, Hct 39.3 L, MCV 88.1, MCH 27.4, MCHC 31.0 L, RDW 15.9, Plt Count 186, MPV 11.7 H, Neut % (Auto) 51.6, Lymph % (Auto) 34.9, [place] % (Auto) 9.3, Eos % (Auto) 3.3, Baso % (Auto) 0.5, Neut # (Auto) 4.0, Lymph # (Auto) 2.7, [place] # (Auto) 0.7, Eos # (Auto) 0.3, Baso # (Auto) 0.0, D-Dimer 0.90 H, Sodium 138, Potassium 3.6, Chloride 100, Carbon Dioxide 29, Anion Gap 12.6, BUN 17, Creatinine 0.90, Estimated Creat Clear 104, Estimated GFR 84, Est GFR ( Amer) 102, Glucose 134 H, Calcium 9.3, Total Bilirubin 0.4, AST 38, ALT 35, Alkaline Phosphatase 139 H, Troponin I < 0.01, NT-Pro-B Natriuret Pep 552 H, Total Protein 6.9, Albumin 3.9, Globulin 3.0, Albumin/Globulin Ratio 1.3 02/04/25 07:27: Troponin I < 0.01 02/04/25 04:29 02/04/25 04:29 Orders (Tests/Meds): ED MEDICATIONS Discontinued Medications Generic Name Dose Route Start Last Admin Trade Name Freq PRN Reason Stop Dose Admin Iopamidol 85 ml 02/04/25 05:48 02/04/25 05:49 Iopamidol-370 (76%);100ml Bottle IV 02/04/25 05:49 85 ml ONCE ONE Administration Sodium Chloride 50 ml 02/04/25 05:48 02/04/25 05:49 0.9 % Sodium Chloride 50 Ml Vial IV 02/04/25 05:49 50 ml ONCE ONE Administration Sodium Chloride 10 ml 02/04/25 05:48 02/04/25 05:49 Sodium Chloride 0.9% 10ml Syr (Rad Only) IV 02/04/25 05:49 10 ml ONCE ONE Administration ORDERS Category Date Time Status CT angio chest PE protocol Stat Cat Scan 02/04/25 05:19 Completed CXR --portable [XR chest portable] Stat Exams 02/04/25 04:34 Completed BNP [NT Pro Brain Natriuretic Pep.] Stat Lab 02/04/25 04:29 Completed CBC w/Auto Diff [Complete Blood Count Auto Diff] Stat Lab 02/04/25 04:29 Completed CMP [Comprehensive Metabolic Panel] Stat Lab 02/04/25 04:29 Completed D-Dimer Stat Lab 02/04/25 04:29 Completed Troponin I Q3H Lab 02/04/25 04:29 Completed Troponin I Q3H Lab 02/04/25 07:27 Completed HEART Score History (anamnesis): Slightly suspicious ECG: Non-specific disturbance Age: >65 years Risk factors: Atherosclerosis history Troponin: </= normal limit HEART Score: 5 Medical Decision Narrative: 69-year-old male with history of prior stroke on Eliquis, hypertension, sleep apnea, obesity presents for shortness of breath upon waking up. History was obtained via interactive discussion with patient, family, chart review. On arrival, patient is [afebrile, hemodynamically stable, satting appropriately, alert, oriented x4, GCS 15], moving all extremities spontaneously. Full physical exam performed and significant for clear lungs bilaterally, no evidence of respiratory distress Differential includes but is not limited to pneumonia, pneumothorax, URI, PE, ACS. Workup initiated including CBC CMP troponin D-dimer EKG chest x-ray. On re-evaluation, patient [remains afebrile, HD stable.] Continues to sat well on room air, no respiratory distress on exam. Laboratory workup independently interpreted by me and significant for mildly elevated D-dimer, will follow-up with CT PE. Negative initial troponin, no significant electrolyte derangements. Imaging independently interpreted by me and significant for clear lungs bilaterally, no evidence of PE. See radiology read for full review of final results. EKG independently interpreted by me and significant for sinus rhythm, rate of 72, incomplete right bundle branch block, no obvious ischemic changes. Patient was placed in ED observation status for serial cardiac enzymes and continuous cardiac monitoring. At this time care handed off to oncoming physician. <Luis Owusu MD - Last Filed: 02/04/25 08:12> Vital Signs: 02/04/25 04:31 02/04/25 04:37 02/04/25 05:00 Temperature 97.8 F Temperature Source Oral Pulse Rate 56 L 55 L Pulse Rate [Right Radial] 79 Respiratory Rate 16 12 Blood Pressure 144/93 H Blood Pressure [Right Radial Artery] 179/92 H Blood Pressure Mean Blood Pressure Mean [Right Radial Artery] 121 Blood Pressure Position [Right Radial Artery] Supine 02 Sat by Pulse Oximetry 99 99 100 Oxygen Delivery Method Room Air 02/04/25 05:30 02/04/25 06:00 02/04/25 06:30 Temperature Temperature Source Pulse Rate 57 L 55 L 53 L Pulse Rate [Right Radial] Respiratory Rate 13 10 L 13 Blood Pressure 132/74 137/81 146/86 H Blood Pressure [Right Radial Artery] Blood Pressure Mean 102 108 Blood Pressure Mean [Right Radial Artery] Blood Pressure Position [Right Radial Artery] 02 Sat by Pulse Oximetry 98 99 99 Oxygen Delivery Method 02/04/25 07:00 02/04/25 07:30 02/04/25 08:01 Temperature Temperature Source Pulse Rate 53 L 55 L 57 L Pulse Rate [Right Radial] Respiratory Rate 14 12 15 Blood Pressure 140/83 149/81 H 167/94 H Blood Pressure [Right Radial Artery] Blood Pressure Mean Blood Pressure Mean [Right Radial Artery] Blood Pressure Position [Right Radial Artery] 02 Sat by Pulse Oximetry 98 97 96 Oxygen Delivery Method Room Air Lab Data Lab Results 02/04/25 04:29: WBC 7.8, RBC 4.46 L, Hgb 12.2 L, Hct 39.3 L, MCV 88.1, MCH 27.4, MCHC 31.0 L, RDW 15.9, Plt Count 186, MPV 11.7 H, Neut % (Auto) 51.6, Lymph % (Auto) 34.9, [place] % (Auto) 9.3, Eos % (Auto) 3.3, Baso % (Auto) 0.5, Neut # (Auto) 4.0, Lymph # (Auto) 2.7, [place] # (Auto) 0.7, Eos # (Auto) 0.3, Baso # (Auto) 0.0, D-Dimer 0.90 H, Sodium 138, Potassium 3.6, Chloride 100, Carbon Dioxide 29, Anion Gap 12.6, BUN 17, Creatinine 0.90, Estimated Creat Clear 104, Estimated GFR 84, Est GFR ( Amer) 102, Glucose 134 H, Calcium 9.3, Total Bilirubin 0.4, AST 38, ALT 35, Alkaline Phosphatase 139 H, Troponin I < 0.01, NT-Pro-B Natriuret Pep 552 H, Total Protein 6.9, Albumin 3.9, Globulin 3.0, Albumin/Globulin Ratio 1.3 02/04/25 07:27: Troponin I < 0.01 Orders (Tests/Meds): ED MEDICATIONS Discontinued Medications Generic Name Dose Route Start Last Admin Trade Name Freq PRN Reason Stop Dose Admin Iopamidol 85 ml 02/04/25 05:48 02/04/25 05:49 Iopamidol-370 (76%);100ml Bottle IV 02/04/25 05:49 85 ml ONCE ONE Administration Sodium Chloride 50 ml 02/04/25 05:48 02/04/25 05:49 0.9 % Sodium Chloride 50 Ml Vial IV 02/04/25 05:49 50 ml ONCE ONE Administration Sodium Chloride 10 ml 02/04/25 05:48 02/04/25 05:49 Sodium Chloride 0.9% 10ml Syr (Rad Only) IV 02/04/25 05:49 10 ml ONCE ONE Administration ORDERS Category Date Time Status CT angio chest PE protocol Stat Cat Scan 02/04/25 05:19 Completed CXR --portable [XR chest portable] Stat Exams 02/04/25 04:34 Completed BNP [NT Pro Brain Natriuretic Pep.] Stat Lab 02/04/25 04:29 Completed CBC w/Auto Diff [Complete Blood Count Auto Diff] Stat Lab 02/04/25 04:29 Completed CMP [Comprehensive Metabolic Panel] Stat Lab 02/04/25 04:29 Completed D-Dimer Stat Lab 02/04/25 04:29 Completed Troponin I Q3H Lab 02/04/25 04:29 Completed Troponin I Q3H Lab 02/04/25 07:27 Completed HEART Score HEART Score: 5 Medical Decision Narrative: 69-year-old male with history of prior stroke on Eliquis, hypertension, sleep apnea, obesity presents for shortness of breath upon waking up. History was obtained via interactive discussion with patient, family, chart review. On arrival, patient is [afebrile, hemodynamically stable, satting appropriately, alert, oriented x4, GCS 15], moving all extremities spontaneously. Full physical exam performed and significant for clear lungs bilaterally, no evidence of respiratory distress Differential includes but is not limited to pneumonia, pneumothorax, URI, PE, ACS. Workup initiated including CBC CMP troponin D-dimer EKG chest x-ray. On re-evaluation, patient [remains afebrile, HD stable.] Continues to sat well on room air, no respiratory distress on exam. Laboratory workup independently interpreted by me and significant for mildly elevated D-dimer, will follow-up with CT PE. Negative initial troponin, no significant electrolyte derangements. Imaging independently interpreted by me and significant for clear lungs bilaterally, no evidence of PE. See radiology read for full review of final results. EKG independently interpreted by me and significant for sinus rhythm, rate of 72, incomplete right bundle branch block, no obvious ischemic changes. Patient was placed in ED observation status for serial cardiac enzymes and continuous cardiac monitoring. At this time care handed off to oncoming physician. ILuis MD, took over care of this patient at 7 AM. Awaiting second troponin. Repeat troponin is undetectably low. On reassessment, patient was is without increased work of breathing. Remains on room air. He is ambulatory about the emergency department without difficulty. Reports no further dyspnea. Reassuring workup. Has good follow-up with orthopedic surgeon and PCP in the coming week. Strict precautions discussed all questions or patient mental plan and discharge Procedures <Ellis Camara MD - Last Filed: 02/04/25 06:46> Risk/Benefits of Procedure(s) Were Explained: Yes Critical Care <Ellis Camara MD - Last Filed: 02/04/25 06:46> Critical Care Time Critical Care Time: No
[2025-02-04 05:16] LABS: NT Pro Brain Natriuretic Pep. 552 pg/mL (0-125); Troponin I < 0.01 ng/ml (0.00-0.034)
--- NOTE | 2025-02-04 05:19 | CT_ITS ---
PROCEDURE INFORMATION: Exam: CTA Chest With Contrast Exam date and time: 02/04/2025 5:41 AM Age: 69 years old Clinical indication: Shortness of breath; Additional info: SOA, positive dimer TECHNIQUE: Imaging protocol: Computed tomographic angiography of the chest with contrast. Exam focused on the arteries. 3D rendering (Not supervised by radiologist): MIP and/or 3D reconstructed images were created by the technologist. Radiation optimization: All CT scans at this facility use at least one of these dose optimization techniques: automated exposure control; mA and/or kV adjustment per patient size (includes targeted exams where dose is matched to clinical indication); or iterative reconstruction. Contrast material: ISOVUE; Contrast volume: 85 ml; Contrast route: INTRAVENOUS (IV); COMPARISON: CR XR CHEST PORTABLE 02/04/2025 4:53 AM FINDINGS: Pulmonary arteries: Normal. No pulmonary emboli. Aorta: Unremarkable. No aortic aneurysm. No aortic dissection. Lungs: Unremarkable. No consolidation. No masses. Pleural spaces: Unremarkable. No pneumothorax. No pleural effusion. Heart: No coronary calcification is noted. . No cardiomegaly. No pericardial effusion. Lymph nodes: Unremarkable. No enlarged lymph nodes. Bones/joints: Unremarkable. No acute fracture. Soft tissues: Unremarkable. IMPRESSION: No evidence of pulmonary embolus or other acute process.
[2025-02-04] MEDS: 0.9 % SODIUM CHLORIDE 50 ML VIAL IV (05:49)
[2025-02-04] MEDS: IOPAMIDOL-370 (76%);100ML BOTTLE 85 ML IV (05:49)
[2025-02-04] MEDS: SODIUM CHLORIDE 0.9% 10ML SYR (RAD ONLY) 10 ML IV (05:49)
[2025-02-04 07:55] LABS: Troponin I < 0.01 ng/ml (0.00-0.034)
== END 2025-02-04 08:18 | disposition home or self-care (01) ==
PROVIDERS: Emergency Provider Emergency Medicine
DX: R06.02 Shortness of breath (principal); R09.81 Nasal congestion; I10 Essential (primary) hypertension; Z86.73 Personal history of transient ischemic attack (TIA), and cerebral infarction without residual deficits; Z79.01 Long term (current) use of anticoagulants
CPT/HCPCS: 71045; 71275; 80053; 83880; 84484; 85025; 85378; 93005; 99285; Q9967

== ENCOUNTER 2025-02-11 14:15 | Outpatient (CLI) | payer BC, SELFPAY ==
--- OUTSIDE RECORDS SUMMARY | 2025-02-11 14:19 | XMS_ITS | Encounter Summary ---
Author Organization Healthcare Address [address] [place] [address] Care Team Providers Care Clinical Trial Manager Name Role Phone Pcp, No Primary Care Provider Jojo Crawford MD Unavailable [phone] Clau Lombardo APRN Primary Care Provider [phone] Encounter Details Date Type Department Care Team (Late st Contact Info) Description 07/07/2022 Orders Only External Location [address] [place] [address] Kerline Uribe MD [address] [place] [address] [id number] Social History Tobacco Use Types Packs/Day Years [...] on filedocumented in this encounter Care Teams Clinical Trial Manager Relationship Specialty Start Date End Date Pcp, No [address] [place] [address] PCP - General Family Medicine 07/26/22 08/07/22 Clau Lombardo APRN [address] [place] [address] PCP - General 08/08/22 Jojo Fink MD [address] [facility] [address] [place] [address] Consulting Physician Neurology 08/08/22 documented as of this encounter
--- OUTSIDE RECORDS SUMMARY | 2025-02-11 14:19 | XMS_ITS | Clinical Summary ---
Author Organization [facility] Address [address] [place] [address] Care Team Providers Care Oyster Fisherman Name Role Phone Lexa Gonzalez MD Primary Care Provider [phone] Allergies Active Allergy Reactions Criticality Noted Date [...] 3 Active metoprolol tartrate (LOPRESSOR) 50 MG tabletIndicatio ns:Hypertension , essential Take 1 tablet by mouth 2 (Two) Times a Day. 60 tablet 11 4 Active atorvastatin (LIPITOR) 40 MG tablet Take 1 tablet by mouth Daily. 90 tablet 3 4 Active Additional Information Patient taking differently: 20 mgOral Daily, Informant: Self, Reported on 09/29/2024 escitalopram (LEXAPRO) 5 MG tablet Take 1 tablet by mouth Daily. Active lisinopril-hydr ochlorothiazide (Zestoretic) 10-12.5 MG per tabletIndicatio ns:Hypertension , essential Take 1 tablet by mouth Daily. 30 tablet 11 4 Active dilTIAZem XR (DILACOR XR) 180 MG 24 hr capsule TAKE 1 CAPSULE BY MOUTH ONCE DAILY 90 capsule 3 5 Active apixaban (Eliquis) 5 MG tablet tablet Take 1 tablet by mouth 2 (Two) Times a Day. 180 tablet 1 5 Active Active Problems Problem Noted Date Diagnosed Date [...] will also be in contact with his sales operations director and neurologist. LV (left ventricular) mural thrombus without TX 09/25/2022 Assessment & Plan (12/17/2022 11:51 AM [...] Type Department Care Team Description 01/11/2025 Refill [facility] [address] [place] [address] Pippa Wolf MD Med Refill 01/11/2025 Telephone [facility] [address] [place] [address] Pippa Wolf MD 01/11/2025 Telephone [facility] [address] [address] Pippa Wolf MD from Last 3 Months [...] Pippa Wolf MD [address] [place] [address] 03/30/2025 11:00 AM EDT Clinical Support No Requirements [facility] [address] [address] Health [...] Date/Time Associated Diagnosis Comments REMOTE DEVICE CHECK 02/06/2025 3:16 AM EDT REMOTE DEVICE CHECK 01/06/2025 7:19 AM EDT LIPID PANEL Routine 05/30/2023 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
[address] [place] [address], from Last 3 Months or Most Recently Relevant to Health Maintenance Insurance [facility] PPO Care Teams Oyster Fisherman Relationship Specialty Start Date End Date Lexa Gonzalez MD [address] [place] [address] [place] [address] PCP - General Family Medicine 01/05/24
--- OUTSIDE RECORDS SUMMARY | 2025-02-11 14:19 | XMS_ITS | Encounter Summary ---
Author Organization [facility] Address [address] [place] [address] Care Team Providers Care Returns Supervisor Name Role Phone Lexa Gonzalez MD Primary Care Provider [phone] Reason for Visit * Reason Onset Date Comments Med Refill 01/11/2025 Encounter Details Date Type Department Care Team (Late st Contact Info) Description 01/11/2025 Refill [facility] [address] [address] Pippa Wolf MD [address] [place] [address] Med Refill Social History Tobacco Use [...] Office Visit [facility] [address] [address] Pippa Wolf MD [address] [place] [address] 03/30/2025 11:00 AM EDT Clinical Support No Requirements [facility] [address] [address] documented as of this encounter Visit Diagnoses Not on filedocumented in this encounter Care Teams Returns Supervisor Relationship Specialty Start Date End Date Lexa Gonzalez MD [address] [place] [address] [place] [address] PCP - General Family Medicine 01/05/24 documented as of this encounter
--- OUTSIDE RECORDS SUMMARY | 2025-02-11 14:19 | XMS_ITS | Encounter Summary ---
Author Organization Healthcare Address [address] [place] [address] Care Team Providers Care Packing Machine Tender Name Role Phone Pcp, No Primary Care Provider Jojo Crawford MD Unavailable [phone] Clau Lombardo APRN Primary Care Provider [phone] Encounter Details Date Type Department Care Team (Late st Contact Info) Description 07/07/2022 Orders Only External Location [address] [place] [address] Kerline Uribe MD [address] [place] [address] [id number] Social History Tobacco Use Types Packs/Day Years [...] on filedocumented in this encounter Care Teams Packing Machine Tender Relationship Specialty Start Date End Date Pcp, No [address] [place] [address] PCP - General Family Medicine 07/26/22 08/07/22 Clau Lombardo APRN [address] [place] [address] PCP - General 08/08/22 Jojo Fink MD [address] [facility] [address] [place] [address] Consulting Physician Neurology 08/08/22 documented as of this encounter
--- OUTSIDE RECORDS SUMMARY | 2025-02-11 14:19 | XMS_ITS | Encounter Summary ---
Author Organization [facility] Address [address] [place] [address] Care Team Providers Care Hat Cleaner Name Role Phone Lexa Gonzalez MD Primary Care Provider [phone] Encounter Details Date Type Department Care Team (Late st Contact Info) Description 01/11/2025 Telephone [facility] C[facility] [address] [place] [address] Pippa Wolf MD [address] [place] [address] Social History Tobacco Use Types Packs/Day [...] 11:00 AM EDT Office Visit [facility] [address] [place] [address] Pippa Wolf MD [address] [place] [address] 03/30/2025 11:00 AM EDT Clinical Support No Requirements [facility] [address] [place] [address] documented as of this encounter Visit Diagnoses Not on filedocumented in this encounter Care Teams Hat Cleaner Relationship Specialty Start Date End Date Lexa Gonzalez MD [address] [place] [id number] PCP - General Family Medicine 01/05/24 documented as of this encounter
--- OUTSIDE RECORDS SUMMARY | 2025-02-11 14:19 | XMS_ITS | Encounter Summary ---
Author Organization Healthcare Address [address] [place] [address] Care Team Providers Care Director Internal Communications Name Role Phone Pcp, No Primary Care Provider Jojo Crawford MD Unavailable [phone] Clau Lombardo APRN Primary Care Provider [phone] Encounter Details Date Type Department Care Team (Late st Contact Info) Description 07/10/2022 Orders Only External Location [address] [place] [address] Luis Méndez MD [address] [facility] [address] [place] [id number] Social History Tobacco Use Types Packs/Day Years [...] on filedocumented in this encounter Care Teams Director Internal Communications Relationship Specialty Start Date End Date Pcp, No [address] [place] [address] PCP - General Family Medicine 07/26/22 08/07/22 Clau Lombardo APRN [address] [place] [address] PCP - General 08/08/22 Jojo Fink MD [address] [facility] [address] [place] [address] Consulting Physician Neurology 08/08/22 documented as of this encounter
--- OUTSIDE RECORDS SUMMARY | 2025-02-11 14:19 | XMS_ITS | Clinical Summary ---
Author Organization [facility] Address [address] [place] [address] Care Team Providers Care Water And Gas Helper Name Role Phone Jojo Fink MD Unavailable [phone] Clau Lombardo APRN Primary Care Provider [phone] Allergies Active Allergy Reactions Criticality Noted Date [...] Date Last Done Comments [facility]-Depression Screening 1956 [facility]-Infant/Child/Adol SDOH Screenings 1956 [facility]- SDOH Screenings 1974 [facility]-Adult SDOH Screenings 1974 CT Colonography 2001 Colonoscopy 2001 FIT-DNA 2001 FIT 2001 FOBT 2001 Sigmoidoscopy 2001 [facility]-Colorectal Cancer Screening 2001 [facility]-DTaP,Tdap,and Td Vaccine s (1 - Tdap) 01/13/2004 01/12/2004 [facility]-Pneumococcal Vaccine: 50 + Years (1 of 1 - PCV) 2006 [facility]-Zoster Vaccines (1 of 2) 2006 [facility]-CQGLQ-80 Vaccine (3 - season) 2024 05/25/2021, 09/23/2020 [...] Adults <6.0% Children and Adolescents <7.5% Source: [place] [employer]. Standards of medical care in diabetes,2017. Diabetes Care.2017:40 (suppl 1):S1-S135. HbA1c assay performed by an ion-exchange chromatography method that is certified traceable to the DCCT. us Jojo Fink MD LAB BLOOD ORDERABLES Final Re sult Performing Organization Address City/[facility]/ZIP Co de Phone Number HEALTHCARE LAB [address] [place] [address] * Hepatitis C Antibody - ED (07/19/2022 1:06 PM EST) Hepatitis C Antibody Negative Negative 07/19/2022 3:47 PM EST [facility] Blood Venous blood specimen / Unknown Venipuncture / Unknown 07/19/2022 1:06 PM EST 07/19/2022 2:35 PM EST us Joseph Piedra MD LAB BLOOD ORDERABLES Final Resul t Performing Organization Address [facility] de Phone Number HEALTHCARE LAB [address] [place] [address] from Last 3 Months or Most Recently Relevant to Health Maintenance Insurance MEDICARE [facility] Care Teams Water And Gas Helper Relationship Specialty Start Date End Date Clau LombardoANA MARÍA [address] [place] [address] PCP - General 08/08/22 Jojo Fink MD [address] [facility] [address] [place] [id number] Consulting Physician Neurology 08/08/22
--- OUTSIDE RECORDS SUMMARY | 2025-02-11 14:19 | XMS_ITS | Encounter Summary ---
Author Organization Healthcare Address [address] [place] [address] Care Team Providers Care Cpa Tax Name Role Phone Pcp, No Primary Care Provider Jojo Crawford MD Unavailable [phone] Clau Lombardo APRN Primary Care Provider [phone] Encounter Details Date Type Department Care Team (Late st Contact Info) Description 07/07/2022 Orders Only External Location [address] [place] [address] Kerline Uribe MD [address] [place] [id number] Social History Tobacco Use Types Packs/Day Years [...] 9:48 AM EST) Anatomical Region Laterality Modality [place] [facility] [place] Computed Tomogr aphy 07/07/2022 9:48 AM EST us Kerline Uribe MD IMG CT PROCEDURES Final Resul t documented in this encounter Visit Diagnoses Not on filedocumented in this encounter Care Teams Cpa Tax Relationship Specialty Start Date End Date Pcp, No [address] [place] [address] PCP - General Family Medicine 07/26/22 08/07/22 Clau Lombardo APRN [address] [place] [address] PCP - General 08/08/22 Jojo Fink MD [address] [facility] [address] [place] [address] Consulting Physician Neurology 08/08/22 documented as of this encounter
--- OUTSIDE RECORDS SUMMARY | 2025-02-11 14:19 | XMS_ITS | Encounter Summary ---
Author Organization Healthcare Address [address] [place] [address] Care Team Providers Care Nursing Coordinator Name Role Phone Pcp, No Primary Care Provider Jojo Crawford MD Unavailable [phone] Clau Lombrado APRN Primary Care Provider [phone] Encounter Details Date Type Department Care Team ([facility] st Contact Info) Description 07/16/2022 Orders Only External Location [address] [place] [address] Provider, External Social History Tobacco Use Types [...] on filedocumented in this encounter Care Teams Nursing Coordinator Relationship Specialty Start Date End Date Pcp, No [address] [place] [address] PCP - General Family Medicine 07/26/22 08/07/22 Clau Lombardo APRN [address] [place] [address] PCP - General 08/08/22 Jojo iFnk MD [address] [place] [address] Consulting Physician Neurology 08/08/22 documented as of this encounter
--- OUTSIDE RECORDS SUMMARY | 2025-02-11 14:19 | XMS_ITS | Encounter Summary ---
Author Organization Healthcare Address [address] [place] [address] Care Team Providers Care Clinical Social Work Therapist Name Role Phone Pcp, No Primary Care Provider Jojo Crawford MD Unavailable [phone] Clau Lombardo APRN Primary Care Provider [phone] Encounter Details Date Type Department Care Team (Late st Contact Info) Description 07/07/2022 Orders Only External Location [address] [place] [address] Kerline Uribe MD [address] [place] [id number] Social History Tobacco Use Types Packs/Day Years [...] filedocumented in this encounter Care Teams Clinical Social Work Therapist Relationship Specialty Start Date End Date Pcp, No [address] [place] [address] PCP - General Family Medicine 07/26/22 08/07/22 Clau Lombardo APRN [address] [place] [address] PCP - General 08/08/22 Jojo Fink MD [address] [facility] [address] [place] [address] Consulting Physician Neurology 08/08/22 documented as of this encounter
--- OUTSIDE RECORDS SUMMARY | 2025-02-11 14:19 | XMS_ITS | Encounter Summary ---
Author Organization [facility] Address [address] [place] [address] Care Team Providers Care Disability Hearing Officer Name Role Phone Lexa Gonzalez MD Primary Care Provider [phone] Encounter Details Date Type Department Care Team (Late st Contact Info) Description 01/11/2025 Telephone [facility] C[facility] [address] [place] [address] Pippa Wolf MD [address] [place] [address] Social History Tobacco Use Types Packs/Day [...] - 01/11/2025 1:24 PM EDT [facility] WITH [facility] LEFT A VM REQUESTING A REFILL BE SENT IN FOR THIS PT'S ELIQUIS 5 MG TABLET PRESCRIPTION. THANK YOU. documented in this encounter Plan of Treatment Upcoming Encounters Date Type Department Care Team (Late st Contact Info) Description 03/30/2025 11:00 AM EDT Office Visit [facility] [address] [place] [address] Pippa Wolf MD [address] [place] [address] 03/30/2025 11:00 AM EDT Clinical Support No Requirements [facility] [address] [place] [address] documented as of this encounter Visit Diagnoses Not on filedocumented in this encounter Care Teams Disability Hearing Officer Relationship Specialty Start Date End Date Lexa Gonzalez MD [address] [place] [address] PCP - General Family Medicine 01/05/24 documented as of this encounter
--- OUTSIDE RECORDS SUMMARY | 2025-02-11 14:19 | XMS_ITS | Encounter Summary ---
Author Organization [facility] Address [address] [place] [address] Care Team Providers Care Lace Tearing Supervisor Name Role Phone Lexa Gonzalez MD Primary Care Provider [phone] Reason for Visit * Reason Onset Date Comments Follow-up 08/29/2022 Encounter Details Date Type Department Care Team (Late st Contact Info) Description 08/29/2022 Telephone [facility] [address] [place] [address] Pippa Wolf MD [address] [place] [address] Follow-up Social History Tobacco Use Types [...] HIS BLOOD PRESSURE. PLEASE CALL BACK AT [phone]. * Telephone Encounter - Bruna Gonzales MA [...] Description 03/30/2025 11:00 AM EDT Office Visit [facility] [address] [place] [address] Pippa Wolf MD [address] [facility] [place] [address] 03/30/2025 11:00 AM EDT Clinical Support No Requirements [facility] [address] [place] [address] [place] [address] documented as of this encounter Visit Diagnoses Not on filedocumented in this encounter Care Teams Lace Tearing Supervisor Relationship Specialty Start Date End Date Lexa Gonzalez MD [address] [place] [address] PCP - General Family Medicine 01/05/24 documented as of this encounter
--- OUTSIDE RECORDS SUMMARY | 2025-02-11 14:19 | XMS_ITS | Encounter Summary ---
Author Organization Healthcare Address [address] [place] [address] Care Team Providers Care Computer Systems Engineer Name Role Phone Pcp, No Primary Care Provider Jojo Crawford MD Unavailable [phone] Clau Lombardo APRN Primary Care Provider [phone] Encounter Details Date Type Department Care Team (Late st Contact Info) Description 07/08/2022 Orders Only External Location [address] [place] [address] Luis Méndez MD [address] [facility] [address] [place] [id number] Social History Tobacco Use Types Packs/Day Years [...] on filedocumented in this encounter Care Teams Computer Systems Engineer Relationship Specialty Start Date End Date Pcp, No [address] [place] [address] PCP - General Family Medicine 07/26/22 08/07/22 Clau Lombardo APRN [address] [place] [address] PCP - General 08/08/22 Jojo Fink MD [address] [facility] [address] [place] [address] Consulting Physician Neurology 08/08/22 documented as of this encounter
--- NOTE | 2025-02-11 14:21 | MR_ITS ---
FINAL REPORT CLINICAL HISTORY: reoccurring right knee pain, anterior and around patella, nki COMPARISON: None FINDINGS: Multi planar MR imaging was performed of the knee. The anterior and posterior cruciate ligaments are intact. The quadriceps and patellar tendons are intact. The medial and lateral menisci are intact without evidence of tear. The medial and lateral collateral ligaments appear intact. The medial and lateral retinacula appear intact. There is no evidence of bone marrow edema or osteochondral defect. No evidence of soft tissue inflammatory reaction. IMPRESSION: No evidence of significant internal derangement. Reviewed, Interpreted and Dictated by Jay Tristan MD Transcribed by Barbara Qiu Authenticated and [facility]
== END 2025-02-11 23:59 | disposition home or self-care (01) ==
LOC: RAD 14:17
PROVIDERS: PCP Family Medicine; Visit Provider Physician Assistant
DX: M25.561 Pain in right knee (principal)
CPT/HCPCS: 73721

== ENCOUNTER 2025-05-16 07:56 | Outpatient (CLI) | payer BC, SELFPAY ==
--- OUTSIDE RECORDS SUMMARY | 2025-03-30 10:00 | XMS_ITS | Encounter Summary ---
Author Organization [facility] Address [address] [place] [address] Care Team Providers Care Polysomnograph Tech Name Role Phone Lexa Gonzalez MD Primary Care Provider [phone]- [phone] Reason for Visit * Reason Comments Pacemaker [...] Description 03/30/2025 11:00 AM EDT Office Visit [facility] C[facility] [address] [place] [address] Pippa Wolf MD [address] [place] [address] Essential (primary) hypertension (Primary Dx); Obstructive [...] well on current therapy. DL is in [employer]. Hypertension Pt states he is here today [...] Went to ER . Records are in [employer] for review. No Swelling Relays that sometimes [...] time. -EKG updated, reviewed ER records from [facility] pap DL showed good compliance and control -HTN well control on current meds. Follow Up Return in about 6 months (around 09/27/2025) for Next scheduled follow up. Denver Wolf MD Cardiology and Sleep [facility] 03/30/2025 Please note that this explicitly excludes [...] Description 09/28/2025 11:15 AM EDT Office Visit [facility] [address] [place] [address] Pippa Wolf MD [address] [place] [address] 09/28/2025 11:15 AM EDT Clinical Support No Requirements [facility] [address] [place] [address] documented [...] doing well oncurrent therapy. DL is in [facility]. Hypertension Pt states he is here [...] breath. [facility] . Records are in [facility] for review. No Swelling Relays that [...] time. -EKG updated, reviewed ER records from [facility] pap DL showed good compliance and control -HTN well control on current meds. Follow Up Return in about 6 months (around 09/27/2025) for Next scheduled followup. Denver Wolf MD Cardiology and Sleep [facility] 03/30/2025 Please note that this explicitly excludes [...] [Z95.818] documented in this encounter Care Teams Polysomnograph Tech Relationship Specialty Start Date End Date Lexa Gonzalez MD [address] [place] [address] PCP - General Family Medicine 01/05/24 documented as of this encounter
[2025-05-16 16:59] LABS: Hematocrit 40.3 % (42.0-52.0); Hemoglobin 12.7 g/dL (14.1-18.0); Immature Granulocytes % 0.2 %; Mean Corpuscular HGB Conc 31.5 g/dL (31.8-35.4); Mean Corpuscular Hemoglobin 28.2 pg (27.0-31.2); Mean Corpuscular Volume 89.6 fl (80-94); Nucleated Red Blood Cells % 0 %; Platelet Count 196 K/mm3 (142-424); Red Blood Count 4.50 M/mm3 (4.60-6.20); Red Cell Distribution Width-SD 49.7 fL; White Blood Count 4.6 K/mm3 (4.8-10.8)
[2025-05-16 18:07] LABS: Alanine Aminotransferase 19 U/L (12-78); Albumin Level 4.1 g/dl (3.5-5.0); Albumin/Globulin Ratio 1.5 (1.1-1.8); Alkaline Phosphatase 138 U/L (38-126); Anion Gap 10.3 mEq/L (5-15); Aspartate Amino Transferase 31 U/L (17-59); Bilirubin,Total 0.7 mg/dl (0.2-1.3); Blood Urea Nitrogen 16 mg/dl (9-20); Calcium 9.0 mg/dl (8.4-10.2); Carbon Dioxide 30 mmol/L (22.0-30.0); Chloride 99 mmol/L (98-107); Cholesterol 111 mg/dl (140-200); Creatinine,Serum 0.80 mg/dl (0.66-1.25); Estimated Glomerular Filt Rate 96 ml/min (>60); GFR (African American) 116 ML/MIN (>60); Globulin 2.7 g/dL (1.3-3.2); Glucose 109 mg/dl (74-100); HDL Cholesterol 55 mg/dl (40-60); Potassium 4.3 mmoL/L (3.5-5.1); Sodium 135 mmol/L (136-145); Total Protein,Serum 6.8 g/dl (6.3-8.2); Triglycerides 65 mg/dl (30-150)
[2025-05-16 18:44] LABS: Thyroid Stimulating Hormone 1.49 uIU/mL (0.465-4.68)
[2025-05-16 19:06] LABS: Hemoglobin A1C 5.6 % (4.0-6.0)
--- OUTSIDE RECORDS SUMMARY | 2025-05-18 07:59 | XMS_ITS | Encounter Summary ---
Author Organization [facility] Address [address] [place] [address] Care Team Providers Care Phonograph Cartridge Assembler Name Role Phone Lexa Gonzalez MD Primary Care Provider [phone]- [phone] Encounter Details Date Type Department Care Team (Late st Contact Info) Description 03/30/2025 Patient rounding ([facility] [facility] [address] [place] [address] Pippa Wolf MD [address] [place] [address] Social History Tobacco Use Types Packs/Day [...] AM EDT documented as of this encounter Progress Notes * Aidee Echavarria RegSched Rep - 03/30/2025 4:11 PM EDT ..My name is Vidhi Kraft and I am the Beater Boss for [facility]. I would like to thank you for being a loyal patient. If you do not mind I would like to ask you a few questions about your recent visit with us. Please feel free to reply if you wish to provide us with feedback on your first visit with our practice. First, could you tell me what went well with your recent visit? Secondly, we are always looking for ways to make our patients' experiences even better. Do you haveany recommendations on ways we may improve? Finally, overall were you satisfied with your first visit to us as a [facility]? In the next few days, you will be receiving a Patient Experience Survey. Thank you for taking the time to answer a few questions today. I hope you have a good day. documented in this encounter Plan of Treatment Upcoming Encounters Date Type Department Care Team (Late st Contact Info) Description 09/28/2025 11:15 AM EDT Office Visit [facility] [address] [place] [address] Pippa Wolf MD [address] [place] [place] [address] 09/28/2025 11:15 AM EDT Clinical Support No Requirements [facility] [address] [place] [address] documented as of this encounter Visit Diagnoses Not on filedocumented in this encounter Care Teams Phonograph Cartridge Assembler Relationship Specialty Start Date End Date Lexa Gonzalez MD [address] [place] [address] PCP - General Family Medicine 01/05/24 documented as of this encounter
--- OUTSIDE RECORDS SUMMARY | 2025-05-18 07:59 | XMS_ITS | Encounter Summary ---
Author Organization [facility] Address [address] [place] [address] Care Team Providers Care Nutrition Services Associate Name Role Phone Pcp, No Primary Care Provider Jojo Crawford MD Unavailable [phone] Clau Lmobardo APRN Primary Care Provider [phone] Encounter Details Date Type Department Care Team (Late st Contact Info) Description 07/07/2022 Orders Only External Location [address] [place] [address] Kerline Uribe MD [address] [place] [address] [id number] Social History Tobacco Use Types Packs/Day Years [...] on filedocumented in this encounter Care Teams Nutrition Services Associate Relationship Specialty Start Date End Date Pcp, No [address] [place] [address] PCP - General Family Medicine 07/26/22 08/07/22 Clau Lombardo APRN [address] [place] [address] PCP - General 08/08/22 Jojo Fink MD [address] [facility] [address] [place] [address] Consulting Physician Neurology 08/08/22 documented as of this encounter
--- OUTSIDE RECORDS SUMMARY | 2025-05-18 07:59 | XMS_ITS | Encounter Summary ---
Author Organization Healthcare Address [address] [place] [address] Care Team Providers Care Lip Cutter Name Role Phone Pcp, No Primary Care Provider Jojo Crawford MD Unavailable [phone] Clau Lombardo APRN Primary Care Provider [phone] Encounter Details Date Type Department Care Team (Late st Contact Info) Description 07/07/2022 Orders Only External Location [address] [place] [address] Kerline Uribe MD [address] [place] [address] [id number] Social History Tobacco Use Types Packs/Day Years [...] 9:48 AM EST) Anatomical Region Laterality Modality [place] [facility] [place] Computed Tomogr aphy 07/07/2022 9:48 AM EST us Kerline Uribe MD IMG CT PROCEDURES Final Resul t documented in this encounter Visit Diagnoses Not on filedocumented in this encounter Care Teams Lip Cutter Relationship Specialty Start Date End Date Pcp, No [address] [place] [address] PCP - General Family Medicine 07/26/22 08/07/22 Clau Lombardo APRN [address] [place] [address] PCP - General 08/08/22 Jojo Fink MD [address] [facility] [address] [place] [address] Consulting Physician Neurology 08/08/22 documented as of this encounter
--- OUTSIDE RECORDS SUMMARY | 2025-05-18 07:59 | XMS_ITS | Encounter Summary ---
Author Organization Healthcare Address [address] [place] [address] Care Team Providers Care Tactical Air Defense Controller Name Role Phone Pcp, No Primary Care Provider Jojo Crawford MD Unavailable [phone] Clau Lombardo APRN Primary Care Provider [phone] Encounter Details Date Type Department Care Team (Late st Contact Info) Description 07/08/2022 Orders Only External Location [address] [place] [address] Luis Méndez MD [address] [facility] [address] [place] [id number] Social History Tobacco Use Types Packs/Day Years [...] on filedocumented in this encounter Care Teams Tactical Air Defense Controller Relationship Specialty Start Date End Date Pcp, No [address] [place] [address] PCP - General Family Medicine 07/26/22 08/07/22 Clau Lombardo APRN [address] [place] [address] PCP - General 08/08/22 Jojo Fink MD [address] [facility] [address] [place] [address] Consulting Physician Neurology 08/08/22 documented as of this encounter
--- OUTSIDE RECORDS SUMMARY | 2025-05-18 07:59 | XMS_ITS | Encounter Summary ---
Author Organization Healthcare Address [address] [place] [address] Care Team Providers Care Project Controls Specialist Name Role Phone Pcp, No Primary Care Provider Jojo Crawford MD Unavailable [phone] Clau Lombardo APRN Primary Care Provider [phone] Encounter Details Date Type Department Care Team (Late st Contact Info) Description 07/07/2022 Orders Only External Location [address] [place] [address] Kerline Uribe MD [address] [place] [address] [phone] Social History Tobacco Use Types Packs/Day Years [...] on filedocumented in this encounter Care Teams Project Controls Specialist Relationship Specialty Start Date End Date Pcp, No [address] [place] [address] PCP - General Family Medicine 07/26/22 08/07/22 Clau Lombardo APRN [address] [place] [address] PCP - General 08/08/22 Jojo Fink MD [address] [facility] [address] [place] [address] Consulting Physician Neurology 08/08/22 documented as of this encounter
--- OUTSIDE RECORDS SUMMARY | 2025-05-18 07:59 | XMS_ITS | Encounter Summary ---
Author Organization [facility] Address [address] [place] [address] Care Team Providers Care Family Worker Name Role Phone Lexa Gonzalez MD Primary Care Provider [phone] Reason for Visit * Reason Onset Date Comments Follow-up 08/29/2022 Encounter Details Date Type Department Care Team (Late st Contact Info) Description 08/29/2022 Telephone [facility] [address] [place] [address] Pippa Wolf MD [address] [place] [address] Follow-up Social History Tobacco Use Types [...] HIS BLOOD PRESSURE. PLEASE CALL BACK AT [phone]. * Telephone Encounter - Bruna Gonzales MA [...] Description 09/28/2025 11:15 AM EDT Office Visit [facility] [place] [address] Pippa Wolf MD [address] [facility] [place] [address] 09/28/2025 11:15 AM EDT Clinical Support No Requirements [facility] [address] [place] [address] [place] [address] documented as of this encounter Visit Diagnoses Not on filedocumented in this encounter Care Teams Family Worker Relationship Specialty Start Date End Date Lexa Gonzalez MD [address] [place] [address] [place] [address] PCP - General Family Medicine 01/05/24 documented as of this encounter
--- OUTSIDE RECORDS SUMMARY | 2025-05-18 07:59 | XMS_ITS | Encounter Summary ---
Author Organization [facility] Address [address] [place] [address] Care Team Providers Care Change Advisor Name Role Phone Lexa Gonzalez MD Primary Care Provider [phone] Reason for Visit * Reason Comments Med Refill Encounter Details Date Type Department Care Team (Late st Contact Info) Description 05/13/2025 Refill [facility] [address] [place] [address] Pippa Wolf MD [address] [place] [address] Med Refill Social History Tobacco Use [...] Description 09/28/2025 11:15 AM EDT Office Visit [facility] [address] [place] [address] Pippa Wolf MD [address] [place] [address] 09/28/2025 11:15 AM EDT Clinical Support No Requirements [facility] [address] [place] [address] documented as of this encounter Visit Diagnoses Diagnosis Hypertension, essential Unspecified essential hypertension documented in this encounter Care Teams Change Advisor Relationship Specialty Start Date End Date Lexa Gonzalez MD [address] [place] [address] [place] [address] PCP - General Family Medicine 01/05/24 documented as of this encounter
--- OUTSIDE RECORDS SUMMARY | 2025-05-18 07:59 | XMS_ITS | Encounter Summary ---
Author Organization Healthcare Address [address] [place] [address] Care Team Providers Care Offset Pressman Name Role Phone Pcp, No Primary Care Provider Jojo Crawford MD Unavailable [phone] Clau Lombardo APRN Primary Care Provider [phone] Encounter Details Date Type Department Care Team (Late st Contact Info) Description 07/07/2022 Orders Only External Location [address] [place] [address] Kerline Uribe MD [address] [place] [address] [phone] Social History Tobacco Use Types Packs/Day Years [...] on filedocumented in this encounter Care Teams Offset Pressman Relationship Specialty Start Date End Date Pcp, No [address] [place] [address] PCP - General Family Medicine 07/26/22 08/07/22 Clau Lombardo APRN [address] [place] [address] PCP - General 08/08/22 Jojo Fink MD [address] [facility] [address] [place] [address] Consulting Physician Neurology 08/08/22 documented as of this encounter
--- OUTSIDE RECORDS SUMMARY | 2025-05-18 07:59 | XMS_ITS | Encounter Summary ---
Author Organization Healthcare Address [address] [place] [address] Care Team Providers Care Asset Specialist Name Role Phone Pcp, No Primary Care Provider Jojo Crawford MD Unavailable [phone] Clau Lombardo APRN Primary Care Provider [phone] Encounter Details Date Type Department Care Team (Late st Contact Info) Description 07/10/2022 Orders Only External Location [address] [place] [address] Luis Méndez MD [address] [facility] [address] [place] [id number] Social History Tobacco Use Types Packs/Day Years [...] on filedocumented in this encounter Care Teams Asset Specialist Relationship Specialty Start Date End Date Pcp, No [address] [place] [address] PCP - General Family Medicine 07/26/22 08/07/22 Clau Lombardo APRN [address] [place] [address] PCP - General 08/08/22 Jojo Fink MD [address] [facility] [address] [place] [address] Consulting Physician Neurology 08/08/22 documented as of this encounter
--- OUTSIDE RECORDS SUMMARY | 2025-05-18 07:59 | XMS_ITS | Encounter Summary ---
Author Organization Healthcare Address [address] [place] [address] Care Team Providers Care Herb Counselor Name Role Phone Pcp, No Primary Care Provider Jojo Crawford MD Unavailable [phone] Clau Lombardo APRN Primary Care Provider [phone] Encounter Details Date Type Department Care Team ([facility] st Contact Info) Description 07/16/2022 Orders Only External Location [address] [place] [address] Provider, External Social History Tobacco Use Types [...] on filedocumented in this encounter Care Teams Herb Counselor Relationship Specialty Start Date End Date Pcp, No [address] [place] [address] PCP - General Family Medicine 07/26/22 08/07/22 Clau Lombardo APRN [address] [place] [address] PCP - General 08/08/22 Jojo Fink MD [address] [place] [address] Consulting Physician Neurology 08/08/22 documented as of this encounter
--- OUTSIDE RECORDS SUMMARY | 2025-05-18 07:59 | XMS_ITS | Data Portability ---
Author Organization [facility] Jenae & MARITZA Allen ADMIN Address [address] [place] [id number] Care Team Providers Care Assistant Sales Manager Name Role Phone [facility] Primary Care Pro vider Assessment No assessment recorded. Plan of Treatment Reminders Order Date Submit Date Provider Last Modified By Organization Details Last Modified Time Details Appointments None recorded. Lab CBC w/ auto diff 2022 023 [facility], [address] [place], [address], 3 14:18:12 CMP, serum or plasma 2022 023 [facility], [address] [place], [address], 3 15:46:08 venipunctur e [address] [facility], [address] [place], [address], 3 13:26:47 factor VIII activity, plasma [address] [facility], [address] [place], [address], 3 08:07:52 antithrombi n activity, plasma 2022 023 [facility], [address], [place], [address], 3 06:13:16 CBC w/ auto diff 2022 023 [facility], [address] [facility], [place], [address], 3 15:11:25 CMP, serum or plasma 2022 023 [facility], [address] [facility], [place], [address], 3 15:46:39 factor V mutation, blood or tissue 2022 023 [facility], [address] [facility], [place], [address], 3 17:10:17 prothrombin (factor II) [id number] mutation, blood [address] [facility], [address] [facility], [place], [address], 3 13:32:19 factor VIII activity, plasma 2022 023 [facility], [address] [facility], [place], [address], 3 19:43:13 antithrombi n activity, plasma [address] [facility], [address] [facility], [place], [address], 3 13:32:19 protein C + protein S, functional panel, plasma [address] [facility], [address] [facility], [place], [address], 3 13:32:19 venipunctur e 2022 023 [email or web address] [facility], [address] , [place], [address], 13:46:24 Referral None recorded. Procedures None recorded. Surgeries None recorded. Imaging None recorded. Medication Orders None recorded. Patient TargetsNo targets recorded. Patient InstructionsNo instructions recorded. Reason for Referral None Reported. Results Created Date Observation Date Name Description Value Unit Range Abnormal Flag Note LastModifiedBy Organization Detail LastModifiedTime 07/25/1907/25/2022 CBC AUTO W DIFF WBC 4.6 K/uL 4.0-10 .5 Not Available [facility] ([facility]) [address] , [place], [address], 07/25/2022 15:11:25 07/25/19 23 07/25/2022 CBC AUTO W DIFF RBC 5.1 M/mm3 4.7-6. 1 Not Available [facility] ([facility]) [address] , [place], [address], 07/25/2022 15:11:25 07/25/19 23 07/25/2022 CBC AUTO W DIFF HGB 13.7 gm/dL 13.5-1 8.0 Not Available [facility] ([facility]) [address] , [place], [address], 07/25/2022 15:11:25 07/25/19 23 07/25/2022 CBC AUTO W DIFF HCT 44.7 % 42.0-5 2.0 Not Available [facility] ([facility]) [address] , [place], [address], 07/25/2022 15:11:25 07/25/19 23 07/25/2022 CBC AUTO W DIFF MCV 88.2 fL 78-100 Not Available [facility] ([facility]) [address] , [place], [address], 07/25/2022 15:11:25 07/25/19 23 07/25/2022 CBC AUTO W DIFF MCH 27.0 pg 27-31 Not Available [facility] ([facility]) [address] , [place], [address], 07/25/2022 15:11:25 07/25/19 23 07/25/2022 CBC AUTO W DIFF MCHC 30.6 g/dL 32-36 low Not Available [facility] ([facility]) [address], [place], [address], 07/25/2022 15:11:25 07/25/19 23 07/25/2022 CBC AUTO W DIFF RDW 14.5 % 11.5-1 4.0 high Not Available [facility] ([facility]) [address], [place], [address], 07/25/2022 15:11:25 07/25/19 23 07/25/2022 CBC AUTO W DIFF platelet count 227 K/uL 150-45 0 Not Available [facility] ([facility]) [address] [facility], [place], [address], 07/25/2022 15:11:25 07/25/19 23 07/25/2022 CBC AUTO W DIFF neutrophil% 63.1 % 43-65 Not Available [facility] ([facility]) [address], [place], [address], 07/25/2022 15:11:25 07/25/19 23 07/25/2022 CBC AUTO W DIFF lymphocyte% 27.7 % 20.5-4 5.5 Not Available [facility] ([facility]) [address] [place], [address], 07/25/2022 15:11:25 07/25/19 23 07/25/2022 CBC AUTO W DIFF monocyte% 7.9 % 5.5-11 .7 Not Available [facility] ([facility]) [address] [place], [address], 07/25/2022 15:11:25 07/25/19 23 07/25/2022 CBC AUTO W DIFF eosinophil% 1.1 % 0.9-2. 9 Not Available [facility] ([facility]) [address], [place], [address], 07/25/2022 15:11:25 07/25/19 23 07/25/2022 CBC AUTO W DIFF basophil% 0.2 % 0.2-1. 0 Not Available [facility] ([facility]) [address] [facility], [place], [address], 07/25/2022 15:11:25 07/25/19 23 07/25/2022 CBC AUTO W DIFF neutrophil# 2.9 K/uL 2.2-4. 8 Not Available [facility] ([facility]) [address] [facility], [place], [address], 07/25/2022 15:11:25 07/25/19 23 07/25/2022 CBC AUTO W DIFF lymphocyte# 1.3 cell/ mcL 1.3-2. 9 Not Available [facility] ([facility]) [address] [facility], [place], [address], 07/25/2022 15:11:25 07/25/19 23 07/25/2022 CBC AUTO W DIFF monocyte# 0.4 cell/ mcL 0.3-0. 8 Not Available [facility] ([facility]) [address] [facility], [place], [address], 07/25/2022 15:11:25 07/25/19 23 07/25/2022 CBC AUTO W DIFF eosinophil# 0.1 cell/ mcL 0-0.2 Not Available [facility] ([facility]) [address] [facility], [place], [address], 07/25/2022 15:11:25 07/25/19 23 07/25/2022 CBC AUTO W DIFF basophil# 0.0 cell/ mcL 0.0-1. 0 Not Available [facility] ([facility]) [address], [place], [address], 07/25/2022 15:11:25 07/25/19 23 07/25/2022 CBC AUTO W DIFF manual differential NO Not Available [facility] ([facility]) [address], [place], [address], 07/25/2022 15:11:25 07/25/19 23 07/25/2022 COMP METAB OLIC PANEL sodium 139 mmol/ L 136-14 5 Not Available [facility] ([facility]) [address] , [place], [address], 07/25/2022 15:46:39 07/25/19 23 07/25/2022 COMP METAB OLIC PANEL potassium 3.4 mmol/ L 3.6-5. 0 low Not Available [facility] ([facility]) [address] , [place], [address], 07/25/2022 15:46:39 07/25/19 23 07/25/2022 COMP METAB OLIC PANEL chloride 100 mmol/ L 98-107 Not Available [facility] ([facility]) [address] , [place], [address], 07/25/2022 15:46:39 07/25/19 23 07/25/2022 COMP METAB OLIC PANEL carbon dioxide 30.2 mmol/ L 21.0-3 2.0 Not Available [facility] ([facility]) [address] , [place], [address], 07/25/2022 15:46:39 07/25/19 23 07/25/2022 COMP METAB OLIC PANEL anion gap 12.2 Not Available [facility] ([facility]) [address] , [place], [address], 07/25/2022 15:46:39 07/25/19 23 07/25/2022 COMP METAB OLIC PANEL glucose 102 mg/dL 70-120 Not Available [facility] ([facility]) [address] , [place], [address], 07/25/2022 15:46:39 07/25/19 23 07/25/2022 COMP METAB OLIC PANEL BUN 10 mg/dL 7-18 Not Available [facility] ([facility]) [address] , [place], [address], 07/25/2022 15:46:39 07/25/19 23 07/25/2022 COMP METAB OLIC PANEL creatinine 0.9 mg/dL 0.6-1. 3 Not Available [facility] ([facility]) [address] , [place], [address], 07/25/2022 15:46:39 07/25/19 23 07/25/2022 COMP METAB OLIC PANEL glomerular filtration rate >60 mlper min 60- Not Available [facility] ([facility]) [address] , [place], [address], 07/25/2022 15:46:39 07/25/19 23 07/25/2022 COMP METAB OLIC PANEL total protein 7.4 g/dL 6.4-8. 2 Not Available [facility] ([facility]) [address] , [place], [address], 07/25/2022 15:46:39 07/25/19 23 07/25/2022 COMP METAB OLIC PANEL albumin 3.7 g/dL 3.4-5. 0 Not Available [facility] ([facility]) [address] , [place], [address], 07/25/2022 15:46:39 07/25/19 23 07/25/2022 COMP METAB OLIC PANEL globulin 3.7 Not Available [facility] ([facility]) [address], [place], [address], 07/25/2022 15:46:39 07/25/19 23 07/25/2022 COMP METAB OLIC PANEL alb/glob ratio 1.0 0.7-2 Not Available [facility] ([facility]) [address], [place], [address], 07/25/2022 15:46:39 07/25/19 23 07/25/2022 COMP METAB OLIC PANEL calcium 8.9 mg/dL 8.5-10 .5 Not Available [facility] ([facility]) [address], [place], [address], 07/25/2022 15:46:39 07/25/19 23 07/25/2022 COMP METAB OLIC PANEL bilirubin total 0.64 mg/dL 0.10-1 .00 Not Available [facility] ([facility]) [address] [facility], [place], [address], 07/25/2022 15:46:39 07/25/19 23 07/25/2022 COMP METAB OLIC PANEL AST (SGOT) 21 U/L 0-37 Not Available [facility] ([facility]) [address], [place], [address], 07/25/2022 15:46:39 07/25/19 23 07/25/2022 COMP METAB OLIC PANEL ALT (SGPT) 26 U/L 0-65 Not Available [facility] ([facility]) [address], [place], [address], 07/25/2022 15:46:39 07/25/19 23 07/25/2022 COMP METAB OLIC PANEL alk phosphatase 139 U/L 46-116 high Not Available [facility] ([facility]) [address], [place], [address], 07/25/2022 15:46:39 07/25/19 23 07/30/2022 PROTE IN [...] at: [facility] [place] [address] , [place] [address] Lab Direc tor: Breanna amaral MD, Phone : [phone] Not Available [facility] ([facility]) [address] [facility], [place], [address], 07/30/2022 17:10:16 07/25/19 23 07/30/2022 FACTO R [...] Facto r V Leide n (PMID : [id number]). Addit ional risk facto rs inclu [...] ders to discu ss resul ts at [phone] GENE (8880 ). . Test Detai ls: Varia nt Julianne zed: c.160 1G>A (p. Arg53 4Gln) , refer red to as Facto r V Leide n . Metho ds/Li mitat ions: DNA julianne sis of the F5 gene (NM_0 72078 .5) was perfo rmed by PCR ampli [...] e rebeca cteri stics deter mined by [employer] r[facility]. It has not been clear ed or appro steph by the Food and Drug Admin istra tion. . Refer ences : Juan M Ruiz, Geovanni WONG, Marianela Flores, Viri FIELD, Reynold in ; [facility] Profe ssion al Pract ice and Guide lines Commi ttee. Adden dum: [facility] Medic al [facility] conse nsus state ment on facto r V Leide n mutat ion testi ng. [facility]. 2020Sep 15. doi: 10.10 38/s4 1436- 021-0 1108- x. PMID: 07611 767. . Maria Teresa BENTLEY. Facto r [...] or EB, Mirna P, Harriet martinez CS; [facility] Labor atory Quali ty Assur ance Commi ttee. Venou s throm boemb olism labor barrett rebolledo (fact or V Leide n and facto r II c.*97 G>A), 2018 updat e: a techn ical stand ab of the [facility] ge [facility] Medic al [facility]eth [facility] and [employer] ([facility] ). [facility] Med. 2017;2 0(12) :1489 -1498 . doi: 10.10 38/s4 1436- 018-0 322-z . Epub 2017Apr 17. PMID: 92233 698. . Sera clement, PhD, FAC Evelin Smith , PhD Guillermo elvi metzger, PhD, FACMG Karthik boles, PhD, FACMG Kole nelson, PhD, FACMG W Taz Farrell, PhD, FAC Ashley Curtis, PhD, FAC Meg ruiz, PhD, FAC Perfo rmed at: [facility] - [facility] [address] [facility] , [place] [address] Lab Direc tor: Kayla Mcdowell [facility] , Phone : [phone] Not Available [facility] ([facility]) [address] [facility], [place], [address], 07/30/2022 17:10:17 07/25/19 23 07/30/2022 FACTO R [...] Facto r V Leide n (PMID : [id number]). Ad ditio nal risk facto rs [...] ders to discu ss resul ts at [phone] GENE (1311 ). . Test Detai ls: Varia nt julianne zed: c.*97 G>A, previ ously refer red to as G2021 0 A . Metho ds/Li mitat ions: DNA julianne sis of the F2 gene (NM_0 15022 .5) was perfo rmed by P CR [...] e rebeca cteri stics deter mined by [employer] rp. It has not been clear ed [...] 10.10 38/s4 1436- 021-0 110 8-x. PMID: 77188 767. . Maria Teresa BENTLEY. Proth rombi [...] or EB, Mirna P, Vinicius gracia CS; [facility] Labor atory Quali ty Shivam euceda Commi ttee. Venou s throm radha mboli sm labor atory testi ng (fact or V Leide n and facto r II c.*97 G>A), 2018 updat e: a techn ical stand ab of the [facility] ge of Medic al [facility]eth [facility] and Genom ics ([facility] ). [facility]. 2018 Jun;2 0(12) :148 9-149 8. doi: 10.10 38/s4 1436- 018-0 322-z . Epub 2017Apr 17. PMID: 78814 698. . Sera sa Meme clement, PhD, [facility] Evelin Smith , PhD [facility] Marika metzger, PhD, [facility] Karthik boles, PhD, [facility] Kole nelson, PhD, [facility] Maya Farrell, PhD, FAC Ashley Curtis, PhD, [facility] Meg ruiz, PhD, FAC Perfo rmed at: - [facility] [address] [place] [address] Lab Direc tor: Kayla Mcdowell [facility] , Phone : [phone] Not Available [facility] ([facility]) [address] [facility], [place], [address], 07/30/2022 17:10:18 07/25/19 23 07/30/2022 ANTIT HROMB IN 3 AG antithrobmin antigen 94 % 72-124 This test was devel oped and its perfo rmanc e rebeca gomez stics deter mined by [employer] adonay. It has not been clear ed or appro steph by the Food and Drug Admin istra tion. Perfo rmed at: BN - Alex [address] [facility] , [place] [address] Lab Direc tor: Breanna amaral MD, Phone : [phone] Not Available [facility] ([facility]) [address], [place], [address], 07/30/2022 17:10:19 07/25/19 23 07/30/2022 FACTO R [...] 157:6 53-66 3). Perfo rmed at: [facility] [address] [place] [address] Lab Direc tor: Breanna amaral MD, Phone : [phone] Not Available [facility] ([facility]) [address] , [place], [address], 07/30/2022 17:10:20 07/25/19 23 07/30/2022 PROTE IN C FUNTI ONAL protein C functional 149 % 73-180 Perfo rmed at: [facility] [address] [place] [address] Lab Direc tor: Breanna amaral MD, Phone : [phone] Not Available [facility] ([facility]) [address] , [place], [address], 07/30/2022 17:10:21 08/28/19 23 08/28/2022 CBC AUTO W DIFF WBC 5.2 K/uL 4.0-10 .5 Not Available [facility] ([facility]) [address] , [place], [address], 08/28/2022 14:18:12 08/28/19 23 08/28/2022 CBC AUTO W DIFF RBC 4.5 M/mm3 4.7-6. 1 low Not Available [facility] ([facility]) [address] , [place], [address], 08/28/2022 14:18:12 08/28/19 23 08/28/2022 CBC AUTO W DIFF HGB 12.6 gm/dL 13.5-1 8.0 low Not Available [facility] ([facility]) [address], [place], [address], 08/28/2022 14:18:12 08/28/19 23 08/28/2022 CBC AUTO W DIFF HCT 39.8 % 42.0-5 2.0 low Not Available [facility] ([facility]) [address] , [place], [address], 08/28/2022 14:18:12 08/28/19 23 08/28/2022 CBC AUTO W DIFF MCV 89.0 fL 78-100 Not Available [facility] ([facility]) [address] , [place], [address], 08/28/2022 14:18:12 08/28/19 23 08/28/2022 CBC AUTO W DIFF MCH 28.2 pg 27-31 Not Available [facility] ([facility]) [address] , [place], [address], 08/28/2022 14:18:12 08/28/19 23 08/28/2022 CBC AUTO W DIFF MCHC 31.7 g/dL 32-36 low Not Available [facility] ([facility]) [address] , [place], [address], 08/28/2022 14:18:12 08/28/19 23 08/28/2022 CBC AUTO W DIFF RDW 14.9 % 11.5-1 4.0 high Not Available [facility] ([facility]) [address], [place], [address], 08/28/2022 14:18:12 08/28/19 23 08/28/2022 CBC AUTO W DIFF platelet count 231 K/uL 150-45 0 Not Available [facility] ([facility]) [address], [place], [address], 08/28/2022 14:18:12 08/28/19 23 08/28/2022 CBC AUTO W DIFF neutrophil% 61.9 % 43-65 Not Available [facility] ([facility]) [address], [place], [address], 08/28/2022 14:18:12 08/28/19 23 08/28/2022 CBC AUTO W DIFF lymphocyte% 28.8 % 20.5-4 5.5 Not Available [facility] ([facility]) [address], [place], [address], 08/28/2022 14:18:12 08/28/19 23 08/28/2022 CBC AUTO W DIFF monocyte% 7.5 % 5.5-11 .7 Not Available [facility] ([facility]) [address], [place], [address], 08/28/2022 14:18:12 08/28/19 23 08/28/2022 CBC AUTO W DIFF eosinophil% 1.4 % 0.9-2. 9 Not Available [facility] ([facility]) [address], [place], [address], 08/28/2022 14:18:12 08/28/19 23 08/28/2022 CBC AUTO W DIFF basophil% 0.4 % 0.2-1. 0 Not Available [facility] ([facility]) [address] [facility], [place], [address], 08/28/2022 14:18:12 08/28/19 23 08/28/2022 CBC AUTO W DIFF neutrophil# 3.2 K/uL 2.2-4. 8 Not Available [facility] ([facility]) [address] [facility], [place], [address], 08/28/2022 14:18:12 08/28/19 23 08/28/2022 CBC AUTO W DIFF lymphocyte# 1.5 cell/ mcL 1.3-2. 9 Not Available [facility] ([facility]) [address] [facility], [place], [address], 08/28/2022 14:18:12 08/28/19 23 08/28/2022 CBC AUTO W DIFF monocyte# 0.4 cell/ mcL 0.3-0. 8 Not Available [facility] ([facility]) [address] [facility], [place], [address], 08/28/2022 14:18:12 08/28/19 23 08/28/2022 CBC AUTO W DIFF eosinophil# 0.1 cell/ mcL 0-0.2 Not Available [facility] ([facility]) [address] [facility], [place], [address], 08/28/2022 14:18:12 08/28/19 23 08/28/2022 CBC AUTO W DIFF basophil# 0.0 cell/ mcL 0.0-1. 0 Not Available [facility] ([facility]) [address] [facility], [place], [address], 08/28/2022 14:18:12 08/28/19 23 08/28/2022 CBC AUTO W DIFF manual differential NO Not Available [facility] ([facility]) [address] [place], [address], 08/28/2022 14:18:12 08/28/19 23 08/28/2022 COMP METAB OLIC PANEL sodium 141 mmol/ L 136-14 5 Not Available [facility] ([facility]) [address] , [place], [address], 08/28/2022 15:46:07 08/28/19 23 08/28/2022 COMP METAB OLIC PANEL potassium 3.8 mmol/ L 3.6-5. 0 Not Available [facility] ([facility]) [address] , [place], [address], 08/28/2022 15:46:07 08/28/19 23 08/28/2022 COMP METAB OLIC PANEL chloride 104 mmol/ L 98-107 Not Available [facility] ([facility]) [address], [place], [address], 08/28/2022 15:46:07 08/28/19 23 08/28/2022 COMP METAB OLIC PANEL carbon dioxide 29.9 mmol/ L 21.0-3 2.0 Not Available [facility] ([facility]) [address] , [place], [address], 08/28/2022 15:46:07 08/28/19 23 08/28/2022 COMP METAB OLIC PANEL anion gap 10.9 Not Available [facility] ([facility]) [address] , [place], [address], 08/28/2022 15:46:07 08/28/19 23 08/28/2022 COMP METAB OLIC PANEL glucose 108 mg/dL 70-120 Not Available [facility] ([facility]) [address] [place], [address], 08/28/2022 15:46:07 08/28/19 23 08/28/2022 COMP METAB OLIC PANEL BUN 17 mg/dL 7-18 Not Available [facility] ([facility]) [address], [place], [address], 08/28/2022 15:46:07 08/28/19 23 08/28/2022 COMP METAB OLIC PANEL creatinine 0.9 mg/dL 0.6-1. 3 Not Available [facility] ([facility]) [address], [place], [address], 08/28/2022 15:46:07 08/28/19 23 08/28/2022 COMP METAB OLIC PANEL glomerular filtration rate >60 mlper min 60- Not Available [facility] ([facility]) [address], [place], [address], 08/28/2022 15:46:07 08/28/19 23 08/28/2022 COMP METAB OLIC PANEL total protein 6.2 g/dL 6.4-8. 2 low Not Available [facility] ([facility]) [address], [place], [address], 08/28/2022 15:46:07 08/28/19 23 08/28/2022 COMP METAB OLIC PANEL albumin 3.4 g/dL 3.4-5. 0 Not Available [facility] ([facility]) [address], [place], [address], 08/28/2022 15:46:07 08/28/19 23 08/28/2022 COMP METAB OLIC PANEL globulin 2.8 Not Available [facility] ([facility]) [address], [place], [address], 08/28/2022 15:46:07 08/28/19 23 08/28/2022 COMP METAB OLIC PANEL alb/glob ratio 1.2 0.7-2 Not Available [facility] ([facility]) [address], [place], [address], 08/28/2022 15:46:07 08/28/19 23 08/28/2022 COMP METAB OLIC PANEL calcium 8.6 mg/dL 8.5-10 .5 Not Available [facility] ([facility]) [address] , [place], [address], 08/28/2022 15:46:07 08/28/19 23 08/28/2022 COMP METAB OLIC PANEL bilirubin total 0.50 mg/dL 0.10-1 .00 Not Available [facility] ([facility]) [address], [place], [address], 08/28/2022 15:46:07 08/28/19 23 08/28/2022 COMP METAB OLIC PANEL AST (SGOT) 24 U/L 0-37 Not Available [facility] ([facility]) [address], [place], [address], 08/28/2022 15:46:07 08/28/19 23 08/28/2022 COMP METAB OLIC PANEL ALT (SGPT) 31 U/L 0-65 Not Available [facility] ([facility]) [address], [place], [address], 08/28/2022 15:46:07 08/28/19 23 08/28/2022 COMP METAB OLIC PANEL alk phosphatase 144 U/L 46-116 high Not Available [facility] ([facility]) [address], [place], [address], 08/28/2022 15:46:07 08/28/19 23 08/30/2022 ANTIT HROMB IN 3 ACTIV ITY antithrombin activity 119 % 75-135 Direc t Xa inhib itor antic oagul ants such as rivar oxaba n, apixa ban and edoxa ban will lead to spuri ously eleva earle antit hromb in activ ity level s possi emi maski ng a defic iency . Not Available [facility] ([facility]) [address], [place], [address], 08/30/2022 06:13:16 02/15/20 23 08/30/2022 ANTIT HROMB IN 3 ACTIV ITY antithrobmin antigen 73 % 72-124 This test was kay nelson and its perfo rmanc e rebeca gomez stics deter mined by [employer] . It has not been clear ed or appro steph by the Food and Drug Admin istra tion. Perfo rmed at: [facility] [address] [place] [address] Lab Direc tor: Breanna amaral MD, Phone : [phone] Not Available [facility] ([facility]) [address], [place], [address], 08/30/2022 06:13:16 08/28/19 23 08/30/2022 FACTO R [...] 2012; 157:6 53-66 3). Perfo rmed at: [facility] Aviva keshach[facility]elle [address] [place] [address] 8754 Lab Direc tor: Breanna amaral MD, Phone : [phone] Not Available [facility] ([facility]) [address] , [place], [address], 08/30/2022 06:13:17 02/27/20 23 02/26/2023 COMP METAB OLIC PANEL sodium 141 mmol/ L 136-14 5 Not Available [facility] (Lab Registration) [address] [place], [address], 02/26/2023 11:55:28 02/27/20 23 02/26/2023 COMP METAB OLIC PANEL potassium 3.1 mmol/ L 3.5-5. 1 low Not Available [facility] (Lab Registration) [address] [place], [address], 02/26/2023 11:55:28 02/27/20 23 02/26/2023 COMP METAB OLIC PANEL chloride 103 mmol/ L 98-107 Not Available [facility] (Lab Registration) [address] [place], [address], 02/26/2023 11:55:28 02/27/20 23 02/26/2023 COMP METAB OLIC PANEL carbon dioxide 30 mmol/ L 21-32 Not Available [facility] (Lab Registration) [address] [place], [address], 02/26/2023 11:55:28 02/27/20 23 02/26/2023 COMP METAB OLIC PANEL anion gap 8.0 Not Available [facility] (Lab Registration) [address] [place], [address], 02/26/2023 11:55:28 02/27/20 23 02/26/2023 COMP METAB OLIC PANEL glucose 115 mg/dL 70-110 high Not Available [facility] (Lab Registration) [address] [place], [address], 02/26/2023 11:55:28 02/27/20 23 02/26/2023 COMP METAB OLIC PANEL blood urea nitrogen 7 mg/dL 7-18 Not Available [facility] (Lab Registration) [address] [place], [address], 02/26/2023 11:55:28 02/27/20 23 02/26/2023 COMP METAB OLIC PANEL creatinine 0.9 mg/dL 0.8-1. 3 Not Available [facility] (Lab Registration) [address], [place], [address], 02/26/2023 11:55:28 02/27/20 23 02/26/2023 COMP METAB OLIC PANEL BUN/creatini ne ratio 7.8 ratio 9-21 low Not Available [facility] (Lab Registration) [address], [place], [address], 02/26/2023 11:55:28 02/27/20 23 02/26/2023 COMP METAB OLIC PANEL estimated glom filtration rate 90 mL/mi n >60- Not Available [facility] (Lab Registration) [address] [place], [address], 02/26/2023 11:55:28 02/27/20 23 02/26/2023 COMP METAB OLIC PANEL total protein 6.8 g/dL 6.4-8. 2 Not Available [facility] (Lab Registration) [address] [place], [address], 02/26/2023 11:55:28 02/27/20 23 02/26/2023 COMP METAB OLIC PANEL albumin 3.5 g/dL 3.4-5. 0 Not Available [facility] (Lab Registration) [address] [place], [address], 02/26/2023 11:55:28 02/27/20 23 02/26/2023 COMP METAB OLIC PANEL calcium 9.2 mg/dL 8.5-10 .1 Not Available [facility] (Lab Registration) [address] [place], [address], 02/26/2023 11:55:28 02/27/20 23 02/26/2023 COMP METAB OLIC PANEL corrected calcium 9.6 mg/dL 8.5-10 .1 Not Available [facility] (Lab Registration) [address], [place], [address], 02/26/2023 11:55:28 02/27/20 23 02/26/2023 COMP METAB OLIC PANEL bilirubin total 0.7 mg/dL 0.4-1. 5 Not Available [facility] (Lab Registration) [address] [place], [address], 02/26/2023 11:55:28 02/27/20 23 02/26/2023 COMP METAB OLIC PANEL AST (SGOT) 24 U/L 15-37 Not Available [facility] (Lab Registration) [address] [place], [address], 02/26/2023 11:55:28 02/27/20 23 02/26/2023 COMP METAB OLIC PANEL ALT (SGPT) 29 U/L 12-78 Not Available [facility] (Lab Registration) [address] [place], [address], 02/26/2023 11:55:28 02/27/20 23 02/26/2023 COMP METAB OLIC PANEL alk phosphatase 129 U/L Not Available [facility] (Lab Registration) [address] [place], [address], 02/26/2023 11:55:28 02/27/20 23 02/26/2023 COMP METAB OLIC PANEL note Unles s other han noted testi ng perfo rmed at: [facility] [address] [facility] [place] [address] [phone] Jack ruiz MD CLIA: [id number] Not Available [facility] (Lab Registration) [address] [place], [address], 02/26/2023 11:55:28 02/27/20 23 02/26/2023 MAGNE SIUM magnesium 1.5 mg/dL 1.8-2. 4 low Not Available [facility] (Lab Registration) [address] [place], [address], 02/26/2023 11:55:29 02/27/20 23 02/26/2023 MAGNE SIUM note Unles s other han noted testi ng perfo rmed at: [facility] [address] [place] [address] [phone] Jack ruiz MD CLIA: [id number] Not Available [facility] (Lab Registration) [address] [place], [address], 02/26/2023 11:55:29 02/27/20 23 02/26/2023 PHOSP HOROU S phosphorus 3.1 mg/dL 2.5-4. 9 Not Available [facility] (Lab Registration) [address] [place], [address], 02/26/2023 11:55:30 02/27/20 23 02/26/2023 PHOSP HOROU S note Unlshannen s other han noted testi ng perfo rmed at: [facility] [address] [place] [address] [phone] Jack ruiz MD CLIA: [id number] Not Available [facility] (Lab Registration) [address] [place], [address], 02/26/2023 11:55:30 Result Notes None recorded. Procedures Surgical History Date Name Laterality Status Provider Name and Address Organization Details Recorded Time 2 Hip Surgery completed Genesis CALVIN [facility] & [place] 07/25/2022 13:08:24 Imaging Results None recorded. Procedure Notes None recorded. Medical Equipment None Reported. Allergies Allergen ID Allergen Name Allergen Category Reaction Reaction Severity Criticality Documentation Date Start Date Code Code System Note Provider Name and Address Organization Details Recorded Time 51597 amoxicill in medicatio n dyspnea moderate Not available 07/25/2022 723 RxNorm Genesis Andersontherese burks [place] Lev[facility] & [place] 13:08:03 06498 Cipro medicatio n dyspnea moderate Not available 07/25/2022 78723 3 RxNorm Genesis burks, [place] - [facility] [place] & [place] 3 13:08:03 Medications Name Sig Start Date [...] [degF] 97 % 97 % 88 /min 84434.5 9 g 30.1 kg/m2 180.34 cm 174/87 mm[Hg] Genesis Ponce [facility] & [place] 3 13:07:12 Date Recorded Body height Body mass index (BMI) Body weight Body temperature Oxygen saturation Oxygen saturation in Arterial blood by Pulse oximetry Heart rate Respiratory rate Systolic And Diastolic Provider Name and Address Organization Details Last Updated DateTime 3 180.34 cm 30 kg/m2 90828.8 g 98.9 [degF] 96 % 96 % 82 /min 18 /min 145/72 mm[Hg] Kai CALVIN - [facility] & [place] 3 13:08:53 Social History Question [...] Functional Status Question Answer Note LastModified by [employer] Details LastModified Time Do you use any illicit or recreational drugs? No CHART_MERGE Information not available 01/28/2023 What is your level of alcohol consumption? Moderate CHART_MERGE Information not available 01/28/2023 Do you or have you ever used smokeless tobacco? 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 Moderate CHART_MERGE Information not available 01/28/2023 Mental Status Question Answer Note LastModified by Organization D etails LastModified Time Do you feel stressed (tense, restless, nervous, or anxious, or unable to sleep at night)? [id number] CHART_MERGE Information not available 01/28/2023 Family History Relationship Description Onset Age of this Age Resolved Age Notes LastModified by Organization Details LastModified Time Mother Hypertensive disorder CHART_MERGE Not available 01/11 10:20:56 Mother Hypercholest erolemia CHART_MERGE Not available 01/11 10:20:56 Father Cerebrovascu lar accident CHART_MERGE Not available 0 01/28/2023 10:20:56 Medical History Condition Response Obstructive Sleep Apnea Y Arthritis Y Stroke Y Reflux/GERD Y Hypertension Y Past Encounters Encounter ID Performer Location Encounter Start Date Encounter Closed Date Diagnosis/Indication Diagnosis SNOMED-CT Code Diagnosis ICD10 Code Diagnosis IMO Codes Diagnosis Note [id number] Denita Sanchez PA-C [facility] Oncology and Hematolog y [address] [facility] [address] [place] [address] 07/25/2022 13:00:16 07/25/2022 13:33:53 Cerebrovascular accident [id number] I63.9 Patient was hospitaliz ed for acute [...] 88.3. Normal MCH and MCHC. Platelet count 569963. Normal differenti al. Normal PT and INR. [...] with further recommenda tions. Anticoagulant therapy 18 2150879 Z79.01 Patient was started on Eliquis after a stroke June 2022. He will continue on Eliquis. [id number] Denita Sanchez PA-C [facility] Oncology and Hematolog y [address] [facility] [address] [place] [address] 08/28/2022 13:01:07 08/28/2022 13:45:07 Cerebrovascular accident [id number] I63.9 Patient was hospitaliz ed for acute [...] 88.3. Normal MCH and MCHC. Platelet count 787418. Normal differenti al. Normal PT and INR. [...] with further recommenda tions. Anticoagulant therapy 18 3731226 Z79.01 Patient was started on Eliquis after a stroke June 2022. He will continue on Eliquis. Laboratory test result abnormal [id number] R89.9 Hypercoagu lable evaluation Performed on July 25, 2022 with negative factor 5 Leiden mutation. Negative factor 2 mutation. Normal protein C and S. Normal antithromb in antigen. Factor 8 activity elevated to 217%. Patient continues Eliquis. Will order antithromb in III activity today. Will follow-up factor 8 activity. Will follow with further recommenda tions [id number] Tapan Lorenzo MD [facility] Oncology and Hematolog y [address] [place] [address] 09/02/2022 11:04:52 09/02/2022 12:32:50 Cerebrovascular accident [id number] I63.9 Patient was hospitaliz ed for acute [...] 88.3. Normal MCH and MCHC. Platelet count 747133. Normal differenti al. Normal PT and INR. [...] ation leading into surgery. Anticoagulant therapy 18 3458112 Z79.01 Patient was started on Eliquis after a stroke June 2022. He will continue on Eliquis. Laboratory test result abnormal [id number] R89.9 Hypercoagu lable evaluation Performed on July [...] 01/31/2024 1 [place] [id number] Carrington Mckeon [id number] Carrington Mckeon Notes Date Note Type [...] 88.3. Normal MCH and MCHC. Platelet count 099276. Normal differential. Normal PT and INR. No [...] up with further recommendations. Denita Sanchez PA-C [address], [place], [address], [place] [facility] [place] & [place] 07/25/2022 14:54:41 08/28/2022 text/html 66-year-old [...] 88.3. Normal MCH and MCHC. Platelet count 035532. Normal differential. Normal PT and INR. No [...] follow with further recommendations Denita Sanchez PA-C [id number] [facility], [place], [address], [place] [facility] [place] & [place] 08/28/2022 13:43:14 09/02/2022 text/html 66-year-old [...] 88.3. Normal MCH and MCHC. Platelet count 378732. Normal differential. Normal PT and INR. No [...] vascular event. Will follow-up Tapan Lorenzo MD [address], [place], [address], [place] [facility] [place] 09/02/2022 12:29:31
--- OUTSIDE RECORDS SUMMARY | 2025-05-18 08:00 | XMS_ITS | Encounter Summary ---
[facility] Address [address] [place] [address] Care Team Providers Care Light Rail Train Operator Name Role Phone Lexa Gonzalez MD Primary Care Provider [phone]- [phone] Encounter Details Date Type Department Care Team (Latest Contact Info) Description 03/30/2025 Travel Social History Tobacco Use Types Packs/Day Years [...] Description 09/28/2025 11:15 AM EDT Office Visit [facility] [address] [place] [address] Pippa Wolf MD [address] [address] 09/28/2025 11:15 AM EDT Clinical Support No Requirements [facility] [address] [place] [address] documented as of this encounter Visit Diagnoses Not on filedocumented in this encounter Care Teams Light Rail Train Operator Relationship Specialty Start Date End Date Lexa Gonzalez MD [address] [place] [address] [place] [address] PCP - General Family Medicine 01/05/24 documented as of this encounter
--- OUTSIDE RECORDS SUMMARY | 2025-05-18 08:00 | XMS_ITS | Clinical Summary ---
Author Organization [facility] Address [address] [place] [address] Care Team Providers Care Electronic Design Engineer Name Role Phone Lexa Gonzalez MD Primary Care Provider [phone]- [phone] Allergies Active Allergy Reactions Criticality Noted Date [...] 1 capsule every day by oral route. 01/16/20 23 Active atorvastatin (LIPITOR) 40 MG tablet Take 1 tablet by mouth Daily. 90 tablet 3 05/12/20 24 Active Additional Information Patient taking differently: 20 mgOral Daily, Informant: Self, Reported on 03/30/2025 escitalopram (LEXAPRO) 5 MG tablet Take 1 tablet by mouth Daily. Active dilTIAZem XR (DILACOR XR) 180 MG 24 hr capsule TAKE 1 CAPSULE BY MOUTH ONCE DAILY 90 capsule 3 09/21/19 25 Active apixaban (Eliquis) 5 MG tablet tablet Take 1 tablet by mouth 2 (Two) Times a Day. 180 tablet 1 01/12/20 25 Active lisinopril-hyd rochlorothiazi de (PRINZIDE,ZEST ORETIC) 20-12.5 MG per tablet Take 1 tablet by mouth Daily. Active metoprolol tartrate (LOPRESSOR) 50 MG tabletIndicati ons:Hypertensi on, essential TAKE 1 TABLET BY MOUTH 2 TIMES A DAY. 180 tablet 3 05/16/20 25 Active metoprolol tartrate (LOPRESSOR) 50 MG tabletIndicati ons:Hypertensi on, essential Take 1 tablet by mouth 2 (Two) Times a Day. 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 LV (left ventricular) mural thrombus without [place] 09/25/2022 Assessment & Plan (12/17/2022 11:51 AM [...] Encounters Date Type Department Care Team Description 05/13/2025 Refill [facility] [address] [place] [address] Pippa Wolf MD Med Refill 03/30/2025 11:00 AM EDT Office Visit [facility] [address] [place] [address] Pippa Wolf MD Essential (primary) hypertension (Primary Dx); Obstructive sleep apnea; Status post placement of implantable loop recorder [Z95.818] 03/30/2025 Patient rounding ([facility]) [facility] [address] [place] [address] Pippa Wolf MD 03/30/2025 Travel from Last 3 Months Immunizations Immunization Administration Dates Next Due COVID-19 (Biom'Up) Purple Cap Monovalent 05/25/20,09/23/2020 Fluad Quad 65+ 05/08/2022 Fluzone (or Fluarix & Flulav al for VFC) >6mos 05/25/2021,05/01/2020 Hepatitis A 07/03/2004,12/01/2003 Hepatitis B Adult/Adolescent IM 07/03/2004,01/11,12/01/2003 Shingrix 06/26/2020 Td (TDVAX) 01/12/2004 Family History Medical History Relation Name Comments Pulmonary fibrosis Father Stroke Father Atrial fibrillation Mother Diabetes Mother Heart failure Mother Hypertension Mother Kidney failure Mother Heart attack Paternal Great-Grandfather Relation Name Status Comments Father Alive Mother Paternal Great-Grandfather (Age 51) Social History Tobacco [...] Pulse 85 03/30/2025 11:25 AM EDT Temperature 36.3 C (97.3 F) 03/18/2023 9:31 AM EDT Respiratory Rate - - Oxygen Saturation 97% 03/30/2025 11:25 AM EDT Inhaled Oxygen Concentration - - Weight 104 kg (230 lb) 03/30/2025 11:25 AM EDT Height 177.8 cm (5' 10 ) 03/30/2025 11:25 AM EDT Body Mass Index 33 03/30/2025 11:25 AM EDT Plan of Treatment Upcoming Encounters [...] AAA SCREEN ONCE 2021 ANNUAL PHYSICAL 08/20/2022 LIPID PANEL 05/30/2024 05/30/2023 INFLUENZA VACCINE 02/11/2025 04/30/2024, , 05/25/2021, Additional history exists COVID-19 Vaccine (4 - 2024-2 6 season) 2025 05/08/2022, 05/25/2021, 09/23/2020 HEPATITIS C SCREENING Completed 07/19/2022 Procedures Procedure Name Priority Date/Time Associated Diagnosis Comments REMOTE DEVICE CHECK 04/16/2025 2:36 AM EDT REMOTE DEVICE CHECK 04/09/2025 3:09 AM EDT ECG 12-LEAD Routine 03/30/2025 11:55 AM EDT Essential (primary) hypertension SCANNED - PULMONARY RESULTS 03/25/2025 REMOTE DEVICE CHECK 03/09/2025 5:01 PM EDT LIPID PANEL Routine 05/30/2023 Cerebrovascular accident (CVA) due to thrombosis of cerebral artery Hyperlipidemia LDL goal <70 from Last 3 Months or Most Recently Relevant to Health Maintenance Results * Remote Device Check (04/16/2025 2:36 AM EDT) Only the most recent of3 resultswithin the time period is included. Date Time Interrogation Session [id number] [facility] Type Interrogation Session Remote Device Initiated [facility] Implantable Pulse Generator Supervisor Post Wave [facility] Implantable Pulse Generator Type ILR [facility] Implantable Pulse Generator Model 4500 Jot Dx(TM) [facility] Implantable Pulse Generator Serial Number [id number] [facility] Implantable Pulse Generator Implant Date [id number] [facility] 04/16/2025 2:36 AM EDT us Pippa Wolf MD CV IMPLANTABLE CARDIAC DEVIC E Final Result [facility] * ECG 12-LEAD (03/30/2025 11:55 AM EDT) [...] doing well oncurrent therapy. DL is in [facility]. Hypertension Pt states he is here today [...] breath. [facility] . Records are in [employer] for review. No Swelling Relays that sometimes [...] time. -EKG updated, reviewed ER records from [facility] pap DL showed good compliance and control -HTN well control on current meds. Follow Up Return in about 6 months (around 09/27/2025) for Next scheduled followup. Denver Wolf MD Cardiology and Sleep [facility] 03/30/2025 Please note that this explicitly excludes time spent on other separatebillable services such as performing procedures or test interpretation,when applicable. This note was created using dictation software which occasionallytranscribes nonsensical phrases. Please contact the provider if anyclarification is needed. us Pippa Wolf MD ECG ORDERABLES Final Result * Pulmonary Results Scan (03/25/2025) us Pippa Wolf MD PFT ORDERABLES Final Result * Lipid Panel (05/30/2023) Blood us Pippa Wolf MD LAB BLOOD ORDERABLES Final R esult [facility]
[address] [place] [address], [place] [phone] from Last 3 Months or Most Recently Relevant to Health Maintenance Insurance [facility] PPO Care Teams Electronic Design Engineer Relationship Specialty Start Date End Date Lexa Gonzalez MD [address] [place] [address] PCP - General Family Medicine 01/05/24
--- OUTSIDE RECORDS SUMMARY | 2025-05-18 08:00 | XMS_ITS | Data Portability ---
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 Medical management with silodosin. Follow-up PSA trend. [email or web address] Not available 11/20/2023 10:44:58 05/12/2024 05/12/2024 Closely monitor PSA trend and lower urinary symptoms. Okay for change from silodosin to prazosin. Patient understands this may not control his lower urinary symptoms as good as silodosin but given need for hypertensive control it is warranted. [email or web address] Not available 05/15/2024 12:40:42 11/10/2024 11/10/2024 68-year-old male with malignant neoplasm of prostate presenting with elevated PSA. PSA stable with minor variations. No significant urinary symptoms reported. History and PSA trends suggest continued surveillance. MRI fusion biopsy discussed for evaluation and future comparison. [email or web address] Not available 11/14/2024 18:33:28 12/28/2024 12/28/2024 SURGERY [...] home with instructions for outpatient follow up. [email or web address] Not available 12/28/2024 19:14:11 01/11/2025 01/11/2025 - [...] Details Appointments RECHECK 2025 01:15P Ana Maria BOONE MD Not available Not available Not available Lab urinalysi s panel, auto 2024 025 [email or web address] 4 [facility], [address], [address], [place], [address], 01/11/2025 10:33:13 urinalysi s panel, auto 04/30/ 2025 04/30/2 025 [email or web address] 4 [facility], [facility] [address], [facility], [place], [address], 11/10/2024 14:21:17 urinalysi s panel, auto 2023 024 [email or web address] 4 [facility], [address], [facility], [place], [address], 05/12/2024 14:03:44 PSA, total, serum or plasma 2023 024 [facility], [address] [place] [address], [address], 05/12/2024 18:49:15 urinalysi s panel, auto 2023 024 [email or web address] 4 [facility], [address], [facility], [place], [address], 11/07/2023 16:23:50 PSA, total, serum or plasma 2023 024 [email or web address] [facility], [address] [place] [address], [address], 12/18/2023 10:03:37 Referral None recorded. Procedures None recorded. Surgeries None recorded. Imaging MRI, pelvis, w/wo contrast 2024 025 [facility], [facility] [address], [place], [address], 12/15/2024 11:25:01 Medication Orders None recorded. Patient TargetsNo targets recorded. Patient Instructions Encounter Date Encounter Id Patient Instructions Last Modified By Organization Details Last Modified Time 05/12/2024 [id number] learning about depression Not available 05/12/2024 14:03:44 11/10/2024 [id number] learning about healthy weight Not available 11/10/2024 14:21:17 - Drink adequate fluids and monitor urinary symptoms. - Report any changes in urination or general health. - Follow-up for MRI appointment as discussed. - Continue prescribed blood pressure medication and report any changes or symptoms of concern. - Contact the office with any questions or concerns about your health. [email or web address] Not available 11/10/2024 14:22:06 01/11/2025 [id number] - Continue regular PSA tests as scheduled. [...] auto Unknown Analyte Clean Catch Not Available [facility] With [address], [place], [address], 11/07/2023 12:30:50 11/07/19 24 11/07/2023 urina lysis panel , auto Unknown Analyte Yellow Not Available [facility] With [address], [place], [address], 11/07/2023 12:30:50 11/07/19 24 11/07/2023 urina lysis panel , auto Unknown Analyte Clear Not Available [facility] With [address], [place], [address], 11/07/2023 12:30:50 11/07/19 24 11/07/2023 urina lysis panel , auto Unknown Analyte 1.000 Not Available [facility] With [address], [place], [address], 11/07/2023 12:30:50 11/07/19 24 11/07/2023 urina lysis panel , auto Unknown Analyte 1.003- 1.035 Not Available [facility] [address], [place], [address], 11/07/2023 12:30:50 11/07/19 24 11/07/2023 urina lysis panel , auto Unknown Analyte 7.0 Not Available [facility] With [address], [place], [address], 11/07/2023 12:30:50 11/07/19 24 11/07/2023 urina lysis panel , auto Unknown Analyte 5.0-8. 0 Not Available [facility] With [address], [place], [address], 11/07/2023 12:30:50 11/07/19 24 11/07/2023 urina lysis panel , auto Unknown Analyte Negati ve Not Available [facility] With [address], [place], [address], 11/07/2023 12:30:50 11/07/19 24 11/07/2023 urina lysis panel , auto Unknown Analyte Negati ve Not Available [facility] With [address], [place], [address], 11/07/2023 12:30:50 11/07/19 24 11/07/2023 urina lysis panel , auto Unknown Analyte Negati ve Not Available [facility] With [place] [address], [place], [address], 11/07/2023 12:30:50 11/07/19 24 11/07/2023 urina lysis panel , auto Unknown Analyte Negati ve Not Available [facility] With [address], [place], [address], 11/07/2023 12:30:50 11/07/19 24 11/07/2023 urina lysis panel , auto Unknown Analyte Negati ve Not Available [facility] With [address], [place], [address], 11/07/2023 12:30:50 11/07/19 24 11/07/2023 urina lysis panel , auto Unknown Analyte Negati ve Not Available [facility] [place] [address], [place], [address], 11/07/2023 12:30:50 11/07/19 24 11/07/2023 urina lysis panel , auto Unknown Analyte Normal Not Available [facility] With [address], [place], [address], 11/07/2023 12:30:50 11/07/19 24 11/07/2023 urina lysis panel , auto Unknown Analyte Normal Not Available [facility] [place] [address], [place], [address], 11/07/2023 12:30:50 11/07/19 24 11/07/2023 urina lysis panel , auto Unknown Analyte Negati ve Not Available [facility] [place] [address], [place], [address], 11/07/2023 12:30:50 11/07/19 24 11/07/2023 urina lysis panel , auto Unknown Analyte Negati ve Not Available [facility] [place] [address], [place], [address], 11/07/2023 12:30:50 11/07/19 24 11/07/2023 urina lysis panel , auto Unknown Analyte Normal Not Available [facility] With [address], [place], [address], 11/07/2023 12:30:50 11/07/19 24 11/07/2023 urina lysis panel , auto Unknown Analyte Normal 1 mg/dl Not Available [facility] With [address], [place], [address], 11/07/2023 12:30:50 11/07/19 24 11/07/2023 urina lysis panel , auto Unknown Analyte Negati ve Not Available [facility] With [address], [place], [address], 11/07/2023 12:30:50 11/07/19 24 11/07/2023 urina lysis panel , auto Unknown Analyte Negati ve Not Available [facility] With [address] [facility], [place], [address], 11/07/2023 12:30:50 11/07/19 24 11/07/2023 urina lysis panel , auto Unknown Analyte Negati ve Not Available [facility] With [address] [facility], [place], [address], 11/07/2023 12:30:50 11/07/19 24 11/07/2023 urina lysis panel , auto Unknown Analyte Negati ve Not Available [facility] With [address], [place], [address], 11/07/2023 12:30:50 05/12/20 24 05/12/2024 PROST ATE [...] not be cat rabstaci . Not Available [facility] [address] [facility], [place], [address], 05/12/2024 18:49:15 05/12/20 24 05/12/2024 urina lysis panel , auto Unknown Analyte Clean Catch Not Available [facility] With [address] [facility], [place], [address], 05/12/2024 13:42:23 05/12/2005/12/2024 urina lysis panel , auto Unknown Analyte Yellow Not Available [facility] With [address] [facility], [place], [address], 05/12/2024 13:42:23 05/12/20 24 05/12/2024 urina lysis panel , auto Unknown Analyte Slight ly Hazy Not Available [facility] With [address] [facility], [place], [address], 05/12/2024 13:42:23 05/12/20 24 05/12/2024 urina lysis panel , auto Unknown Analyte 1.005 Not Available [facility] [address] [facility], [place], [address], 05/12/2024 13:42:23 05/12/20 24 05/12/2024 urina lysis panel , auto Unknown Analyte 1.003- 1.035 Not Available [facility] With [address], [place], [address], 05/12/2024 13:42:23 05/12/20 24 05/12/2024 urina lysis panel , auto Unknown Analyte 7.0 Not Available [facility] With [address], [place], [address], 05/12/2024 13:42:23 05/12/2005/12/2024 urina lysis panel , auto Unknown Analyte 5.0-8. 0 Not Available [facility] With [address], [place], [address], 05/12/2024 13:42:23 05/12/20 24 05/12/2024 urina lysis panel , auto Unknown Analyte Negati ve Not Available [facility] [place] [address] [address], [place], [address], 05/12/2024 13:42:23 05/12/20 24 05/12/2024 urina lysis panel , auto Unknown Analyte Negati ve Not Available [facility] [place] [address] [facility], [place], [address], 05/12/2024 13:42:23 05/12/20 24 05/12/2024 urina lysis panel , auto Unknown Analyte Negati ve Not Available [facility] [place] [address] [address], [place], [address], 05/12/2024 13:42:23 05/12/20 24 05/12/2024 urina lysis panel , auto Unknown Analyte Negati ve Not Available [facility] [place] [address] [address], [place], [address], 05/12/2024 13:42:23 05/12/20 24 05/12/2024 urina lysis panel , auto Unknown Analyte Negati ve Not Available [facility] [place] [address] [address], [place], [address], 05/12/2024 13:42:23 05/12/20 24 05/12/2024 urina lysis panel , auto Unknown Analyte Negati ve Not Available [facility] With [address], [place], [address], 05/12/2024 13:42:23 05/12/20 24 05/12/2024 urina lysis panel , auto Unknown Analyte Normal Not Available [facility] [place] [address] [address], [place], [address], 05/12/2024 13:42:23 05/12/2005/12/2024 urina lysis panel , auto Unknown Analyte Normal Not Available [facility] [place] [address] [address], [place], [address], 05/12/2024 13:42:23 05/12/2005/12/2024 urina lysis panel , auto Unknown Analyte Negati ve Not Available [facility] [place] [address] [address], [place], [address], 05/12/2024 13:42:23 05/12/20 24 05/12/2024 urina lysis panel , auto Unknown Analyte Negati ve Not Available [facility] [place] [address] [address], [place], [address], 05/12/2024 13:42:23 05/12/20 24 05/12/2024 urina lysis panel , auto Unknown Analyte Normal Not Available [facility] [place] [address] [address], [place], [address], 05/12/2024 13:42:23 05/12/20 24 05/12/2024 urina lysis panel , auto Unknown Analyte Normal 1 mg/dl Not Available [facility] [place] [address] [place], [address], 05/12/2024 13:42:23 05/12/20 24 05/12/2024 urina lysis panel , auto Unknown Analyte Negati ve Not Available [facility] With [address], [place], [address], 05/12/2024 13:42:23 05/12/20 24 05/12/2024 urina lysis panel , auto Unknown Analyte Negati ve Not Available [facility] With [address], [place], [address], 05/12/2024 13:42:23 05/12/20 24 05/12/2024 urina lysis panel , auto Unknown Analyte Negati ve Not Available [facility] [place] [address] [address], [place], [address], 05/12/2024 13:42:23 05/12/20 24 05/12/2024 urina lysis panel , auto Unknown Analyte Negati ve Not Available [facility] [place] [address] [address], [place], [address], 05/12/2024 13:42:23 11/11/19 25 11/10/2024 urina lysis panel , auto Unknown Analyte Clean Catch Not Available [facility] [place] [address] [address], [place], [address], 11/10/2024 13:58:11 11/11/19 25 11/10/2024 urina lysis panel , auto Unknown Analyte Yellow Not Available [facility] [place] [address] [address], [place], [address], 11/10/2024 13:58:11 11/11/19 25 11/10/2024 urina lysis panel , auto Unknown Analyte Clear Not Available [facility] With [address], [place], [address], 11/10/2024 13:58:11 11/11/19 25 11/10/2024 urina lysis panel , auto Unknown Analyte 1.000 Not Available [facility] [address], [place], [address], 11/10/2024 13:58:11 11/11/19 25 11/10/2024 urina lysis panel , auto Unknown Analyte 1.003 - 1.030 Not Available [facility] With [address], [place], [address], 11/10/2024 13:58:11 11/11/19 25 11/10/2024 urina lysis panel , auto Unknown Analyte 7.0 Not Available [facility] [address], [place], [address], 11/10/2024 13:58:11 11/11/19 25 11/10/2024 urina lysis panel , auto Unknown Analyte 5.0 - 8.0 Not Available [facility] With [address], [place], [address], 11/10/2024 13:58:11 11/11/19 25 11/10/2024 urina lysis panel , auto Unknown Analyte Negati ve Not Available [facility] [place] [address] [address], [place], [address], 11/10/2024 13:58:11 11/11/19 25 11/10/2024 urina lysis panel , auto Unknown Analyte Negati ve Not Available [facility] With [address], [place], [address], 11/10/2024 13:58:11 11/11/19 25 11/10/2024 urina lysis panel , auto Unknown Analyte Negati ve Not Available [facility] [place] [address], [place], [address], 11/10/2024 13:58:11 11/11/19 25 11/10/2024 urina lysis panel , auto Unknown Analyte Negati ve Not Available [facility] [place] [address] [address], [place], [address], 11/10/2024 13:58:11 11/11/19 25 11/10/2024 urina lysis panel , auto Unknown Analyte Negati ve Not Available [facility] [place] [address], [place], [address], 11/10/2024 13:58:11 11/11/19 25 11/10/2024 urina lysis panel , auto Unknown Analyte Negati ve Not Available [facility] [place] [address] [address], [place], [address], 11/10/2024 13:58:11 11/11/19 25 11/10/2024 urina lysis panel , auto Unknown Analyte Normal Not Available [facility] [place] [address] [address], [place], [address], 11/10/2024 13:58:11 11/11/19 25 11/10/2024 urina lysis panel , auto Unknown Analyte Normal Not Available [facility] [place] [address], [place], [address], 11/10/2024 13:58:11 11/11/19 25 11/10/2024 urina lysis panel , auto Unknown Analyte Negati ve Not Available [facility] [address], [place], [address], 11/10/2024 13:58:11 11/11/19 25 11/10/2024 urina lysis panel , auto Unknown Analyte Negati ve Not Available [facility] With [address], [place], [address], 11/10/2024 13:58:11 11/11/19 25 11/10/2024 urina lysis panel , auto Unknown Analyte Normal Not Available [facility] With [address], [place], [address], 11/10/2024 13:58:11 11/11/19 25 11/10/2024 urina lysis panel , auto Unknown Analyte Normal Not Available [facility] [place] [address] [address], [place], [address], 11/10/2024 13:58:11 11/11/19 25 11/10/2024 urina lysis panel , auto Unknown Analyte Negati ve Not Available [facility] With [address], [place], [address], 11/10/2024 13:58:11 11/11/19 25 11/10/2024 urina lysis panel , auto Unknown Analyte Negati ve Not Available [facility] With [address], [place], [address], 11/10/2024 13:58:11 11/11/19 25 11/10/2024 urina lysis panel , auto Unknown Analyte Negati ve Not Available [facility] With [address], [place], [address], 11/10/2024 13:58:11 11/11/19 25 11/10/2024 urina lysis panel , auto Unknown Analyte Negati ve Not Available [facility] With [address], [place], [address], 11/10/2024 13:58:11 12/29/19 25 12/28/2024 SURGI OWEN [...] date of verif ied. Recei steph [facility] with the patie nt's name and desig nated righ t base are two thin cores of martino-w bharat tissu e measu ring 1.4 and 1.8 cm in lengt h. Entir meir submi tted in one casse tte label ed D1. E) Patie nt name and date of verif ied. Recei steph in count [facility] ed with the patie nt's name and desig nated righ t mid are two thin cores of martino-w bharat tissu e measu ring 1.5 and 2.0 cm in lengt h. Entir meir submi tted in one casse tte label ed E1. F) Patie nt name and date of verif ied. Recei steph in count [facility] ed with the patie [...] in one casse tte label ed H1. HRIANNON 12/29 09:54 AM Micro scopi c Descr [...] 15:42 Page 1 of 1 Not Available [facility] [address] [place] [address], [address], 12/30/2024 15:43:02 01/12/20 25 01/11/2025 urina lysis panel , auto Unknown Analyte Clean Catch Not Available [facility] [address], [place], [address], 01/11/2025 10:08:51 01/12/20 25 01/11/2025 urina lysis panel , auto Unknown Analyte Yellow Not Available [facility] [address] [place] [address] [address], [place], [address], 01/11/2025 10:08:51 01/12/20 25 01/11/2025 urina lysis panel , auto Unknown Analyte Clear Not Available [facility] [address] [place] [address] [address], [place], [address], 01/11/2025 10:08:51 01/12/20 25 01/11/2025 urina lysis panel , auto Unknown Analyte 1.010 Not Available [facility] [address], [place], [address], 01/11/2025 10:08:51 01/12/20 25 01/11/2025 urina lysis panel , auto Unknown Analyte 1.003 - 1.030 Not Available [facility] [address], [place], [address], 01/11/2025 10:08:51 01/12/20 25 01/11/2025 urina lysis panel , auto Unknown Analyte 6.0 Not Available [facility] [address], [place], [address], 01/11/2025 10:08:51 01/12/20 25 01/11/2025 urina lysis panel , auto Unknown Analyte 5.0 - 8.0 Not Available [facility] [address], [place], [address], 01/11/2025 10:08:51 01/12/20 25 01/11/2025 urina lysis panel , auto Unknown Analyte Negati ve Not Available [facility] [address], [place], [address], 01/11/2025 10:08:51 01/12/20 25 01/11/2025 urina lysis panel , auto Unknown Analyte Negati ve Not Available [facility] [address], [place], [address], 01/11/2025 10:08:51 01/12/20 25 01/11/2025 urina lysis panel , auto Unknown Analyte Negati ve Not Available [facility] [address], [place], [address], 01/11/2025 10:08:51 01/12/20 25 01/11/2025 urina lysis panel , auto Unknown Analyte Negati ve Not Available [facility] [address], [place], [address], 01/11/2025 10:08:51 01/12/20 25 01/11/2025 urina lysis panel , auto Unknown Analyte Negati ve Not Available [facility] [address], [place], [address], 01/11/2025 10:08:51 01/12/20 25 01/11/2025 urina lysis panel , auto Unknown Analyte Negati ve Not Available [facility] [address], [place], [address], 01/11/2025 10:08:51 01/12/20 25 01/11/2025 urina lysis panel , auto Unknown Analyte Normal Not Available [facility] [address], [place], [address], 01/11/2025 10:08:51 01/12/20 25 01/11/2025 urina lysis panel , auto Unknown Analyte Normal Not Available [facility] [address], [place], [address], 01/11/2025 10:08:51 01/12/20 25 01/11/2025 urina lysis panel , auto Unknown Analyte Negati ve Not Available [facility] [facility] [address], [place], [address], 01/11/2025 10:08:51 01/12/20 25 01/11/2025 urina lysis panel , auto Unknown Analyte Negati ve Not Available [facility] [address], [place], [address], 01/11/2025 10:08:51 01/12/20 25 01/11/2025 urina lysis panel , auto Unknown Analyte Normal Not Available [facility] [address], [place], [address], 01/11/2025 10:08:51 01/12/20 25 01/11/2025 urina lysis panel , auto Unknown Analyte Normal Not Available [facility] [address], [place], [address], 01/11/2025 10:08:51 01/12/20 25 01/11/2025 urina lysis panel , auto Unknown Analyte Negati ve Not Available [facility] [address], [place], [address], 01/11/2025 10:08:51 01/12/20 25 01/11/2025 urina lysis panel , auto Unknown Analyte Negati ve Not Available [facility] [address], [place], [address], 01/11/2025 10:08:51 01/12/20 25 01/11/2025 urina lysis panel , auto Unknown Analyte 250 Javier/uL Not Available [facility] [address], [place], [address], 01/11/2025 10:08:51 01/12/20 25 01/11/2025 urina lysis panel , auto Unknown Analyte Negati ve Not Available [facility] [address], [place], [address], 01/11/2025 10:08:51 12/16/19 25 12/15/2024 MRI, pelvi s, w/wo contr ast [facility] [address] [place] [address] [phone] Patien t Name: EMELINA KWOK Patien t [...] (1 [place] [id number] [id number] ) IV. The patien t did [...] Rodriguez MD on 12/16/19 11:19 AM [email or web address] [facility] Radiology [address], [address], 12/22/2024 13:26:33 Result Notes Documentation Provider Name and Address Organization Details Recorded Time Mri, Pelvis, W/wo Contrast : [address] [address] Patient Name: NIGEL KWOK Patient : 1955 [...] Gadavist (1 x 10 mL bottle of [facility] [id number]) IV. The patient did not require sedation [...] level Interpreted By: Cam Rodriguez MD [facility] 12/22/2024 13:26:33 Problems Name Problem SNOMED Code Status Onset Date Resolution Date Notes Provider Name and Address Organization Details Recorded Time Adenocarcinoma of prostate 713956279 Active 2016 Isabel Rey [facility] 7 13:12:10 Problem Notes None recorded. Procedures Surgical History Date Name Laterality Status Provider Name and Address Organization Details Recorded Time 2 [facility] 03/22/2022 11:50:35 8 Prostate biopsy, any mthd completed Isabel Rey [facility] 12/04/2017 14:03:26 6 Prostate biopsy, any mthd completed Isabel Murguiat [facility] 07/18/2016 13:38:08 Xcapsl ctrc rmvl cplx wo ecp completed Deseriee [facility] 07/04/2016 18:18:55 [facility] 07/04/2016 18:19:12 Imaging Results None recorded. Procedure Notes None recorded. Medical Equipment None Reported. Allergies Allergen ID Allergen Name Allergen Category Reaction Reaction Severity Criticality Documentation Date Start Date Code Code System Note Provider Name and Address Organization Details Recorded Time 707500 Cipro medicatio n Not available Not available Not available 07/18/201694291 3 RxNorm Isabel Rey [facility] 7 [...] Updated DateTime 11/07/2023 177.8 cm 30.4 kg/m2 07666.58 g [facility] 11/07/2023 13:21:24 Date Recorded Body height Body mass index (BMI) Body weight Provider Name and Address Organization Details Last Updated DateTime 11/10/2024 177.8 cm 31.9 kg/m2 981458.51 g [facility] 11/10/2024 13:53:49 Date Recorded Body height Body mass index (BMI) Body weight Provider Name and Address Organization Details Last Updated DateTime 01/11/2025 177.8 cm 31.9 kg/m2 106046.51 g Petra Lopez [facility] 01/11/2025 10:02:38 Date Recorded Body height Body mass index (BMI) Body weight Provider Name and Address Organization Details Last Updated DateTime 05/12/2024 177.8 cm 30.8 kg/m2 99293.36 g Al Lawrence [facility] 05/12/2024 13:37:41 Social History Question Answer Notes LastModified by Organizat ion Details LastModified Time Tobacco Smoking Status Current Some Day Smoker [facility] 07/04/2016 18:18:35 How Much Tobacco Do You Chew? None Information not available 09/16/2019 Marital Status [email or web address] Informatio n not available 07/04/2016 What Was The Date Of Your Most Recent Tobacco Screening? 11/10/2024 Information not available 11/10/2024 How Much Tobacco Do You Smoke? No [email or web address] Information not available 01/18/2020 Has Tobacco Cessation [...] Disease N Other N Gout N Kidney Cyst N Kidney Stones N Enlarged Prostate Y Heart Arrhythmia N Emphysema N Head Trauma/Injury N Erectile Dysfunction N Sexually Transmitted Disease N Depression N Pneumonia N Incontinence N Prostate Problems Y Cancer Prostate Y Paralysis N Anxiety Disorder N Hemorrhoids N Obesity Y Arthritis N Infertility N Acid Reflux (GERD) Y Hematuria N Cancer Y Stroke N Neck Injury N Neurologic Disorder N Previous Radiation Therapy? N Kidney Disease N Heart Conditions N Kidney or Bladder Problems N Constipation N Urinary Problems N Brain Injury N Ulcers N Prostate Hypertrophy N Low Testosterone N Tuberculosis N Previous Chemotherapy? N AIDS/HIV N BPH Y Urinary Tract Infection N Asthma N Cardiac Disease N Thyroid Disorder N Hepatitis N PCOS N Colon Cancer N Hernia N Colon/Rectal Disorders N Ostomy N Glaucoma N Pacemaker N Anesthesia Complications N Genitourinary Disease N Radiation Therapy N Chronic Kidney Disease N Bladder or Kidney Problems N Back Injury N High Cholesterol N High PSA Y Nervous System Disorder N Liver Disease N Organ Transplant N Dialysis N Allergies/Hayfever N False Teeth N Chronic Obstructive Pulmonary Disease N Parkinson's Disease N Chemotherapy N Anemia Y Transplant N Back Pain N Chest Pain N Multiple Sclerosis N Proteinuria N Heart Attack (OK) N Mental Illness N Ovarian Cancer N Diabetes N Seizures/Epilepsy N Genitourinary problem(s) N Congestive Heart Failure (CHF) N Kidney Failure N Sleep Apnea Y Bronchitis N Heart Disease N Hypertension Y Past Encounters Encounter ID Performer Location Encounter Start Date Encounter Closed Date Diagnosis/Indication Diagnosis SNOMED-CT Code Diagnosis ICD10 Code Diagnosis IMO Codes Diagnosis Note [id number] RENITA BOONE MD [facility] [address] [place] [address],[facility] [place] [address] 07/04/2016 15:20:05 07/11/2016 12:17:51 Prostate specific antigen outside reference range 444960456 R97.20 N40.2 N40.3 We discussed the potential causes of elevated PSA being prostate cancer, prostatiti s from infection or inflammati on, benign prostatic hyperplasi a, etc. Given the concern for potential prostate cancer we discussed prostate biopsy including the risks, benefits, alternativ es. We discussed the procedure in detail. [id number] RENITA BOONE MD SURGERY SCHEDULE [address] [place] [address] 07/09/2016 14:42:47 07/09/2016 14:49:59 [id number] RENITA BOONE MD [facility] [address],[place] [address] 8 07/18/2016 13:13:36 08/06/2016 12:10:13 Malignant neoplasm of prostate 213226918 C61 [id number] RENITA BOONE MD [facility] [address],[place] [address] 8 10/10/2016 13:24:16 10/10/2016 15:02:56 Malignant neoplasm of prostate 861814519 C61 [id number] RENITA BOONE MD [facility] [address],[place] [address] 8 02/13/2017 13:05:15 02/28/2017 11:19:07 Adenocarcinoma of prostate 683315970 C61 [id number] RENITA BOONE MD [facility] [address],[place] [address] 8 09/04/2017 13:18:32 09/11/2017 09:19:18 Malignant neoplasm of prostate 564231205 C61 [id number] RENITA BOONE MD SURGERY SCHEDULE [address] [place] [address] 11/18/2017 13:52:22 11/18/2017 13:59:07 [id number] RENITA BOONE MD [facility] [address],[place] [address] 8 12/04/2017 13:39:23 12/15/2017 08:59:13 Malignant neoplasm of prostate 909186519 C61 [id number] RENITA BOONE MD [facility] [address],[place] [address] 8 02/12/2018 15:29:04 02/23/2018 07:53:19 Prostatitis 5582206 N41.9 [id number] RENITA BOONE MD [facility] [address],[place] [address] 8 02/26/2018 14:25:35 03/17/2018 08:31:47 Prostatitis 3110059 N41.9 Malignant neoplasm of prostate 300238664 C61 [id number] RENITA BOONE MD [facility] [address],[place] [address] 8 06/25/2018 13:38:21 07/08/2018 11:21:35 Malignant neoplasm of prostate 781005503 C61 [id number] RENITA BOONE MD [facility] [address],[place] [address] 8 10/08/2018 13:12:57 10/19/2018 10:01:20 Malignant neoplasm of prostate 961527936 C61 Prostatitis 6856666 N41. 9 [id number] RENITA BOONE MD [facility] [address],[place] [address] 8 12/24/2018 14:09:21 01/20/2019 09:02:20 Malignant neoplasm of prostate 444275747 C61 [id number] RENITA BOONE MD [facility] [address],[place] [address] 8 05/20/2019 14:26:58 05/24/2019 08:41:38 Malignant neoplasm of prostate 037455437 C61 [id number] RENITA BOONE MD [facility] [address],[place] [address] 8 09/16/2019 13:07:31 09/16/2019 13:59:18 Tobacco user 967210228 Z72.0 Malignant neoplasm of prostate 095665530 C61 [id number] RENITA BOONE MD [facility] [address] [place] [address] 12/21/2019 08:42:13 12/21/2019 09:13:05 Retention of urine 335298554 R33.9 Malignant neoplasm of prostate 630296506 C61 [id number] RENITA BOONE MD [facility] [address] [place] [address] 01/18/2020 11:20:08 01/18/2020 14:02:16 Malignant neoplasm of prostate 149773504 C61 [id number] RENITA BOONE MD SURGERY SCHEDULE [address] [place] [address] 02/15/2020 14:23:53 02/15/2020 14:24:17 [id number] RENITA BOONE MD [facility] [address] [place] [address] 03/28/2020 11:08:52 03/28/2020 12:55:42 Malignant neoplasm of prostate 461336397 C61 Benign pro static hyperplasia with outflow obstruction 216560308 N40.1 [id number] RENITA BOONE MD [facility] [address] [address] 08/10/2020 14:41:00 08/11/2020 15:13:31 Malignant neoplasm of prostate 399941801 C61 Nocturia 814327011 R35.1 [id number] RENITA BOONE MD [facility] [address] [address] 12/01/2020 10:23:28 12/01/2020 11:30:01 Malignant neoplasm of prostate 335431896 C61 Prostate s pecific antigen above reference range 560798911 R97.20 [id number] RENITA BOONE MD [place] [address] [place], [place] [address] 04/06/2021 11:17:59 04/06/2021 11:54:29 Malignant neoplasm of prostate 278333962 C61 Benign pro static hyperplasia with outflow obstruction 969961755 N40.1 [id number] MD MASOUD K[address] [place], [place] [address] 09/26/2021 13:32:49 10/03/2021 19:53:30 Malignant neoplasm of prostate 122555330 C61 Prostate s pecific antigen above reference range 333223360 R97.20 [id number] RENITA BOONE MD [address] [place] [address] [place], [place] [address] 03/22/2022 11:22:29 03/26/2022 14:25:48 Prostate specific antigen above reference range 666591979 R97.20 Malignant neoplasm of prostate 122476350 C61 Nocturia 777406960 R35.1 [id number] RENITA BOONE MD SURGERY SCHEDULE [address] [place] [address] 06/25/2022 13:31:08 06/25/2022 13:31:46 [id number] RENITA BOONE MD [facility] [address] [place] [address] 5 10/25/2022 11:20:49 10/28/2022 06:54:45 Malignant neoplasm of prostate 273883251 C61 Prostate s pecific antigen above reference range 138725177 R97.20 Nocturia 762332784 R35.1 [id number] RENITA BOONE MD SHAVONNE [address] [place] [address] 5 05/09/2023 10:20:23 05/11/2023 04:09:47 Malignant neoplasm of prostate 055561918 C61 Prostate s pecific antigen above reference range 024511413 R97.20 Nocturia 374291142 R35.1 [id number] RENITA BOONE MD [facility] [address] [place] [address] 5 11/07/2023 13:04:12 11/07/2023 15:04:48 Malignant neoplasm of prostate 911119984 C61 Prostate s pecific antigen above reference range 155678245 R97.20 Nocturia 236307617 R35.1 [id number] RENITA BOONE MD [facility] [address] [place] [address] 5 05/12/2024 13:03:23 05/12/2024 14:49:26 Malignant neoplasm of prostate 243075660 C61 Lower urin francisco tract symptoms 399147014 R39.9 [id number] RENITA BOONE MD [facility] [address] [place] [address] 5 11/10/2024 13:30:04 11/10/2024 14:29:02 Malignant neoplasm of prostate 382980080 C61 [id number] PSA stable; patient to undergo MRI. Discussed MRI fusion biopsy for improved precision and thorough baseline comparison . Prostate s pecific antigen above reference range 888965823 R97.20 [id number] Continue monitoring . Patient advised to report any symptom changes. Benign pro static hyperplasia with outflow obstruction 198655458 N40.1 N13.8 26687230 Monitor nocturia, ensure fluid intake. Report symptom changes. [id number] RENITA BOONE MD SURGERY SCHEDULE [address] [place] [address] 12/28/2024 13:38:22 12/28/2024 13:40:45 [id number] RENITA BOONE MD [facility] [address] [facility] [facility] [place] [address] 01/11/2025 09:56:55 01/11/2025 10:37:04 Malignant neoplasm of prostate 550077766 C61 [id number] - Continue active surveillan ce. - Monitor PSA levels regularly. - Consider treatment if progressio n detected. Prostate s pecific antigen above reference range 238824741 R97.20 [id number] Continue monitoring . Patient advised to report [...] ID Guarantor Name 01/17/2025 1 [employer] [id number] 8 Nigel Alfaro Linda [id number] Nigel Kwok Notes Date Note Type [...] effect. PSA:August 2023-5.8October 2022-6.03 RENITA BOONE MD [address] [place] [address], [phone], [facility] 11/20/2023 10:45:16 05/12/2024 text/html 68-year-old male in [...] water throughout the day. 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 Options for future evaluation include a potential MRI for baseline comparison and fusion biopsy capabilities. - Labs/Tests: - PSA (October 28, 2024): 6.45 ng/mL - Previous PSA (April 2024): 6.49 ng/mL, (August 2023): 5.8 ng/mL, (April 2023): 6.03 ng/mL RENITA BONOE MD [address] [place] [address], [phone], [facility] 11/14/2024 18:33:44 01/11/2025 text/html The patient is [...] 2023), 6.03 (April 2023) RENITA BOONE MD [address] [place] [address], [phone], [facility] 01/16/2025 14:09:15
--- OUTSIDE RECORDS SUMMARY | 2025-05-18 08:00 | XMS_ITS | Data Portability ---
Author Organization [employer] Address [address] [place] [address] Care Team Providers Care Folder Inspector Name Role Phone RENITA DUNN Urologist Assessment No assessment recorded. Plan of Treatment Reminders Order Date Submit Date Provider Last Modified By Organization Details Last Modified Time Details Appointments None recorded. Lab CMP, serum or plasma 2022 023 [facility], [address], [place], [address], 3 04:41:09 CBC w/ auto diff 2022 023 [facility], [address], [place], [address], 3 04:41:09 lipid panel, serum 2022 023 [facility], [address], [place], [address], 3 04:41:08 CBC w/ auto diff 2021 022 [facility], [address], [place], [address], 2 08:03:18 CMP, serum or plasma 2021 022 [facility], [address], [place], [address], 2 08:03:17 lipid panel, serum 2021 022 [facility], [address], [place], [address], 2 08:03:17 TSH, serum or plasma 2021 022 [facility], [address], [place], [address], 2 08:03:19 Referral None recorded. Procedures None recorded. Surgeries None recorded. Imaging None recorded. Medication Orders magnesium oxide 400 mg (241.3 mg magnesium) tablet 2022 023 [facility], [address] [place] [address], [address], 3 15:06:29 potassium chloride ER 10 mEq tablet,ext ended release 2022 023 [facility], [address] [place] [address], [address], 3 15:06:31 Patient TargetsNo targets recorded. Patient InstructionsNo instructions recorded. Reason for Referral None Reported. Results Created Date Observation Date Name Description Value Unit Range Abnormal Flag Note LastModifiedBy Organization Detail LastModifiedTime 07/04/2007/05/2022 LIPID PANEL , STAND SHO cholesterol, total 136 mg/dL <200 normal Not Available [facility] [place] [facility] [address], [place], [address], 07/05/2022 08:36:43 07/04/20 22 07/05/2022 LIPID PANEL , STAND SHO HDL cholesterol 61 mg/dL > or = 40 normal Not Available [facility] [place] [facility] [address], [place], [address], 07/05/2022 08:36:43 07/04/20 22 07/05/2022 LIPID PANEL , STAND SHO triglyceride s 47 mg/dL <150 normal Not Available [facility] [place] [facility] [address] [facility], [place], [address], 07/05/2022 08:36:43 07/04/20 22 07/05/2022 LIPID PANEL [...] 2061- 2068 (http ://ed ucati on.Qu estDi [employer]. com/f aq/FA Q164) Not Available [facility] [place] [facility] [address] [facility], [place], [address], 07/05/2022 08:36:43 07/04/20 22 07/05/2022 LIPID PANEL , STAND SHO chol/HDLC ratio 2.2 (calc ) <5.0 normal Not Available [facility] [place] [facility] [address] [facility], [place], [address], 07/05/2022 08:36:43 07/04/20 22 07/05/2022 LIPID PANEL , STAND SHO non HDL cholesterol 75 mg/dL _(owen c) <130 normal For patie nts with diabe prem plus 1 major ASCVD risk facto r, treat ing to a non-H DL-C goal of <100 mg/dL (LDL- C of <70 mg/dL ) is consi dered a thera peuti c optio n. Not Available [facility] [place] [facility] [address] [place], [address], 07/05/2022 08:36:43 07/04/20 22 07/05/2022 COMPR EHENS DREW METAB OLIC PANEL glucose 111 mg/dL 65-99 high Fasti ng refer ence inter ha For someo ne witho ut known diabe prem, a gluco se value betwe en 100 and 125 mg/dL is consi stent with predi abete s and shoul d be confi rmed with a follo w-up test. Not Available [facility] [place] [facility] [address] [place], [address], 07/05/2022 08:36:43 07/04/20 22 07/05/2022 COMPR EHENS DREW METAB OLIC PANEL urea nitrogen (BUN) 12 mg/dL 7-25 normal Not Available [facility] [place] [facility] [address] [place], [address], 07/05/2022 08:36:43 07/04/20 22 07/05/2022 COMPR EHENS DREW METAB OLIC PANEL creatinine 0.85 mg/dL 0.70-1 .35 normal Not Available [facility] [place] [facility] [address] [place], [address], 07/05/2022 08:36:43 07/04/20 22 07/05/2022 COMPR EHENS [...] culat or Not Available [facility] [place] [facility] [address] [place], [address], 07/05/2022 08:36:43 07/04/20 22 07/05/2022 COMPR EHENS DREW METAB OLIC PANEL BUN/creatini ne ratio NOT APPLIC ABLE (calc ) 6-22 Not Available [facility] [address] [place], [address], 07/05/2022 08:36:43 07/04/20 22 07/05/2022 COMPR EHENS DREW METAB OLIC PANEL sodium 139 mmol/ L 135-14 6 normal Not Available [facility] [address] [place], [address], 07/05/2022 08:36:43 07/04/20 22 07/05/2022 COMPR EHENS DREW METAB OLIC PANEL potassium 4.1 mmol/ L 3.5-5. 3 normal Not Available [facility] [address] [place], [address], 07/05/2022 08:36:43 07/04/20 22 07/05/2022 COMPR EHENS DREW METAB OLIC PANEL chloride 103 mmol/ L 98-110 normal Not Available [facility] [address] [place], [address], 07/05/2022 08:36:43 07/04/20 22 07/05/2022 COMPR EHENS DREW METAB OLIC PANEL carbon dioxide 30 mmol/ L 20-32 normal Not Available [facility] [address] [place], [address], 07/05/2022 08:36:43 07/04/20 22 07/05/2022 COMPR EHENS DREW METAB OLIC PANEL calcium 9.1 mg/dL 8.6-10 .3 normal Not Available [facility] [address] [place], [address], 07/05/2022 08:36:43 07/04/20 22 07/05/2022 COMPR EHENS DREW METAB OLIC PANEL protein, total 6.3 g/dL 6.1-8. 1 normal Not Available [facility] [address] [place], [address], 07/05/2022 08:36:43 07/04/20 22 07/05/2022 COMPR EHENS DREW METAB OLIC PANEL albumin 4.1 g/dL 3.6-5. 1 normal Not Available [facility] [address] [place], [address], 07/05/2022 08:36:43 07/04/20 22 07/05/2022 COMPR EHENS DREW METAB OLIC PANEL globulin 2.2 g/dL_ (calc ) 1.9-3. 7 normal Not Available [facility] [address] [place], [address], 07/05/2022 08:36:43 07/04/20 22 07/05/2022 COMPR EHENS DREW METAB OLIC PANEL albumin/glob ulin ratio 1.9 (calc ) 1.0-2. 5 normal Not Available [facility] [address] [place] [address], [address], 07/05/2022 08:36:43 07/04/20 22 07/05/2022 COMPR EHENS DREW METAB OLIC PANEL bilirubin, total 0.7 mg/dL 0.2-1. 2 normal Not Available [facility] [address] [place] [address], [address], 07/05/2022 08:36:43 07/04/20 22 07/05/2022 COMPR EHENS DREW METAB OLIC PANEL alkaline phosphatase 140 U/L 35-144 normal Not Available [facility] [address] [place], [address], 07/05/2022 08:36:43 07/04/20 22 07/05/2022 COMPR EHENS DREW METAB OLIC PANEL AST 19 U/L 10-35 normal Not Available [facility] [address] [place], [address], 07/05/2022 08:36:43 07/04/20 22 07/05/2022 COMPR EHENS DREW METAB OLIC PANEL ALT 16 U/L 9-46 normal Not Available [facility] [address] [place], [address], 07/05/2022 08:36:43 07/04/20 22 07/05/2022 CBC (INCL UDES DIFF/ PLT) white blood cell count 4.4 thous and/u L 3.8-10 .8 normal Not Available [facility] [address] [place], [address], 07/05/2022 08:03:18 07/04/20 22 07/05/2022 CBC (INCL UDES DIFF/ PLT) red blood cell count 4.78 britney on/uL 4.20-5 .80 normal Not Available [facility] [address] [place], [address], 07/05/2022 08:03:18 07/04/20 22 07/05/2022 CBC (INCL UDES DIFF/ PLT) hemoglobin 13.5 g/dL 13.2-1 7.1 normal Not Available [facility] [address] [place], [address], 07/05/2022 08:03:18 07/04/20 22 07/05/2022 CBC (INCL UDES DIFF/ PLT) hematocrit 40.9 % 38.5-5 0.0 normal Not Available [facility] [address] [place], [address], 07/05/2022 08:03:18 07/04/20 22 07/05/2022 CBC (INCL UDES DIFF/ PLT) MCV 85.6 fL 80.0-1 00.0 normal Not Available [facility] [address] [place], [address], 07/05/2022 08:03:18 07/04/20 22 07/05/2022 CBC (INCL UDES DIFF/ PLT) MCH 28.2 pg 27.0-3 3.0 normal Not Available [facility] [place] [facility] [address] [place], [address], 07/05/2022 08:03:18 07/04/20 22 07/05/2022 CBC (INCL UDES DIFF/ PLT) MCHC 33.0 g/dL 32.0-3 6.0 normal Not Available [facility] [place] [facility] [address] [place], [address], 07/05/2022 08:03:18 07/04/20 22 07/05/2022 CBC (INCL UDES DIFF/ PLT) RDW 14.2 % 11.0-1 5.0 normal Not Available [facility] [place] [facility] [address], [place], [address], 07/05/2022 08:03:18 07/04/20 22 07/05/2022 CBC (INCL UDES DIFF/ PLT) platelet count 238 thous and/u L 140-40 0 normal Not Available [facility] [address] [place], [address], 07/05/2022 08:03:18 07/04/20 22 07/05/2022 CBC (INCL UDES DIFF/ PLT) MPV 11.3 fL 7.5-12 .5 normal Not Available [facility] [place] [facility] [address], [place], [address], 07/05/2022 08:03:18 07/04/20 22 07/05/2022 CBC (INCL UDES DIFF/ PLT) absolute neutrophils 2702 cells /uL 1500-7 800 normal Not Available [facility] [place] [facility] [address], [place], [address], 07/05/2022 08:03:18 07/04/20 22 07/05/2022 CBC (INCL UDES DIFF/ PLT) absolute lymphocytes 1285 cells /uL 850-39 00 normal Not Available [facility] [place] [facility] [address], [place], [address], 07/05/2022 08:03:18 07/04/20 22 07/05/2022 CBC (INCL UDES DIFF/ PLT) absolute monocytes 312 cells /uL 200-95 0 normal Not Available [facility] [place] [facility] [address] [facility], [place], [address], 07/05/2022 08:03:18 07/04/20 22 07/05/2022 CBC (INCL UDES DIFF/ PLT) absolute eosinophils 79 cells /uL 15-500 normal Not Available [facility] [place] [facility] [address] [facility], [place], [address], 07/05/2022 08:03:18 07/04/20 22 07/05/2022 CBC (INCL UDES DIFF/ PLT) absolute basophils 22 cells /uL 0-200 normal Not Available [facility] [place] [facility] [address] [facility], [place], [address], 07/05/2022 08:03:18 07/04/20 22 07/05/2022 CBC (INCL UDES DIFF/ PLT) neutrophils 61.4 % normal Not Available [facility] [place] [facility] [address], [place], [address], 07/05/2022 08:03:18 07/04/20 22 07/05/2022 CBC (INCL UDES DIFF/ PLT) lymphocytes 29.2 % normal Not Available [facility] [place] [facility] [address] [facility], [place], [address], 07/05/2022 08:03:18 07/04/20 22 07/05/2022 CBC (INCL UDES DIFF/ PLT) monocytes 7.1 % normal Not Available [facility] [place] [facility] [address] [place], [address], 07/05/2022 08:03:18 07/04/20 22 07/05/2022 CBC (INCL UDES DIFF/ PLT) eosinophils 1.8 % normal Not Available [facility] [place] [facility] [address] [place], [address], 07/05/2022 08:03:18 07/04/20 22 07/05/2022 CBC (INCL UDES DIFF/ PLT) basophils 0.5 % normal Not Available [facility] [place] [facility] [address] [place], [address], 07/05/2022 08:03:18 07/04/20 22 07/07/2022 TSH TSH 2.01 mIU/L 0.40-4 .50 normal Not Available [facility] [place] [facility] [address] [place], [address], 07/07/2022 06:18:41 07/04/2007/07/2022 HEMOG LOBIN A1C hemoglobin [...] DA). Your reque st to have a GoYoDeoe copy faxed [place] to: [phone] A BlueSprigli jonathan repor t has been faxed to the follo wing: Faxed to: [phone] on: 07/05 14:40 Not Available [facility] [place] [facility] [address], [place], [address], 07/07/2022 06:18:42 11/23/1911/23/2022 LIPID PANEL , STAND SHO cholesterol, total 122 mg/dL <200 normal Not Available [facility] [place] [facility] [address], [place], [address], 11/23/2022 06:09:25 11/23/1911/23/2022 LIPID PANEL , STAND SHO HDL cholesterol 52 mg/dL > or = 40 normal Not Available [facility] [place] [facility] [address], [place], [address], 11/23/2022 06:09:25 11/23/1911/23/2022 LIPID PANEL , STAND SHO triglyceride s 83 mg/dL <150 normal Not Available [facility] [place] [facility] [address], [place], [address], 11/23/2022 06:09:25 11/23/1911/23/2022 LIPID PANEL , STAND [...] 2068 (http ://ed dylanati on.Qu [employer]uma [employer] [facility]. com/f aq/FA Q164) Not Available [facility] [place] [facility] [address] [facility], [place], [address], 11/23/2022 06:09:25 11/23/1911/23/2022 LIPID PANEL , STAND SHO chol/HDLC ratio 2.3 (calc ) <5.0 normal Not Available [facility] [place] [facility] [address] [facility], [place], [address], 11/23/2022 06:09:25 11/23/1911/23/2022 LIPID PANEL , STAND SHO non HDL cholesterol 70 mg/dL _(owen c) <130 normal For patie nts with diabe prem plus 1 major ASCVD risk facto r, treat ing to a non-H DL-C goal of <100 mg/dL (LDL- C of <70 mg/dL ) is consi dered a thera peuti c optio n. Not Available [facility] [place] [facility] [address] [facility], [place], [address], 11/23/2022 06:09:25 11/23/1911/23/2022 COMPR EHENS DREW METAB OLIC PANEL glucose 116 mg/dL 65-99 high Fasti ng refer ence inter ha For someo ne witho ut known diabe prem, a gluco se value betwe en 100 and 125 mg/dL is consi stent with predi abete s and shoul d be confi rmed with a follo w-up test. Not Available [facility] [place] [facility] [address] [facility] [facility], [place], [address], 11/23/2022 06:09:26 11/23/1911/23/2022 COMPR EHENS DREW METAB OLIC PANEL urea nitrogen (BUN) 9 mg/dL 7-25 normal Not Available [facility] [address] [place], [address], 11/23/2022 06:09:26 11/23/19 23 11/23/2022 COMPR EHENS DREW METAB OLIC PANEL creatinine 0.73 mg/dL 0.70-1 .35 normal Not Available [facility] [address] [place], [address], 11/23/2022 06:09:26 11/23/19 23 11/23/2022 COMPR EHENS [...] kdoqi /gfr% 5Fcal culat or Not Available [facility] [address] [place], [address], 11/23/2022 06:09:26 11/23/19 23 11/23/2022 COMPR EHENS DREW METAB OLIC PANEL BUN/creatini ne ratio NOT APPLIC ABLE (calc ) 6-22 Not Available [facility] [address] [place], [address], 11/23/2022 06:09:26 11/23/19 23 11/23/2022 COMPR EHENS DREW METAB OLIC PANEL sodium 141 mmol/ L 135-14 6 normal Not Available [facility] [address] [place], [address], 11/23/2022 06:09:26 11/23/19 23 11/23/2022 COMPR EHENS DREW METAB OLIC PANEL potassium 3.5 mmol/ L 3.5-5. 3 normal Not Available [facility] [address] [place], [address], 11/23/2022 06:09:26 11/23/19 23 11/23/2022 COMPR EHENS DREW METAB OLIC PANEL chloride 101 mmol/ L 98-110 normal Not Available [facility] [address] [place], [address], 11/23/2022 06:09:26 11/23/19 23 11/23/2022 COMPR EHENS DREW METAB OLIC PANEL carbon dioxide 32 mmol/ L 20-32 normal Not Available [facility] [address] [place], [address], 11/23/2022 06:09:26 11/23/19 23 11/23/2022 COMPR EHENS DREW METAB OLIC PANEL calcium 8.7 mg/dL 8.6-10 .3 normal Not Available [facility] [address] [place], [address], 11/23/2022 06:09:26 11/23/19 23 11/23/2022 COMPR EHENS DREW METAB OLIC PANEL protein, total 5.7 g/dL 6.1-8. 1 low Not Available [facility] [address] [place], [address], 11/23/2022 06:09:26 11/23/19 23 11/23/2022 COMPR EHENS DREW METAB OLIC PANEL albumin 3.5 g/dL 3.6-5. 1 low Not Available [facility] [address] [place], [address], 11/23/2022 06:09:26 11/23/19 23 11/23/2022 COMPR EHENS DREW METAB OLIC PANEL globulin 2.2 g/dL_ (calc ) 1.9-3. 7 normal Not Available [facility] [address] [place], [address], 11/23/2022 06:09:26 11/23/19 23 11/23/2022 COMPR EHENS DREW METAB OLIC PANEL albumin/glob ulin ratio 1.6 (calc ) 1.0-2. 5 normal Not Available [facility] [address] [place], [address], 11/23/2022 06:09:26 11/23/1911/23/2022 COMPR EHENS DREW METAB OLIC PANEL bilirubin, total 0.7 mg/dL 0.2-1. 2 normal Not Available [facility] [address] [place], [address], 11/23/2022 06:09:26 11/23/19 23 11/23/2022 COMPR EHENS DREW METAB OLIC PANEL alkaline phosphatase 93 U/L 35-144 normal Not Available [facility] [address] [place], [address], 11/23/2022 06:09:26 11/23/1911/23/2022 COMPR EHENS DREW METAB OLIC PANEL AST 54 U/L 10-35 high Not Available [facility] [address] [place], [address], 11/23/2022 06:09:26 11/23/19 23 11/23/2022 COMPR EHENS DREW METAB OLIC PANEL ALT 58 U/L 9-46 high Not Available [facility] [address] [place], [address], 11/23/2022 06:09:26 11/23/1911/23/2022 CBC (INCL UDES DIFF/ PLT) white blood cell count 6.1 thous and/u L 3.8-10 .8 normal Not Available [facility] [address] [place], [address], 11/23/2022 04:41:09 11/23/19 23 11/23/2022 CBC (INCL UDES DIFF/ PLT) red blood cell count 3.17 britney on/uL 4.20-5 .80 low Not Available [facility] [place] [facility] [address], [place], [address], 11/23/2022 04:41:09 11/23/19 23 11/23/2022 CBC (INCL UDES DIFF/ PLT) hemoglobin 9.2 g/dL 13.2-1 7.1 low Not Available [facility] [place] [facility] [address], [place], [address], 11/23/2022 04:41:09 11/23/1911/23/2022 CBC (INCL UDES DIFF/ PLT) hematocrit 28.8 % 38.5-5 0.0 low Not Available [facility] [place] [facility] [address], [place], [address], 11/23/2022 04:41:09 11/23/19 23 11/23/2022 CBC (INCL UDES DIFF/ PLT) MCV 90.9 fL 80.0-1 00.0 normal Not Available [facility] [place] [facility] [address], [place], [address], 11/23/2022 04:41:09 11/23/1911/23/2022 CBC (INCL UDES DIFF/ PLT) MCH 29.0 pg 27.0-3 3.0 normal Not Available [facility] [place] [facility] [address], [place], [address], 11/23/2022 04:41:09 11/23/1911/23/2022 CBC (INCL UDES DIFF/ PLT) MCHC 31.9 g/dL 32.0-3 6.0 low Not Available [facility] [place] [facility] [address] [facility], [place], [address], 11/23/2022 04:41:09 11/23/1911/23/2022 CBC (INCL UDES DIFF/ PLT) RDW 13.9 % 11.0-1 5.0 normal Not Available [facility] [place] [facility] [address], [place], [address], 11/23/2022 04:41:09 11/23/1911/23/2022 CBC (INCL UDES DIFF/ PLT) platelet count 233 thous and/u L 140-40 0 normal Not Available [facility] [place] [facility] [address], [place], [address], 11/23/2022 04:41:09 11/23/1911/23/2022 CBC (INCL UDES DIFF/ PLT) MPV 12.0 fL 7.5-12 .5 normal Not Available [facility] [place] [facility] [address], [place], [address], 11/23/2022 04:41:09 11/23/1911/23/2022 CBC (INCL UDES DIFF/ PLT) absolute neutrophils 4142 cells /uL 1500-7 800 normal Not Available [facility] [place] [facility] [address], [place], [address], 11/23/2022 04:41:09 11/23/1911/23/2022 CBC (INCL UDES DIFF/ PLT) absolute lymphocytes 1263 cells /uL 850-39 00 normal Not Available [facility] [place] [facility] [address], [place], [address], 11/23/2022 04:41:09 11/23/1911/23/2022 CBC (INCL UDES DIFF/ PLT) absolute monocytes 476 cells /uL 200-95 0 normal Not Available [facility] [place] [facility] [address], [place], [address], 11/23/2022 04:41:09 11/23/19 23 11/23/2022 CBC (INCL UDES DIFF/ PLT) absolute eosinophils 201 cells /uL 15-500 normal Not Available [facility] [place] [facility] [address], [place], [address], 11/23/2022 04:41:09 11/23/19 23 11/23/2022 CBC (INCL UDES DIFF/ PLT) absolute basophils 18 cells /uL 0-200 normal Not Available [facility] [place] [facility] [address], [place], [address], 11/23/2022 04:41:09 11/23/19 23 11/23/2022 CBC (INCL UDES DIFF/ PLT) neutrophils 67.9 % normal Not Available [facility] [place] [facility] [address], [place], [address], 11/23/2022 04:41:09 11/23/19 23 11/23/2022 CBC (INCL UDES DIFF/ PLT) lymphocytes 20.7 % normal Not Available [facility] [place] [facility] [address], [place], [address], 11/23/2022 04:41:09 11/23/1911/23/2022 CBC (INCL UDES DIFF/ PLT) monocytes 7.8 % normal Not Available [facility] [place] [facility] [address], [place], [address], 11/23/2022 04:41:09 11/23/19 23 11/23/2022 CBC (INCL UDES DIFF/ PLT) eosinophils 3.3 % normal Not Available [facility] [place] [facility] [address], [place], [address], 11/23/2022 04:41:09 11/23/19 23 11/23/2022 CBC (INCL UDES DIFF/ PLT) basophils 0.3 % normal Not Available [facility] [place] [facility] [address], [place], [address], 11/23/2022 04:41:09 01/03/2001/03/2023 CBC (INCL UDES DIFF/ PLT) white blood cell count 7.9 thous and/u L 3.8-10 .8 normal Not Available [facility] [place] [facility] [address], [place], [address], 01/03/2023 04:30:14 01/03/2001/03/2023 CBC (INCL UDES DIFF/ PLT) red blood cell count 3.56 britney on/uL 4.20-5 .80 low Not Available [facility] [place] [facility] [address], [place], [address], 01/03/2023 04:30:14 01/03/2001/03/2023 CBC (INCL UDES DIFF/ PLT) hemoglobin 9.2 g/dL 13.2-1 7.1 low Not Available [facility] [address], [place], [address], 01/03/2023 04:30:14 01/03/2001/03/2023 CBC (INCL UDES DIFF/ PLT) hematocrit 29.5 % 38.5-5 0.0 low Not Available [facility] [address], [place], [address], 01/03/2023 04:30:14 01/03/2001/03/2023 CBC (INCL UDES DIFF/ PLT) MCV 82.9 fL 80.0-1 00.0 normal Not Available [facility] [address], [place], [address], 01/03/2023 04:30:14 01/03/2001/03/2023 CBC (INCL UDES DIFF/ PLT) MCH 25.8 pg 27.0-3 3.0 low Not Available [facility] [address], [place], [address], 01/03/2023 04:30:14 01/03/2001/03/2023 CBC (INCL UDES DIFF/ PLT) MCHC 31.2 g/dL 32.0-3 6.0 low Not Available [facility] [address], [place], [address], 01/03/2023 04:30:14 01/03/2001/03/2023 CBC (INCL UDES DIFF/ PLT) RDW 14.1 % 11.0-1 5.0 normal Not Available [facility] [address], [place], [address], 01/03/2023 04:30:14 01/03/2001/03/2023 CBC (INCL UDES DIFF/ PLT) platelet count 257 thous and/u L 140-40 0 normal Not Available [facility] [place] [facility] [address], [place], [address], 01/03/2023 04:30:14 01/03/2001/03/2023 CBC (INCL UDES DIFF/ PLT) MPV 12.4 fL 7.5-12 .5 normal Not Available [facility] [place] [facility] [address], [place], [address], 01/03/2023 04:30:14 01/03/2001/03/2023 CBC (INCL UDES DIFF/ PLT) absolute neutrophils 5799 cells /uL 1500-7 800 normal Not Available [facility] [place] [facility] [address], [place], [address], 01/03/2023 04:30:14 01/03/2001/03/2023 CBC (INCL UDES DIFF/ PLT) absolute lymphocytes 1367 cells /uL 850-39 00 normal Not Available [facility] [address], [place], [address], 01/03/2023 04:30:14 01/03/2001/03/2023 CBC (INCL UDES DIFF/ PLT) absolute monocytes 561 cells /uL 200-95 0 normal Not Available [facility] [place] [facility] [address], [place], [address], 01/03/2023 04:30:14 01/03/2001/03/2023 CBC (INCL UDES DIFF/ PLT) absolute eosinophils 150 cells /uL 15-500 normal Not Available [facility] [place] [facility] [address], [place], [address], 01/03/2023 04:30:14 01/03/2001/03/2023 CBC (INCL UDES DIFF/ PLT) absolute basophils 24 cells /uL 0-200 normal Not Available [facility] [place] [facility] [address], [place], [address], 01/03/2023 04:30:14 01/03/20 23 01/03/2023 CBC (INCL UDES DIFF/ PLT) neutrophils 73.4 % normal Not Available [facility] [place] [facility] [address], [place], [address], 01/03/2023 04:30:14 01/03/20 23 01/03/2023 CBC (INCL UDES DIFF/ PLT) lymphocytes 17.3 % normal Not Available [facility] [place] [facility] [address], [place], [address], 01/03/2023 04:30:14 01/03/2001/03/2023 CBC (INCL UDES DIFF/ PLT) monocytes 7.1 % normal Not Available [facility] [place] [facility] [address], [place], [address], 01/03/2023 04:30:14 01/03/20 23 01/03/2023 CBC (INCL UDES DIFF/ PLT) eosinophils 1.9 % normal Not Available [facility] [place] [facility] [address], [place], [address], 01/03/2023 04:30:14 01/03/20 23 01/03/2023 CBC (INCL UDES DIFF/ PLT) basophils 0.3 % normal Not Available [facility] [place] [facility] [address] [facility], [place], [address], 01/03/2023 04:30:14 07/07/20 22 07/07/2022 CT, cervi owen spine , w/o contr ast No observ ation record ed. [address] (Radiology) [address] [place] [address] , [place], [address], 07/22/2022 12:59:02 07/07/20 22 07/07/2022 CT, head + brain , w/ contr ast No observ ation record ed. [address] (Radiology) [address] [place] [address] [place], [address], 07/22/2022 12:58:44 07/07/20 22 07/07/2022 CT, angio gram, neck, w/ contr ast No observ ation record ed. [address] (Radiology) [address] [place] [address] , [place], [address], 07/22/2022 12:58:18 07/08/20 22 07/07/2022 CT, angio gram, neck, w/ contr ast No observ ation record ed. [address] [facility]Radiology[facility] [place] [address], 07/22/2022 12:58:00 07/09/20 22 07/07/2022 CT, angio gram, head, w/ contr ast No observ ation record ed. [address] (Radiology) [address] [place] [address] [place], [address], 07/22/2022 12:57:47 07/10/20 22 07/10/2022 MRI, brain , w/o contr ast No observ ation record ed. [address] (Radiology) [address], [place], [address], 07/22/2022 12:38:14 01/12/20 23 01/11/2023 CT, abdom en + pelvi s, w/ contr ast No observ ation record ed. [address] (Radiology) [address] [place], [address], 02/14/2023 16:51:45 02/15/20 23 02/14/2023 XR, chest No observ ation record ed. [address] (Radiology) [address], [place], [address], 02/14/2023 16:51:45 02/15/20 23 02/14/2023 CT, chest , w/ contr ast No observ ation record ed. [address] (Radiology) [address], [place], [address], 02/14/2023 16:50:29 03/20/20 23 03/19/2023 CT, brain , w/o contr ast No observ ation record ed. [address] (Radiology) [address], [place], [address], 04/02/2023 15:10:24 03/20/20 23 03/19/2023 CT, brain , w/ contr ast No observ ation record ed. [address] (Radiology) [address] [place], [address], 04/02/2023 15:09:46 03/20/20 23 03/19/2023 CT, angio gram, neck, w/ contr ast No observ ation record ed. [address] (Radiology) [address], [place], [address], 04/02/2023 15:09:04 03/20/20 23 03/20/2023 CT, chest , w/ contr ast No observ ation record ed. [address] (Radiology) [address] , [place], [address], 04/02/2023 15:07:00 03/20/20 23 03/19/2023 XR, chest , 1 view No observ ation record ed. [address] (Radiology) [address], [place], [address], 04/02/2023 15:05:33 Result Notes None recorded. Problems Name Problem SNOMED Code Status Onset Date Resolution Date Notes Provider Name and Address Organization Details Recorded Time Hyperlipidemia 61829827 Active 2021 [employer] 08:43:48 Malignant neoplasm of prostate 171895227 Active 2021 [employer] 09:50:58 Problem Notes None recorded. Procedures Surgical History Date Name Laterality Status Provider Name and Address Organization Details Recorded Time 3 total replacement of hip completed Antonio [employer] 11/22/2022 08:07:23 total replacement of hip completed [employer] 07/04/2022 09:50:44 Vasectomy completed [employer] 07/22/2022 11:02:50 Cataract Surgery completed [employer] 07/22/2022 11:02:50 Joint Replacement completed [employer] 07/22/2022 11:02:50 Imaging Results None recorded. Procedure Notes None recorded. Medical Equipment None Reported. Allergies Allergen ID Allergen Name Allergen Category Reaction Reaction Severity Criticality Documentation Date Start Date Code Code System Note Provider Name and Address Organization Details Recorded Time 19057 Cipro medicatio n dyspnea Not available Not available 07/04/2022 3 RxNorm [employer] 2 09:46:40 Medications Name Sig Start [...] Updated DateTime 3 177.8 cm 30.7 kg/m2 30238.7 7 g 98.5 [degF] 85 /min 98 % 98 % 132/72 mm[Hg] Anabel Philip [employer] 3 14:00:12 Date Recorded Body height Body mass index (BMI) Body weight Heart rate Oxygen saturation Oxygen saturation in Arterial blood by Pulse oximetry Systolic And Diastolic Systolic And Diastolic Provider Name and Address Organization Details Last Updated DateTime 3 177.8 cm 31 kg/m2 60701.0 5 g 82 /min 97 % 97 % 152/72 mm[Hg] 138/69 mm[Hg] Antonio [address]. 3 08:09:01 Date Recorded Body height Body mass index (BMI) Body weight Provider Name and Address Organization Details Last Updated DateTime 02/28/2023 177.8 cm 31 kg/m2 59802.95 g Antonio Joy [employer]. 02/28/2023 14:05:47 Date Recorded Body weight Body mass index (BMI) Body height Body temperature Heart rate Oxygen saturation Oxygen saturation in Arterial blood by Pulse oximetry Systolic And Diastolic Provider Name and Address Organization Details Last Updated DateTime 2 916910. 51 g 31.9 kg/m2 177.8 cm 98.8 [degF] 98 /min 97 % 97 % 136/70 mm[Hg] [employer]ON TORST[employer] 09:52:46 Social History Question Answer Notes LastModified by Organizat ion Details LastModified Time Tobacco Smoking Status Former Smoker [employer]OON SARMIENTO [employer] 07/22/2022 11:02:49 Do You Have An Advance Directive? No Information not available 07/22/2022 Is Your Home Air Conditioned? Yes [email or web address] Information not available 07/04/2022 How Many Years Have You Consumed Alcohol? 35 qrylelps27 Information not available 07/22/2022 Do You Wear A Helmet When Biking? Yes [email or web address] Information not available 07/22/2022 Are You Blind Or Do You Have Difficulty Seeing? No iyumzqne10 Information not available 07/04/2022 What Is Your Level Of Caffeine Consumption? Moderate weowtpms87 Information not available 07/22/2022 In The 14 Days Before Symptom Onset, Have You Had Close Contact With A Laboratory-confir med COVID-19 While That Case Was Ill? No [email or web address] Information not available 07/22/2022 In The 14 Days Before Symptom Onset, Have You Had Close Contact With A Person Who Is Under Investigation For COVID-19 While That Person Was Ill? No [email or web address] Information not available 07/22/2022 Have You Been To An Area Known To Be High Risk For COVID-19? No [email or web address] Information not available 07/22/2022 Are You Deaf Or Do You Have Serious Difficulty Hearing? No qoiyulmz83 Information not available 07/04/2022 What Type Of Diet Are You Following? REGULAR vhpvbazh09 Information not available 07/22/2022 Who Is Your Employer? [employer] xscyrtfj79 Information not available 07/22/2022 How Many Days Of Moderate To Strenuous Exercise, Like A Brisk Walk, Did You Do In The Last 7 Days? 5 Information not available 07/22/2022 Have There Been Any Changes To Your Family Or Social Situation? No [email or web address] Information no t available 07/04/2022 When Did You Quit Smoking? 16+yearssincel astcigarette Information not available 07/22/2022 Are There Any Guns Present In Your Home? Yes iknctsoy50 Information not available 07/22/2022 Which Of Your Hands Is Dominant? Right qargjzly09 Information not available 07/22/2022 What Is Your Home Situation? Other mqjnzarx47 Information not available 07/22/2022 Do You Have A Medical Power Of Ice Cream Machine Operator? No Information not available 07/04/2022 What Was The Date Of Your Most Recent Tobacco Screening? 02/28/2023 [email or web address] Information not available 02/28/2023 Are There Any Occupational Health Risks Where You Work? No Information not available 07/22/2022 What Is Your Current Pack Years? 10packyears zvqtjuls93 Information not available 07/04/2022 Do You Have Any Pets? Yes ewmcxtxu54 Information not available 07/22/2022 Do You Use Protection During Sex? No cbmeqqky16 Information not available 07/22/2022 What Is Your Relationship Status? gxesospi00 Information not available 07/04/2022 Have You Repeated Any Grades? No cdgpwpah51 Information not available 07/22/2022 Do You Use Your Seat Belt Or Car Seat Routinely? Yes [email or web address] Information not available 07/04/2022 Are You Sexually Active? Yes rypigdxl30 Information not available 07/22/2022 Do You Have Any Siblings? No hqjzijls42 Information not available 07/22/2022 Do You Have Smoke And Carbon Monoxide Detectors In Your Home? Yes bcuxnbzo07 Information not available 07/04/2022 At What Age Did You Start Smoking Tobacco? 36 arbbawps08 Information not available 07/22/2022 Are You Passively Exposed To Smoke? No yddgahgn60 Information no t available 07/04/2022 Are There Any Smokers In Your House? No [email or web address] Information not available 07/04/2022 How Much Tobacco Do You Smoke? 1 PPW vkzbrryy51 Information not available 07/22/2022 What Types Of Sporting Activities Do You Participate In? Golf Scuba Diving Lifting Weights vzqrdnoc55 Information not available 07/22/2022 Do You Use Sunscreen Routinely? Yes jlxfehax61 Information not available 07/22/2022 How Many Years Have You Smoked Tobacco? 10 hflahnkz71 Information not available 07/22/2022 Have You Recently Traveled Abroad? No esfhbvra39 Information not available 07/22/2022 Do You Have Difficulty Walking Or Climbing Stairs? No eoxcwsib82 Information not available 07/04/2022 Are You Currently In School? No unufoiim51 Information not available 07/22/2022 Do You Have Any Dietary Restrictions? No xakqbtld02 Information not available 07/22/2022 How Many Days In The Past Year Have You Consumed 5 Or More Drinks? 15 sqcylhxy17 Information no t available 07/22/2022 Sex: Male Functional Status Question Answer Note LastModified by [employer] ion Details LastModified Time Do you use any illicit or recreational drugs? No [email or web address] Information not available 07/04/2022 What is your level of alcohol consumption? Moderate Information not available 07/04/2022 Are you currently employed? Yes biqxnyry47 Information not available 07/04/2022 Do you have transportation difficulties? No etdvwmjo78 Information not available 07/22/2022 Are you able to walk independently without assistance or assistive devices? YESWOREST frmzzafs17 Information not available 07/04/2022 Do you have difficulty doing errands alone? No jqtugxtu30 Information not available 07/04/2022 Are you able to care for yourself independently? Yes gcufmkld70 Information not available 07/04/2022 Do you have difficulty dressing, bathing, grooming, or toileting? No owygxesa92 Information not available 07/04/2022 What is your exercise level? Moderate umoykopq53 Information not available 07/22/2022 Mental Status Question Answer Note LastModified by [employer] ion Details LastModified Time Do you feel stressed (tense, restless, nervous, or anxious, or unable to sleep at night)? [id number] ubrjoizx45 Information not available 07/22/2022 Do you have difficulty concentrating, remembering or making decisions? No [email or web address] Information no t available 07/04/2022 Are you or have you been involved with bullying? Yes ollwqpwc91 Information not available 07/22/2022 Family History Relationship Description Onset Age of this Age Resolved Age Notes LastModified by Organization Details LastModified Time Father No current problems or disability [email or web address] Not available 03/2023 11:02:29 Mother No current problems or disability Not available 03/2023 11:02:29 Mother Hypertensive disorder [email or web address] Not available 07/22 11:02:29 Mother Arthritis Not availa ble 07/22/2022 11:02:29 Medical History Condition Response Vision or Eye Problems Y Acid Reflux (GERD) Y Cancer Y Hypertension Y Immunizations Vaccine Type Date Status Note Provider Nam e and Address Organization Details Recorded Time Influenza, split virus, quadrivalent, PF 05/25/2021 completed HAROON burks [facility]. 07/04/2022 09:48:30 COVID-19, mRNA, LNP-S, PF, 30 mcg/0.3 mL dose 05/25/2021 completed HAROON burks [facility]. 07/04/2022 09:48:30 Past Encounters Encounter ID Performer Location Encounter Start Date Encounter Closed Date Diagnosis/Indication Diagnosis SNOMED-CT Code Diagnosis ICD10 Code Diagnosis IMO Codes Diagnosis Note [id number] Clau Lombardo[address] 0 07/04/2022 09:38:44 07/04/2022 10:33:45 Hyperlipidemia 98361647 E78.5 Essential hypertension 91678597 I10 Benign pro static hyperplasia 600808768 N40.0 Fatigue 42275438 R53.83 Body mass index 30+ - obesity 550063275 Z68.31 [id number] [place] [address] 0 10/11/2022 13:49:14 10/11/2022 14:22:59 Pre-surgery evaluation 381950661 Z01.818 Hyperlipidemia 11494521 E78.5 Essential hypertension 96292126 I10 History of cerebrovascular accident without residual deficits 297337134 Z86.73 Body mass index 30+ - obesity 747517540 Z68.31 [id number] [address] [address] 11/22/2022 08:01:16 11/22/2022 09:35:35 Hyperlipidemia 43354365 E78.5 Essential hypertension 00924467 I10 History of total replacement of right hip joint 2545787763 89243 Z96.641 Body mass index 30+ - obesity 880453193 Z68.31 [id number] Clau Lombardo [address] [address] 02/28/2023 13:49:16 02/28/2023 16:03:36 Hypomagnesemia 625547878 E83.42 Hypokalemia 16830776 E87 .6 Body mass index 30+ - obesity 306319160 Z68.31 Health Concerns Section Related Observation LastModified by Organization Detai ls LastModified Time None Recorded Concern Status LastModified by Organization Details LastModified Time None Recorded Advance Directives Directive N: Payers Insurance Date Sequence Insurance Name Policy Number Policy Muniz Covered Member ID Muniz Member ID Guarantor Name 11/20/2022 1 [employer] - ANTHEM (INDEMNITY) Rodrigo Darbro [id number] 38 Rodrigo Darbro 02/28/2023 1 [place] [id number] Carrington G Darbro [id number] Rodrigo Darbro 11/20/2022 1 [employer] - ANTHEM (INDEMNITY) [id number] Rodrigo Darbro [id number] Rodrigo Darbro 11/20/2022 1 [place] Wallace Darbro [id number] Rodrigo Darhu [facility] Notes Date Note Type Note Provider Name [...] to dr romero. Clau Lombardo APRN [address] [place], [address], [employer]. 07/04/2022 10:26:43 10/11/2022 text/html Pre-OpReported b y Patient pt here today for a pre op sx clearance to RTHA. pt has had a LTHA and did well with that. pt had a stroke last year and his ortho doc is having him get a clearance from all of his docs. pt states that his industrial engineering technician is bridging his eliquis a few days before sx and then restarting the eliquis right after sx. assessment WNL today. per PCP, pt is cleared for RTHA. Clau Lombardo APRN [address] [place], [address], [employer]. 10/11/2022 15:00:14 11/22/2022 text/html pt here today [...] f/u labwork today. Clau Lombardo APRN [address] [place], [address], [employer]. 11/22/2022 09:40:19 02/28/2023 text/html pt here today [...] least 6 months. Clau Lombardo APRN [address] [facility], [place], [address], [facility] [employer] 02/28/2023 15:41:17
--- OUTSIDE RECORDS SUMMARY | 2025-05-18 08:00 | XMS_ITS | Clinical Summary ---
Author Organization [facility] Address [address] [place] [address] Care Team Providers Care Otorhinolaryngologist Name Role Phone Jojo Fink MD Unavailable [phone] Clau Lombardo APRN Primary Care Provider [phone] Allergies Active Allergy Reactions Criticality Noted Date [...] 2006 UKY-Zoster Vaccines (1 of 2) 2006 [id number] Vaccine (3 - season) 2025 05/25/2021, 09/23/2020 UKY-Influenza Vaccine (#1) 2025 05/25/2021 [...] Adults <6.0% Children and Adolescents <7.5% Source: [place] [employer]. Standards of medical care in diabetes,2017. Diabetes Care.2017:40 (suppl 1):S1-S135. HbA1c assay performed by an ion-exchange chromatography method that is certified traceable to the DCCT. us Jojo Fink MD LAB BLOOD ORDERABLES Final Re sult Performing Organization Address City/[facility]/ZIP Co de Phone Number HEALTHCARE [facility] [address] [place] [address] * Hepatitis C Antibody - ED (07/19/2022 1:06 PM EST) Hepatitis C Antibody Negative Negative 07/19/2022 3:47 PM EST [facility] Blood Venous blood specimen / Unknown Venipuncture / Unknown 07/19/2022 1:06 PM EST 07/19/2022 2:35 PM EST us Joseph Piedra MD LAB BLOOD ORDERABLES Final Resul t Performing Organization Address [facility] de Phone Number HEALTHCARE LAB [address] [place] [address] from Last 3 Months or Most Recently Relevant to Health Maintenance Insurance [facility]IC[facility] Care Teams Otorhinolaryngologist Relationship Specialty Start Date End Date Clau LombardoANA MARÍA [address] [place] [address] PCP - General 08/08/22 Jojo Fink MD [address] [facility] [address] [place] [id number] Consulting Physician Neurology 08/08/22
== END 2025-05-16 23:59 ==
LOC: LAB.DROPOF 05-18 07:57
PROVIDERS: PCP Family Medicine; Visit Provider Nurse Practitioner Family
DX: I10 Essential (primary) hypertension (principal); R73.09 Other abnormal glucose
CPT/HCPCS: 80053; 80061; 83036; 84443; 85025

== ENCOUNTER 2025-05-24 14:38 | Outpatient (CLI) | payer BC, SELFPAY ==
--- OUTSIDE RECORDS SUMMARY | 2025-03-30 10:00 | XMS_ITS | Encounter Summary ---
Author Organization [facility] Address [address] [place] [address] Care Team Providers Care Adobe Layer Name Role Phone Lexa Gonzalez MD Primary Care Provider [phone] Reason for Visit * Reason Comments Pacemaker Check Sleep Apnea Pt states he is here today for follow up NOAH. He is doing well on current therapy. DL is in Epic. Hypertension Pt states he is here today for follow up HTN. No chest pain, SOA, palpitations or dizziness. Encounter Details Date Type Department Care Team (Late st Contact Info) Description 03/30/2025 11:00 AM EDT Office Visit [facility] CARDI[facility]Y [address] [place] [address] Pippa Wolf MD [address] [place] [address] Essential (primary) hypertension (Primary Dx); Obstructive sleep apnea; Status post placement of implantable loop recorder [Z95.818] Social History Tobacco Use Types Packs/Day Years Used Date Smoking Tobacco: Former Cigarettes Q uit: 2002 Cigars Quit: 04/13/20 24 Passive Smoke Exposure: Past Smokeless Tobacco: Never Tobacco Cessation:Counseling Given: Yes Comments:10-12 cigars/year Alcohol Use Standard Drinks/Week Comments Yes 0 (1 standard drink = 0.6 oz pur e alcohol) 2 BEERS A DAY Sex and Gender Information Value Date Recorded Sex Assigned at Male 12/10/2022 8:52 AM EDT Legal Sex Male 1:22 PM EDT Gender Identity Male 12/10/2022 8:52 AM EDT Sexual Orientation Straight 12/10/2022 8: 52 AM EDT documented as of this encounter Last Filed Vital Signs Vital Sign Reading Time Taken Comments Blood Pressure 120/80 03/30/2025 11:25 AM EDT Pulse 85 03/30/2025 11:25 AM EDT Temperature - - Respiratory Rate - - Oxygen Saturation 97% 03/30/2025 11:25 AM EDT Inhaled Oxygen Concentration - - Weight 104 kg (230 lb) 03/30/2025 11:25 AM EDT Height 177.8 cm (5' 10 ) 03/30/2025 11:25 AM EDT Body Mass Index 33 03/30/2025 11:25 AM EDT documented in this encounter Progress Notes * Pippa Wolf MD - 03/30/2025 11:00 AM EDTAssociated Order(s): ECG 12 Lead Post-Procedure Diagnose(s): Essential (primary) hypertension Images from the original note were not included. Cardiovascular and Sleep Consulting Provider Note Date: 03/30/2025 Name: Carrington Mckeon : 1955 PCP: Lexa Gonzalez MD Chief Complaint Patient presents with Pacemaker Check Sleep Apnea Pt states he is here today for follow up NOAH. He is doing well on current therapy. DL is in [facility]. Hypertension Pt states he is here today for follow up HTN. No chest pain, SOA, palpitations or dizziness. Subjective History of Present Illness Carrington Mckeon is a 69 y.o. male who presents today for follow up Loop recorder check today C-Pap DL reviewed with pt. Good compliance and AHI 2.3. Feels pretty much rested and relays that has no issues with it. Was placed on an anti anxiety that seems like has made more tired and he attributes it to making him gain weight. Was placed on it to help with B/P and B/P has been doing well so wondering if should mess with it or not. It has chilled him out as well. No Chest pain or palpitations Was awakened from sleep at about 2 am one night and could not breath. Went to ER . Records are in [facility] for review. No Swelling Relays that sometimes when he gets up he feels as though he is going to pass out. States that will sit down for a while and get up slowly and the feeling has subsided. Walks every day. Does feel like sometimes he gets a little short winded while walking. He attributes this to weight gain. Reports that it is hard to lose weight and can not get it off. Not as active as he was. EKG updated today. 03/30/2025 Updated with no new issues or concerns Cardiac History 1. Multiple acute strokes - on eliquis 2. Possible LV thrombus on FAN, not seen on cardiac MRI-on Eliquis 3. NOAH 4. Loop recorder in place for atrial fibrillation surveillance 03/2023 5. No a fib seen on 2 year of loop recorder Allergies Allergen Reactions Amoxicillin Shortness Of Breath Ciprofloxacin Shortness Of Breath Ciprofibrate Unknown - Low Severity Current Outpatient Medications: apixaban (Eliquis) 5 MG tablet tablet, Take 1 tablet by mouth 2 (Two) Times a Day., Disp: 180 tablet, Rfl: 1 atorvastatin (LIPITOR) 40 MG tablet, Take 1 tablet by mouth Daily. (Patient taking differently: Take 0.5 tablets by mouth Daily.), Disp: 90 tablet, Rfl: 3 dilTIAZem XR (DILACOR XR) 180 MG 24 hr capsule, TAKE 1 CAPSULE BY MOUTH ONCE DAILY, Disp: 90 capsule, Rfl: 3 escitalopram (LEXAPRO) 5 MG tablet, Take 1 tablet by mouth Daily., Disp: , Rfl: lisinopril-hydrochlorothiazide (PRINZIDE,ZESTORETIC) 20-12.5 MG per tablet, Take 1 tablet by mouth Daily., Disp: , Rfl: metoprolol tartrate (LOPRESSOR) 50 MG tablet, Take 1 tablet by mouth 2 (Two) Times a Day., Disp: 60tablet, Rfl: 11 multivitamin with minerals tablet tablet, Take 1 tablet by mouth Daily., Disp: , Rfl: omeprazole OTC (PriLOSEC OTC) 20 MG EC tablet, Prilosec OTC 20 mg tablet,delayed release Take by oral route., Disp: , Rfl: silodosin (RAPAFLO) 8 MG capsule capsule, Take 1 capsule every day by oral route., Disp: , Rfl: Past Medical History: Diagnosis Date Allergies CIPRO Cataract Fuchs' corneal dystrophy 03/31/2014 GERD (gastroesophageal reflux disease) Hypercholesteremia Hypertension Hypertension Mitral regurgitation Mitral valve insufficiency Obstructive sleep apnea (adult) (pediatric) Occlusion and stenosis of bilateral carotid arteries Palpitations Prostate cancer WATCHFUL WAITING Sleep apnea treated with continuous positive airway pressure (CPAP) SOB (shortness of breath) Stroke 07/07/2022 times 3 Past Surgical History: Procedure Laterality Date TOTAL HIP ARTHROPLASTY Bilateral VASECTOMY Family History Problem Relation Age of Onset Diabetes Mother Hypertension Mother Heart failure Mother Atrial fibrillation Mother Kidney failure Mother Stroke Father 74 Pulmonary fibrosis Father Heart attack Paternal Great-Grandfather Social History Socioeconomic History Marital status: Tobacco Use Smoking status: Former Current packs/day: 0.00 Types: Cigarettes, Cigars Quit date: 04/13/2024 Years since quittin.9 Passive exposure: Past Smokeless tobacco: Never Tobacco comments: 10-12 cigars/year Vaping Use Vaping status: Former Substance and Sexual Activity Alcohol use: Yes Comment: 2 BEERS A DAY Drug use: Never Sexual activity: Defer Objective Vital Signs: BP 120/80 (BP Location: Right arm, Patient Position: Sitting, Cuff Size: Large Adult) Pulse 85 Ht 177.8 cm (70 ) Wt 104 kg (230 lb) SpO2 97% BMI 33.00 kg/m?? Estimated body mass index is 33 kg/m?? as calculated from the following: Height as of this encounter: 177.8 cm (70 ). Weight as of this encounter: 104 kg (230 lb). Physical Exam Constitutional: Appearance: Normal appearance. He is well-developed. HENT: Head: Normocephalic and atraumatic. Eyes: General: No scleral icterus. Pupils: Pupils are equal, round, and reactive to light. Cardiovascular: Rate and Rhythm: Normal rate and regular rhythm. Heart sounds: Normal heart sounds. No murmur heard. Pulmonary: Breath sounds: Normal breath sounds. No wheezing or rhonchi. Musculoskeletal: Right lower leg: No edema. Left lower leg: No edema. Skin: Capillary Refill: Capillary refill takes less than 2 seconds. Coloration: Skin is not cyanotic. Nails: There is no clubbing. Neurological: Mental Status: He is alert and oriented to person, place, and time. Motor: No weakness. Gait: Gait normal. Psychiatric: Mood and Affect: Mood normal. Behavior: Behavior is cooperative. Thought Content: Thought content normal. Cognition and Memory: Memory normal. ECG 12 Lead Date/Time: 03/30/2025 11:55 AM Performed by: Pippa Wolf MD Authorized by: Pippa Wolf MD Comparison: compared with previous ECG from 06/30/2024 Similar to previous ECG Rhythm: sinus rhythm Rate: normal Conduction: conduction normal ST Segments: ST segments normal T Waves: T waves normal QRS axis: normal Other: no other findings Clinical impression: normal ECG Assessment and Plan Diagnoses and all orders for this visit: 1. Essential (primary) hypertension (Primary) 2. Obstructive sleep apnea 3. Status post placement of implantable loop recorder [Z95.818] Other orders - ECG 12 Lead PLAN: -doing well on eliquis, no bleeding issues. -no a fib on loop recorder, battery near end of life, no need to replace, does not wish to take outat this time, can do electively at any time. -EKG updated, reviewed ER records from [facility] pap DL showed good compliance and control -HTN well control on current meds. Follow Up Return in about 6 months (around 09/27/2025) for Next scheduled follow up. Denver Wolf MD Cardiology and Sleep [facility] 03/30/2025 Please note that this explicitly excludes time spent on other separate billable services such as performing procedures or test interpretation, when applicable. This note was created using dictation software which occasionally transcribes nonsensical phrases. Please contact the provider if any clarification is needed. documented in this encounter Plan of Treatment Upcoming Encounters Date Type Department Care Team (Late st Contact Info) Description 09/28/2025 11:15 AM EDT Office Visit [facility] [address] [place] [address] Pippa Wolf MD [address] [place] [address] 09/28/2025 11:15 AM EDT Clinical Support No Requirements [facility] [address] [place] [address] documented as of this encounter Procedures Procedure Name Priority Date/Time Associated Diagnosis Comments ECG 12-LEAD Routine 03/30/2025 11:55 AM EDT Essential (primary) hypertension documented in this encounter Results * ECG 12-LEAD (03/30/2025 11:55 AM EDT) Narrative Susana Palacio RegSched Rep - 03/30/2025 11:55 AM EDT Pippa Wolf MD 03/30/2025 12:02 PM ECG 12 Lead Date/Time: 03/30/2025 11:55 AM Performed by: Pippa Wolf MD Authorized by: Pippa Wolf MD Comparison: compared with previous ECG from 06/30/2024 Similar to previous ECG Rhythm: sinus rhythm Rate: normal Conduction: conduction normal ST Segments: ST segments normal T Waves: T waves normal QRS axis: normal Other: no other findings Clinical impression: normal ECG Procedure Note Pippa Wolf MD - 03/30/2025 11:00 AM EDT Images from the original note were not included. Cardiovascular and Sleep Consulting Provider Note Date: 03/30/2025 Name: Carrington Mckeon : 1955 PCP: Lexa Gonzalez MD Chief Complaint Patient presents with Pacemaker Check Sleep Apnea Pt states he is here today for follow up NOAH. He is doing well oncurrent therapy. DL is in [facility]. Hypertension Pt states he is here today for follow up HTN. No chest pain, SOA,palpitations or dizziness. Subjective History of Present Illness Carrington Mckeon is a 69 y.o. male who presents today for follow up Loop recorder check today C-Pap DL reviewed with pt. Good compliance and AHI 2.3. Feels pretty muchrested and relays that has no issues with it. Was placed on an anti anxiety that seems like has made more tired and heattributes it to making him gain weight. Was placed on it to help with B/Pand B/P has been doing well so wondering if should mess with it or not. Ithas chilled him out as well. No Chest pain or palpitations Was awakened from sleep at about 2 am one night and could not breath. [facility] . Records [facility] in [facility] for review. No Swelling Relays that sometimes when he gets up he feels as though he is going topass out. States that will sit down for a while and get up slowly and thefeeling has subsided. Walks every day. Does feel like sometimes he gets a little short windedwhile walking. He attributes this to weight gain. Reports that it is hardto lose weight and can not get it off. Not as active as he was. EKG updated today. 03/30/2025 Updated with no new issues or concerns Cardiac History 1. Multiple acute strokes - on eliquis 2. Possible LV thrombus on FAN, not seen on cardiac MRI-on Eliquis 3. NOAH 4. Loop recorder in place for atrial fibrillation surveillance 03/2023 5. No a fib seen on 2 year of loop recorder Allergies Allergen Reactions Amoxicillin Shortness Of Breath Ciprofloxacin Shortness Of Breath Ciprofibrate Unknown - Low Severity Current Outpatient Medications: apixaban (Eliquis) 5 MG tablet tablet, Take 1 tablet by mouth 2 (Two)Times a Day., Disp: 180 tablet, Rfl: 1 atorvastatin (LIPITOR) 40 MG tablet, Take 1 tablet by mouth Daily.(Patient taking differently: Take 0.5 tablets by mouth Daily.), Disp: 90tablet, Rfl: 3 dilTIAZem XR (DILACOR XR) 180 MG 24 hr capsule, TAKE 1 CAPSULE BY MOUTHONCE DAILY, Disp: 90 capsule, Rfl: 3 escitalopram (LEXAPRO) 5 MG tablet, Take 1 tablet by mouth Daily., Disp:, Rfl: lisinopril-hydrochlorothiazide (PRINZIDE,ZESTORETIC) 20-12.5 MG pertablet, Take 1 tablet by mouth Daily., Disp: , Rfl: metoprolol tartrate (LOPRESSOR) 50 MG tablet, Take 1 tablet by mouth 2(Two) Times a Day., Disp: 60 tablet, Rfl: 11 multivitamin with minerals tablet tablet, Take 1 tablet by mouth Daily.,Disp: , Rfl: omeprazole OTC (PriLOSEC OTC) 20 MG EC tablet, Prilosec OTC 20 mgtablet,delayed release Take by oral route., Disp: , Rfl: silodosin (RAPAFLO) 8 MG capsule capsule, Take 1 capsule every day byoral route., Disp: , Rfl: Past Medical History: Diagnosis Date Allergies CIPRO Cataract Fuchs' corneal dystrophy 03/31/2014 GERD (gastroesophageal reflux disease) Hypercholesteremia Hypertension Hypertension Mitral regurgitation Mitral valve insufficiency Obstructive sleep apnea (adult) (pediatric) Occlusion and stenosis of bilateral carotid arteries Palpitations Prostate cancer WATCHFUL WAITING Sleep apnea treated with continuous positive airway pressure (CPAP) SOB (shortness of breath) Stroke 07/07/2022 times 3 Past Surgical History: Procedure Laterality Date TOTAL HIP ARTHROPLASTY Bilateral VASECTOMY Family History Problem Relation Age of Onset Diabetes Mother Hypertension Mother Heart failure Mother Atrial fibrillation Mother Kidney failure Mother Stroke Father 74 Pulmonary fibrosis Father Heart attack Paternal Great-Grandfather Social History Socioeconomic History Marital status: Tobacco Use Smoking status: Former Current packs/day: 0.00 Types: Cigarettes, Cigars Quit date: 04/13/2024 Years since quittin.9 Passive exposure: Past Smokeless tobacco: Never Tobacco comments: 10-12 cigars/year Vaping Use Vaping status: Former Substance and Sexual Activity Alcohol use: Yes Comment: 2 BEERS A DAY Drug use: Never Sexual activity: Defer Objective Vital Signs: BP 120/80 (BP Location: Right arm, Patient Position: Sitting, Cuff Size:Large Adult) Pulse 85 Ht 177.8 cm (70 ) Wt 104 kg (230 lb) SpO2 97% BMI 33.00 kg/m Estimated body mass index is 33 kg/m as calculated from the following: Height as of this encounter: 177.8 cm (70 ). Weight as of this encounter: 104 kg (230 lb). Physical Exam Constitutional: Appearance: Normal appearance. He is well-developed. HENT: Head: Normocephalic and atraumatic. Eyes: General: No scleral icterus. Pupils: Pupils are equal, round, and reactive to light. Cardiovascular: Rate and Rhythm: Normal rate and regular rhythm. Heart sounds: Normal heart sounds. No murmur heard. Pulmonary: Breath sounds: Normal breath sounds. No wheezing or rhonchi. Musculoskeletal: Right lower leg: No edema. Left lower leg: No edema. Skin: Capillary Refill: Capillary refill takes less than 2 seconds. Coloration: Skin is not cyanotic. Nails: There is no clubbing. Neurological: Mental Status: He is alert and oriented to person, place, and time. Motor: No weakness. Gait: Gait normal. Psychiatric: Mood and Affect: Mood normal. Behavior: Behavior is cooperative. Thought Content: Thought content normal. Cognition and Memory: Memory normal. ECG 12 Lead Date/Time: 03/30/2025 11:55 AM Performed by: Pippa Wolf MD Authorized by: Pippa Wolf MD Comparison: compared with previousECG from 06/30/2024 Similar to previous ECG Rhythm: sinus rhythm Rate: normal Conduction: conduction normal ST Segments: ST segments normal T Waves: T waves normal QRS axis: normal Other: no other findings Clinical impression: normal ECG Assessment and Plan Diagnoses and all orders for this visit: 1. Essential (primary) hypertension (Primary) 2. Obstructive sleep apnea 3. Status post placement of implantable loop recorder [Z95.818] Other orders - ECG 12 Lead PLAN: -doing well on eliquis, no bleeding issues. -no a fib on loop recorder, battery near end of life, no need to replace,does not wish to take out at this time, can do electively at any time. -EKG updated, reviewed ER records from [facility] pap DL showed good compliance and control -HTN well control on current meds. Follow Up Return in about 6 months (around 09/27/2025) for Next scheduled followup. Denver Wolf MD Cardiology and Sleep [facility] 03/30/2025 Please note that this explicitly excludes time spent on other separatebillable services such as performing procedures or test interpretation,when applicable. This note was created using dictation software which occasionallytranscribes nonsensical phrases. Please contact the provider if anyclarification is needed. Pippa Wolf MD ECG ORDERABLES Final Result documented in this encounter Visit Diagnoses Diagnosis Essential (primary) hypertension- Primary Unspecified essential hypertension Obstructive sleep apnea Obstructive sleep apnea (adult) (pediatric) Status post placement of implantable loop recorder [Z95.818] documented in this encounter Care Teams Adobe Layer Relationship Specialty Start Date End Date Lexa Gonzalez MD [address] [place] [address] PCP - General Family Medicine 01/05/24 documented as of this encounter
--- OUTSIDE RECORDS SUMMARY | 2025-05-24 14:43 | XMS_ITS | Encounter Summary ---
Author Organization [facility] Address [address] [place] [address] Care Team Providers Care Tractor Engine Mechanic Name Role Phone Lexa Gonzalez MD Primary Care Provider [phone] Encounter Details Date Type Department Care Team (Late st Contact Info) Description 03/30/2025 Patient rounding ([facility] only) [facility] [address] [place] [address] Pippa Wolf MD [address] [place] [address] Social History Tobacco Use Types Packs/Day [...] is [employer] and I am the Software Tester for [facility]. I would like to thank you for [...] your first visit to us as a [facility]? In the next few days, you [...] Visit [facility] [place] [place] [address] Pippa Wolf MD [address] [place] [address] 09/28/2025 11:15 AM EDT Clinical Support No Requirements [facility] [address] [place] [address] documented as of this encounter Visit Diagnoses Not on filedocumented in this encounter Care Teams Tractor Engine Mechanic Relationship Specialty Start Date End Date Lexa Gonzalez MD [address] [place] [address] [place] [address] PCP - General Family Medicine 01/05/24 documented as of this encounter
--- OUTSIDE RECORDS SUMMARY | 2025-05-24 14:43 | XMS_ITS | Encounter Summary ---
[facility] Organization [facility] Address [address] [place] [address] Care Team Providers Care Shelter Monitor Name Role Phone Lexa Gonzalez MD Primary Care Provider [phone] Reason for Visit * Reason Comments Med Refill Encounter Details Date Type Department Care Team (Late st Contact Info) Description 05/13/2025 Refill [facility]OLOG[facility] [address] [place] [address] Pippa [...] Description 09/28/2025 11:15 AM EDT Office Visit [facility] [address] [place] [address] Pippa Wolf MD [address] [place] [address] 09/28/2025 11:15 AM EDT Clinical Support No Requirements [facility] [address] [place] [address] documented as of this encounter Visit Diagnoses Diagnosis Hypertension, essential Unspecified essential hypertension documented in this encounter Care Teams Shelter Monitor Relationship Specialty Start Date End Date Lexa Gonzalez MD [address] [place] [address] PCP - General Family Medicine 01/05/24 documented as of this encounter
--- OUTSIDE RECORDS SUMMARY | 2025-05-24 14:44 | XMS_ITS | Encounter Summary ---
Author Organization Healthcare Address [address] [place] [address] Care Team Providers Care Rotary Engraver Name Role Phone Pcp, No Primary Care Provider Jojo Crawford MD Unavailable [phone] Clau Lombardo APRN Primary Care Provider [phone] Encounter Details Date Type Department Care Team (Late st Contact Info) Description 07/07/2022 Orders Only External Location [address] [place] [address] Kerline Uribe MD [address] [place] [id number] Social History Tobacco Use Types Packs/Day Years [...] on filedocumented in this encounter Care Teams Rotary Engraver Relationship Specialty Start Date End Date Pcp, No [address] [place] [address] PCP - General Family Medicine 07/26/22 08/07/22 Clau Lombardo APRN [address] [place] [address] PCP - General 08/08/22 Jojo Fink MD [address] [facility] [address] [place] [address] Consulting Physician Neurology 08/08/22 documented as of this encounter
--- OUTSIDE RECORDS SUMMARY | 2025-05-24 14:44 | XMS_ITS | Encounter Summary ---
Author Organization Healthcare Address [address] [place] [address] Care Team Providers Care Java Solutions Architect Name Role Phone Pcp, No Primary Care Provider Jojo Crawford MD Unavailable [phone] Clau Lombardo APRN Primary Care Provider [phone] Encounter Details Date Type Department Care Team ([facility] st Contact Info) Description 07/16/2022 Orders Only External Location [address] [place] [address] Provider, External Social History Tobacco Use Types [...] Month) No 07/19/2022 2:11 PM EST Tavares aMher RN 2. Non-Specific Active Suicidal Thoughts (Past [...] on filedocumented in this encounter Care Teams Java Solutions Architect Relationship Specialty Start Date End Date Pcp, No [address] [place] [address] PCP - General Family Medicine 07/26/22 08/07/22 Clau Lombardo APRN [address] [place] [address] PCP - General 08/08/22 Jojo Fink MD [address] [place] [address] Consulting Physician Neurology 08/08/22 documented as of this encounter
--- OUTSIDE RECORDS SUMMARY | 2025-05-24 14:44 | XMS_ITS | Encounter Summary ---
Author Organization Healthcare Address [address] [place] [address] Care Team Providers Care Practical Nursing Teacher Name Role Phone Pcp, No Primary Care Provider Jojo Crawford MD Unavailable [phone] Clau Lombardo APRN Primary Care Provider [phone] Encounter Details Date Type Department Care Team (Late st Contact Info) Description 07/08/2022 Orders Only External Location [address] [place] [address] Luis Méndez MD [address] [facility] [address] [place] [id number] Social History Tobacco Use Types Packs/Day Years [...] on filedocumented in this encounter Care Teams Practical Nursing Teacher Relationship Specialty Start Date End Date Pcp, No [address] [place] [address] PCP - General Family Medicine 07/26/22 08/07/22 Clau Lombardo APRN [address] [place] [address] PCP - General 08/08/22 Jojo Fink MD [address] [facility] [address] [place] [address] Consulting Physician Neurology 08/08/22 documented as of this encounter
--- OUTSIDE RECORDS SUMMARY | 2025-05-24 14:44 | XMS_ITS | Clinical Summary ---
Author Organization [facility] Address [address] [place] [address] Care Team Providers Care Deck Scaler Name Role Phone Lexa Gonzalez MD Primary Care Provider [phone] Allergies Active Allergy Reactions Criticality Noted Date [...] will also be in contact with his transmission engineer and neurologist. LV (left ventricular) mural thrombus without OH 09/25/2022 Assessment & Plan (12/17/2022 11:51 AM [...] [facility] [address] [place] [address] Pippa Wolf MD Med Refill 03/30/2025 11:00 AM EDT Office Visit [facility] [address] [place] [address] Pippa Wolf MD Essential (primary) hypertension (Primary Dx); Obstructive sleep apnea; Status post placement of implantable loop recorder [Z95.818] 03/30/2025 Patient rounding ([facility] only) [facility] [address] [address] Pippa Wolf MD 03/30/2025 Travel from Last 3 Months Immunizations Immunization Administration Dates Next Due COVID-19 (Moovit) Purple Cap Monovalent 05/25/20,09/23/2020 Fluad Quad 65+ [...] period is included. Date Time Interrogation Session [id number] [facility] Type Interrogation Session Remote Device Initiated [facility] Implantable Pulse Generator Undergraduate Advisor [facility] Implantable Pulse Generator Type ILR [facility] Implantable Pulse Generator Model 4500 Jot Dx(TM) [facility] Implantable Pulse Generator Serial Number [id number] [facility] Implantable Pulse Generator Implant Date [id number] [facility] 04/16/2025 2:36 AM EDT us Pippa Wolf MD CV IMPLANTABLE CARDIAC DEVIC E Final Result [facility] * ECG 12-LEAD (03/30/2025 11:55 [...] doing well oncurrent therapy. DL is in Fwd: Power. Hypertension Pt states he is here today [...] breath. [facility] . Records are in Search Initiatives for review. No Swelling Relays that sometimes [...] time. -EKG updated, reviewed ER records from [facility] pap DL showed good compliance and control -HTN well control on current meds. Follow Up Return in about 6 months (around 09/27/2025) for Next scheduled followup. Denver Wolf MD Cardiology and Sleep [facility] 03/30/2025 Please note that this explicitly excludes [...] MD LAB BLOOD ORDERABLES Final R esult [facility]
[address] [place] [address], [place] [phone] from Last 3 Months or Most Recently Relevant to Health Maintenance Insurance [facility] PPO Care Teams Deck Scaler Relationship Specialty Start Date End Date Lexa Gonzalez MD [address] [place] [address] PCP - General Family Medicine 01/05/24
--- OUTSIDE RECORDS SUMMARY | 2025-05-24 14:44 | XMS_ITS | Encounter Summary ---
Author Organization Healthcare Address [address] [place] [address] Care Team Providers Care Delinquent Notice Machine Operator Name Role Phone Pcp, No Primary Care Provider Jojo Crawford MD Unavailable [phone] Clau Lombardo APRN Primary Care Provider [phone] Encounter Details Date Type Department Care Team (Late st Contact Info) Description 07/07/2022 Orders Only External Location [address] [place] [address] Kerline Uribe MD [address] [place] [phone] Social History Tobacco Use Types Packs/Day Years [...] 9:48 AM EST) Anatomical Region Laterality Modality [place] [employer] [place] Tomogr aphy 07/07/2022 9:48 AM EST us Kerline Uribe MD IMG CT PROCEDURES Final Resul t documented in this encounter Visit Diagnoses Not on filedocumented in this encounter Care Teams Delinquent Notice Machine Operator Relationship Specialty Start Date End Date Pcp, No [address] [place] [address] PCP - General Family Medicine 07/26/22 08/07/22 Clau Lombardo APRN [address] [place] [address] PCP - General 08/08/22 Jojo Fink MD [address] [facility] [address] [place] [address] Consulting Physician Neurology 08/08/22 documented as of this encounter
--- OUTSIDE RECORDS SUMMARY | 2025-05-24 14:44 | XMS_ITS | Encounter Summary ---
Author Organization Healthcare Address [address] [place] [address] Care Team Providers Care Drill Runner Name Role Phone Pcp, No Primary Care Provider Jojo Crawford MD Unavailable [phone] Clau Lombardo APRN Primary Care Provider [phone] Encounter Details Date Type Department Care Team (Late st Contact Info) Description 07/10/2022 Orders Only External Location [address] [place] [address] Luis Méndez MD [address] [facility] [address] [place] [id number] Social History Tobacco Use Types Packs/Day Years [...] on filedocumented in this encounter Care Teams Drill Runner Relationship Specialty Start Date End Date Pcp, No [address] [place] [address] PCP - General Family Medicine 07/26/22 08/07/22 Clau Lombardo APRN [address] [place] [address] PCP - General 08/08/22 Jojo Fink MD [address] [facility] [address] [place] [address] Consulting Physician Neurology 08/08/22 documented as of this encounter
--- OUTSIDE RECORDS SUMMARY | 2025-05-24 14:44 | XMS_ITS | Encounter Summary ---
Author Organization Healthcare Address [address] [place] [address] Care Team Providers Care Getter Operator Name Role Phone Pcp, No Primary Care Provider Jojo Crawford MD Unavailable [phone] Clau Lombardo APRN Primary Care Provider [phone] Encounter Details Date Type Department Care Team (Late st Contact Info) Description 07/07/2022 Orders Only External Location [address] [place] [address] Kerline Uribe MD [address] [place] [address] [phone] Social History Tobacco Use Types Packs/Day Years [...] on filedocumented in this encounter Care Teams Getter Operator Relationship Specialty Start Date End Date Pcp, No [address] [place] [address] PCP - General Family Medicine 07/26/22 08/07/22 Clau Lombardo APRN [address] [place] [address] PCP - General 08/08/22 Jojo Fink MD [address] [facility] [address] [place] [address] Consulting Physician Neurology 08/08/22 documented as of this encounter
--- OUTSIDE RECORDS SUMMARY | 2025-05-24 14:44 | XMS_ITS | Encounter Summary ---
Author Organization Healthcare Address [address] [place] [address] Care Team Providers Care Therapist Name Role Phone Pcp, No Primary Care Provider Jojo Crawford MD Unavailable [phone] Clau Lombardo APRN Primary Care Provider [phone] Encounter Details Date Type Department Care Team (Late st Contact Info) Description 07/07/2022 Orders Only External Location [address] [place] [address] Kerline Uribe MD [address] [place] [address] [phone] Social History Tobacco Use Types Packs/Day Years [...] on filedocumented in this encounter Care Teams Therapist Relationship Specialty Start Date End Date Pcp, No [address] [place] [address] PCP - General Family Medicine 07/26/22 08/07/22 Clau Lombardo APRN [address] [place] [address] PCP - General 08/08/22 Jojo Fink MD [address] [facility] [address] [place] [address] Consulting Physician Neurology 08/08/22 documented as of this encounter
--- OUTSIDE RECORDS SUMMARY | 2025-05-24 14:44 | XMS_ITS | Clinical Summary ---
Author Organization [facility] Address [address] [place] [address] Care Team Providers Care Global Marketing Manager Name Role Phone Jojo Fink MD Unavailable [phone] Clau Lombardo APRN Primary Care Provider [phone] Allergies Active Allergy Reactions Criticality Noted Date [...] 2006 UKY-Zoster Vaccines (1 of 2) 2006 AFB-VXIYS-50 Vaccine (3 - season) 2025 05/25/2021, 09/23/2020 [...] Adults <6.0% Children and Adolescents <7.5% Source: [place] [employer]. Standards of medical care in diabetes,2017. Diabetes Care.2017:40 (suppl 1):S1-S135. HbA1c assay performed by an ion-exchange chromatography method that is certified traceable to the DCCT. us Jojo Fink MD LAB BLOOD ORDERABLES Final Re sult Performing Organization Address City/[facility]/ZIP Co de Phone Number [facility] [address] [place] [address] * Hepatitis C Antibody - ED (07/19/2022 1:06 PM EST) Hepatitis C Antibody Negative Negative 07/19/2022 3:47 PM EST [facility] Blood Venous blood specimen / Unknown Venipuncture / Unknown 07/19/2022 1:06 PM EST 07/19/2022 2:35 PM EST us Joseph Piedra MD LAB BLOOD ORDERABLES Final Resul t Performing Organization Address [facility] de Phone Number [facility]ALTH[facility]ARE [facility] [address] [place] [address] from Last 3 Months or Most Recently Relevant to Health Maintenance Insurance MEDICARE [facility] Care Teams Global Marketing Manager Relationship Specialty Start Date End Date Clau LombardoANA MARÍA [address] [place] [address] PCP - General 08/08/22 Jojo Fink MD [address] [facility] [address] [place] [address] Consulting Physician Neurology 08/08/22
--- OUTSIDE RECORDS SUMMARY | 2025-05-24 14:44 | XMS_ITS | Encounter Summary ---
Author Organization [facility] Address [address] [place] [address] Care Team Providers Care Elastic Attacher Overlock Name Role Phone Lexa Gonzalez MD Primary Care Provider [phone] Reason for Visit * Reason Onset Date Comments Follow-up 08/29/2022 Encounter Details Date Type Department Care Team (Late st Contact Info) Description 08/29/2022 Telephone [facility] [address] [place] [address] Pippa Wolf MD [address] [place] [address] Follow-up Social History Tobacco Use Types [...] HIS BLOOD PRESSURE. PLEASE CALL BACK AT [phone]. * Telephone Encounter - Bruna Gonzales MA [...] Description 09/28/2025 11:15 AM EDT Office Visit [facility] [address] [place] [address] Pippa Wolf MD [address] [facility] [place] [address] 09/28/2025 11:15 AM EDT Clinical Support No Requirements [facility] [address] [place] [address] [place] [address] documented as of this encounter Visit Diagnoses Not on filedocumented in this encounter Care Teams Elastic Attacher Overlock Relationship Specialty Start Date End Date Lexa Gonzalez MD [address] [place] [address] PCP - General Family Medicine 01/05/24 documented as of this encounter
--- OUTSIDE RECORDS SUMMARY | 2025-05-24 14:45 | XMS_ITS | Encounter Summary ---
Author Organization [facility] Address [address] [place] [address] Care Team Providers Care Qc Tech Name Role Phone Lexa Gonzalez MD Primary Care Provider [phone] Encounter Details Date Type Department Care Team [...] Description 09/28/2025 11:15 AM EDT Office Visit [facility] [address] [address] Pippa Wolf MD [address] [place] [address] 09/28/2025 11:15 AM EDT Clinical Support No Requirements [facility] [address] [address] documented as of this encounter Visit Diagnoses Not on filedocumented in this encounter Care Teams Qc Tech Relationship Specialty Start Date End Date Lexa Gonzalez MD [address] [place] [address] PCP - General Family Medicine 01/05/24 documented as of this encounter
[2025-05-24 15:04] LABS: Reticulocyte % (Auto) 1.4 % (0.9-3.2)
[2025-05-24 15:50] LABS: Iron 51 ug/dL (49-181)
[2025-05-24 16:01] LABS: Total Iron Binding Capacity 417 ug/dL (261-462)
[2025-05-24 16:29] LABS: Ferritin 8.12 ng/ml (17.9-464)
[2025-05-24 16:44] LABS: Vitamin B12 372 pg/mL (239-931)
[2025-05-24 16:59] LABS: Folate 7.64 ng/mL
[2025-05-24 17:11] LABS: Hepatitis C Ab Qual. W/ RFX NEGATIVE (Negative)
[2025-05-25 08:34] LABS: Hepatitis B Surface Antigen Negative (Negative)
== END 2025-05-24 23:59 | disposition home or self-care (01) ==
LOC: LAB 14:38
PROVIDERS: Nurse Practitioner Family; PCP Family Medicine; Visit Provider Internal Medicine Medical Oncology
DX: D64.9 Anemia, unspecified (principal); Z11.4 Encounter for screening for human immunodeficiency virus [HIV]; Z11.59 Encounter for screening for other viral diseases
CPT/HCPCS: 36415; 82607; 82728; 82746; 83010; 83540; 83550; 83615; 85044; 86803; 86880; 87340; 87389